=== PATIENT | male | born 1940 | race Caucasian/White ===

== ENCOUNTER 2016-11-12 06:22 | Day surgery (SDC) | payer MEDICARE ==
[2016-11-10 12:03] VITALS: BMI 33.3
[2016-11-12] MEDS ORDERED: SODIUM CHLORIDE 0.9% 1,000 ML IV SCH ×2 (06:29→08:00)
[2016-11-12] MEDS ORDERED: LACTATED RINGERS 1,000 ML IV SCH (06:29)
[2016-11-12 06:51] VITALS: TEMP 97.9
[2016-11-12 07:05] LABS: Glucose,Whole Blood 149 mg/dL (75-99)
[2016-11-12 07:14] LABS: INR 3.9 (<1.1); Prothrombin Time 38.3 sec (9.0-12.0)
[2016-11-12] MEDS ORDERED: SODIUM CHLORIDE 0.9% 500 ML IV ONE ×2 (07:20)
[2016-11-12] MEDS ORDERED: PROPOFOL 10 MG/ML 20 ML VIAL IV ONE (07:32)
[2016-11-12] MEDS ORDERED: LIDOCAINE 1% INJ 10MG/ML (20 ML MDV) ONE (07:32)
[2016-11-12 07:57] VITALS: RESP 16
[2016-11-12 08:02] VITALS: PULSE 50
--- NOTE | 2016-11-12 08:21 | ECHOT ---
DATE OF SERVICE: INDICATION: Chronic atrial fibrillation. PROCEDURE NOTE: After obtaining informed consent, transesophageal echocardiogram was performed in the left lateral position using an Omniplane probe. Local and IV sedation were obtained by the sas clinical programmer. The patient tolerated the procedure well without any obvious immediate complications. FINDINGS: 1. There is no intracardiac thrombus within the left atrium, right atrium, right ventricle or left ventricle. Left atrial appendage is not visualized. 2. Left ventricle appears enlarged shows diffuse global hypokinesis with severe LV dysfunction with an ejection fraction of 30% to 35%. 3. Mitral valve: There is history of mitral valve repair. There is moderate eccentric mitral regurgitation noted. 4. Tricuspid valve shows mild tricuspid regurgitation. 5. Aortic valve is free of stenosis and regurgitation. There is no evidence of [id number] shunt by color flow Doppler or [id number] shunt by agitated saline contrast study. 6. Mild to moderate atherosclerotic changes are noted. CONCLUSION: 1. Moderate to severe left ventricular systolic dysfunction. 2. Moderate eccentric jet of mitral regurgitation. 3. No evidence of intracardiac thrombus.
--- NOTE | 2016-11-12 08:24 | CE ---
DATE OF SERVICE: CARDIOVERSION After obtaining informed consent in a patient who is adequately anticoagulated with an INR of 3.9, we attempted electrical cardioversion with 300 joules of DC current. Patient was anesthetized by the kitchen helper. The patient transiently converted to sinus rhythm following a shock, but went back into what appears like a slow junctional rhythm that is regular. The patient is already on amiodarone. We have cardioverted him in the past and he also underwent Maze during surgery. Patient's symptomatology may not be related to atrial fibrillation and may be more related to the underlying cardiomyopathy and mitral regurgitation. Will continue to treat him on the current medical therapy.
[2016-11-12 10:07] VITALS: BP 140/70
== END 2016-11-12 09:45 | disposition home or self-care (01) ==
LOC: CATHCVL 06:22
PROVIDERS: ATTEND Internal Medicine Cardiovascular Disease
DX: I48.2 Chronic atrial fibrillation (principal); I08.1 Rheumatic disorders of both mitral and tricuspid valves; I25.10 Atherosclerotic heart disease of native coronary artery without angina pectoris; I44.7 Left bundle-branch block, unspecified; R94.31 Abnormal electrocardiogram [ECG] [EKG]; R06.02 Shortness of breath; I12.9 Hypertensive chronic kidney disease with stage 1 through stage 4 chronic kidney disease, or unspecified chronic kidney disease; N18.9 Chronic kidney disease, unspecified; E78.2 Mixed hyperlipidemia; E11.9 Type 2 diabetes mellitus without complications; K21.9 Gastro-esophageal reflux disease without esophagitis; M19.90 Unspecified osteoarthritis, unspecified site; Z95.1 Presence of aortocoronary bypass graft; Z79.01 Long term (current) use of anticoagulants; Z79.82 Long term (current) use of aspirin; Z79.4 Long term (current) use of insulin; Z79.899 Other long term (current) drug therapy; Z88.5 Allergy status to narcotic agent
CPT/HCPCS: 93312; 93320; 93005; 93325; 92960; 85610; J2001; J2704; 99152

== ENCOUNTER → 2017-03-11 | Outpatient (CLI) | payer MEDICARE | END | disposition home or self-care (01) | LOC: LABWHC1 11:40 | PROVIDERS: ATTEND Internal Medicine Cardiovascular Disease | DX: I48.2 Chronic atrial fibrillation (principal) | CPT/HCPCS: 36415; 84443; 84450; 84460 ==

== ENCOUNTER 2017-05-03 01:17 | Inpatient (IN) | payer MEDICARE ==
--- NOTE | 2017-05-03 01:55 | ED ---
General Adult HPI - General Chief complaint: Shortness of Breath Stated complaint: SOB Time Seen by Provider: 05/03/17 01:25 Source: patient, EMS, RN notes reviewed Mode of arrival: EMS Limitations: no limitations - History of Present Illness Initial comments: Patient is a pleasant 76-year-old male presenting to the emergency department as a transfer from [facility]. Patient was transferred for cardiology evaluation. Patient does have history of atrial fibrillation. Patient does admit to having exertional dyspnea over the past week. Symptoms are persistent with exertion as well as somewhat with lying flat. Patient does admit to having some mild leg edema which she has had previously. Patient has known heart valve problems. While at [facility] patient did have heart rate in the 30s and 40s. Hemoglobin was 7.6 and troponin was negative. Last hemoglobin was over a year ago. They were unable to do Hemoccult testing. Patient denies dark stools. - Related Data Home Medications Medication Instructions Recorded Confirmed Aspirin 81 mg PO DAILY 09/04/14 11/10/16 Ergocalciferol [Vitamin D2] 1.25 mg PO Q14D 11/10/16 11/12/16 Insulin Glargine [Lantus] 24 unit SQ HS 11/10/16 11/12/16 Potassium Chloride [K-Tab ER] 10 meq PO BID 11/10/16 11/10/16 Warfarin Sodium [Coumadin] 5 mg PO WESA 11/10/16 11/12/16 Warfarin Sodium [Coumadin] 7.5 mg PO SUMOTUTHFR 11/10/16 11/12/16 Previous Rx's Medication Instructions Recorded Atorvastatin [Lipitor] 40 mg PO DAILY #30 tab 04/20/16 Furosemide [Lasix] 40 mg PO DAILY #30 tab 04/20/16 Losartan [Cozaar] 25 mg PO DAILY #30 tab 04/20/16 Allergies Allergy/AdvReac Type Severity Reaction Status Date / Time codeine Allergy Rash/Hives Verified 11/10/16 11:39 Review of Systems ROS Statement: Those systems with pertinent positive or pertinent negative responses have been documented in the HPI. ROS Other: All systems not noted in ROS Statement are negative. Constitutional: Denies: fever Eyes: Denies: eye pain ENT: Denies: ear pain Respiratory: Reports: dyspnea. Denies: cough Cardiovascular: Denies: chest pain Endocrine: Denies: fatigue Gastrointestinal: Denies: abdominal pain Genitourinary: Denies: urgency Musculoskeletal: Denies: back pain Skin: Denies: rash Neurological: Denies: weakness Past Medical History Past Medical History: Atrial Fibrillation, Diabetes Mellitus, Hearing Disorder / Deafness, Hyperlipidemia, Hypertension, Osteoarthritis (OA), Vascular Disorder Additional Past Medical History / Comment(s): Hx Viral Myocarditis & Pericarditis 1979. Mitral regurgitation, varicose veins, History of Any Multi-Drug Resistant Organisms: None Reported Past Surgical History: Cardiac Valve Replacement, Heart Catheterization, Orthopedic Surgery Additional Past Surgical History / Comment(s): vein stripping of left leg, carpel tunnel right hand, YAS, cataract safia. eyes with implants, periocardiocentesis -1979, aortic valve repair-March Past Anesthesia/Blood Transfusion Reactions: No Reported Reaction Past Psychological History: No Psychological Hx Reported Smoking Status: Former smoker Past Alcohol Use History: None Reported Past Drug Use History: None Reported - Past Family History Mother Additional Family Medical History / Comment(s): @ age 98 with heart problems Father Additional Family Medical History / Comment(s): hx emphysema Sister(s) Family Medical History: Cancer General Exam Limitations: no limitations General appearance: alert, in no apparent distress Head exam: Present: atraumatic Eye exam: Present: normal appearance, PERRL ENT exam: Present: normal oropharynx Neck exam: Present: normal inspection Respiratory exam: Present: normal lung sounds bilaterally Cardiovascular Exam: Present: bradycardia, irregular rhythm GI/Abdominal exam: Present: soft. Absent: tenderness Rectal exam: Present: black stool Extremities exam: Present: pedal edema (+1 bilateral). Absent: calf tenderness Back exam: Present: normal inspection Neurological exam: Present: alert Psychiatric exam: Present: normal affect, normal mood Skin exam: Present: normal color Course Vital Signs 05/03/17 01:20 Temperature 97.6 F Pulse Rate 54 L Respiratory 20 Rate Blood Pressure 168/76 O2 Sat by Pulse 97 Oximetry EKG Findings - EKG Comments: EKG Findings:: A. fib with slow ventricular response, 54. QRS 144. QT 450. QTC 434. Left axis. Nonspecific intraventricular block. Nonspecific T waves. Medical Decision Making - Medical Decision Making Patient has hemoglobin of 7.5 with Hemoccult-positive and symptomatic. Patient will be transfused 1 unit of blood. Case discussed with Dr. Nerusu, who will admit for hospital call. Patient was updated. Cardiology reconsult of bradycardia and cardiac history. - Lab Data Result diagrams: 05/03/17 02:00 05/03/17 02:00 Lab Results 05/03/17 05/03/17 05/03/17 Range/Units 02:00 02:00 02:00 WBC 5.9 (3.8-10.6) k/uL RBC 2.79 L (4.30-5.90) m/uL Hgb 7.5 L (13.0-17.5) gm/dL Hct 24.9 L (39.0-53.0) % MCV 89.2 (80.0-100.0) fL MCH 27.1 (25.0-35.0) pg MCHC 30.4 L (31.0-37.0) g/dL RDW 17.5 H (11.5-15.5) % Plt Count 227 (150-450) k/uL Neutrophils % 71 % Lymphocytes % 18 % Monocytes % 4 % Eosinophils % 3 % Basophils % 1 % Neutrophils # 4.2 (1.3-7.7) k/uL Lymphocytes # 1.1 (1.0-4.8) k/uL Monocytes # 0.3 (0-1.0) k/uL Eosinophils # 0.2 (0-0.7) k/uL Basophils # 0.1 (0-0.2) k/uL Hypochromasia Marked Poikilocytosis Moderate Anisocytosis Slight PT (9.0-12.0) sec INR (<1.2) APTT (22.0-30.0) sec Sodium 139 (137-145) mmol/L Potassium 3.9 (3.5-5.1) mmol/L Chloride 106 (98-107) mmol/L Carbon Dioxide 22 (22-30) mmol/L Anion Gap 11 mmol/L BUN 40 H (9-20) mg/dL Creatinine 1.70 H (0.66-1.25) mg/dL Est GFR (MDRD) Af Amer 48 (>60 ml/min/1.73 sqM) Est GFR (MDRD) Non-Af 40 (>60 ml/min/1.73 sqM) Glucose 108 H (74-99) mg/dL Calcium 9.1 (8.4-10.2) mg/dL Total Bilirubin 0.5 (0.2-1.3) mg/dL AST 36 (17-59) U/L ALT 46 (21-72) U/L Alkaline Phosphatase 75 (38-126) U/L Total Creatine Kinase 70 (55-170) U/L CK-MB (CK-2) 1.2 (0.0-2.4) ng/mL CK-MB (CK-2) Rel Index 1.7 Troponin I 0.027 (0.000-0.034) ng/mL NT-Pro-B Natriuret Pep pg/mL Total Protein 6.4 (6.3-8.2) g/dL Albumin 3.5 (3.5-5.0) g/dL Stool Occult Blood (Negative) 05/03/17 05/03/17 05/03/17 Range/Units 02:00 02:00 02:00 WBC (3.8-10.6) k/uL RBC (4.30-5.90) m/uL Hgb (13.0-17.5) gm/dL Hct (39.0-53.0) % MCV (80.0-100.0) fL MCH (25.0-35.0) pg MCHC (31.0-37.0) g/dL RDW (11.5-15.5) % Plt Count (150-450) k/uL Neutrophils % % Lymphocytes % % Monocytes % % Eosinophils % % Basophils % % Neutrophils # (1.3-7.7) k/uL Lymphocytes # (1.0-4.8) k/uL Monocytes # (0-1.0) k/uL Eosinophils # (0-0.7) k/uL Basophils # (0-0.2) k/uL Hypochromasia Poikilocytosis Anisocytosis PT 32.3 H (9.0-12.0) sec INR 3.3 H (<1.2) APTT 26.6 (22.0-30.0) sec Sodium (137-145) mmol/L Potassium (3.5-5.1) mmol/L Chloride (98-107) mmol/L Carbon Dioxide (22-30) mmol/L Anion Gap mmol/L BUN (9-20) mg/dL Creatinine (0.66-1.25) mg/dL Est GFR (MDRD) Af Amer (>60 ml/min/1.73 sqM) Est GFR (MDRD) Non-Af (>60 ml/min/1.73 sqM) Glucose (74-99) mg/dL Calcium (8.4-10.2) mg/dL Total Bilirubin (0.2-1.3) mg/dL AST (17-59) U/L ALT (21-72) U/L Alkaline Phosphatase (38-126) U/L Total Creatine Kinase (55-170) U/L CK-MB (CK-2) (0.0-2.4) ng/mL CK-MB (CK-2) Rel Index Troponin I (0.000-0.034) ng/mL NT-Pro-B Natriuret Pep 1300 pg/mL Total Protein (6.3-8.2) g/dL Albumin (3.5-5.0) g/dL Stool Occult Blood Positive (Negative) - Radiology Data Radiology results: image reviewed Critical Care Time Critical Care Time: Yes Total Critical Care Time: 32 Disposition Clinical Impression: Dyspnea, Bradycardia, GI hemorrhage Disposition: ADMITTED IP TO THIS [facility] Decision Time: 02:26
[2017-05-03 02:14] LABS: Anisocytosis Slight; Basophils # (A) 0.1 k/uL (0-0.2); Basophils % (A) 1 %; CH 27.8; CHCM 31.3; Eosinophils # (A) 0.2 k/uL (0-0.7); Eosinophils % (A) 3 %; HCT 24.9 % (39.0-53.0); HDW 4.18; HGB 7.5 gm/dL (13.0-17.5); Hypochromasia Marked; Luc # (Auto) 0.17; Luc % (Auto) 3; Lymphocytes # (A) 1.1 k/uL (1.0-4.8); Lymphocytes % (A) 18 %; MCH 27.1 pg (25.0-35.0); MCHC 30.4 g/dL (31.0-37.0); MCV 89.2 fL (80.0-100.0); Mean Platelet Volume 8.2; Monocytes # (A) 0.3 k/uL (0-1.0); Monocytes % (A) 4 %; Neutrophils # (A) 4.2 k/uL (1.3-7.7); Neutrophils % (A) 71 %; Poikilocytosis Moderate; RBC 2.79 m/uL (4.30-5.90); RDW 17.5 % (11.5-15.5); WBC 5.9 k/uL (3.8-10.6); WBC (Perox) 5.98
[2017-05-03 02:24] LABS: Calcium 9.1 mg/dL (8.4-10.2); Total Bilirubin 0.5 mg/dL (0.2-1.3); Total Protein 6.4 g/dL (6.3-8.2)
[2017-05-03 02:26] LABS: INR 3.3 (<1.2); Partial Thromboplastin Time 26.6 sec (22.0-30.0); Potassium 3.9 mmol/L (3.5-5.1); Prothrombin Time 32.3 sec (9.0-12.0)
[2017-05-03] MEDS ORDERED: NALOXONE 0.4 MG/ML 1 ML VIAL IV PRN (02:26)
[2017-05-03 02:50] LABS: Creatine Kinase MB 1.2 ng/mL (0.0-2.4); Troponin I 0.027 ng/mL (0.000-0.034)
--- NOTE | 2017-05-03 03:15 | XR ---
EXAM: XR Chest, 2 Views CLINICAL HISTORY: Reason: difficulty breathing TECHNIQUE: Frontal and lateral views of the chest. COMPARISON: 05/02/2017 FINDINGS: Lungs: Bilateral perihilar infiltrates are noted, more conspicuous on this study than the prior, likely representing mild CHF. Pleural space: Trace bilateral pleural effusions are likely present, similar to prior study. No pneumothorax. Heart: The heart is again noted to be enlarged. Sternal wires with long cardiac Lugo is again redemonstrated Mediastinum: Unchanged.. Bones/joints: See above. Osseous structures are intact. IMPRESSION: Cardiomegaly with evidence of worsening mild CHF. Probable trace bilateral pleural effusions, similar to prior study.
[2017-05-03] MEDS: SODIUM CHLORIDE 0.9% 1,000 ML IV SCH (03:24)
[2017-05-03 07:55] LABS: Anisocytosis Slight; Basophils % (A) 1 %; CH 27.4; CHCM 30.7; Eosinophils # (A) 0.2 k/uL (0-0.7); Eosinophils % (A) 3 %; HCT 26.7 % (39.0-53.0); HDW 4.13; HGB 8.2 gm/dL (13.0-17.5); Hypochromasia Marked; Luc # (Auto) 0.14; Luc % (Auto) 2; Lymphocytes # (A) 0.7 k/uL (1.0-4.8); Lymphocytes % (A) 12 %; MCH 27.6 pg (25.0-35.0); MCHC 30.7 g/dL (31.0-37.0); MCV 89.9 fL (80.0-100.0); Monocytes # (A) 0.3 k/uL (0-1.0); Monocytes % (A) 4 %; Neutrophils # (A) 4.7 k/uL (1.3-7.7); Neutrophils % (A) 78 %; Poikilocytosis Moderate; RBC 2.97 m/uL (4.30-5.90); RDW 17.7 % (11.5-15.5); WBC 6.1 k/uL (3.8-10.6); WBC (Perox) 6.69
[2017-05-03] MEDS: PANTOPRAZOLE 40 MG/10 ML VIAL IV SCH (08:07)
[2017-05-03 08:25] LABS: Creatine Kinase MB 1.1 ng/mL (0.0-2.4); Troponin I 0.032 ng/mL (0.000-0.034)
[2017-05-03] MEDS: ATORVASTATIN 40 MG TAB PO SCH (09:48)
--- NOTE | 2017-05-03 11:21 | P.CONS ---
History of Present Illness - Reason for Consult Consult date: 05/03/17 GI bleed Requesting physician: Billy Rudolph - History of Present Illness 76-year-old gentleman transferred from [facility] with a history of atrial fibrillation maintained on warfarin aspirin, cardiomyopathy, severe mitral regurgitation status post mitral valve repair, maze procedure March 2016, and diabetes presents with shortness of breath, black colored bowel movements, weakness, bradycardia and low hemoglobin. Admission hemoglobin 7.5 previous hemoglobin March 2016 14-15 range. MCV 89. Platelet 227. Hemoccult stool positive. INR 3.3. BUN 40. Creatinine 1.7. Heart rate 48-58. Denies abdominal pain weight loss fever or chills. Denies hematemesis hematochezia. Patient was vacationing a few weeks ago and noticed dark-colored bowel movements after eating black licorice. No history of GI bleed. Last colonoscopy to his memory 3 years ago was normal he is scheduled for repeat colonoscopy at the end at this month at another facility. Received 1 unit of blood current hemoglobin 8.2. Review of Systems Constitutional: Denies fever, chills, sweats, weight gain, or loss. HEENT: Negative for migraines, blurred vision or loss, earaches, drainage, tinnitus, oral mucosal lesions, dysphagia, or odynophagia. Cardiac: Atrial fibrillation. Cardiomyopathy. Mitral regurgitation. Negative for chest pain, arrhythmias, or palpitation. Respiratory: Negative for shortness of breath, hemoptysis, cough, or sputum production. Gastrointestinal: See HPI for pertinent findings. Genitourinary: Negative for hematuria, urgency, frequency, polyuria, dysuria, or penile discharge. Musculoskeletal: Negative for muscle aches, swelling, arthritis, and arthralgias. Neurologic: Negative for stroke or TIA. Endocrine: Diabetes. Negative for thyroid problems. Skin: Negative for rash or itching. Psychiatric: Negative history for depression and anxiety All systems: negative (See HPI) Past Medical History Past Medical History: Atrial Fibrillation, Heart Failure, COPD, Diabetes Mellitus, Hearing Disorder / Deafness, Hyperlipidemia, Hypertension, Osteoarthritis (OA), Vascular Disorder Additional Past Medical History / Comment(s): Viral Myocarditis & Pericarditis 1979, IDDM type II, neuropathy bilateral feet, R thigh varicose veins, venous insufficiency, [place] bilaterally. History of Any Multi-Drug Resistant Organisms: None Reported Past Surgical History: Cardiac Valve Replacement, Heart Catheterization, Orthopedic Surgery Additional Past Surgical History / Comment(s): vein stripping of left leg, carpel tunnel right hand, YAS, cataract safia. eyes with implants, periocardiocentesis -1979, aortic valve repair-March, colonoscopy. Past Anesthesia/Blood Transfusion Reactions: No Reported Reaction Additional Past Anesthesia/Blood Transfusion Reaction / Comm: Pt received blood this admit without reaction. Smoking Status: Former smoker - Past Family History Mother Additional Family Medical History / Comment(s): Mother at the age of 98yrs from heart problems. Father Family Medical History: COPD Additional Family Medical History / Comment(s): hx emphysema Sister(s) Family Medical History: Cancer Medications and Allergies Home Medications Medication Instructions Recorded Confirmed Type Aspirin 81 mg PO DAILY 09/04/14 05/03/17 History Ergocalciferol [Vitamin D2] 1.25 mg PO Q14D 11/10/16 05/03/17 History Insulin Glargine [Lantus] 26 unit SQ HS 11/10/16 05/03/17 History Potassium Chloride [K-Tab ER] 10 meq PO BID 11/10/16 05/03/17 History Warfarin Sodium [Coumadin] 5 mg PO SUMOTUTHFR 11/10/16 05/03/17 History Warfarin Sodium [Coumadin] 7.5 mg PO WESA 11/10/16 05/03/17 History Amiodarone HCl [Pacerone] 200 mg PO BID 05/03/17 05/03/17 History Colace 250mg 250 mg PO DAILY PRN 05/03/17 05/03/17 History Cyanocobalamin (Vitamin B-12) 1,000 mcg PO DAILY 05/03/17 05/03/17 History [Vitamin B-12] Furosemide [Lasix] 40 mg PO BID 05/03/17 05/03/17 History Glimepiride [Amaryl] 2 mg PO DAILY 05/03/17 05/03/17 History Allergies Allergy/AdvReac Type Severity Reaction Status Date / Time codeine Allergy Rash/Hives Verified 05/03/17 07:32 Physical Exam Vitals: Vital Signs Temp Pulse Pulse Pulse Resp BP BP 05/03/17 08:00 97.8 F 53 L 53 L 16 157/72 05/03/17 07:10 97.6 F 48 L 18 117/73 05/03/17 06:59 97.5 F L 52 L 18 110/56 05/03/17 06:00 98.0 F 52 L 20 112/65 05/03/17 05:02 97.8 F 58 L 18 125/62 05/03/17 04:32 98.3 F 50 L 18 122/58 05/03/17 04:02 97.5 F L 52 L 18 126/60 05/03/17 03:57 97.7 F 51 L 18 129/68 05/03/17 03:50 97.6 F 48 L 16 140/65 05/03/17 01:20 97.6 F 54 L 20 168/76 Pulse Ox 05/03/17 08:00 99 05/03/17 07:10 96 05/03/17 06:59 98 05/03/17 06:00 98 05/03/17 05:02 100 05/03/17 04:32 05/03/17 04:02 100 05/03/17 03:57 100 05/03/17 03:50 100 05/03/17 01:20 97 Intake and Output 05/02/17 05/03/17 05/03/17 22:59 06:59 14:59 Intake Total 0 1070 Balance 0 1070 Intake: IV 10 Invasive Line 1 10 Oral 750 Blood Product 0 310 Rc As-1 Unit 0 310 [id number] Other: Weight 117.934 kg General appearance: The patient is alert, oriented, in no acute distress. HET: Head is normocephalic and atraumatic. Pupils are equal and reactive. Oropharynx is clear without lesions. Neck: Supple without lymphadenopathy. Trachea midline. Heart: S1 S2. Regular rate and rhythm. Lungs: No crackles or wheezes are heard. Abdomen: Soft, nontender, nondistended with bowel sounds. No peritoneal signs. No palpable organomegaly or masses. Extremities: Normal skin color and turgor. No cyanosis, rash, ulceration, clubbing, or edema. Radial and pedal pulses are 2/4 bilaterally. Neurological: No focal deficits. Strength and sensation are grossly intact. Results CBC & Chem 7: 05/04/17 05:31 05/04/17 05:31 Labs: Abnormal Lab Results - Last 24 Hours (Table) 0805/03/17 05/03/17 Range/Units 02:00 02:00 02:00 RBC 2.79 L (4.30-5.90) m/uL Hgb 7.5 L (13.0-17.5) gm/dL Hct 24.9 L (39.0-53.0) % MCHC 30.4 L (31.0-37.0) g/dL RDW 17.5 H (11.5-15.5) % Lymphocytes # (1.0-4.8) k/uL PT 32.3 H (9.0-12.0) sec INR 3.3 H (<1.2) BUN 40 H (9-20) mg/dL Creatinine 1.70 H (0.66-1.25) mg/dL Glucose 108 H (74-99) mg/dL Crossmatch 05/03/17 05/03/17 Range/Units 02:00 07:40 RBC 2.97 L (4.30-5.90) m/uL Hgb 8.2 L (13.0-17.5) gm/dL Hct 26.7 L (39.0-53.0) % MCHC 30.7 L (31.0-37.0) g/dL RDW 17.7 H (11.5-15.5) % Lymphocytes # 0.7 L (1.0-4.8) k/uL PT (9.0-12.0) sec INR (<1.2) BUN (9-20) mg/dL Creatinine (0.66-1.25) mg/dL Glucose (74-99) mg/dL Crossmatch See Detail Assessment and Plan (1) Symptomatic anemia Status: Acute (2) Acute blood loss anemia Status: Acute (3) GI bleed Status: Acute (4) History of atrial fibrillation Status: Acute (5) Warfarin-induced coagulopathy Status: Acute (6) Status post mitral valve repair Status: Acute (7) Bradycardia Status: Acute Plan: 1. Recommend EGD colonoscopy evaluation possibly as early as once INR closer to 1.5 or less and cardiology evaluation is completed. 2. Hold Coumadin. 3. CBC monitoring. Protonix 40 mg daily. Will allow full liquid diet. The sales special agent has discussed the risks, benefits and alternative therapies for the above-mentioned procedure and for both sedation/analgesia as well as necessary blood product administration, if indicated, as they pertain to this patient. The patient has indicated understanding and acceptance of the risks and procedures discussed. Thank you for this kind referral and the opportunity to participate in the care of your patient. This consultation was discussed with Dr. Jc. The impression and plan of care have been directed as dictated.
[2017-05-03] MEDS ORDERED: PHYTONADIONE ORAL 5 MG/5 ML ORAL.SYRG PO STA (13:29)
[2017-05-03 13:31] LABS: Hemoglobin A1C 6.1 % (4.2-6.1)
[2017-05-03 13:52] LABS: Glucose,Whole Blood 195 mg/dL (75-99)
[2017-05-03] MEDS: INSULIN LISPRO (humaLOG) 300 UNIT/3 ML VIAL SQ SCH ×3 (13:58→21:50)
--- NOTE | 2017-05-03 14:22 | P.CRDCN ---
History of Present Illness Consult date: 05/03/17 Chief complaint: Dizziness and lightheadedness History of present illness: This is a pleasant 76-year-old gentleman who sees Dr. Thrasher as an outpatient with a past medical history significant for mitral valve disease and status post mitral valve repair a year ago, chronic atrial fibrillation, hypertension, resented to the hospital because he was feeling dizzy and lightheaded over the last 4 weeks. He states that the symptoms have gotten worse over the last few days. He did not have any syncope. No chest pain or discomfort. He states beside that he was experiencing exertional dyspnea and mild bilateral lower extremities edema. When the patient presented to the hospital he was found to be in A. fib with a slow ventricular response and heart rate in the 30s and 40s. He was receiving amiodarone which was held. He was not on any beta porsha or calcium channel porsha. Beside that the patient was found to be in mild congestive heart failure exacerbation and he was started on Lasix IV. Also the patient was found to be anemic with a hemoglobin around 7. He already was seen by the GI service and the plan is to proceed with upper and lower endoscopy over the next few days. Apparently he was found to have positive for blood in the stool.. Past Medical History Past Medical History: Atrial Fibrillation, Heart Failure, COPD, Diabetes Mellitus, Hearing Disorder / Deafness, Hyperlipidemia, Hypertension, Osteoarthritis (OA), Vascular Disorder Additional Past Medical History / Comment(s): Viral Myocarditis & Pericarditis 1979, IDDM type II, neuropathy bilateral feet, R thigh varicose veins, venous insufficiency, HYDABURG bilaterally. History of Any Multi-Drug Resistant Organisms: None Reported Past Surgical History: Cardiac Valve Replacement, Heart Catheterization, Orthopedic Surgery Additional Past Surgical History / Comment(s): vein stripping of left leg, carpel tunnel right hand, YAS, cataract safia. eyes with implants, periocardiocentesis -1979, aortic valve repair-March, colonoscopy. Past Anesthesia/Blood Transfusion Reactions: No Reported Reaction Additional Past Anesthesia/Blood Transfusion Reaction / Comment(s): Pt received blood this admit without reaction. Smoking Status: Former smoker - Past Family History Mother Additional Family Medical History / Comment(s): Mother at the age of 98yrs from heart problems. Father Family Medical History: COPD Additional Family Medical History / Comment(s): hx emphysema Sister(s) Family Medical History: Cancer Medications and Allergies Home Medications Medication Instructions Recorded Confirmed Type Aspirin 81 mg PO DAILY 09/04/14 05/03/17 History Ergocalciferol [Vitamin D2] 1.25 mg PO Q14D 11/10/16 05/03/17 History Insulin Glargine [Lantus] 26 unit SQ HS 11/10/16 05/03/17 History Potassium Chloride [K-Tab ER] 10 meq PO BID 11/10/16 05/03/17 History Warfarin Sodium [Coumadin] 5 mg PO SUMOTUTHFR 11/10/16 05/03/17 History Warfarin Sodium [Coumadin] 7.5 mg PO WESA 11/10/16 05/03/17 History Amiodarone HCl [Pacerone] 200 mg PO BID 05/03/17 05/03/17 History Colace 250mg 250 mg PO DAILY PRN 05/03/17 05/03/17 History Cyanocobalamin (Vitamin B-12) 1,000 mcg PO DAILY 05/03/17 05/03/17 History [Vitamin B-12] Furosemide [Lasix] 40 mg PO BID 05/03/17 05/03/17 History Glimepiride [Amaryl] 2 mg PO DAILY 05/03/17 05/03/17 History Allergies Allergy/AdvReac Type Severity Reaction Status Date / Time codeine Allergy Rash/Hives Verified 05/03/17 07:32 Physical Exam Vitals: Vital Signs Temp Pulse Pulse Pulse Resp BP BP 05/03/17 14:08 51 L 18 128/60 05/03/17 13:30 46 L 18 128/60 05/03/17 11:00 45 L 17 116/79 05/03/17 08:00 97.8 F 53 L 53 L 16 157/72 05/03/17 07:10 97.6 F 48 L 18 117/73 05/03/17 06:59 97.5 F L 52 L 18 110/56 05/03/17 06:00 98.0 F 52 L 20 112/65 05/03/17 05:02 97.8 F 58 L 18 125/62 05/03/17 04:32 98.3 F 50 L 18 122/58 05/03/17 04:02 97.5 F L 52 L 18 126/60 05/03/17 03:57 97.7 F 51 L 18 129/68 05/03/17 03:50 97.6 F 48 L 16 140/65 05/03/17 01:20 97.6 F 54 L 20 168/76 Pulse Ox 05/03/17 14:08 98 05/03/17 13:30 97 05/03/17 11:00 97 05/03/17 08:00 99 05/03/17 07:10 96 05/03/17 06:59 98 05/03/17 06:00 98 05/03/17 05:02 100 05/03/17 04:32 05/03/17 04:02 100 05/03/17 03:57 100 05/03/17 03:50 100 05/03/17 01:20 97 Intake and Output 05/02/17 05/03/17 05/03/17 22:59 06:59 14:59 Intake Total 0 1070 Balance 0 1070 Intake: IV 10 Invasive Line 1 10 Oral 750 Blood Product 0 310 Rc As-1 Unit 0 310 [id number] Other: Weight 117.934 kg - Constitutional General appearance: no acute distress - Respiratory Respiratory: bilateral: diminished - Cardiovascular Rhythm: irregularly irregular Heart sounds: normal: S1, S2 Abnormal Heart Sounds: systolic murmur Results 05/03/17 07:40 05/03/17 02:00 Cardiac Enzymes 05/03/17 05/03/17 05/03/17 Range/Units 02:00 02:00 07:40 AST 36 (17-59) U/L CK-MB (CK-2) 1.2 1.1 (0.0-2.4) ng/mL Troponin I 0.027 0.032 (0.000-0.034) ng/mL Coagulation 05/03/17 Range/Units 02:00 PT 32.3 H (9.0-12.0) sec APTT 26.6 (22.0-30.0) sec CBC 05/03/17 05/03/17 Range/Units 02:00 07:40 WBC 5.9 6.1 (3.8-10.6) k/uL RBC 2.79 L 2.97 L (4.30-5.90) m/uL Hgb 7.5 L 8.2 L (13.0-17.5) gm/dL Hct 24.9 L 26.7 L (39.0-53.0) % Plt Count 227 212 (150-450) k/uL Comprehensive Metabolic Panel 05/03/17 Range/Units 02:00 Sodium 139 (137-145) mmol/L Potassium 3.9 (3.5-5.1) mmol/L Chloride 106 (98-107) mmol/L Carbon Dioxide 22 (22-30) mmol/L BUN 40 H (9-20) mg/dL Creatinine 1.70 H (0.66-1.25) mg/dL Glucose 108 H (74-99) mg/dL Calcium 9.1 (8.4-10.2) mg/dL AST 36 (17-59) U/L ALT 46 (21-72) U/L Alkaline Phosphatase 75 (38-126) U/L Total Protein 6.4 (6.3-8.2) g/dL Albumin 3.5 (3.5-5.0) g/dL Current Medications Generic Name Dose Route Start Last Admin Trade Name Freq PRN Reason Stop Dose Admin Atorvastatin Calcium 40 mg 05/03/17 09:00 05/03/17 09:48 Lipitor PO 40 mg DAILY RADHA Administration Cyanocobalamin 1,000 mcg 05/04/17 12:00 Vitamin B-12 PO 1200 [facility] Ergocalciferol 50,000 unit 05/10/17 12:00 Vitamin D2 PO Q14D RADHA Furosemide 40 mg 05/03/17 13:30 Lasix IV Q12HR RADHA Glimepiride 2 mg 05/04/17 07:30 Amaryl PO AC-BRKFST RADHA Sodium Chloride 1,000 mls @ 20 mls/hr 05/03/17 02:30 05/03/17 03:24 Saline 0.9% IV 20 mls/hr .Q24H RADHA Administration Insulin Glargine 26 unit 05/03/17 21:00 Lantus SQ HS RADHA Insulin Human Lispro 0 unit 05/03/17 12:30 05/03/17 13:58 Humalog SQ 2 unit ACHS RADHA Administration Protocol Losartan Potassium 25 mg 05/04/17 09:00 Cozaar PO DAILY RADHA Naloxone HCl 0.2 mg 05/03/17 02:26 Narcan IV Q2M PRN Opioid Reversal Pantoprazole Sodium 40 mg 05/03/17 09:00 05/03/17 08:07 Protonix IV 40 mg DAILY RADHA Administration Potassium Chloride 10 meq 05/03/17 21:00 K-Dur 10 PO BID RADHA Intake and Output 05/02/17 05/03/17 05/03/17 22:59 06:59 14:59 Intake Total 0 1070 Balance 0 1070 Intake: IV 10 Invasive Line 1 10 Oral 750 Blood Product 0 310 Rc As-1 Unit 0 310 [id number] Other: Weight 117.934 kg 05/03/17 07:40 05/03/17 02:00 Assessment and Plan Plan: This is a pleasant 76-year-old gentleman was known to have chronic A. fib on anticoagulation, also status post mitral valve repair a year ago presented to the hospital was dizziness and lightheadedness and was found to be bradycardic. I agree about holding the amiodarone at this point. Avoid any AV shiela porsha agents. We'll continue monitor the heart rate over the next 48 hours and assess for heart rate improvement. Beside that I agree about keeping the patient on Lasix IV and continue monitor the kidney function and electrolytes. Also will obtain an echocardiogram was Doppler. Beside that the patient was seen by the GI service and the plan to proceed with upper and lower endoscopy. I will keep him off Coumadin at this point.
--- NOTE | 2017-05-03 14:48 | HP ---
DATE OF SERVICE: 05/03/2017 CHIEF COMPLAINTS: Shortness of breath and anemia. HISTORY OF PRESENT ILLNESS: This 76-year-old gentleman with past medical history of multiple medical problems including atrial fibrillation, CHF, chronic obstructive pulmonary disease, diabetes, hearing defects, and viral myocarditis, pericarditis, being followed by Dr. Faizan Valiente in the outpatient setting is complaining of shortness of breath. The patient was transferred from [facility]. The patient also had melanic stools also. The patient admitted for further evaluation and treatment. There is no history of fever, rigors. No history of headache, loss of consciousness or seizures. On admission the hemoglobin is found to be 7.5 and current 8.2. INR is 3.3. Gastroenterology is planning evaluations including EGD and colonoscopy once INR is close to 1.5. PAST MEDICAL HISTORY: History of atrial fibrillation, chronic obstructive pulmonary disease, history of iron deficiency, DJD, history of CHF. Medications prior to admission include home medications: 1. Vitamin D2 1.25 q.4 days. 2. Vitamin B12 1000 mcg. 3. Coumadin 7.5 mg Tuesday, Tuesday, Tuesday. 4. Amaryl 2 mg daily. 5. Pacerone 200 mg p.o b.i.d. 6. Colace 250 mg p.o b.i.d. 7. Coumadin 5 mg Tuesday, Tuesday, , Tuesday. 8. Lasix 40 mg p.o. b.i.d. 9. ( ) 10 mg p.o b.i.d. 10. Cozaar 25 mg p.o daily. 11. Lantus 26 units subcu q.h.s 12. Lipitor 40 mg daily. 13. Aspirin 81 mg p.o daily. ALLERGIES: CODEINE. FAMILY HISTORY: History of chronic obstructive pulmonary disease in the family. SOCIAL HISTORY: History of previous smoking. Occasional alcohol. REVIEW OF SYSTEMS: ENT: No diminished hearing or vision. CARDIOVASCULAR: As mentioned earlier. RESPIRATORY: As mentioned earlier. GI: As mentioned. : No dysuria. NERVOUS SYSTEM: No numbness or weakness. ALLERGY/IMMUNOLOGY: No asthma or hayfever. MUSCULOSKELETAL: As mentioned earlier. HEMATOLOGY/ONCOLOGY: As mentioned. ENDOCRINE: No history of diabetes or hypothyroidism. CONSTITUTIONAL: As mentioned earlier. DERMATOLOGY: Negative. RHEUMATOLOGY: Negative. PSYCHIATRY: As mentioned earlier. PHYSICAL EXAMINATION: The patient is alert and oriented x3. Pulse is 53, blood pressure 157/72, respirations 16, temperature 97.8, pulse ox 99% on 2-L. HEENT: Conjunctivae normal. Oral mucosa moist. NECK: No jugular venous distention. No carotid bruit. No lymph node enlargement. CARDIOVASCULAR: S1, S2. RESPIRATORY: Breath sounds diminished at the bases. A few scattered rhonchi. No crackles. ABDOMEN: Soft, nontender, no mass palpable. LEGS: No edema, no swelling. NERVOUS SYSTEM: Higher function as mentioned. Moves all four limbs. No focal motor sensory deficits. LYMPHATICS: No lymphadenopathy in the neck, axillae or groin. SKIN: No rash, ulcer or bleeding. LABS: WBC 6, hemoglobin 8.2. Creatinine 1.70. The chest x-ray showed evidence of CHF. ASSESSMENT: 1. Chronic heart failure acute exacerbation with acute on chronic systolic dysfunction. 2. Symptomatic anemia. 3. Rule gastrointestinal bleed. 4. Anemia, possibly acute blood loss anemia. 5. Coumadin monitoring. 6. Increased creatinine with chronic kidney disease. 7. History of atrial fibrillation. 8. History of chronic obstructive pulmonary disease. 9. History of diabetes mellitus. 10. Hypertension. 11. Hyperlipidemia. 12. History of viral myocarditis. RECOMMENDATIONS AND DISCUSSION: In this 76-year-old gentleman who presented with multiple complex medical issues, we well monitor the patient closely. Will hold the Coumadin and aspirin at this time. Otherwise continue the rest of the medications. Monitor closely. Gastroenterology evaluation. Possible endoscopies. Give IV Lasix. Will also consult Cardiology also. Discussed with patient. Vitamin K will be given. If hemoglobin continues to be low the patient will require transfusion. Prognosis guarded. Hold antiplatelet agents and anticoagulants. Discussed with the patient who understands. Further recommendations to follow. MTDD
[2017-05-03] MEDS: FUROSEMIDE 10 MG/ML 4 ML VIAL IV SCH ×2 (15:17→21:47)
[2017-05-03 15:51] LABS: Creatine Kinase MB 1.1 ng/mL (0.0-2.4); Troponin I 0.016 ng/mL (0.000-0.034)
[2017-05-03 16:50] LABS: Glucose,Whole Blood 138 mg/dL (75-99)
[2017-05-03] MEDS ORDERED: AMIODARONE 200 MG TAB PO SCH (21:00)
[2017-05-03 21:02] LABS: Glucose,Whole Blood 158 mg/dL (75-99)
[2017-05-03] MEDS: POTASSIUM CHLORIDE ER 10 MEQ TAB.ER.PRT PO SCH (21:47)
[2017-05-03] MEDS: INSULIN GLARGINE 100 UNIT/ML 10 ML VIAL SQ SCH (21:47)
[2017-05-04 06:07] LABS: Glucose,Whole Blood 138 mg/dL (75-99)
[2017-05-04 06:34] LABS: Anisocytosis Slight; Basophils % (A) 1 %; CH 26.7; CHCM 31.1; Eosinophils # (A) 0.2 k/uL (0-0.7); Eosinophils % (A) 4 %; HDW 4.48; HGB 7.8 gm/dL (13.0-17.5); Hypochromasia Marked; Luc # (Auto) 0.18; Luc % (Auto) 3; Lymphocytes # (A) 1.1 k/uL (1.0-4.8); Lymphocytes % (A) 18 %; MCH 26.9 pg (25.0-35.0); MCHC 31.1 g/dL (31.0-37.0); MCV 86.4 fL (80.0-100.0); Mean Platelet Volume 7.8; Monocytes # (A) 0.3 k/uL (0-1.0); Monocytes % (A) 5 %; Neutrophils % (A) 69 %; Poikilocytosis Moderate; RDW 17.2 % (11.5-15.5); WBC 5.7 k/uL (3.8-10.6)
[2017-05-04 06:38] LABS: Calcium 8.6 mg/dL (8.4-10.2); INR 2.1 (<1.2); Potassium 4.4 mmol/L (3.5-5.1); Prothrombin Time 20.7 sec (9.0-12.0)
[2017-05-04] MEDS: INSULIN LISPRO (humaLOG) 300 UNIT/3 ML VIAL SQ SCH ×4 (07:16→21:24)
[2017-05-04] MEDS: GLIMEPIRIDE 2 MG TAB PO SCH (07:16)
[2017-05-04] MEDS: SODIUM CHLORIDE 0.9% 1,000 ML IV SCH (07:18)
[2017-05-04] MEDS: LOSARTAN 25 MG TAB PO SCH (08:08)
[2017-05-04] MEDS: PANTOPRAZOLE 40 MG/10 ML VIAL IV SCH (08:08)
[2017-05-04] MEDS: FUROSEMIDE 10 MG/ML 4 ML VIAL IV SCH ×2 (08:08→20:41)
[2017-05-04] MEDS: POTASSIUM CHLORIDE ER 10 MEQ TAB.ER.PRT PO SCH ×2 (08:09→20:41)
[2017-05-04] MEDS: ATORVASTATIN 40 MG TAB PO SCH (08:09)
--- NOTE | 2017-05-04 09:43 | P.PN ---
Subjective Principal diagnosis: GI bleed anemia 76-year-old gentleman history of mitral valve repair admitted with symptomatic anemia bradycardia. No episodes of melena hematochezia hematemesis. Denies abdominal pain. Coumadin on hold. INR 2.1. Hemoglobin 7.8. Evaluated by cardiology clearance given to proceed with upper and lower endoscopy tomorrow. Objective - Vital Signs Vital signs: Vital Signs Temp 97.6 F 05/04/17 08:00 Pulse 56 L 05/04/17 08:00 Resp 16 05/04/17 08:00 BP 115/56 05/04/17 08:00 Pulse Ox 95 05/04/17 08:00 Intake & Output 05/03/17 05/04/17 05/04/17 18:59 06:59 18:59 Intake Total 1550 Output Total 1600 Balance 1550 -1600 Weight 112.1 kg Intake: IV 10 Invasive Line 1 10 Oral 1230 Blood Product 310 Rc As-1 Unit 310 [id number] Output: Urine 1600 Other: Voiding Method Urinal # Voids 1 - Exam General appearance: The patient is alert, oriented, in no acute distress. HET: Head is normocephalic and atraumatic. Pupils are equal and reactive. Oropharynx is clear without lesions. Neck: Supple without lymphadenopathy. Trachea midline. Heart: S1 S2. Lungs: No crackles or wheezes are heard. Abdomen: Soft, nontender, nondistended with bowel sounds. No peritoneal signs. No palpable organomegaly or masses. Extremities: Normal skin color and turgor. No cyanosis, rash, ulceration, clubbing, or edema. Radial and pedal pulses are 2/4 bilaterally. Neurological: No focal deficits. Strength and sensation are grossly intact. - Labs CBC & Chem 7: 05/04/17 05:31 05/04/17 05:31 Labs: Abnormal Lab Results - Last 24 Hours (Table) 05/03/17 05/03/17 05/03/17 Range/Units 13:49 16:49 21:00 RBC (4.30-5.90) m/uL Hgb (13.0-17.5) gm/dL Hct (39.0-53.0) % RDW (11.5-15.5) % PT (9.0-12.0) sec INR (<1.2) BUN (9-20) mg/dL Creatinine (0.66-1.25) mg/dL Glucose (74-99) mg/dL POC Glucose (mg/dL) 195 H 138 H 158 H (75-99) mg/dL 05/04/17 05/04/17 05/04/17 Range/Units 05:31 05:31 05:31 RBC 2.90 L (4.30-5.90) m/uL Hgb 7.8 L (13.0-17.5) gm/dL Hct 25.0 L (39.0-53.0) % RDW 17.2 H (11.5-15.5) % PT 20.7 H (9.0-12.0) sec INR 2.1 H (<1.2) BUN 30 H (9-20) mg/dL Creatinine 1.62 H (0.66-1.25) mg/dL Glucose 101 H (74-99) mg/dL POC Glucose (mg/dL) (75-99) mg/dL 05/04/17 Range/Units 06:05 RBC (4.30-5.90) m/uL Hgb (13.0-17.5) gm/dL Hct (39.0-53.0) % RDW (11.5-15.5) % PT (9.0-12.0) sec INR (<1.2) BUN (9-20) mg/dL Creatinine (0.66-1.25) mg/dL Glucose (74-99) mg/dL POC Glucose (mg/dL) 138 H (75-99) mg/dL Assessment and Plan (1) Symptomatic anemia Status: Acute (2) Acute blood loss anemia Status: Acute (3) GI bleed Status: Acute (4) History of atrial fibrillation Status: Acute (5) Warfarin-induced coagulopathy Status: Acute (6) Status post mitral valve repair Status: Acute (7) Bradycardia Narrative/Plan: Atrial fibrillation with slow ventricular response Status: Acute Plan: 1. EGD colonoscopy tomorrow. Endoscopy discussed with receipt and report clerk Dr. Yeager, clearance given. 2. Hold Coumadin. Iron indices. 3. CBC monitoring. Protonix 40 mg daily. Clear liquid diet nothing by mouth after midnight. The instructional technology instructor has discussed the risks, benefits and alternative therapies for the above-mentioned procedure and for both sedation/analgesia as well as necessary blood product administration, if indicated, as they pertain to this patient. The patient has indicated understanding and acceptance of the risks and procedures discussed. Assessment and plan a care discussed with Dr. Jc
[2017-05-04 11:46] LABS: Glucose,Whole Blood 168 mg/dL (75-99)
[2017-05-04] MEDS: CYANOCOBALAMIN 500 MCG TAB PO SCH (11:46)
--- NOTE | 2017-05-04 12:46 | CDI ---
In responding to this query, please exercise your independent professional judgment. The [facility] Coding Staff and Clinical Documentation Specialists appreciate your assistance in clarifying documentation, maintaining compliance with coding guidelines, accurately documenting patients condition and capturing severity of illness. The fact that a question is asked does not imply that any particular answer is desired or expected. Communication forms are a method of clarifying documentation and are not made part of the Legal Health Record. Thank you in advance for your clarification. Last Revision, July 2015 Dillon Thomason [address] [place] [address] Documentation Clarification Form Date: 05/04/2017 12:35:00 PM From: Ruma Munoz RN, CCDS Admit Date: 05/03/2017 2:26:00 AM Patient Name: Darrin Shabazz Visit Number: [id number] Dr. Jaylene Grullon History/Risk Factors : AF, CHF,COPD, DM Clinical Indicators : 05/03 H&P: "Increased creatinine with chronic kidney disease." Current BUN/CR/GFR: 40/1.7/40 08/18/16 Patients Baseline: BUN/CR/GFR: 25/1.2/59 Treatment: IVF @ 20 cc/hr Lasix 40 mg IV q 12 hrs In order to capture the severity of condition, please clarify if the condition signifies: CKD Stage 1 (GFR > 90) CKD Stage 2 (GFR 60-89) CKD Stage 3 (GFR 30-59) CKD Stage 4 (GFR 15-29) CKD Stage 5 (GFR <15) ESRD Unable to determine Other condition, please specify Please document in your progress notes and discharge summary in order to capture severity of illness and risk of mortality. Include clinical findings that support your diagnosis. FYI: Press F11 to launch patient chart. Place X here if this finding has no clinical significance, is not applicable or if you are not able to provide any additional documentation. ESTER
[2017-05-04 13:21] LABS: % Iron Saturation 4.9 % (20-50)
--- NOTE | 2017-05-04 13:32 | P.PN ---
Subjective This is a pleasant 76-year-old gentleman who sees Dr. Thrasher as an outpatient with a past medical history significant for mitral valve disease and status post mitral valve repair a year ago, chronic atrial fibrillation, hypertension, resented to the hospital because he was feeling dizzy and lightheaded over the last 4 weeks. He states that the symptoms have gotten worse over the last few days. He did not have any syncope. No chest pain or discomfort. He states beside that he was experiencing exertional dyspnea and mild bilateral lower extremities edema.When the patient presented to the hospital he was found to be in A. fib with a slow ventricular response and heart rate in the 30s and 40s. He was receiving amiodarone which was held. He was not on any beta porsha or calcium channel porsha.Beside that the patient was found to be in mild congestive heart failure exacerbation and he was started on Lasix IV.Also the patient was found to be anemic with a hemoglobin around 7. He already was seen by the GI service and the plan is to proceed with upper and lower endoscopy over the next few days. Apparently he was found to have positive for blood in the stool. 05/04/2017 Patient seen and examined this morning, had no further bowel movements. Waiting to be seen by GI service. Hemoglobin this morning 7.8, platelet count 207, INR 2.1. Potassium 4.4, creatinine 1.6 today. Denies any chest pain, breathing is stable. Blood pressure 114/60 with a heart rate in the 50s. Objective - Vital Signs Vital signs: Vital Signs Temp 98.1 F 05/04/17 11:48 Pulse 48 L 05/04/17 12:00 Resp 16 05/04/17 12:00 BP 97/45 05/04/17 11:48 Pulse Ox 97 05/04/17 11:48 Intake & Output 05/03/17 05/04/17 05/04/17 18:59 06:59 18:59 Intake Total 1550 Output Total 1600 475 Balance 1550 -1600 -475 Weight 112.1 kg Intake: IV 10 Invasive Line 1 10 Oral 1230 Blood Product 310 Rc As-1 Unit 310 [id number] Output: Urine 1600 475 Other: Voiding Method Urinal Toilet Urinal # Voids 1 1 # Bowel Movements 1 - Exam PHYSICAL EXAMINATION: HEENT: Head is atraumatic, normocephalic. Pupils equal, round. Neck is supple. There is no elevated jugular venous pressure. HEART EXAMINATION: Heart S1 and S2 systolic murmur is heard. CHEST EXAMINATION: Lungs are clear to auscultation and precussion. No chest wall tenderness is noted on palpation or with deep breathing. ABDOMEN: Soft, nontender. Bowel sounds are heard. No organomegaly noted. EXTREMITIES: 2+ peripheral pulses with no evidence of peripheral edema and no calf tenderness noted. NEUROLOGIC patient is awake, alert and oriented -3.] . - Labs CBC & Chem 7: 05/04/17 05:31 05/04/17 05:31 Labs: Abnormal Lab Results - Last 24 Hours (Table) 05/03/17 05/03/17 05/03/17 Range/Units 13:49 16:49 21:00 RBC (4.30-5.90) m/uL Hgb (13.0-17.5) gm/dL Hct (39.0-53.0) % RDW (11.5-15.5) % PT (9.0-12.0) sec INR (<1.2) BUN (9-20) mg/dL Creatinine (0.66-1.25) mg/dL Glucose (74-99) mg/dL POC Glucose (mg/dL) 195 H 138 H 158 H (75-99) mg/dL 05/04/17 05/04/17 05/04/17 Range/Units 05:31 05:31 05:31 RBC 2.90 L (4.30-5.90) m/uL Hgb 7.8 L (13.0-17.5) gm/dL Hct 25.0 L (39.0-53.0) % RDW 17.2 H (11.5-15.5) % PT 20.7 H (9.0-12.0) sec INR 2.1 H (<1.2) BUN 30 H (9-20) mg/dL Creatinine 1.62 H (0.66-1.25) mg/dL Glucose 101 H (74-99) mg/dL POC Glucose (mg/dL) (75-99) mg/dL 05/04/17 05/04/17 Range/Units 06:05 11:34 RBC (4.30-5.90) m/uL Hgb (13.0-17.5) gm/dL Hct (39.0-53.0) % RDW (11.5-15.5) % PT (9.0-12.0) sec INR (<1.2) BUN (9-20) mg/dL Creatinine (0.66-1.25) mg/dL Glucose (74-99) mg/dL POC Glucose (mg/dL) 138 H 168 H (75-99) mg/dL Assessment and Plan (1) Systolic CHF, acute on chronic Status: Acute (2) Diabetes Status: Acute Plan: From cardiology's perspective, we will continue to hold anticoagulation, await recommendations from GI service. DNP note has been reviewed, I agree with a documented findings and plan of care. Patient was seen and examined.
[2017-05-04] MEDS ORDERED: PEG 3350-NA SULF,BICARB,CL/KCL 4,000 ML BOTTLE PO ONE (15:00)
--- NOTE | 2017-05-04 16:08 | P.PN ---
Subjective Date of service 05/04/2017. Personal being dictated for Dr. Grullon. Interval history: This a 76-year-old gentleman admitted with CHF exacerbation, symptomatic anemia, possible GI bleed and multiple other medical issues. Evaluated by GI and patient is scheduled for both EGD and colonoscopy tomorrow. Diuresing well on Lasix IV push with 24-hour I&O reflecting a negative fluid balance/weight loss. Hemoglobin 7.8. Denies hemoptysis,hematemesis. or rectal bleeding. Received vitamin K ,INR down to 2.1. Telemetry atrial fibrillation , heart rate mid 40s to 50s. Renal function mildly improved. Denies any chest pain, palpitations. Objective - Vital Signs Vital signs: Vital Signs Temp 98.1 F 05/04/17 11:48 Pulse 48 L 05/04/17 12:00 Resp 16 05/04/17 12:00 BP 97/45 05/04/17 11:48 Pulse Ox 97 05/04/17 11:48 Intake & Output 05/03/17 05/04/17 05/04/17 18:59 06:59 18:59 Intake Total 1550 845 Output Total 1600 475 Balance 1550 -1600 370 Weight 112.1 kg Intake: IV 10 Invasive Line 1 10 Oral 1230 845 Blood Product 310 Rc As-1 Unit 310 [id number] Output: Urine 1600 475 Other: Voiding Method Urinal Toilet Urinal # Voids 1 1 # Bowel Movements 1 - Exam PHYSICAL EXAM: VITAL SIGNS: As above GENERAL: [Ending up in bed, no acute distress] HEENT: [Pupils equal conjunctiva normal. Oral mucosa moist] NECK: [Supple, no JVD] RESPIRATORY EFFORT:[ Normal] LUNGS: Bilateral bases,diminished, no wheezes, no crackles] CARDIOVASCULAR[ irregular, positive systolic murmurs, no rubs or gallops, no edema] GI: [Abdomen soft, nontender, nondistended, positive bowel sounds. No mass palpable] PSYCH: [Alert and oriented -3, mood and affect normal.] NEURO: [No focal deficits, moves all 4 extremities, strength and sensation grossly intact] - Labs CBC & Chem 7: 05/04/17 05:31 05/04/17 05:31 Labs: Abnormal Lab Results - Last 24 Hours (Table) 05/03/17 05/03/17 05/04/17 Range/Units 16:49 21:00 05:31 RBC (4.30-5.90) m/uL Hgb (13.0-17.5) gm/dL Hct (39.0-53.0) % RDW (11.5-15.5) % PT 20.7 H (9.0-12.0) sec INR 2.1 H (<1.2) BUN (9-20) mg/dL Creatinine (0.66-1.25) mg/dL Glucose (74-99) mg/dL POC Glucose (mg/dL) 138 H 158 H (75-99) mg/dL Iron (49-181) ug/dL % Saturation (20-50) % Ferritin (18-464) ng/mL 05/04/17 05/04/17 05/04/17 Range/Units 05:31 05:31 05:31 RBC 2.90 L (4.30-5.90) m/uL Hgb 7.8 L (13.0-17.5) gm/dL Hct 25.0 L (39.0-53.0) % RDW 17.2 H (11.5-15.5) % PT (9.0-12.0) sec INR (<1.2) BUN 30 H (9-20) mg/dL Creatinine 1.62 H (0.66-1.25) mg/dL Glucose 101 H (74-99) mg/dL POC Glucose (mg/dL) (75-99) mg/dL Iron 16 L (49-181) ug/dL % Saturation 4.9 L (20-50) % Ferritin 15 L (18-464) ng/mL 05/04/17 05/04/17 Range/Units 06:05 11:34 RBC (4.30-5.90) m/uL Hgb (13.0-17.5) gm/dL Hct (39.0-53.0) % RDW (11.5-15.5) % PT (9.0-12.0) sec INR (<1.2) BUN (9-20) mg/dL Creatinine (0.66-1.25) mg/dL Glucose (74-99) mg/dL POC Glucose (mg/dL) 138 H 168 H (75-99) mg/dL Iron (49-181) ug/dL % Saturation (20-50) % Ferritin (18-464) ng/mL Assessment and Plan Plan: 1. Acute on chronic CHF, systolic dysfunction. 2. [ Acute Symptomatic anemia, possibly acute blood loss anemia, ruling out GI bleed]. 3. Coumadin monitoring ,Coumadin induced coagulopathy. 4. [ Acute on chronic renal failure, stage III]. 5. [ Chronic atrial fibrillation]. 6. [ Status post mitral valve repair]. 7. Diabetes mellitus Plan: Continue on current medication regime, PPI,diuresing ,monitoring and symptomatic treatment. Continue holding antiplatelets and anticoagulants. Close monitoring of CBC, renal function, electrolytes with repeat labs ordered for a.m. NPO at midnight for endoscopies as mentioned above tomorrow. Further recommendations to follow. The impression and plan of care has been dictated as directed. : I performed a H&P examination of this patient and discussed the same with the dictator. I agree with the dictator's note. Any additional findings/opinions/ etc. will be noted.
[2017-05-04 16:44] LABS: Glucose,Whole Blood 87 mg/dL (75-99)
[2017-05-04] MEDS ORDERED: PHYTONADIONE ORAL 5 MG/5 ML ORAL.SYRG PO STA (17:16)
[2017-05-04 20:53] LABS: Glucose,Whole Blood 139 mg/dL (75-99)
--- NOTE | 2017-05-04 20:54 | ECHOF ---
Referral Reason:chf MEASUREMENTS -------- HEIGHT: 185.4 cm WEIGHT: 112.0 kg BP: 97/45 RVIDd: 3.9 cm (< 3.3) IVSd: 1.4 cm (0.6 - 1.1) LVIDd: 5.2 cm (3.9 - 5.3) LVPWd: 1.4 cm (0.6 - 1.1) IVSs: 1.9 cm LVIDs: 3.3 cm LVPWs: 1.9 cm LA Diam: 5.4 cm (2.7 - 3.8) LAESV Index (A-L): 46.90 ml/m Ao Diam: 3.6 cm (2.0 - 3.7) AV Cusp: 2.5 cm (1.5 - 2.6) MV EXCURSION: 10.694 mm (> 18.000) MV EF SLOPE: 59 mm/s (70 - 150) EPSS: 1.4 cm RAP: 5.00 mmHg RVSP: 43.28 mmHg FINDINGS -------- This was a technically adequate study. The left ventricular size is normal. There is moderate concentric left ventricular hypertrophy. Overall left ventricular systolic function is mildly impaired with, an EF between 45 - 50 %. The right ventricle is moderately enlarged. LA is severely dilated >40 ml/m2 The right atrium is normal in size. There is mild aortic valve sclerosis. Mild mitral regurgitation is present. The peak and mean MV gradients are 22.24mmHg 3.87mmHg as measured by doppler. MV Repair. Mild tricuspid regurgitation present. There is mild pulmonary hypertension. The right ventricular systolic pressure, as measured by Doppler, is 43.28mmHg. Trace/mild (physiologic) pulmonic regurgitation. The aortic root size is normal. inferior vena cava with normal inspiratory collapse consistent with estimated right atrial pressure of 5 mmHg. The inferior vena cava is mildly dilated. There is no pericardial effusion. CONCLUSIONS -------- 1. This was a technically adequate study. 2. The peak and mean MV gradients are 22.24mmHg 3.87mmHg as measured by doppler. 3. MV Repair. 4. Mild tricuspid regurgitation present. 5. There is mild pulmonary hypertension. 6. The right ventricular systolic pressure, as measured by Doppler, is 43.28mmHg. 7. Trace/mild (physiologic) pulmonic regurgitation. 8. The aortic root size is normal. 9. inferior vena cava with normal inspiratory collapse consistent with estimated right atrial pressure of 5 mmHg. 10. The inferior vena cava is mildly dilated. 11. There is no pericardial effusion. 12. The left ventricular size is normal. 13. There is moderate concentric left ventricular hypertrophy. 14. Overall left ventricular systolic function is mildly impaired with, an EF between 45 - 50 %. 15. The right ventricle is moderately enlarged. 16. LA is severely dilated >40 ml/m2 17. The right atrium is normal in size. 18. There is mild aortic valve sclerosis. 19. Mild mitral regurgitation is present. PLATE ROLLER: Kari Bruno RDCS
[2017-05-04] MEDS: INSULIN GLARGINE 100 UNIT/ML 10 ML VIAL SQ SCH (21:28)
[2017-05-05] MEDS: SODIUM CHLORIDE 0.9% 1,000 ML IV SCH (06:21)
[2017-05-05] MEDS: GLIMEPIRIDE 2 MG TAB PO SCH (06:22)
[2017-05-05 06:28] LABS: Glucose,Whole Blood 91 mg/dL (75-99)
[2017-05-05 06:36] LABS: Anisocytosis Slight; Basophils % (A) 0 %; CH 27.2; Eosinophils # (A) 0.2 k/uL (0-0.7); Eosinophils % (A) 3 %; HCT 23.9 % (39.0-53.0); HDW 4.34; HGB 7.2 gm/dL (13.0-17.5); Hypochromasia Marked; Luc # (Auto) 0.14; Luc % (Auto) 3; Lymphocytes # (A) 0.8 k/uL (1.0-4.8); Lymphocytes % (A) 14 %; MCH 26.6 pg (25.0-35.0); MCHC 30.2 g/dL (31.0-37.0); MCV 88.2 fL (80.0-100.0); Mean Platelet Volume 8.4; Monocytes # (A) 0.3 k/uL (0-1.0); Monocytes % (A) 5 %; Neutrophils % (A) 76 %; Poikilocytosis Moderate; RBC 2.71 m/uL (4.30-5.90); RDW 17.2 % (11.5-15.5); WBC 5.4 k/uL (3.8-10.6); WBC (Perox) 5.59
[2017-05-05 06:47] LABS: Potassium 3.7 mmol/L (3.5-5.1)
[2017-05-05] MEDS: INSULIN LISPRO (humaLOG) 300 UNIT/3 ML VIAL SQ SCH ×4 (06:47→20:39)
[2017-05-05 07:14] LABS: INR 1.4 (<1.2); Prothrombin Time 13.7 sec (9.0-12.0)
[2017-05-05] MEDS: PANTOPRAZOLE 40 MG/10 ML VIAL IV SCH (07:34)
[2017-05-05] MEDS: FUROSEMIDE 10 MG/ML 4 ML VIAL IV SCH ×2 (07:34→20:39)
[2017-05-05] MEDS ORDERED: LIDOCAINE 1% INJ 10MG/ML (20 ML MDV) ONE (11:13)
[2017-05-05] MEDS ORDERED: PHENYLEPHRINE-0.9% NACL SYG 1 MG/10 ML SYRINGE ONE (11:13)
[2017-05-05] MEDS ORDERED: ePHEDrine SULFATE/0.9% NACL/PF 50 MG/5 ML SYRINGE IV ONE (11:13)
[2017-05-05] MEDS ORDERED: PROPOFOL 10 MG/ML 20 ML VIAL IV ONE (11:13)
[2017-05-05] MEDS ORDERED: IV FLUID CONTINUATION 1,000 ML IV ONE (11:43)
--- NOTE | 2017-05-05 11:43 | P.PCN ---
Date of Procedure: 05/05/17 Preoperative Diagnosis: Postoperative Diagnosis: Procedure(s) Performed: Brief history: Patient is a pleasant 76-year-old white male, admitted to the hospital with acute GI bleed. He had several episodes of black tarry stools. He was on Coumadin which has been on hold and INR today is 1.4. He is hence scheduled for an upper endoscopy as well as colonoscopy as a part of evaluation of GI bleed and anemia. Last hemoglobin was 7.2 g/dL. Procedure performed: Esophagogastroduodenoscopy with biopsy Colonoscopy with snare polypectomy Preoperative diagnosis: Acute GI bleed Severe anemia Anesthesia: MAC Procedure: After informed consent was obtained from the patient was brought into the endoscopy unit and IV sedation was administered by anesthesia under continuous monitoring. Initially upper endoscopy was done. The Olympus GF 160 video endoscope was inserted inserted into the mouth and esophagus intubated without any difficulty and was gradually advanced into the stomach and duodenum and carefully examined. The bulb and second part of the duodenum appeared normal. The scope was then withdrawn into the stomach adequately insufflated with air and upon careful examination the antrum and body, cardia and fundus appeared normal. The scope was then withdrawn into the esophagus. The GE junction was located at 40 cm to the incisors. There was a 5 limited polyp at the GE junction that was removed by biopsy. It appeared regular with no erythema erosions or ulcerations. Rest of the esophagus appeared normal. Patient tolerated the procedure well. At this time the patient continued to remain sedation. Initial digital rectal examination was normal. Olympus CF 160 video colonoscope was then inserted into the rectum and gradually advanced to the cecum without any difficulty. Careful examination was performed as the scope was gradually being withdrawn. The prep was fair. In the base of the cecum there was a 1 cm polyp that was removed by snare polypectomy. The cecum, ascending colon, transverse colon, descending colon, sigmoid colon and rectum appeared normal. Moderate sigmoid diverticulosis seen. Retroflexion was performed in the rectum and no lesions were noted. Patient tolerated the procedure well. Impression: 1. Upper endoscopy revealed 5 mm GE junction polyp that was removed by biopsy. No evidence of peptic ulcer disease or esophagitis 2. Colonoscopy revealed 1 cm cecal polyp status post polypectomy and moderate sigmoid diverticulosis. Recommendations: Findings of this examination were discussed with the patient as well as his family. He was advised to follow with the biopsy results. If the biopsy shows a tubal adenoma he can have a repeat colonoscopy in 5 years. Since no obvious source of GI bleed was identified, the patient will be scheduled for a small bowel capsule endoscopy to evaluate for small bowel source of GI bleed. Implants: Indications for Procedure: Operative Findings: Description of Procedure:
[2017-05-05 12:08] LABS: Glucose,Whole Blood 101 mg/dL (75-99)
--- NOTE | 2017-05-05 12:36 | P.PN ---
Subjective This is a pleasant 76-year-old gentleman who sees Dr. Thrasher as an outpatient with a past medical history significant for mitral valve disease and status post mitral valve repair a year ago, chronic atrial fibrillation, hypertension, resented to the hospital because he was feeling dizzy and lightheaded over the last 4 weeks. He states that the symptoms have gotten worse over the last few days. He did not have any syncope. No chest pain or discomfort. He states beside that he was experiencing exertional dyspnea and mild bilateral lower extremities edema.When the patient presented to the hospital he was found to be in A. fib with a slow ventricular response and heart rate in the 30s and 40s. He was receiving amiodarone which was held. He was not on any beta porsha or calcium channel porsha.Beside that the patient was found to be in mild congestive heart failure exacerbation and he was started on Lasix IV.Also the patient was found to be anemic with a hemoglobin around 7. He already was seen by the GI service and the plan is to proceed with upper and lower endoscopy over the next few days. Apparently he was found to have positive for blood in the stool. 05/04/2017 Patient seen and examined this morning, had no further bowel movements. Waiting to be seen by GI service. Hemoglobin this morning 7.8, platelet count 207, INR 2.1. Potassium 4.4, creatinine 1.6 today. Denies any chest pain, breathing is stable. Blood pressure 114/60 with a heart rate in the 50s. 05/05/2017 Patient seen and examined this morning, scheduled for EGD and colonoscopy today. Hemoglobin 7.3 today. Hemodynamically stable. Objective - Vital Signs Vital signs: Vital Signs Temp 97.2 F L 05/05/17 12:00 Pulse 57 L 05/05/17 12:00 Resp 16 05/05/17 12:00 BP 117/61 05/05/17 12:00 Pulse Ox 97 05/05/17 12:00 Intake & Output 05/04/17 05/05/17 05/05/17 18:59 06:59 18:59 Intake Total 1445 2140 400 Output Total 475 Balance 970 2140 400 Weight 113.4 kg 113.4 kg Intake: IV 400 Intake, IV Titration 1740 Amount Sodium Chloride 0.9% 1, 1740 000 ml @ 20 mls/hr IV . Q24H [facility] Rx#:[id number] Oral 1445 400 0 Output: Urine 475 Other: Voiding Method Toilet Toilet Toilet Urinal Urinal Urinal # Voids 1 # Bowel Movements 1 1 - Exam PHYSICAL EXAMINATION: HEENT: Head is atraumatic, normocephalic. Pupils equal, round. Neck is supple. There is no elevated jugular venous pressure. HEART EXAMINATION: Heart S1 and S2 systolic murmur is heard. CHEST EXAMINATION: Lungs are clear to auscultation and precussion. No chest wall tenderness is noted on palpation or with deep breathing. ABDOMEN: Soft, nontender. Bowel sounds are heard. No organomegaly noted. EXTREMITIES: 2+ peripheral pulses with no evidence of peripheral edema and no calf tenderness noted. NEUROLOGIC patient is awake, alert and oriented -3.] . - Labs CBC & Chem 7: 05/05/17 05:34 05/05/17 05:34 Labs: Abnormal Lab Results - Last 24 Hours (Table) 05/04/17 05/04/17 05/05/17 Range/Units 05:31 20:35 05:34 RBC (4.30-5.90) m/uL Hgb (13.0-17.5) gm/dL Hct (39.0-53.0) % MCHC (31.0-37.0) g/dL RDW (11.5-15.5) % Lymphocytes # (1.0-4.8) k/uL PT 13.7 H (9.0-12.0) sec INR 1.4 H (<1.2) BUN (9-20) mg/dL Creatinine (0.66-1.25) mg/dL Glucose (74-99) mg/dL POC Glucose (mg/dL) 139 H (75-99) mg/dL Calcium (8.4-10.2) mg/dL Iron 16 L (49-181) ug/dL % Saturation 4.9 L (20-50) % Ferritin 15 L (18-464) ng/mL 05/05/17 05/05/17 05/05/17 Range/Units 05:34 05:34 12:07 RBC 2.71 L (4.30-5.90) m/uL Hgb 7.2 L (13.0-17.5) gm/dL Hct 23.9 L (39.0-53.0) % MCHC 30.2 L (31.0-37.0) g/dL RDW 17.2 H (11.5-15.5) % Lymphocytes # 0.8 L (1.0-4.8) k/uL PT (9.0-12.0) sec INR (<1.2) BUN 27 H (9-20) mg/dL Creatinine 1.62 H (0.66-1.25) mg/dL Glucose 71 L (74-99) mg/dL POC Glucose (mg/dL) 101 H (75-99) mg/dL Calcium 8.0 L (8.4-10.2) mg/dL Iron (49-181) ug/dL % Saturation (20-50) % Ferritin (18-464) ng/mL Assessment and Plan (1) Systolic CHF, acute on chronic Status: Acute (2) Diabetes Status: Acute Plan: From cardiology's perspective, we will continue to hold anticoagulation, await recommendations from GI service. DNP note has been reviewed, I agree with a documented findings and plan of care. Patient was seen and examined.
[2017-05-05] MEDS ORDERED: SIMETHICONE 40 MG/0.6 ML DROPS 2,000 MG/30 ML BOTTLE PO ONE (13:30)
[2017-05-05] MEDS: LOSARTAN 25 MG TAB PO SCH (15:13)
[2017-05-05] MEDS: POTASSIUM CHLORIDE ER 10 MEQ TAB.ER.PRT PO SCH ×2 (15:14→20:40)
[2017-05-05] MEDS: CYANOCOBALAMIN 500 MCG TAB PO SCH (15:14)
[2017-05-05] MEDS: ATORVASTATIN 40 MG TAB PO SCH (15:16)
--- NOTE | 2017-05-05 16:06 | P.PN ---
Subjective Date of service Progress Note being dictated for Dr. Grullon. 05/04/2017. Interval history: This a 76-year-old gentleman admitted with CHF exacerbation, symptomatic anemia, possible GI bleed and multiple other medical issues. Evaluated by GI and patient is scheduled for both EGD and colonoscopy tomorrow. Diuresing well on Lasix IV push with 24-hour I&O reflecting a negative fluid balance/weight loss. Hemoglobin 7.8. Denies hemoptysis,hematemesis. or rectal bleeding. Received vitamin K ,INR down to 2.1. Telemetry atrial fibrillation , heart rate mid 40s to 50s. Renal function mildly improved. Denies any chest pain, palpitations. 05/05/2017 INR 1.4. Underwent EGD and colonoscopy reporting GE junction polyp removal without evidence of peptic ulcer disease or esophagitis, cecal polyp status post polypectomy with moderate sigmoid diverticulosis. Remains NPO, scheduled later this afternoon for small bowel capsule endoscopy to further evaluate source of GI bleed. Hemoglobin 7.2, asymptomatic. Denies chest pain, palpitations. Objective - Vital Signs Vital signs: Vital Signs Temp 98.1 F 05/05/17 09:07 Pulse 49 L 05/05/17 09:07 Resp 16 05/05/17 09:07 BP 125/67 05/05/17 09:07 Pulse Ox 97 05/05/17 09:07 Intake & Output 05/04/17 05/05/17 05/05/17 18:59 06:59 18:59 Intake Total 1445 2140 400 Output Total 475 Balance 970 2140 400 Weight 113.4 kg 113.4 kg Intake: IV 400 Intake, IV Titration 1740 Amount Sodium Chloride 0.9% 1, 1740 000 ml @ 20 mls/hr IV . Q24H [facility] Rx#:[id number] Oral 1445 400 0 Output: Urine 475 Other: Voiding Method Toilet Toilet Toilet Urinal Urinal Urinal # Voids 1 # Bowel Movements 1 1 - Exam PHYSICAL EXAM: VITAL SIGNS: As above GENERAL: [Ending up in bed, no acute distress] HEENT: [Pupils equal conjunctiva normal. Oral mucosa dry] NECK: [Supple, no JVD] RESPIRATORY EFFORT:[ Normal] LUNGS: Bilateral bases,diminished, no wheezes, no crackles] CARDIOVASCULAR[ irregular, positive systolic murmurs, no rubs or gallops, no edema] GI: [Abdomen soft, nontender,bloated, positive bowel sounds. No mass palpable] PSYCH: [Alert and oriented -3, mood and affect normal. NEURO: [No focal deficits, moves all 4 extremities, strength and sensation grossly intact] - Labs CBC & Chem 7: 05/05/17 05:34 05/05/17 05:34 Labs: Abnormal Lab Results - Last 24 Hours (Table) 05/04/17 05/04/17 05/05/17 Range/Units 05:31 20:35 05:34 RBC (4.30-5.90) m/uL Hgb (13.0-17.5) gm/dL Hct (39.0-53.0) % MCHC (31.0-37.0) g/dL RDW (11.5-15.5) % Lymphocytes # (1.0-4.8) k/uL PT 13.7 H (9.0-12.0) sec INR 1.4 H (<1.2) BUN (9-20) mg/dL Creatinine (0.66-1.25) mg/dL Glucose (74-99) mg/dL POC Glucose (mg/dL) 139 H (75-99) mg/dL Calcium (8.4-10.2) mg/dL Iron 16 L (49-181) ug/dL % Saturation 4.9 L (20-50) % Ferritin 15 L (18-464) ng/mL 05/05/17 05/05/17 05/05/17 Range/Units 05:34 05:34 12:07 RBC 2.71 L (4.30-5.90) m/uL Hgb 7.2 L (13.0-17.5) gm/dL Hct 23.9 L (39.0-53.0) % MCHC 30.2 L (31.0-37.0) g/dL RDW 17.2 H (11.5-15.5) % Lymphocytes # 0.8 L (1.0-4.8) k/uL PT (9.0-12.0) sec INR (<1.2) BUN 27 H (9-20) mg/dL Creatinine 1.62 H (0.66-1.25) mg/dL Glucose 71 L (74-99) mg/dL POC Glucose (mg/dL) 101 H (75-99) mg/dL Calcium 8.0 L (8.4-10.2) mg/dL Iron (49-181) ug/dL % Saturation (20-50) % Ferritin (18-464) ng/mL Assessment and Plan Plan: 1. Acute on chronic CHF, systolic dysfunction. 2. [ Acute Symptomatic anemia, possibly acute blood loss anemia, ruling out GI bleed]. Status post EGD, colonoscopy reporting GE junction polyp removal without evidence of peptic ulcer disease or esophagitis, cecal polyp status post polypectomy with moderate sigmoid diverticulosis. 3. Coumadin monitoring ,Coumadin induced coagulopathy. 4. [ Acute on chronic renal failure, stage III]. 5. [ Chronic atrial fibrillation]. 6. [ Status post mitral valve repair]. 7. Diabetes mellitus Plan: Continue on current medication regime, PPI,diuresing ,monitoring and symptomatic treatment. Small bowel capsule pending. Continue holding antiplatelets and anticoagulants. Close monitoring of CBC, renal function, electrolytes with repeat labs ordered for a.m. Further recommendations to follow. Discharge planning in progress for tomorrow. The impression and plan of care has been dictated as directed. : I performed a H&P examination of this patient and discussed the same with the dictator. I agree with the dictator's note. Any additional findings/opinions/ etc. will be noted.
[2017-05-05 16:28] LABS: Glucose,Whole Blood 145 mg/dL (75-99)
[2017-05-05] MEDS: SODIUM FERRIC GLUCONAT-SUCROSE 125 MG in SODIUM CHLORIDE 0.9% 100 ML IVPB SCH (17:04)
[2017-05-05 20:31] LABS: Glucose,Whole Blood 183 mg/dL (75-99)
[2017-05-05] MEDS: INSULIN GLARGINE 100 UNIT/ML 10 ML VIAL SQ SCH (20:39)
[2017-05-06] MEDS: SODIUM CHLORIDE 0.9% 1,000 ML IV SCH (03:10)
[2017-05-06 06:02] LABS: Glucose,Whole Blood 131 mg/dL (75-99)
[2017-05-06 06:06] LABS: Anisocytosis Slight; Basophils % (A) 1 %; CH 26.1; CHCM 30.3; Eosinophils # (A) 0.2 k/uL (0-0.7); Eosinophils % (A) 3 %; HCT 22.7 % (39.0-53.0); HDW 4.39; Hypochromasia Marked; Luc # (Auto) 0.18; Luc % (Auto) 4; Lymphocytes # (A) 0.8 k/uL (1.0-4.8); Lymphocytes % (A) 15 %; MCH 26.9 pg (25.0-35.0); MCHC 31.1 g/dL (31.0-37.0); MCV 86.6 fL (80.0-100.0); Monocytes # (A) 0.3 k/uL (0-1.0); Monocytes % (A) 5 %; Neutrophils # (A) 3.8 k/uL (1.3-7.7); Neutrophils % (A) 73 %; Poikilocytosis Moderate; RBC 2.62 m/uL (4.30-5.90); RDW 17.1 % (11.5-15.5); WBC 5.2 k/uL (3.8-10.6); WBC (Perox) 5.41
[2017-05-06 06:12] LABS: Calcium 8.1 mg/dL (8.4-10.2); Potassium 4.2 mmol/L (3.5-5.1)
[2017-05-06] MEDS: INSULIN LISPRO (humaLOG) 300 UNIT/3 ML VIAL SQ SCH ×4 (06:59→21:09)
[2017-05-06] MEDS: GLIMEPIRIDE 2 MG TAB PO SCH (06:59)
[2017-05-06] MEDS: PANTOPRAZOLE 40 MG/10 ML VIAL IV SCH (08:26)
[2017-05-06] MEDS: LOSARTAN 25 MG TAB PO SCH (08:26)
[2017-05-06] MEDS: FUROSEMIDE 10 MG/ML 4 ML VIAL IV SCH ×2 (08:26→21:08)
[2017-05-06] MEDS: ATORVASTATIN 40 MG TAB PO SCH (08:26)
[2017-05-06] MEDS: POTASSIUM CHLORIDE ER 10 MEQ TAB.ER.PRT PO SCH ×2 (08:26→21:09)
--- NOTE | 2017-05-06 09:31 | P.PN ---
Subjective Principal diagnosis: Chronic atrial fibrillation/anemia This is a pleasant 76-year-old gentleman who sees Dr. Thrasher as an outpatient with a past medical history significant for mitral valve disease and status post mitral valve repair a year ago, chronic atrial fibrillation, hypertension, resented to the hospital because he was feeling dizzy and lightheaded over the last 4 weeks. He states that the symptoms have gotten worse over the last few days. He did not have any syncope. No chest pain or discomfort. He states beside that he was experiencing exertional dyspnea and mild bilateral lower extremities edema. When the patient presented to the hospital he was found to be in A. fib with a slow ventricular response and heart rate in the 30s and 40s. He was receiving amiodarone which was held. He was not on any beta porsha or calcium channel porsha. Also the patient was found to be anemic with a hemoglobin around 7. He already was seen by the GI service and he underwent an upper and lower endoscopy yesterday which did not show any source of bleeding. He had the Study and Was Still Awaiting for the Results. The Heart Rate Has a Cover after We Stopped the amiodarone. The hemoglobin this morning is distal around 7. I would continue holding any AV shiela porsha agents at this point. The patient continues to be hemodynamically stable and maintaining heart rate in the 50s. Also I would continue holding any kind of anticoagulation until we get the results of the Study. This Gentleman Might Be a Good Candidate to Have the Left Atrial Appendage Closure Device. Objective - Vital Signs Vital signs: Vital Signs Temp 98 F 05/06/17 08:26 Pulse 54 L 05/06/17 08:26 Resp 18 05/06/17 08:26 BP 115/56 05/06/17 08:26 Pulse Ox 98 05/06/17 08:26 Intake & Output 05/05/17 05/06/17 05/06/17 18:59 06:59 18:59 Intake Total 400 240 40 Balance 400 240 40 Weight 113.4 kg 113.4 kg Intake: IV 400 Intake, IV Titration 240 40 Amount Sodium Chloride 0.9% 1, 240 40 000 ml @ 20 mls/hr IV . Q24H [facility] Rx#:[id number] Oral 0 Other: Voiding Method Toilet Toilet Toilet # Voids 1 # Bowel Movements 1 - Constitutional General appearance: Present: no acute distress - Respiratory Respiratory: bilateral: CTA - Cardiovascular Rhythm: irregularly irregular Heart sounds: normal: S1, S2 - Labs CBC & Chem 7: 05/06/17 05:12 05/06/17 05:12 Labs: Abnormal Lab Results - Last 24 Hours (Table) 05/05/17 05/05/17 05/05/17 Range/Units 12:07 16:27 20:28 RBC (4.30-5.90) m/uL Hgb (13.0-17.5) gm/dL Hct (39.0-53.0) % RDW (11.5-15.5) % Lymphocytes # (1.0-4.8) k/uL BUN (9-20) mg/dL Creatinine (0.66-1.25) mg/dL Glucose (74-99) mg/dL POC Glucose (mg/dL) 101 H 145 H 183 H (75-99) mg/dL Calcium (8.4-10.2) mg/dL Crossmatch 05/06/17 05/06/17 05/06/17 Range/Units 05:12 05:12 06:00 RBC 2.62 L (4.30-5.90) m/uL Hgb 7.0 L* (13.0-17.5) gm/dL Hct 22.7 L (39.0-53.0) % RDW 17.1 H (11.5-15.5) % Lymphocytes # 0.8 L (1.0-4.8) k/uL BUN 23 H (9-20) mg/dL Creatinine 1.73 H (0.66-1.25) mg/dL Glucose 102 H (74-99) mg/dL POC Glucose (mg/dL) 131 H (75-99) mg/dL Calcium 8.1 L (8.4-10.2) mg/dL Crossmatch 05/06/17 Range/Units 07:29 RBC (4.30-5.90) m/uL Hgb (13.0-17.5) gm/dL Hct (39.0-53.0) % RDW (11.5-15.5) % Lymphocytes # (1.0-4.8) k/uL BUN (9-20) mg/dL Creatinine (0.66-1.25) mg/dL Glucose (74-99) mg/dL POC Glucose (mg/dL) (75-99) mg/dL Calcium (8.4-10.2) mg/dL Crossmatch See Detail Assessment and Plan Plan: This is a pleasant 76-year-old gentleman was known to have chronic A. fib on anticoagulation, also status post mitral valve repair a year ago presented to the hospital was dizziness and lightheadedness and was found to be bradycardic. Continue holding any kind of anticoagulation in view of the severe anemia. Continue holding the AV shiela porsha agents. Follow-up with the patient.
--- NOTE | 2017-05-06 10:14 | P.PN ---
Subjective Principal diagnosis: GI bleed anemia 76-year-old gentleman history of mitral valve repair admitted with symptomatic anemia bradycardia. Status post EGD colonoscopy yesterday with no evidence of active bleeding small bowel capsule endoscopy completed results are pending. Denies further episodes of melena. Feels well. Denies abdominal pain. Hemoglobin 7.0 today. Anticoagulation on hold. Objective - Vital Signs Vital signs: Vital Signs Temp 98.2 F 05/06/17 09:55 Pulse 56 L 05/06/17 09:55 Resp 16 05/06/17 09:55 BP 98/43 05/06/17 09:55 Pulse Ox 95 05/06/17 09:55 Intake & Output 05/05/17 05/06/17 05/06/17 18:59 06:59 18:59 Intake Total 400 240 220 Output Total 400 Balance 400 240 -180 Weight 113.4 kg 113.4 kg Intake: IV 400 Intake, IV Titration 240 40 Amount Sodium Chloride 0.9% 1, 240 40 000 ml @ 20 mls/hr IV . Q24H [facility] Rx#:[id number] Oral 0 180 Blood Product 0 Rc As-1 Unit 0 [id number] Output: Urine 400 Other: Voiding Method Toilet Toilet Toilet # Voids 1 1 # Bowel Movements 1 - Exam General appearance: The patient is alert, oriented, in no acute distress. HET: Head is normocephalic and atraumatic. Pupils are equal and reactive. Oropharynx is clear without lesions. Neck: Supple without lymphadenopathy. Trachea midline. Heart: S1 S2. Lungs: No crackles or wheezes are heard. Abdomen: Soft, nontender, nondistended with bowel sounds. No peritoneal signs. No palpable organomegaly or masses. Extremities: Normal skin color and turgor. No cyanosis, rash, ulceration, clubbing, or edema. Radial and pedal pulses are 2/4 bilaterally. Neurological: No focal deficits. Strength and sensation are grossly intact. - Labs CBC & Chem 7: 05/06/17 05:12 05/06/17 05:12 Labs: Abnormal Lab Results - Last 24 Hours (Table) 05/05/17 05/05/17 05/05/17 Range/Units 12:07 16:27 20:28 RBC (4.30-5.90) m/uL Hgb (13.0-17.5) gm/dL Hct (39.0-53.0) % RDW (11.5-15.5) % Lymphocytes # (1.0-4.8) k/uL BUN (9-20) mg/dL Creatinine (0.66-1.25) mg/dL Glucose (74-99) mg/dL POC Glucose (mg/dL) 101 H 145 H 183 H (75-99) mg/dL Calcium (8.4-10.2) mg/dL Crossmatch 05/06/17 05/06/17 05/06/17 Range/Units 05:12 05:12 06:00 RBC 2.62 L (4.30-5.90) m/uL Hgb 7.0 L* (13.0-17.5) gm/dL Hct 22.7 L (39.0-53.0) % RDW 17.1 H (11.5-15.5) % Lymphocytes # 0.8 L (1.0-4.8) k/uL BUN 23 H (9-20) mg/dL Creatinine 1.73 H (0.66-1.25) mg/dL Glucose 102 H (74-99) mg/dL POC Glucose (mg/dL) 131 H (75-99) mg/dL Calcium 8.1 L (8.4-10.2) mg/dL Crossmatch 05/06/17 Range/Units 07:29 RBC (4.30-5.90) m/uL Hgb (13.0-17.5) gm/dL Hct (39.0-53.0) % RDW (11.5-15.5) % Lymphocytes # (1.0-4.8) k/uL BUN (9-20) mg/dL Creatinine (0.66-1.25) mg/dL Glucose (74-99) mg/dL POC Glucose (mg/dL) (75-99) mg/dL Calcium (8.4-10.2) mg/dL Crossmatch See Detail Assessment and Plan (1) Symptomatic anemia Narrative/Plan: Status post EGD colonoscopy with no evidence of active bleeding with continued anemia possible small bowel source status post small bowel capsule endoscopy results are pending. Small bowel source cannot be excluded as cause of anemia. Status: Acute (2) Acute blood loss anemia Status: Acute (3) GI bleed Status: Acute (4) History of atrial fibrillation Status: Acute (5) Warfarin-induced coagulopathy Status: Acute (6) Status post mitral valve repair Status: Acute (7) Bradycardia Narrative/Plan: Atrial fibrillation with slow ventricular response Status: Acute Plan: 1. IV iron. Review endoscopy capsule findings. 2. Hold Coumadin. 3. CBC monitoring. Protonix 40 mg daily. Diet as tolerated. Assessment and plan of care discussed with Dr. Machuca
[2017-05-06] MEDS: CYANOCOBALAMIN 500 MCG TAB PO SCH (12:18)
[2017-05-06 12:22] LABS: Glucose,Whole Blood 170 mg/dL (75-99)
[2017-05-06] MEDS: SODIUM FERRIC GLUCONAT-SUCROSE 125 MG in SODIUM CHLORIDE 0.9% 100 ML IVPB SCH (13:25)
--- NOTE | 2017-05-06 15:29 | P.PN ---
Subjective Date of service Progress Note being dictated for Dr. Grullon. 05/04/2017. Interval history: This a 76-year-old gentleman admitted with CHF exacerbation, symptomatic anemia, possible GI bleed and multiple other medical issues. Evaluated by GI and patient is scheduled for both EGD and colonoscopy tomorrow. Diuresing well on Lasix IV push with 24-hour I&O reflecting a negative fluid balance/weight loss. Hemoglobin 7.8. Denies hemoptysis,hematemesis. or rectal bleeding. Received vitamin K ,INR down to 2.1. Telemetry atrial fibrillation , heart rate mid 40s to 50s. Renal function mildly improved. Denies any chest pain, palpitations. 05/05/2017 INR 1.4. Underwent EGD and colonoscopy reporting GE junction polyp removal without evidence of peptic ulcer disease or esophagitis, cecal polyp status post polypectomy with moderate sigmoid diverticulosis. Remains NPO, scheduled later this afternoon for small bowel capsule endoscopy to further evaluate source of GI bleed. Hemoglobin 7.2, asymptomatic. Denies chest pain, palpitations. 05/06/17. Hemoglobin 7.0.Capsule study reported per GI as fresh bleeding in the distal duodenal/proximal jejunum possible AVM-official results pending Scheduled for repeat EGD tomorrow. Anticoagulation remains on hold. Denies chest pain, palpitations or increasing shortness of breath. Denies any abdominal pain. Denies any rectal bleeding, dark stools, melena, no hemoptysis, no hematemesis. Objective - Vital Signs Vital signs: Vital Signs Temp 97.5 F L 05/06/17 13:27 Pulse 55 L 05/06/17 13:27 Resp 18 05/06/17 13:27 BP 120/66 05/06/17 13:27 Pulse Ox 94 L 05/06/17 11:11 Intake & Output 05/05/17 05/06/17 05/06/17 18:59 06:59 18:59 Intake Total 400 240 530 Output Total 400 Balance 400 240 130 Weight 113.4 kg 113.4 kg Intake: IV 400 Intake, IV Titration 240 40 Amount Sodium Chloride 0.9% 1, 240 40 000 ml @ 20 mls/hr IV . Q24H [facility] Rx#:[id number] Oral 0 180 Blood Product 310 Rc As-1 Unit 310 [id number] Output: Urine 400 Other: Voiding Method Toilet Toilet Toilet # Voids 1 1 # Bowel Movements 1 - Exam PHYSICAL EXAM: VITAL SIGNS: As above GENERAL: [Ending up in bed, no acute distress] HEENT: [Pupils equal conjunctiva normal. Oral mucosa dry. ] NECK: [Supple, no JVD] RESPIRATORY EFFORT:[ Normal] LUNGS: Bilateral bases,diminished, no wheezes, no crackles, no rhonchi] CARDIOVASCULAR[ irregular, positive systolic murmurs, no rubs or gallops, no edema] GI: [Abdomen soft, nontender, nondistended, positive bowel sounds. No mass palpable] PSYCH: [Alert and oriented -3, mood and affect normal. NEURO: [No focal deficits, moves all 4 extremities, strength and sensation grossly intact] - Labs CBC & Chem 7: 05/06/17 05:12 05/06/17 05:12 Labs: Abnormal Lab Results - Last 24 Hours (Table) 05/05/17 05/05/17 05/06/17 Range/Units 16:27 20:28 05:12 RBC 2.62 L (4.30-5.90) m/uL Hgb 7.0 L* (13.0-17.5) gm/dL Hct 22.7 L (39.0-53.0) % RDW 17.1 H (11.5-15.5) % Lymphocytes # 0.8 L (1.0-4.8) k/uL BUN (9-20) mg/dL Creatinine (0.66-1.25) mg/dL Glucose (74-99) mg/dL POC Glucose (mg/dL) 145 H 183 H (75-99) mg/dL Calcium (8.4-10.2) mg/dL Crossmatch 05/06/17 05/06/17 05/06/17 Range/Units 05:12 06:00 07:29 RBC (4.30-5.90) m/uL Hgb (13.0-17.5) gm/dL Hct (39.0-53.0) % RDW (11.5-15.5) % Lymphocytes # (1.0-4.8) k/uL BUN 23 H (9-20) mg/dL Creatinine 1.73 H (0.66-1.25) mg/dL Glucose 102 H (74-99) mg/dL POC Glucose (mg/dL) 131 H (75-99) mg/dL Calcium 8.1 L (8.4-10.2) mg/dL Crossmatch See Detail 05/06/17 Range/Units 11:56 RBC (4.30-5.90) m/uL Hgb (13.0-17.5) gm/dL Hct (39.0-53.0) % RDW (11.5-15.5) % Lymphocytes # (1.0-4.8) k/uL BUN (9-20) mg/dL Creatinine (0.66-1.25) mg/dL Glucose (74-99) mg/dL POC Glucose (mg/dL) 170 H (75-99) mg/dL Calcium (8.4-10.2) mg/dL Crossmatch Assessment and Plan Plan: 1. Acute on chronic CHF, systolic dysfunction. 2. [ Acute Symptomatic anemia, possibly acute blood loss anemia, ruling out GI bleed]. Status post EGD, colonoscopy reporting GE junction polyp removal without evidence of peptic ulcer disease or esophagitis, cecal polyp status post polypectomy with moderate sigmoid diverticulosis. 3. Coumadin monitoring ,Coumadin induced coagulopathy. 4. [ Acute on chronic renal failure, stage III]. 5. [ Chronic atrial fibrillation]. 6. [ Status post mitral valve repair]. 7. Diabetes mellitus Plan: Continue on current medication regime, PPI,diuresing , iron, monitoring and symptomatic treatment.Close monitoring of CBC, renal function, with repeat labs ordered for a.m. EGD pending. Continue holding antiplatelets and anticoagulants. Further recommendations to follow. The impression and plan of care has been dictated as directed. : I performed a H&P examination of this patient and discussed the same with the dictator. I agree with the dictator's note. Any additional findings/opinions/ etc. will be noted.
[2017-05-06 17:00] LABS: Glucose,Whole Blood 89 mg/dL (75-99)
[2017-05-06] MEDS ORDERED: MAGNESIUM CITRATE 296 ML BOTTLE PO ONE (17:00)
[2017-05-06 20:27] LABS: Glucose,Whole Blood 159 mg/dL (75-99)
[2017-05-06] MEDS: INSULIN GLARGINE 100 UNIT/ML 10 ML VIAL SQ SCH (21:12)
[2017-05-07 05:51] LABS: Glucose,Whole Blood 84 mg/dL (75-99)
[2017-05-07] MEDS: SODIUM CHLORIDE 0.9% 1,000 ML IV SCH (06:01)
[2017-05-07] MEDS: GLIMEPIRIDE 2 MG TAB PO SCH (06:22)
[2017-05-07] MEDS: INSULIN LISPRO (humaLOG) 300 UNIT/3 ML VIAL SQ SCH ×4 (06:23→21:30)
[2017-05-07 06:47] LABS: Anisocytosis Slight; Basophils % (A) 1 %; CH 27.6; Eosinophils # (A) 0.2 k/uL (0-0.7); Eosinophils % (A) 3 %; HCT 27.7 % (39.0-53.0); HDW 4.49; HGB 8.3 gm/dL (13.0-17.5); Hypochromasia Marked; Luc # (Auto) 0.18; Luc % (Auto) 3; Lymphocytes # (A) 1.2 k/uL (1.0-4.8); Lymphocytes % (A) 19 %; MCH 26.9 pg (25.0-35.0); MCV 89.5 fL (80.0-100.0); Mean Platelet Volume 8.5; Monocytes # (A) 0.3 k/uL (0-1.0); Monocytes % (A) 4 %; Neutrophils # (A) 4.4 k/uL (1.3-7.7); Neutrophils % (A) 70 %; Poikilocytosis Moderate; RDW 17.8 % (11.5-15.5); WBC 6.3 k/uL (3.8-10.6); WBC (Perox) 6.71
[2017-05-07 07:00] LABS: Calcium 8.3 mg/dL (8.4-10.2)
[2017-05-07] MEDS ORDERED: IV FLUID CONTINUATION 1,000 ML IV ONE (07:56)
[2017-05-07] MEDS ORDERED: PROPOFOL 10 MG/ML 20 ML VIAL IV ONE (08:04)
[2017-05-07] MEDS ORDERED: LIDOCAINE 1% INJ 10MG/ML (20 ML MDV) ONE (08:04)
[2017-05-07] MEDS: LOSARTAN 25 MG TAB PO SCH (08:44)
[2017-05-07] MEDS: FUROSEMIDE 10 MG/ML 4 ML VIAL IV SCH ×2 (08:44→21:29)
[2017-05-07] MEDS: PANTOPRAZOLE 40 MG/10 ML VIAL IV SCH (08:44)
[2017-05-07] MEDS: LACTATED RINGERS 1,000 ML IV SCH (08:44)
[2017-05-07] MEDS: POTASSIUM CHLORIDE ER 10 MEQ TAB.ER.PRT PO SCH ×2 (08:44→21:29)
[2017-05-07] MEDS: ATORVASTATIN 40 MG TAB PO SCH (08:44)
--- NOTE | 2017-05-07 08:49 | P.PCN ---
Date of Procedure: 05/07/17 Preoperative Diagnosis: Postoperative Diagnosis: Procedure(s) Performed: Procedure: Upper endoscopy and small bowel enteroscopy. Preoperative diagnosis: GI bleeding, anemia and abnormal capsule endoscopy. Postoperative diagnosis: Examination to the proximal ileum within normal limits. Preparation and sedation: Was provided by anesthesia. Brief clinical history: The patient is a 76-year-old white male who was admitted to the hospital with acute GI bleed. He had several episodes of black tarry stools. He was on Coumadin which has been on hold. He was scheduled for an upper endoscopy as well as colonoscopy as a part of evaluation of GI bleed and anemia. Upper endoscopy revealed 5 mm GE junction polyp that was removed by biopsy. No evidence of peptic ulcer disease or esophagitis and colonoscopy revealed 1 cm cecal polyp status post polypectomy and moderate sigmoid diverticulosis. The patient underwent capsule endoscopy yesterday that showed evidence of bleeding in the distal duodenum proximal jejunum. He was thus scheduled for this upper endoscopy with small bowel enteroscopy. The details are summarized in the history and physical and dictated consultations and progress notes. Procedure: With the patient on his left lateral decubitus position and after informed consent and adequate sedation, the Olympus pediatric video colonoscope PCF Q180 AL was used and was advanced under direct vision through the cricopharyngeus down the esophagus. The endoscope was then passed into the stomach which was insufflated with air and inspected in detail including the retroflex view in the cardia. Finally, the endoscope was passed through the pylorus into the duodenum. I advanced the endoscope into the duodenal bulb, post bulbar area and into the descending and transverse duodenum then I proceeded to advance the endoscope further into the jejunum reducing loops and covering longer and longer segments of small bowel which I believe included up to its proximal ileum. No obvious abnormalities were noted or any evidence of bleeding. I then lavaged thoroughly as I was withdrawing the endoscope back into the stomach and then repeated the evaluation of the small bowel and no abnormalities or bleeding were noted. The patient tolerated the procedure well. Plan: The patient was reassured. Will allow diet and make further plans based on his course. Will continue to monitor his blood counts. Implants: Indications for Procedure: Operative Findings: Description of Procedure:
--- NOTE | 2017-05-07 11:41 | P.PN ---
Subjective This is a pleasant 76-year-old gentleman who sees Dr. Thrasher as an outpatient with a past medical history significant for mitral valve disease and status post mitral valve repair a year ago, chronic atrial fibrillation, hypertension, resented to the hospital because he was feeling dizzy and lightheaded over the last 4 weeks. He states that the symptoms have gotten worse over the last few days. He did not have any syncope. No chest pain or discomfort. He states beside that he was experiencing exertional dyspnea and mild bilateral lower extremities edema.When the patient presented to the hospital he was found to be in A. fib with a slow ventricular response and heart rate in the 30s and 40s. He was receiving amiodarone which was held. He was not on any beta porsha or calcium channel porsha.Beside that the patient was found to be in mild congestive heart failure exacerbation and he was started on Lasix IV.Also the patient was found to be anemic with a hemoglobin around 7. He already was seen by the GI service and the plan is to proceed with upper and lower endoscopy over the next few days. Apparently he was found to have positive for blood in the stool. 05/04/2017 Patient seen and examined this morning, had no further bowel movements. Waiting to be seen by GI service. Hemoglobin this morning 7.8, platelet count 207, INR 2.1. Potassium 4.4, creatinine 1.6 today. Denies any chest pain, breathing is stable. Blood pressure 114/60 with a heart rate in the 50s. 05/05/2017 Patient seen and examined this morning, scheduled for EGD and colonoscopy today. Hemoglobin 7.3 today. Hemodynamically stable. 05/07/2017 Patient underwent a colonoscopy which revealed a 1 cm cecal polyp status post polypectomy with moderate sigmoid diverticulosis. Upper endoscopy revealed a 5 mm GE junction polyp that was removed by biopsy. No evidence of peptic ulcer disease or esophagitis. Today the patient underwent upper endoscopy and small bowel enteroscopy which revealed that the proximal ileum was within normal limits. He is feeling well overall, no complaints. Hemoglobin 8.3. Objective - Vital Signs Vital signs: Vital Signs Temp 96.8 F L 05/07/17 11:00 Pulse 63 05/07/17 11:00 Resp 18 05/07/17 11:00 BP 115/56 05/07/17 11:00 Pulse Ox 99 05/07/17 11:00 Intake & Output 05/06/17 05/07/17 05/07/17 18:59 06:59 18:59 Intake Total 630 160 220 Output Total 400 Balance 230 160 220 Weight 114.6 kg Intake: IV 200 Intake, IV Titration 140 160 20 Amount Sodium Chloride 0.9% 1, 40 20 000 ml @ 20 mls/hr IV . Q24H [facility] Rx#:[id number] Sodium Ferric Gluconat- 100 160 Sucrose 125 mg In Sodium Chloride 0.9% 100 ml @ 100 mls/hr IVPB Q24HR@ 1200 [facility] Rx#:[id number] Oral 180 Blood Product 310 Rc As-1 Unit 310 [id number] Output: Urine 400 Other: Voiding Method Toilet Toilet Toilet # Voids 1 - Exam PHYSICAL EXAMINATION: HEENT: Head is atraumatic, normocephalic. Pupils equal, round. Neck is supple. There is no elevated jugular venous pressure. HEART EXAMINATION: Heart S1 and S2 systolic murmur is heard. CHEST EXAMINATION: Lungs are clear to auscultation and precussion. No chest wall tenderness is noted on palpation or with deep breathing. ABDOMEN: Soft, nontender. Bowel sounds are heard. No organomegaly noted. EXTREMITIES: 2+ peripheral pulses with no evidence of peripheral edema and no calf tenderness noted. NEUROLOGIC patient is awake, alert and oriented -3.] . - Labs CBC & Chem 7: 05/07/17 05:36 05/07/17 05:33 Labs: Abnormal Lab Results - Last 24 Hours (Table) 05/06/17 05/06/17 05/06/17 Range/Units 07:29 11:56 20:25 RBC (4.30-5.90) m/uL Hgb (13.0-17.5) gm/dL Hct (39.0-53.0) % MCHC (31.0-37.0) g/dL RDW (11.5-15.5) % Chloride (98-107) mmol/L Creatinine (0.66-1.25) mg/dL Glucose (74-99) mg/dL POC Glucose (mg/dL) 170 H 159 H (75-99) mg/dL Calcium (8.4-10.2) mg/dL Crossmatch See Detail 08/19/17 08/19/17 Range/Units 05:33 05:36 RBC 3.10 L (4.30-5.90) m/uL Hgb 8.3 L (13.0-17.5) gm/dL Hct 27.7 L (39.0-53.0) % MCHC 30.0 L (31.0-37.0) g/dL RDW 17.8 H (11.5-15.5) % Chloride 108 H (98-107) mmol/L Creatinine 1.55 H (0.66-1.25) mg/dL Glucose 55 L (74-99) mg/dL POC Glucose (mg/dL) (75-99) mg/dL Calcium 8.3 L (8.4-10.2) mg/dL Crossmatch Assessment and Plan (1) Systolic CHF, acute on chronic Status: Acute (2) Diabetes Status: Acute Plan: From cardiology's perspective, we will continue to hold anticoagulation, await recommendations from GI service underwent a kidney be resumed. DNP note has been reviewed, I agree with a documented findings and plan of care. Patient was seen and examined.
[2017-05-07 11:58] LABS: Anisocytosis Slight; Basophils # (A) 0.1 k/uL (0-0.2); Basophils % (A) 1 %; CH 26.5; CHCM 30.4; Eosinophils # (A) 0.2 k/uL (0-0.7); Eosinophils % (A) 3 %; HCT 26.1 % (39.0-53.0); HDW 4.63; HGB 8.4 gm/dL (13.0-17.5); Hypochromasia Marked; Luc # (Auto) 0.14; Luc % (Auto) 2; Lymphocytes # (A) 0.8 k/uL (1.0-4.8); Lymphocytes % (A) 14 %; MCH 28.1 pg (25.0-35.0); MCHC 32.1 g/dL (31.0-37.0); MCV 87.5 fL (80.0-100.0); Mean Platelet Volume 8.2; Monocytes # (A) 0.3 k/uL (0-1.0); Monocytes % (A) 5 %; Neutrophils # (A) 4.3 k/uL (1.3-7.7); Neutrophils % (A) 74 %; Poikilocytosis Marked; RBC 2.98 m/uL (4.30-5.90); RDW 17.4 % (11.5-15.5); WBC 5.8 k/uL (3.8-10.6); WBC (Perox) 6.17
[2017-05-07] MEDS: CYANOCOBALAMIN 500 MCG TAB PO SCH (12:20)
[2017-05-07 12:25] LABS: Glucose,Whole Blood 178 mg/dL (75-99)
--- NOTE | 2017-05-07 13:27 | P.PN ---
Subjective Date of service Progress Note being dictated for Dr. Grullon. 05/04/2017. Interval history: This a 76-year-old gentleman admitted with CHF exacerbation, symptomatic anemia, possible GI bleed and multiple other medical issues. Evaluated by GI and patient is scheduled for both EGD and colonoscopy tomorrow. Diuresing well on Lasix IV push with 24-hour I&O reflecting a negative fluid balance/weight loss. Hemoglobin 7.8. Denies hemoptysis,hematemesis. or rectal bleeding. Received vitamin K ,INR down to 2.1. Telemetry atrial fibrillation , heart rate mid 40s to 50s. Renal function mildly improved. Denies any chest pain, palpitations. 05/05/2017 INR 1.4. Underwent EGD and colonoscopy reporting GE junction polyp removal without evidence of peptic ulcer disease or esophagitis, cecal polyp status post polypectomy with moderate sigmoid diverticulosis. Remains NPO, scheduled later this afternoon for small bowel capsule endoscopy to further evaluate source of GI bleed. Hemoglobin 7.2, asymptomatic. Denies chest pain, palpitations. 05/06/17. Hemoglobin 7.0.Capsule study reported per GI as fresh bleeding in the distal duodenal/proximal jejunum possible AVM-official results pending Scheduled for repeat EGD tomorrow. Anticoagulation remains on hold. Denies chest pain, palpitations or increasing shortness of breath. Denies any abdominal pain. Denies any rectal bleeding, dark stools, melena, no hemoptysis, no hematemesis. 05/07/2017. Hemoglobin 8.3. Underwent upper endoscopy and small bowel enteroscopy this morning, reporting no noted abnormalities, no evidence of bleeding, proximal ileum within normal limits, tolerated procedure well. After returning back from procedure, passed large black liquidy stool. Denies abdominal pain, denies chest pain, palpitations or increasing shortness of breath. Denies lightheadedness, dizziness, or focal deficits. Telemetry atrial fibrillation heart rate 40s to 50s, last night mid 30s. Renal function improving. Objective - Vital Signs Vital signs: Vital Signs Temp 96.8 F L 05/07/17 11:00 Pulse 63 05/07/17 11:00 Resp 18 05/07/17 11:00 BP 115/56 05/07/17 11:00 Pulse Ox 95 05/07/17 12:12 Intake & Output 05/06/17 05/07/17 05/07/17 18:59 06:59 18:59 Intake Total 630 160 220 Output Total 400 Balance 230 160 220 Weight 114.6 kg Intake: IV 200 Intake, IV Titration 140 160 20 Amount Sodium Chloride 0.9% 1, 40 20 000 ml @ 20 mls/hr IV . Q24H [facility] Rx#:[id number] Sodium Ferric Gluconat- 100 160 Sucrose 125 mg In Sodium Chloride 0.9% 100 ml @ 100 mls/hr IVPB Q24HR@ 1200 [facility] Rx#:[id number] Oral 180 Blood Product 310 Rc As-1 Unit 310 [id number] Output: Urine 400 Other: Voiding Method Toilet Toilet Toilet # Voids 1 - Exam PHYSICAL EXAM: VITAL SIGNS: As above GENERAL: Sitting up at side of bed, no acute distress] HEENT: [Pupils equal conjunctiva normal. Oral mucosa dry. NECK: [Supple, no JVD] RESPIRATORY EFFORT:[ Normal] LUNGS: Bilateral bases,diminished, no wheezes, no crackles, no rhonchi] CARDIOVASCULAR[ irregular, positive systolic murmur, no rubs or gallops, no edema] GI: [Abdomen soft, nontender, nondistended, positive bowel sounds. No mass palpable] PSYCH: [Alert and oriented -3, mood and affect normal. NEURO: [No focal deficits, moves all 4 extremities, strength and sensation grossly intact - Labs CBC & Chem 7: 05/07/17 11:37 05/07/17 05:33 Labs: Abnormal Lab Results - Last 24 Hours (Table) 05/06/17 05/06/17 05/07/17 Range/Units 07:29 20:25 05:33 RBC (4.30-5.90) m/uL Hgb (13.0-17.5) gm/dL Hct (39.0-53.0) % MCHC (31.0-37.0) g/dL RDW (11.5-15.5) % Lymphocytes # (1.0-4.8) k/uL Chloride 108 H (98-107) mmol/L Creatinine 1.55 H (0.66-1.25) mg/dL Glucose 55 L (74-99) mg/dL POC Glucose (mg/dL) 159 H (75-99) mg/dL Calcium 8.3 L (8.4-10.2) mg/dL Crossmatch See Detail 05/07/17 05/07/17 05/07/17 Range/Units 05:36 11:37 11:55 RBC 3.10 L 2.98 L (4.30-5.90) m/uL Hgb 8.3 L 8.4 L (13.0-17.5) gm/dL Hct 27.7 L 26.1 L (39.0-53.0) % MCHC 30.0 L (31.0-37.0) g/dL RDW 17.8 H 17.4 H (11.5-15.5) % Lymphocytes # 0.8 L (1.0-4.8) k/uL Chloride (98-107) mmol/L Creatinine (0.66-1.25) mg/dL Glucose (74-99) mg/dL POC Glucose (mg/dL) 178 H (75-99) mg/dL Calcium (8.4-10.2) mg/dL Crossmatch Assessment and Plan Plan: 1. Acute on chronic CHF, systolic dysfunction. 2. [ Acute Symptomatic anemia, possibly acute blood loss anemia, ruling out GI bleed]. Status post EGD, colonoscopy reporting GE junction polyp removal without evidence of peptic ulcer disease or esophagitis, cecal polyp status post polypectomy with moderate sigmoid diverticulosis. Status post endoscopy and small bowel enteroscopy reporting no bleed, normal ileum. 3. Coumadin monitoring ,Coumadin induced coagulopathy. 4. [ Acute on chronic renal failure, stage III]. 5. [ Chronic atrial fibrillation]. 6. [ Status post mitral valve repair]. 7. Diabetes mellitus Plan: Continue on current medication regime, PPI,diuresing , iron, monitoring and symptomatic treatment. Anticoagulation remains on hold. Close monitoring of CBC, renal function, with repeat labs ordered for a.m. discharge planning in progress pending GI recommendations for anticoagulation and clearance from both cardiology and GI. Further recommendations to follow. The impression and plan of care has been dictated as directed. : I performed a H&P examination of this patient and discussed the same with the dictator. I agree with the dictator's note. Any additional findings/opinions/ etc. will be noted.
[2017-05-07] MEDS: ASPIRIN 325 MG TAB PO SCH (14:56)
[2017-05-07 17:18] LABS: Glucose,Whole Blood 138 mg/dL (75-99)
[2017-05-07 20:37] LABS: Glucose,Whole Blood 183 mg/dL (75-99)
[2017-05-07] MEDS: INSULIN GLARGINE 100 UNIT/ML 10 ML VIAL SQ SCH (21:29)
[2017-05-07 22:30] VITALS: RESP 16
[2017-05-08] MEDS: SODIUM CHLORIDE 0.9% 1,000 ML IV SCH (03:42)
[2017-05-08 06:15] LABS: Glucose,Whole Blood 130 mg/dL (75-99)
[2017-05-08] MEDS: INSULIN LISPRO (humaLOG) 300 UNIT/3 ML VIAL SQ SCH ×3 (06:41→17:16)
[2017-05-08] MEDS: GLIMEPIRIDE 2 MG TAB PO SCH (06:42)
[2017-05-08] MEDS: ASPIRIN 325 MG TAB PO SCH (08:12)
[2017-05-08] MEDS: FUROSEMIDE 10 MG/ML 4 ML VIAL IV SCH (08:13)
[2017-05-08] MEDS: ATORVASTATIN 40 MG TAB PO SCH (08:13)
[2017-05-08] MEDS: POTASSIUM CHLORIDE ER 10 MEQ TAB.ER.PRT PO SCH (08:13)
[2017-05-08] MEDS: PANTOPRAZOLE 40 MG/10 ML VIAL IV SCH (08:13)
[2017-05-08] MEDS: LACTATED RINGERS 1,000 ML IV SCH (08:30)
[2017-05-08 08:35] LABS: Anisocytosis Slight; Basophils % (A) 1 %; CH 27.6; CHCM 30.2; Eosinophils # (A) 0.2 k/uL (0-0.7); Eosinophils % (A) 3 %; HCT 26.4 % (39.0-53.0); HDW 4.16; Hypochromasia Marked; Luc # (Auto) 0.13; Luc % (Auto) 2; Lymphocytes # (A) 0.9 k/uL (1.0-4.8); Lymphocytes % (A) 16 %; MCHC 30.4 g/dL (31.0-37.0); Mean Platelet Volume 8.8; Monocytes # (A) 0.3 k/uL (0-1.0); Monocytes % (A) 5 %; Neutrophils # (A) 4.1 k/uL (1.3-7.7); Neutrophils % (A) 73 %; Poikilocytosis Moderate; RBC 2.87 m/uL (4.30-5.90); RDW 19.4 % (11.5-15.5); WBC 5.6 k/uL (3.8-10.6); WBC (Perox) 5.98
[2017-05-08] MEDS: LOSARTAN 25 MG TAB PO SCH (09:04)
--- NOTE | 2017-05-08 10:04 | P.PN ---
Progress Note - Text She was admitted with a GI bleeding which was significant hemoGlobin was 7.0. 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 He does not need Coumadin for atrial fibrillation because he's had a left atrial appendage exclusion surgery over one year back and does not have a mitral valve replacement but rather a mitral valve repair. He does have nonobstructive coronary artery disease but since he's had significant GI bleeding of unclear etiology despite endoscopies which found polyps, I would hold off on starting any aspirin No anticoagulation at this point since his left atrial appendage is occluded His main issue is sinus bradycardia
[2017-05-08] MEDS: CYANOCOBALAMIN 500 MCG TAB PO SCH (12:14)
[2017-05-08 12:24] LABS: Glucose,Whole Blood 125 mg/dL (75-99)
[2017-05-08 16:37] VITALS: BP 107/62; PULSE 44; TEMP 98.1
[2017-05-08 17:01] LABS: Glucose,Whole Blood 98 mg/dL (75-99)
--- NOTE | 2017-05-10 00:45 | P.DS ---
Providers Date of admission: 05/03/17 02:26 Expected date of discharge: 05/08/17 Attending physician: Billy Rudolph Consults: 05/03/17 02:27 Consult Physician Urgent Consulting Provider: Diego Machuca Consult Reason/Comments: gi hemorrhage Do you want consulting provider notified?: Yes Consult Physician Urgent Consulting Provider: Gary Jc Consult Reason/Comments: bradycardia Do you want consulting provider notified?: Yes Primary care physician: Faizan Ba Hospital Course: Discharge diagnosis 1. Acute on chronic CHF, systolic dysfunction. 2. [ Acute Symptomatic anemia, possibly acute blood loss anemia, ruling out GI bleed]. Status post EGD, colonoscopy reporting GE junction polyp removal without evidence of peptic ulcer disease or esophagitis, cecal polyp status post polypectomy with moderate sigmoid diverticulosis. Status post endoscopy and small bowel enteroscopy reporting no bleed, normal ileum. Anticoagulation has been discontinued. No need for anticoagulation as the patient already had left atrial appendage exclusion surgery. 3. Coumadin monitoring ,Coumadin induced coagulopathy. 4. [ Acute on chronic renal failure, stage III]. 5. [ Chronic atrial fibrillation]. 6. [ Status post mitral valve repair]. 7. Diabetes mellitus Total course Interval history: This a 76-year-old gentleman admitted with CHF exacerbation, symptomatic anemia, possible GI bleed and multiple other medical issues. Evaluated by GI and patient is scheduled for both EGD and colonoscopy tomorrow. Diuresing well on Lasix IV push with 24-hour I&O reflecting a negative fluid balance/weight loss. Hemoglobin 7.8. Denies hemoptysis,hematemesis. or rectal bleeding. Received vitamin K ,INR down to 2.1. Telemetry atrial fibrillation , heart rate mid 40s to 50s. Renal function mildly improved. Denies any chest pain, palpitations. 05/05/2017 INR 1.4. Underwent EGD and colonoscopy reporting GE junction polyp removal without evidence of peptic ulcer disease or esophagitis, cecal polyp status post polypectomy with moderate sigmoid diverticulosis. Remains NPO, scheduled later this afternoon for small bowel capsule endoscopy to further evaluate source of GI bleed. Hemoglobin 7.2, asymptomatic. Denies chest pain, palpitations. 05/06/17. Hemoglobin 7.0.Capsule study reported per GI as fresh bleeding in the distal duodenal/proximal jejunum possible AVM-official results pending Scheduled for repeat EGD tomorrow. Anticoagulation remains on hold. Denies chest pain, palpitations or increasing shortness of breath. Denies any abdominal pain. Denies any rectal bleeding, dark stools, melena, no hemoptysis, no hematemesis. 05/07/2017. Hemoglobin 8.3. Underwent upper endoscopy and small bowel enteroscopy this morning, reporting no noted abnormalities, no evidence of bleeding, proximal ileum within normal limits, tolerated procedure well. After returning back from procedure, passed large black liquidy stool. Denies abdominal pain, denies chest pain, palpitations or increasing shortness of breath. Denies lightheadedness, dizziness, or focal deficits. Telemetry atrial fibrillation heart rate 40s to 50s, last night mid 30s. Renal function improving. 05/08/2017 Patient's hemoglobin is stable today. Patient does not need anticoagulation. The patient had left atrial appendage is exclusion surgery was done about a year back. Cardiology recommends no anticoagulation needed. No need for aspirin as well. Physical examination GENERAL: Sitting up at side of bed, no acute distress] HEENT: [Pupils equal conjunctiva normal. Oral mucosa dry. NECK: [Supple, no JVD] RESPIRATORY EFFORT:[ Normal] LUNGS: Bilateral bases,diminished, no wheezes, no crackles, no rhonchi] CARDIOVASCULAR[ irregular, positive systolic murmur, no rubs or gallops, no edema] GI: [Abdomen soft, nontender, nondistended, positive bowel sounds. No mass palpable] PSYCH: [Alert and oriented -3, mood and affect normal. NEURO: [No focal deficits, moves all 4 extremities, strength and sensation grossly intact Plan - Discharge Summary New Discharge Prescriptions: New Pantoprazole Sodium [Protonix] [facility] tablet.dr Continue Atorvastatin [Lipitor] 40 mg PO DAILY #30 tab Losartan [Cozaar] 25 mg PO DAILY #30 tab Insulin Glargine [Lantus] 26 unit SQ HS Potassium Chloride [K-Tab ER] 10 meq PO BID Ergocalciferol [Vitamin D2 (DRISDOL)] 1.25 mg PO Q14D Glimepiride [Amaryl] 2 mg PO DAILY Amiodarone HCl [Pacerone] 200 mg PO BID Colace 250mg 250 mg PO DAILY PRN PRN Reason: Constipation Furosemide [Lasix] 40 mg PO BID Cyanocobalamin (Vitamin B-12) [Vitamin B-12] 1,000 mcg PO DAILY Discontinued Aspirin 81 mg PO DAILY Warfarin Sodium [Coumadin] 7.5 mg PO WESA Warfarin Sodium [Coumadin] 5 mg PO SUMOTUTHFR Discharge Medication List Atorvastatin [Lipitor] 40 mg PO DAILY #30 tab 04/20/16 [Rx] Losartan [Cozaar] 25 mg PO DAILY #30 tab 04/20/16 [Rx] Ergocalciferol [Vitamin D2 (DRISDOL)] 1.25 mg PO Q14D 11/10/16 [History] Insulin Glargine [Lantus] 26 unit SQ HS 11/10/16 [History] Potassium Chloride [K-Tab ER] 10 meq PO BID 11/10/16 [History] Amiodarone HCl [Pacerone] 200 mg PO BID 05/03/17 [History] Colace 250mg 250 mg PO DAILY PRN 05/03/17 [History] Cyanocobalamin (Vitamin B-12) [Vitamin B-12] 1,000 mcg PO DAILY 05/03/17 [ History] Furosemide [Lasix] 40 mg PO BID 05/03/17 [History] Glimepiride [Amaryl] 2 mg PO DAILY 05/03/17 [History] Pantoprazole Sodium [Protonix] 40 mg PO AC-BRKFST #30 tablet. 05/08/17 [Rx] Follow up Appointment(s)/Referral(s): Digeo Machuca MD [STAFF PHYSICIAN] - 2 Weeks Faizan Ba DO [Primary Care Provider] - 3 Days Gary Jc MD [STAFF PHYSICIAN] - 1 Week Patient Instructions/Handouts: Gastrointestinal Bleeding (DC), Anemia (DC) Activity/Diet/Wound Care/Special Instructions: Stop taking all anticoagulants, including aspirin & Coumadin. Do not take per Dr Contreras. Discharge Disposition: HOME SELF-CARE
[2017-05-10] MEDS ORDERED: ERGOCALCIFEROL 50,000 UNIT CAP PO SCH (12:00)
== END 2017-05-08 18:26 | disposition home or self-care (01) | DRG 291 ==
LOC: EC 01:17 → 6SEL 02:26 → UNDODISIN 05-08 17:22
PROVIDERS: ADMIT Internal Medicine; ATTEND Internal Medicine
PROC: 30233N1 Transfusion of Nonautologous Red Blood Cells into Peripheral Vein, Percutaneous Approach (ICD-10-PCS; 2017-05-03)
PROC: 0DBH8ZX Excision of Cecum, Via Natural or Artificial Opening Endoscopic, Diagnostic (ICD-10-PCS; 2017-05-05)
PROC: 0DJ07ZZ Inspection of Upper Intestinal Tract, Via Natural or Artificial Opening (ICD-10-PCS; principal; 2017-05-05 07:55)
PROC: 0DB48ZX Excision of Esophagogastric Junction, Via Natural or Artificial Opening Endoscopic, Diagnostic (ICD-10-PCS; 2017-05-05 10:55)
PROC: 0DJ08ZZ Inspection of Upper Intestinal Tract, Via Natural or Artificial Opening Endoscopic (ICD-10-PCS; 2017-05-07)
DX: I13.0 Hypertensive heart and chronic kidney disease with heart failure and stage 1 through stage 4 chronic kidney disease, or unspecified chronic kidney disease (principal); I50.23 Acute on chronic systolic (congestive) heart failure; N17.9 Acute kidney failure, unspecified; E11.22 Type 2 diabetes mellitus with diabetic chronic kidney disease; J44.9 Chronic obstructive pulmonary disease, unspecified; D62 Acute posthemorrhagic anemia; I42.9 Cardiomyopathy, unspecified; E11.42 Type 2 diabetes mellitus with diabetic polyneuropathy; K92.1 Melena; I34.0 Nonrheumatic mitral (valve) insufficiency; N18.3 Chronic kidney disease, stage 3 (moderate); I25.10 Atherosclerotic heart disease of native coronary artery without angina pectoris; T45.515A Adverse effect of anticoagulants, initial encounter; K57.30 Diverticulosis of large intestine without perforation or abscess without bleeding; I48.2 Chronic atrial fibrillation; R93.3 Abnormal findings on diagnostic imaging of other parts of digestive tract; I45.4 Nonspecific intraventricular block; D12.0 Benign neoplasm of cecum; K31.7 Polyp of stomach and duodenum; E78.5 Hyperlipidemia, unspecified; I87.2 Venous insufficiency (chronic) (peripheral); I83.91 Asymptomatic varicose veins of right lower extremity; M19.90 Unspecified osteoarthritis, unspecified site; H91.93 Unspecified hearing loss, bilateral; R53.1 Weakness; Z95.2 Presence of prosthetic heart valve; Z79.899 Other long term (current) drug therapy; Z79.82 Long term (current) use of aspirin; Z79.01 Long term (current) use of anticoagulants; Z79.4 Long term (current) use of insulin; Z82.5 Family history of asthma and other chronic lower respiratory diseases; Z87.891 Personal history of nicotine dependence; Z86.79 Personal history of other diseases of the circulatory system; Z86.19 Personal history of other infectious and parasitic diseases; Z88.5 Allergy status to narcotic agent; Z82.49 Family history of ischemic heart disease and other diseases of the circulatory system; Z80.9 Family history of malignant neoplasm, unspecified; Z98.42 Cataract extraction status, left eye; Z98.41 Cataract extraction status, right eye; Z96.1 Presence of intraocular lens
CPT/HCPCS: 36415; 43235; 43239; 45385; 71020; 80048; 80053; 82272; 82550; 82553; 82728; 83036; 83540; 83550; 83880; 84484; 85025; 85610; 85730; 86850; 86900; 86901; 86920; 88305; 88342; 91110; 93005; 93306; 94760; 96361; 96374; 96375; 99291

== ENCOUNTER 2018-01-11 09:55 | Inpatient (IN) | payer MEDICARE ==
[2018-01-11] MEDS ORDERED: ASPIRIN 81 MG PO STA (10:10)
[2018-01-11] MEDS ORDERED: MORPHINE SULFATE 4 MG/0.8 ML SYRINGE (INJ) IVP STA (10:10)
[2018-01-11 10:48] LABS: Basophils % (A) 0 %; Eosinophils # (A) 0.1 k/uL (0-0.7); Eosinophils % (A) 2 %; HCT 45.9 % (39.0-53.0); HGB 15.6 gm/dL (13.0-17.5); Lymphocytes # (A) 0.6 k/uL (1.0-4.8); Lymphocytes % (A) 7 %; MCH 30.7 pg (25.0-35.0); MCHC 34.1 g/dL (31.0-37.0); MCV 90.2 fL (80.0-100.0); Monocytes # (A) 0.3 k/uL (0-1.0); Monocytes % (A) 3 %; Neutrophils # (A) 7.6 k/uL (1.3-7.7); Neutrophils % (A) 86 %; Platelet Count 141 k/uL (150-450); RBC 5.09 m/uL (4.30-5.90); RDW 14.6 % (11.5-15.5); WBC 8.7 k/uL (3.8-10.6)
--- NOTE | 2018-01-11 10:48 | ED ---
Chest Pain HPI - General Chief Complaint: Chest Pain Stated Complaint: chest pain Time Seen by Provider: 01/11/18 10:07 Source: patient Mode of arrival: wheelchair Limitations: no limitations - History of Present Illness Initial Comments: Patient complains of chest pain. He describes the pain as pressure. It is not middle of the chest. It radiates to his left arm. He has no nausea or vomiting or diaphoresis. He has a history of atrial fibrillation and takes a blood thinner. He has no pain or swelling in the legs. He has no palpitations. He has no shortness of breath. He has not been sick really sleep. He denies sick contacts. He has not traveled anywhere. He has no headache, lightheadedness or dizziness. Nothing makes the chest pain better or worse. He was not doing anything when it began. It began a couple hours ago. - Related Data Home Medications Medication Instructions Recorded Confirmed Ergocalciferol [Vitamin D2 50,000 unit PO Q14D 11/10/16 01/11/18 (DRISDOL)] Insulin Glargine [Lantus] 26 unit SQ HS 11/10/16 01/11/18 Potassium Chloride [K-Tab ER] 10 meq PO BID 11/10/16 01/11/18 Amiodarone HCl [Pacerone] 200 mg PO BID 05/03/17 01/11/18 Colace 250mg 250 mg PO DAILY PRN 05/03/17 01/11/18 Furosemide [Lasix] 40 mg PO BID 05/03/17 01/11/18 Glimepiride [Amaryl] 2 mg PO AC-BRKFST 05/03/17 01/11/18 Allopurinol [Zyloprim] 100 mg PO DAILY 01/11/18 01/11/18 Ferrous Gluconate 324 mg PO BID 01/11/18 01/11/18 Vitamin B Complex 1 cap PO DAILY 01/11/18 01/11/18 Warfarin [Coumadin] 5 mg PO SUTUTH 01/11/18 01/11/18 Warfarin [Coumadin] 7.5 mg PO MOWEFRSA 01/11/18 01/11/18 Previous Rx's Medication Instructions Recorded Atorvastatin [Lipitor] 40 mg PO DAILY #30 tab 04/20/16 Losartan [Cozaar] 25 mg PO DAILY #30 tab 04/20/16 Pantoprazole Sodium [Protonix] 40 mg PO AC-BRKFST #30 tablet. 05/08/17 Allergies Allergy/AdvReac Type Severity Reaction Status Date / Time codeine Allergy Rash/Hives Verified 01/11/18 10:32 Review of Systems ROS Statement: Those systems with pertinent positive or pertinent negative responses have been documented in the HPI. ROS Other: All systems not noted in ROS Statement are negative. EKG Findings - EKG Comments: EKG Findings:: Twelve-lead EKG shows ventricular rate 71 bpm, there are no P waves present, the QRS complexes are slightly wide, no ST segment elevation or depression, interpreted by me as atrial fibrillation with left bundle branch block and no evidence of acute ischemia. Past Medical History Past Medical History: Atrial Fibrillation, Heart Failure, COPD, Diabetes Mellitus, Hearing Disorder / Deafness, Hyperlipidemia, Hypertension, Osteoarthritis (OA), Vascular Disorder Additional Past Medical History / Comment(s): Viral Myocarditis & Pericarditis 1979, IDDM type II, neuropathy bilateral feet, R thigh varicose veins, venous insufficiency, [place] bilaterally. History of Any Multi-Drug Resistant Organisms: None Reported Past Surgical History: Cardiac Valve Replacement, Heart Catheterization, Orthopedic Surgery Additional Past Surgical History / Comment(s): vein stripping of left leg, carpel tunnel right hand, YAS, cataract safia. eyes with implants, periocardiocentesis -1979, aortic valve repair-March, colonoscopy. Past Anesthesia/Blood Transfusion Reactions: No Reported Reaction Additional Past Anesthesia/Blood Transfusion Reaction / Comment(s): Pt received blood this admit without reaction. Past Psychological History: No Psychological Hx Reported Smoking Status: Former smoker Past Alcohol Use History: None Reported Past Drug Use History: None Reported - Past Family History Mother Additional Family Medical History / Comment(s): Mother at the age of 98yrs from heart problems. Father Family Medical History: COPD Additional Family Medical History / Comment(s): hx emphysema Sister(s) Family Medical History: Cancer General Exam Limitations: no limitations General appearance: alert, in no apparent distress Head exam: Present: atraumatic, normocephalic, normal inspection Eye exam: Present: normal appearance, PERRL, EOMI. Absent: scleral icterus, conjunctival injection, periorbital swelling ENT exam: Present: normal exam, mucous membranes moist Neck exam: Present: normal inspection. Absent: tenderness, meningismus, lymphadenopathy Respiratory exam: Present: normal lung sounds bilaterally. Absent: respiratory distress, wheezes, rales, rhonchi, stridor Cardiovascular Exam: Present: regular rate, normal rhythm, normal heart sounds. Absent: systolic murmur, diastolic murmur, rubs, gallop, clicks GI/Abdominal exam: Present: soft, normal bowel sounds. Absent: distended, tenderness, guarding, rebound, rigid Extremities exam: Present: normal inspection, full ROM, normal capillary refill. Absent: tenderness, pedal edema, joint swelling, calf tenderness Back exam: Present: normal inspection Neurological exam: Present: alert, oriented X3, CN II-XII intact Psychiatric exam: Present: normal affect, normal mood Skin exam: Present: warm, dry, intact, normal color. Absent: rash Course Vital Signs 01/11/18 01/11/18 09:57 10:35 Temperature 96.9 F L Pulse Rate 70 64 Respiratory 22 16 Rate Blood Pressure 188/91 168/85 O2 Sat by Pulse 93 L 95 Oximetry Chest Pain MDM - Core Measures AMI Core Measures Followed: Yes - MDM Patient presents with chest pain. He has a positive troponin. I will consult cardiology. He will be admitted to the hospital. Disposition Clinical Impression: NSTEMI (non-ST elevated myocardial infarction) Disposition: ADMITTED IP TO THIS HOSP Condition: Fair Is patient prescribed a controlled substance at d/c from ED?: No Referrals: Faizan Ba DO [Primary Care Provider] - 1-2 days
[2018-01-11 11:06] LABS: Albumin 4.4 g/dL (3.5-5.0); Calcium 9.5 mg/dL (8.4-10.2); Magnesium 1.9 mg/dL (1.6-2.3); Potassium 4.6 mmol/L (3.5-5.1); Total Protein 7.4 g/dL (6.3-8.2)
[2018-01-11 11:07] LABS: Partial Thromboplastin Time 36.7 sec (22.0-30.0); Prothrombin Time 48.9 sec (9.0-12.0)
--- NOTE | 2018-01-11 11:14 | XR ---
EXAMINATION TYPE: XR chest 2V DATE OF EXAM: 01/11/2018 COMPARISON: 05/03/2017 HISTORY: Chest pain and shortness of breath post CABG. TECHNIQUE: Frontal and lateral views of the chest are obtained. FINDINGS: Post CABG changes are seen of the chest. Diffuse interstitial prominence and curly B lines are seen suggesting interstitial edema decompensated congestive heart failure. No sizable pleural ef fusions or pneumothorax are seen. Cardiac silhouette is mildly enlarged. Osseous structures are intac t. IMPRESSION: Findings suggesting decompensating congestive heart failure with mild interstitial pulmo nary edema.
[2018-01-11 11:18] LABS: INR 5.4 (<1.2)
[2018-01-11] MEDS ORDERED: MORPHINE SULFATE 4 MG/ML SYRINGE IV PRN (12:14)
[2018-01-11] MEDS ORDERED: TEMAZEPAM 15 MG CAP PO PRN (12:14)
[2018-01-11] MEDS ORDERED: NALOXONE 0.4 MG/ML 1 ML VIAL IV PRN (12:14)
[2018-01-11] MEDS ORDERED: ONDANSETRON 4 MG/2 ML VIAL IVP PRN (12:14)
[2018-01-11] MEDS ORDERED: DOCUSATE 100 MG CAP PO PRN (12:16)
[2018-01-11] MEDS ORDERED: MORPHINE SULFATE 4 MG/0.8 ML SYRINGE (INJ) ONE (12:40)
[2018-01-11] MEDS ORDERED: PHYTONADIONE ORAL 5 MG/5 ML ORAL.SYRG PO STA (12:52)
[2018-01-11] MEDS ORDERED: MORPHINE SULFATE 4 MG/0.8 ML SYRINGE (INJ) IV PRN (12:59)
[2018-01-11] MEDS: NITROGLYCERIN SL TABS 0.4 MG TAB SUBLINGUAL ONE ×2 (16:22→16:29)
[2018-01-11 16:37] LABS: Glucose,Whole Blood 215 mg/dL (75-99)
[2018-01-11] MEDS: MAG HYDROX/AL HYDROX/SIMETH 30 ML CUP PO PRN (17:16)
[2018-01-11] MEDS: NITROGLYCERIN OINT 1 INCH/GM PACKET TOPICAL SCH (17:16)
[2018-01-11] MEDS: FUROSEMIDE 40 MG TAB PO SCH (17:16)
[2018-01-11] MEDS: INSULIN ASPART 100 UNIT/ML 1 ML 10 ML VIAL SQ SCH ×2 (17:17→21:51)
[2018-01-11] MEDS ORDERED: INSULIN DETEMIR 100 UNIT/ML 10 ML VIAL SQ SCH (21:00)
[2018-01-11 21:13] LABS: Glucose,Whole Blood 229 mg/dL (75-99)
[2018-01-11] MEDS: FAMOTIDINE 20 MG TAB PO SCH (21:52)
[2018-01-11] MEDS: AMIODARONE 200 MG TAB PO SCH (21:52)
[2018-01-12] MEDS: NITROGLYCERIN OINT 1 INCH/GM PACKET TOPICAL SCH ×5 (00:15→23:24)
--- NOTE | 2018-01-12 05:29 | HP ---
HISTORY AND PHYSICAL DATE OF ADMISSION: 01/11/2018 DATE OF SERVICE: 01/11/2018 PRESENTING COMPLAINT: Chest and epigastric pain. HISTORY OF PRESENTING COMPLAINT: This is a pleasant 77-year-old patient of Dr. Faizan Severino. Chronic stable medical conditions include atrial fibrillation, congestive heart failure, COPD, diabetes, hyperlipidemia, hypertension, osteoarthritis, bilateral peripheral neuropathy, venous insufficiency, hard of hearing. Yesterday around 3 a.m., patient developed what he describes as epigastric and lower chest pain localized as an elephant sitting on the chest. The patient became short of breath, broke out into a heavy sweat, was nauseated. Symptoms lasted for quite a while. There was no radiation. The patient denies any prior cardiac history. There is mild edema. The patient is already anticoagulated with Coumadin; hence, no IV heparin was added. In fact INR was a bit on the higher side and Coumadin actually was held. Cardiology was consulted for the same. REVIEW OF SYSTEMS: CONSTITUTIONAL: Tired. HEENT: None. RESPIRATORY: As above. CARDIOVASCULAR: As above. GASTROINTESTINAL: None. GENITOURINARY: None. MUSCULOSKELETAL: Arthritic pain in the joints. DERMATOLOGICAL: None. HEMATOLOGIC: None. LYMPHATIC: None. PSYCHIATRY: None. NEUROLOGICAL: Numbness and tingling in hands and feet. PAST MEDICAL HISTORY: Atrial fibrillation, congestive heart failure, COPD, diabetes mellitus type 2, hyperlipidemia, hypertension, osteoarthritis, viral myocarditis and pericarditis in 1979, bilateral peripheral neuropathy, varicose veins, hard of hearing. PAST SURGICAL HISTORY: Cardiac valve replacement, cardiac catheterization, vein stripping left leg, YAS, bilateral cataract eyes and implants, pericardiocentesis, aortic valve repair in 2015, EGD with polypectomy. SOCIAL HISTORY: The patient smoked for 24 years. Stopped in 1979. Smoked less than a pack a day. Alcohol none. Lives with his . FAMILY HISTORY: Mother of old age. HOME MEDICATIONS: 1. Coumadin 5 mg on Tuesday, Tuesday, and 7.5 on Tuesday, Tuesday, Tuesday, Tuesday. 2. Vitamin B complex 1 capsule p.o. daily. 3. Potassium 10 mEq p.o. b.i.d. 4. Protonix 40 mg with breakfast. 5. Cozaar 25 mg p.o. daily. 6. Lantus 26 units subcutaneously at bedtime. 7. Amaryl 2 mg at breakfast. 8. Lasix 40 mg b.i.d. 9. Ferrous gluconate 324 mg b.i.d. 10.Vitamin D2, 50,000 units p.o. every 14 days. 11.Colace. 12.Lipitor 40 mg a day. 13.Pacerone 200 mg b.i.d. 14.Allopurinol 100 mg p.o. daily. ALLERGIES: Allergies to CODEINE. PHYSICAL EXAMINATION: On examination, vital signs on presentation: Temperature 96.9, pulse 70, respirations 22, blood pressure 188/91, pulse ox 93% on room air. GENERAL APPEARANCE: Well built, BMI 33.9, lying in bed, tired appearing. EYES: Pupils equal. Conjunctivae normal. HENT: External appearance of the nose and ears normal. Oral cavity normal. NECK: JVD not raised. Mass not palpable. RESPIRATORY: Effort normal. Lungs are clear. CARDIOVASCULAR: First and second sounds normal. No edema. ABDOMEN: Soft, nontender. Liver and spleen not palpable. LYMPHATIC: No lymph node palpable in the neck and axillae. PSYCHIATRY: Alert and oriented x3. Mood and affect normal. NEUROLOGICAL: Pupils equal. Cranial nerves grossly intact. Power and sensation grossly intact. MUSCULOSKELETAL: Evidence of osteoarthritis noted in the hands. INVESTIGATIONS: White count 8.7, hemoglobin 15.6. INR 5.4. Potassium 4.6. BUN 29, creatinine 1.32. The patient's BUN and creatinine was 20/1.55 in April of last year. Troponin 0.036, 0.103, 0.243. EKG shows left bundle branch block with poor R-wave progression, atrial fibrillation. ASSESSMENT: 1. Possibly acute non-Q-wave myocardial infarction with cardiac sounding presentation. 2. 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 3. History of mitral valve repair. 4. Persistent atrial fibrillation, rate controlled, chronically on Coumadin. 5. Coumadin monitoring. 6. Chronic obstructive pulmonary disease in an ex-smoker. 7. Essential hypertension, uncontrolled on presentation. 8. Hyperlipidemia. 9. Primary osteoarthritis. 10.Peripheral neuropathy secondary to diabetes. PLAN: Home medications are resumed. Will not give any vitamin as there is no evidence of bleeding and INR is slightly up. Other home medications are resumed. Cardiology was consulted. Care was discussed with the patient. Will add a baby aspirin. Follow Accu- Cheks closely. MMODL / IJN: [id number] /
[2018-01-12 06:09] LABS: INR 3.6 (<1.2); Prothrombin Time 32.4 sec (9.0-12.0)
[2018-01-12 06:16] LABS: Glucose,Whole Blood 186 mg/dL (75-99)
[2018-01-12] MEDS: INSULIN ASPART 100 UNIT/ML 1 ML 10 ML VIAL SQ SCH ×4 (08:01→22:19)
[2018-01-12] MEDS ORDERED: FUROSEMIDE 10 MG/ML 4 ML VIAL IV STA (09:01)
--- NOTE | 2018-01-12 09:02 | P.CRDCN ---
History of Present Illness Consult date: 01/12/18 Requesting physician: Alexy Cedeño Reason for Consult (text): Abdominal and chest discomfort Chief complaint: Abdominal and chest discomfort History of present illness: This is a 77-year-old gentleman who follows regularly with Dr. Thrasher in the office. 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 He states that he had an episode last week that lasted approximately 2 hours in duration, he did not come to the hospital because it subsided. He again had subsequent symptoms. He went to see Dr. Jc in the office on December 26, and states that he also had a stress test performed in the office. Again Tuesday morning patient developed similar symptoms, epigastric discomfort, states it feels like an elephant sitting on his chest, discomfort in his abdomen , symptoms of nausea, diaphoresis, and shortness of breath. For this reason he came to the hospital for further evaluation. EKG on presentation here showed atrial fibrillation with a left bundle-branch block pattern. Chest x-ray showed findings suggesting decompensating congestive heart failure with mild interstitial pulmonary edema. He has been afebrile. Blood pressure on arrival 188/90, heart rate in the 70s, 93% on room air. Let pressure this morning 148/ 68 with a heart rate in the 60s. His white blood cell count is normal, hemoglobin 15.6, platelet count 141. INR yesterday 5.4, 3.6 this morning. Sodium 140, potassium 4.6, BUN 29, creatinine 1.3. AST and ALT are normal. Magnesium level I.9. BNP level 2790. Troponins 0.036, 0.10, 0.24. At the time of my examination this morning, patient states he had an episode of epigastric discomfort earlier this morning, currently he is free of this. He does have significant right upper quadrant tenderness on examination. Past Medical History Past Medical History: Atrial Fibrillation, Heart Failure, COPD, Diabetes Mellitus, Hearing Disorder / Deafness, Hyperlipidemia, Hypertension, Osteoarthritis (OA), Vascular Disorder Additional Past Medical History / Comment(s): Viral myocarditis & pericarditis 1979, IDDM type II, neuropathy bilateral feet and occasionally in bilateral hands, L thigh varicose veins, venous insufficiency, PALA bilaterally. History of Any Multi-Drug Resistant Organisms: None Reported Past Surgical History: Cardiac Valve Replacement, Heart Catheterization, Orthopedic Surgery Additional Past Surgical History / Comment(s): vein stripping of left leg, carpel tunnel right hand, YAS, cataract safia. eyes with implants, periocardiocentesis -1979, aortic valve repair-March, colonoscopies/ benign polypectomy, EGD with benign polypectomy. Past Anesthesia/Blood Transfusion Reactions: No Reported Reaction Additional Past Anesthesia/Blood Transfusion Reaction / Comment(s): Pt has received blood without reaction. Past Psychological History: No Psychological Hx Reported Additional Psychological History / Comment(s): Pt resides with his spouse. He is independent. He will use a cane or walker prn. Smoking Status: Former smoker Past Alcohol Use History: None Reported Additional Past Alcohol Use History / Comment(s): Pt started smoking in 1955 and quit in 1979. He was less than a ppd smoker. Past Drug Use History: None Reported - Past Family History Mother Additional Family Medical History / Comment(s): Mother at the age of 98yrs from heart problems. Father Family Medical History: No Reported History Additional Family Medical History / Comment(s): Father in a MVA at the age of 59yrs. Sister(s) Family Medical History: Cancer Medications and Allergies Home Medications Medication Instructions Recorded Confirmed Type Atorvastatin [Lipitor] 40 mg PO DAILY #30 tab 04/20/16 01/11/18 Rx Losartan [Cozaar] 25 mg PO DAILY #30 tab 04/20/16 01/11/18 Rx Ergocalciferol [Vitamin D2 50,000 unit PO Q14D 11/10/16 01/11/18 History (DRISDOL)] Insulin Glargine [Lantus] 26 unit SQ HS 11/10/16 01/11/18 History Potassium Chloride [K-Tab ER] 10 meq PO BID 11/10/16 01/11/18 History Amiodarone HCl [Pacerone] 200 mg PO BID 05/03/17 01/11/18 History Colace 250mg 250 mg PO DAILY PRN 05/03/17 01/11/18 History Furosemide [Lasix] 40 mg PO BID 05/03/17 01/11/18 History Glimepiride [Amaryl] 2 mg PO AC-BRKFST 05/03/17 01/11/18 History Pantoprazole Sodium [Protonix] 40 mg PO AC-BRKFST #30 tablet. 05/08/17 Rx Allopurinol [Zyloprim] 100 mg PO DAILY 01/11/18 01/11/18 History Ferrous Gluconate 324 mg PO BID 01/11/18 01/11/18 History Vitamin B Complex 1 cap PO DAILY 01/11/18 01/11/18 History Warfarin [Coumadin] 5 mg PO SUTUTH 01/11/18 01/11/18 History Warfarin [Coumadin] 7.5 mg PO MOWEFRSA 01/11/18 01/11/18 History Allergies Allergy/AdvReac Type Severity Reaction Status Date / Time codeine Allergy Rash/Hives Verified 01/11/18 10:32 Physical Exam Vitals: Vital Signs Temp Pulse Pulse Resp BP BP Pulse Ox 01/12/18 04:00 98.0 F 69 18 149/68 93 L 01/12/18 00:00 97.2 F L 71 18 165/78 93 L 01/11/18 20:00 97.3 F L 75 18 145/72 95 01/11/18 16:19 97 F L 81 18 177/92 96 01/11/18 15:52 97.9 F 65 16 177/85 96 01/11/18 15:23 68 16 184/90 96 01/11/18 14:27 67 16 184/92 96 01/11/18 13:28 71 16 174/88 93 L 01/11/18 12:47 63 16 174/88 96 01/11/18 11:30 69 16 170/85 94 L 01/11/18 10:35 64 16 168/85 95 01/11/18 09:57 96.9 F L 70 22 188/91 93 L Intake and Output 01/11/18 01/12/18 01/12/18 22:59 06:59 14:59 Output Total 875 1050 Balance -875 -1050 Output: Urine 875 1050 Other: Voiding Method Urinal Weight 116.2 kg PHYSICAL EXAMINATION: HEENT: Head is atraumatic, normocephalic. Pupils equal, round. Neck is supple. There is no elevated jugular venous pressure. HEART EXAMINATION: Heart S1 and S2 irregularly irregular a systolic murmur is heard. CHEST EXAMINATION: Lungs are clear with diminished air entry to bilateral bases. ABDOMEN: Soft, positive right upper quadrant tenderness. Bowel sounds are heard. ]. EXTREMITIES:[ 2+ periphera pulses with trace to 1+ evdence of peripheral edema , chronic discoloration of bilateral lower extremities.. NEUROLOGIC [patient is awake, alert and orieted -3.] . Results 01/11/18 10:36 01/11/18 10:36 Cardiac Enzymes 01/11/18 01/11/18 01/11/18 Range/Units 10:36 10:36 16:17 AST 35 (17-59) U/L Troponin I 0.036 H* 0.103 H* (0.000-0.034) ng/mL 01/11/18 Range/Units 22:25 AST (17-59) U/L Troponin I 0.243 H* (0.000-0.034) ng/mL Coagulation 01/11/18 01/12/18 Range/Units 10:36 05:37 PT 48.9 H 32.4 H (9.0-12.0) sec APTT 36.7 H (22.0-30.0) sec CBC 01/11/18 Range/Units 10:36 WBC 8.7 (3.8-10.6) k/uL RBC 5.09 (4.30-5.90) m/uL Hgb 15.6 (13.0-17.5) gm/dL Hct 45.9 (39.0-53.0) % Plt Count 141 L (150-450) k/uL Comprehensive Metabolic Panel 01/11/18 Range/Units 10:36 Sodium 140 (137-145) mmol/L Potassium 4.6 (3.5-5.1) mmol/L Chloride 104 (98-107) mmol/L Carbon Dioxide 21 L (22-30) mmol/L BUN 29 H (9-20) mg/dL Creatinine 1.32 H (0.66-1.25) mg/dL Glucose 240 H (74-99) mg/dL Calcium 9.5 (8.4-10.2) mg/dL AST 35 (17-59) U/L ALT 35 (21-72) U/L Alkaline Phosphatase 96 (38-126) U/L Total Protein 7.4 (6.3-8.2) g/dL Albumin 4.4 (3.5-5.0) g/dL Current Medications Generic Name Dose Route Start Last Admin Trade Name Freq PRN Reason Stop Dose Admin Al Hydroxide/Mg Hydroxide 30 ml 01/11/18 16:35 01/11/18 17:16 Maalox PO 30 ml Q4HR PRN Administration GI Upset Allopurinol 100 mg 01/12/18 09:00 Zyloprim PO DAILY [facility] Amiodarone HCl 200 mg 01/11/18 21:00 01/11/18 21:52 Cordarone PO 200 mg BID [facility] Administration Aspirin 81 mg 01/12/18 09:00 Aspirin PO DAILY [facility] Atorvastatin Calcium 40 mg 01/12/18 09:00 Lipitor PO DAILY [facility] Docusate Sodium 200 mg 01/11/18 12:16 Colace PO DAILY PRN Constipation Famotidine 20 mg 01/11/18 21:00 01/11/18 21:52 Pepcid PO 20 mg BID [facility] Administration Furosemide 40 mg 01/11/18 17:00 01/11/18 17:16 Lasix PO 40 mg 0900,1700 [facility] Administration Glimepiride 2 mg 01/12/18 07:30 Amaryl PO AC-BRKFST [facility] Insulin Aspart 0 unit 01/11/18 17:30 01/12/18 08:01 Novolog SQ 3 unit [facility] Administration Protocol Insulin Detemir 26 unit 01/12/18 06:14 Levemir SQ HS [facility] Losartan Potassium 25 mg 01/12/18 09:00 Cozaar PO DAILY [facility] Morphine Sulfate 4 mg 01/11/18 12:59 Morphine Sulfate (Inj) IV Q4HR PRN Severe Pain Naloxone HCl 0.2 mg 01/11/18 12:14 Narcan IV Q2M PRN Opioid Reversal Nitroglycerin 0.5 inch 01/11/18 18:00 01/12/18 06:54 Nitro-Bid Oint TOPICAL 0.5 inch Q6HR [facility] Administration Ondansetron HCl 4 mg 01/11/18 12:14 Zofran IVP Q8HR PRN Nausea And Vomiting Pantoprazole Sodium 40 mg 01/12/18 07:30 Protonix PO AC-BRKFST [facility] Temazepam 15 mg 01/11/18 12:14 Restoril PO HS PRN Insomnia Tramadol HCl 50 mg 01/11/18 12:14 Ultram PO Q6H PRN Moderate Pain Warfarin Sodium 7.5 mg 01/13/18 18:00 Coumadin PO [id number]@1800 RADHA Warfarin Sodium 5 mg 01/15/18 18:00 Coumadin PO [id number]@1800 RADHA Intake and Output 01/11/18 01/12/18 01/12/18 22:59 06:59 14:59 Output Total 875 1050 Balance -875 -1050 Output: Urine 875 1050 Other: Voiding Method Urinal Weight 116.2 kg 01/11/18 10:36 01/11/18 10:36 EKG Interpretations (text) EKG shows atrial fibrillation with a moderately rapid ventricular response. Assessment and Plan Plan: Assessment and plan #1 symptoms of mid epigastric and upper abdominal discomfort with associated shortness of breath, diaphoresis and nausea. EKG shows atrial fibrillation with moderately rapid ventricular response. Troponins 0.036, 0.10, 0.24. #2 history of mitral valve repair #3 nonobstructive coronary artery disease #4 chronic persistent atrial fibrillation on Coumadin for anticoagulation #5 hypertension #6 diabetes #7 hyperlipidemia #8 acute on chronic renal insufficiency #9 diastolic congestive heart failure acute on chronic Plan According to the patient, he just had an echo and stress test performed in the office with Dr. Jc last week we'll attempt to get records of that. We'll give the patient one time dose of IV Lasix. We will also request an ultrasound of the gallbladder be performed this morning. Patient's INR remains elevated this morning his Coumadin is currently on hold.Pending the results of these testings, further recommendations will be made. DNP note has been reviewed, I agree with a documented findings and plan of care. Patient was seen and examined.
[2018-01-12] MEDS: ATORVASTATIN 40 MG TAB PO SCH (09:51)
[2018-01-12] MEDS: FUROSEMIDE 40 MG TAB PO SCH ×2 (09:52→17:12)
--- NOTE | 2018-01-12 10:00 | US ---
EXAMINATION TYPE: US abdomen limited DATE OF EXAM: 01/12/2018 COMPARISON: NONE CLINICAL HISTORY: gallbladder. RUQ pain x 4 days EXAM MEASUREMENTS: Liver Length: 14.5 cm Gallbladder Wall: 0.5 cm CBD: 0.4 cm Right Kidney: 11.9 x 6.2 x 5.6 cm Difficult and limited study due to patient body habitus Pancreas: obscured by overlying midline bowel gas Liver: visualized portions wnl, limited by rib shadowing and overlying bowel gas Gallbladder: appears hydropic, wall thickening up to 9 mm, hyperechoic echoes within neck, possible sludge Evidence for sonographic Garcia's sign: yes CBD: visualized portions wnl, limited by overlying bowel gas Right Kidney: wnl IMPRESSION: 1. Enlarged hydropic gallbladder with wall thickening and biliary sludge as well as positive sonograp hic Garcia sign with constellation of findings concerning for acute cholecystitis. However, the commo n bile duct is nondilated and therefore HIDA scan could be performed for confirmation as well as atul elation with serum laboratory values. 2. Limited evaluation of the pancreas and liver due to patient body habitus.
--- NOTE | 2018-01-12 10:05 | P.PN ---
Progress Note - Text This is an addendum to the dictated cardiology consultation. The patient has a history of chronic persistent atrial fibrillation, mild CAD by cardiac catheterization in 2016, post mitral valve repair who presents with substernal chest discomfort and epigastric discomfort. He is followed on a regular basis by Dr. Jc and has underwent a stress test recently that showed no evidence of stress-induced ischemia and his echocardiogram showed an ejection fraction of 40% with moderate mitral and tricuspid regurgitation with moderate pulmonary hypertension. His discomfort started about a week ago, not activity related but subsequently his chest discomfort resolved and he started complaining of significant right upper quadrant pain not associated with nausea or vomiting. He denies any associated dizziness, palpitations or syncope. He has chronic peripheral edema but unchanged. His lung examination shows few crackles at the bases, he is in atrial fibrillation with a systolic murmur at the apex and he has minimal edema. His EKG is consistent with atrial fibrillation and intraventricular conduction delay. His abdominal discomfort is noncardiac, reproducible by palpation and further evaluation of his gallbladder will be done. His troponin are mildly elevated and that could to present an ischemic event that the patient has no history of significant CAD and his stress test recently was unremarkable. We will continue to hold Coumadin and we will await the results of his gallbladder ultrasound and depending on that further recommendations will be made. Thank you for this consult we will follow with you.
[2018-01-12 12:07] LABS: Glucose,Whole Blood 157 mg/dL (75-99)
[2018-01-12] MEDS: LOSARTAN 25 MG TAB PO SCH (12:22)
[2018-01-12] MEDS: ALLOPURINOL 100 MG TAB PO SCH (12:22)
[2018-01-12] MEDS: PANTOPRAZOLE 40 MG TABLET PO SCH (12:22)
[2018-01-12] MEDS: GLIMEPIRIDE 2 MG TAB PO SCH (12:22)
[2018-01-12] MEDS: ASPIRIN 81 MG PO SCH (12:22)
[2018-01-12 13:53] LABS: Hemoglobin A1C 6.8 % (4.0-6.0)
--- NOTE | 2018-01-12 16:02 | P.GSCN ---
History of Present Illness Consult date: 01/12/18 History of present illness: Patient is a 77-year-old white male who presented to the hospital with a complaint of mid epigastric and chest pain. He also has shortness of breath. He was noted to have elevated troponins which were trending upward and there is concern that he may have a non-Q-wave NH. Additionally he has a history of mitral valve replacement and atrial fibrillation for which she is on Coumadin. His INR was 5.4 and then decreased to 3.6. His PTT is 36.7. PT 32.4. The patient denies nausea or vomiting. He denies fever or chills. He does complain of some right upper quadrant discomfort. Secondary to the abdominal discomfort and ultrasound was performed. The ultrasound revealed an enlarged hydropic gallbladder with some wall thickening and biliary sludge. The common bile duct was nondilated. Patient's total bili 1 AST 35 ALTs 35 alk phos 96. Patient's lipase 171. Past surgical history: 1. Cardiac valve replacement Past medical history: 1. Atrial fibrillation 2. Valve replacement 3. COPD 4. Diabetes 5. Acute and chronic renal insufficiency 6. Diastolic congestive heart failure acute on chronic Review of systems: HEENT: Negative Lungs: COPD Heart: Valve replacement, atrial fibrillation, questionable recent NH GI: As above : Negative Musculoskeletal: Arthritis Neurologic: Negative Skin: Negative Psychiatric: Negative Social history: Smoking: Negative Alcohol: Negative Drugs: Negative Review of Systems - Constitutional Reports as per HPI - Cardiovascular Reports as per HPI - Respiratory Reports as per HPI - Gastrointestinal Reports as per HPI - Genitourinary Reports as per HPI - Integumentary Reports as per HPI - Neurological Reports as per HPI - Psychiatric Reports as per HPI - Endocrine Reports as per HPI - Hematologic/Lymphatic Reports as per HPI Past Medical History Past Medical History: Atrial Fibrillation, Heart Failure, COPD, Diabetes Mellitus, Hearing Disorder / Deafness, Hyperlipidemia, Hypertension, Osteoarthritis (OA), Vascular Disorder Additional Past Medical History / Comment(s): Viral myocarditis & pericarditis 1979, IDDM type II, neuropathy bilateral feet and occasionally in bilateral hands, L thigh varicose veins, venous insufficiency, MINTO bilaterally. History of Any Multi-Drug Resistant Organisms: None Reported Past Surgical History: Cardiac Valve Replacement, Heart Catheterization, Orthopedic Surgery Additional Past Surgical History / Comment(s): vein stripping of left leg, carpel tunnel right hand, YAS, cataract safia. eyes with implants, periocardiocentesis -1979, aortic valve repair-March, colonoscopies/ benign polypectomy, EGD with benign polypectomy. Past Anesthesia/Blood Transfusion Reactions: No Reported Reaction Additional Past Anesthesia/Blood Transfusion Reaction / Comm: Pt has received blood without reaction. Past Psychological History: No Psychological Hx Reported Additional Psychological History / Comment(s): Pt resides with his spouse. He is independent. He will use a cane or walker prn. Smoking Status: Former smoker Past Alcohol Use History: None Reported Additional Past Alcohol Use History / Comment(s): Pt started smoking in 1955 and quit in 1979. He was less than a ppd smoker. Past Drug Use History: None Reported - Past Family History Mother Additional Family Medical History / Comment(s): Mother at the age of 98yrs from heart problems. Father Family Medical History: No Reported History Additional Family Medical History / Comment(s): Father in a MVA at the age of 59yrs. Sister(s) Family Medical History: Cancer Medications and Allergies Home Medications Medication Instructions Recorded Confirmed Type Atorvastatin [Lipitor] 40 mg PO DAILY #30 tab 04/20/16 01/11/18 Rx Losartan [Cozaar] 25 mg PO DAILY #30 tab 04/20/16 01/11/18 Rx Ergocalciferol [Vitamin D2 50,000 unit PO Q14D 11/10/16 01/11/18 History (DRISDOL)] Insulin Glargine [Lantus] 26 unit SQ HS 11/10/16 01/11/18 History Potassium Chloride [K-Tab ER] 10 meq PO BID 11/10/16 01/11/18 History Amiodarone HCl [Pacerone] 200 mg PO BID 05/03/17 01/11/18 History Colace 250mg 250 mg PO DAILY PRN 05/03/17 01/11/18 History Furosemide [Lasix] 40 mg PO BID 05/03/17 01/11/18 History Glimepiride [Amaryl] 2 mg PO AC-BRKFST 05/03/17 01/11/18 History Pantoprazole Sodium [Protonix] 40 mg PO AC-BRKFST #30 tablet.dr 05/08/17 Rx Allopurinol [Zyloprim] 100 mg PO DAILY 01/11/18 01/11/18 History Ferrous Gluconate 324 mg PO BID 01/11/18 01/11/18 History Vitamin B Complex 1 cap PO DAILY 01/11/18 01/11/18 History Warfarin [Coumadin] 5 mg PO SUTUTH 01/11/18 01/11/18 History Warfarin [Coumadin] 7.5 mg PO MOWEFRSA 01/11/18 01/11/18 History Allergies Allergy/AdvReac Type Severity Reaction Status Date / Time codeine Allergy Rash/Hives Verified 01/11/18 10:32 Surgical - Exam Vital Signs Temp Pulse Resp BP Pulse Ox 96.9 F L 70 22 188/91 93 L 01/11/18 09:57 01/11/18 09:57 01/11/18 09:57 01/11/18 09:57 01/11/18 09:57 - General no distress, obese - Eyes normal ocular movement - Neck no masses, trachea midline, no venous distension - Respiratory normal expansion, normal respiratory effort, clear to auscultation - Cardiovascular Heart Sounds: normal: S1, S2 - Abdomen Tender to palpation right upper quadrant Abdomen: soft, bowel sounds - Integumentary no rash - Psychiatric oriented to time, oriented to person, oriented to place, speech is normal Results - Labs 01/11/18 10:36 01/11/18 10:36 Abnormal Lab Results - Last 24 Hours (Table) 01/11/18 01/11/18 01/11/18 Range/Units 16:17 16:32 21:00 PT (9.0-12.0) sec INR (<1.2) POC Glucose (mg/dL) 215 H 229 H (75-99) mg/dL Hemoglobin A1c (4.0-6.0) % Troponin I 0.103 H* (0.000-0.034) ng/mL 01/11/18 01/11/18 01/12/18 Range/Units 22:25 22:25 05:37 PT 32.4 H (9.0-12.0) sec INR 3.6 H (<1.2) POC Glucose (mg/dL) (75-99) mg/dL Hemoglobin A1c 6.8 H (4.0-6.0) % Troponin I 0.243 H* (0.000-0.034) ng/mL 01/12/18 01/12/18 Range/Units 06:15 11:31 PT (9.0-12.0) sec INR (<1.2) POC Glucose (mg/dL) 186 H 157 H (75-99) mg/dL Hemoglobin A1c (4.0-6.0) % Troponin I (0.000-0.034) ng/mL Diabetes panel 01/11/18 Range/Units 22:25 Hemoglobin A1c 6.8 H (4.0-6.0) % - Imaging US - abdomen: report reviewed, image reviewed Assessment and Plan Assessment: Impression: 1. Symptoms of midepigastric chest pain may be related to non-Q-wave NH 2. Mitral valve repair with anticoagulation 3. COPD 4. Atrial fibrillation 5. Hypertension 6. Diabetes 7. Hyperlipidemia 8. Acute and chronic renal insufficiency 9. Diastolic congestive heart failure 10. Hydropic gallbladder with positive Garcia sign Plan: 1. Appreciate input as per cardiology 2. Reversal of anticoagulation 3. In view of potential recent NH. Attempt to treat gallbladder conservatively with elective cholecystectomy in the future
[2018-01-12 16:50] LABS: Glucose,Whole Blood 166 mg/dL (75-99)
[2018-01-12] MEDS: PIPERACILLIN-TAZOBACTAM 3.375 GM in DEXTROSE/WATER 1 50ML.BAG IVPB SCH ×2 (17:12→23:25)
[2018-01-12 17:38] LABS: INR 2.2 (<1.2); Prothrombin Time 19.5 sec (9.0-12.0)
[2018-01-12 21:04] LABS: Glucose,Whole Blood 113 mg/dL (75-99)
--- NOTE | 2018-01-12 22:19 | PN ---
PROGRESS NOTE DATE OF SERVICE: 01/12/2018 PRESENTING COMPLAINT: Chest and abdominal pain. INTERVAL HISTORY: This patient presented with chest and abdominal pain. The pain was initially epigastric when she came in and it felt like an elephant sitting on the chest. This morning, the patient's pain was more in the right upper quadrant and actually tender. Ultrasound ordered earlier did show evidence of cholecystitis. Given that the patient possibly had an acute MD too, of course surgical intervention had to be held off. The patient resting in bed. REVIEW OF SYSTEMS: Done for constitutional, cardiovascular, GI, pulmonary; relevant findings as above. CURRENT MEDICATIONS: Reviewed that include IV Zosyn. EXAMINATION: The patient remains afebrile, pulse 78, respirations 16, blood pressure 113/64, pulse ox 94% on 2L. GENERAL APPEARANCE: Lying in bed, awake. EYES: Pupils equal. Conjunctivae normal. HEENT: External appearance of nose and ears normal. Oral cavity normal. NECK: JVD not raised. Mass not palpable. RESPIRATORY: Effort normal. Lungs are clear. CARDIOVASCULAR: First and second sounds normal. No edema. Abdomen showing right upper quadrant tenderness, positive Garcia sign. Liver, spleen not palpable. PSYCHIATRY: Alert and oriented x3. Mood and affect normal. INVESTIGATIONS: Troponin 0.00, 0.1, 0.2. INR 3.6. Abdominal ultrasound: Enlarged hydropic gallbladder with wall thickening and bili sludge. The common bile duct is not dilated. ASSESSMENT: 1. Possibly acute non-Q-wave myocardial infarction with a cardiac-sounding presentation. 2. Possible acute cholecystitis with a positive Garcia sign. Given the acute MD, the patient is a high risk for surgery obviously, but if patient was to lean toward getting septic, then patient may need surgical intervention, understanding there will be high risk. 3. 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 4. History of mitral valve repair. 5. Persistent atrial fibrillation, rate controlled, chronically on Coumadin. 6. Coumadin monitoring. 7. Chronic obstructive pulmonary disease in an ex-smoker. 8. Essential hypertension. 9. Hyperlipidemia. 10.Primary osteoarthritis. 11.Peripheral neuropathy secondary to diabetes. PLAN: Discussed with Dr. Soha Carrero. Patient is on IV Zosyn. Will follow the same. The patient is already on Coumadin. Follow closely. Prognosis guarded. MMODL / IJN: [id number] /
[2018-01-12] MEDS: INSULIN DETEMIR 100 UNIT/ML 10 ML VIAL SQ SCH (22:23)
[2018-01-13 06:15] LABS: Glucose,Whole Blood 104 mg/dL (75-99)
[2018-01-13 06:23] LABS: Basophils % (A) 0 %; Eosinophils % (A) 0 %; HCT 40.2 % (39.0-53.0); HGB 13.1 gm/dL (13.0-17.5); Lymphocytes # (A) 0.7 k/uL (1.0-4.8); Lymphocytes % (A) 4 %; MCH 29.3 pg (25.0-35.0); MCHC 32.6 g/dL (31.0-37.0); Mean Platelet Volume 8.9; Monocytes # (A) 0.6 k/uL (0-1.0); Monocytes % (A) 4 %; Neutrophils # (A) 15.4 k/uL (1.3-7.7); Neutrophils % (A) 91 %; Platelet Count 118 k/uL (150-450); RBC 4.47 m/uL (4.30-5.90); RDW 14.8 % (11.5-15.5); WBC 16.9 k/uL (3.8-10.6)
[2018-01-13] MEDS: INSULIN ASPART 100 UNIT/ML 1 ML 10 ML VIAL SQ SCH ×4 (06:27→21:54)
[2018-01-13 06:34] LABS: Bilirubin, Delta 0.6 mg/dL (0.0-0.2); Bilirubin,Unconjugated 1.4 mg/dL (0.0-1.1); Calcium 8.5 mg/dL (8.4-10.2); INR 1.4 (<1.2); Partial Thromboplastin Time 29.8 sec (22.0-30.0); Potassium 3.7 mmol/L (3.5-5.1); Prothrombin Time 13.3 sec (9.0-12.0); Total Protein 5.7 g/dL (6.3-8.2)
[2018-01-13] MEDS: GLIMEPIRIDE 2 MG TAB PO SCH (06:35)
[2018-01-13] MEDS: PANTOPRAZOLE 40 MG TABLET PO SCH (06:35)
[2018-01-13] MEDS: NITROGLYCERIN OINT 1 INCH/GM PACKET TOPICAL SCH ×3 (06:35→17:23)
[2018-01-13] MEDS: ALLOPURINOL 100 MG TAB PO SCH (08:58)
[2018-01-13] MEDS: ASPIRIN 81 MG PO SCH (08:59)
[2018-01-13] MEDS: FUROSEMIDE 40 MG TAB PO SCH ×2 (08:59→17:23)
[2018-01-13] MEDS: ATORVASTATIN 40 MG TAB PO SCH (08:59)
[2018-01-13] MEDS: LOSARTAN 25 MG TAB PO SCH (08:59)
--- NOTE | 2018-01-13 10:53 | P.PN ---
Subjective Progress Note Date: 01/13/18 Patient this morning continues to complain of right upper quadrant abdominal discomfort. His case was discussed with Marilyn nobles and she is going to review this with cardiology. His white blood cell count this morning has increased to 16.9. The patient's INR is down to 1.4. Concern is that he may have had an acute cardiac event and is safe for surgical intervention. His liver function studies are AST of 22 a LT of 24 and alk phos of 54. Patient's total bilirubin is 2, this is increased from 1.4. Objective - Vital Signs Vital signs: Vital Signs Temp 98.1 F 01/13/18 08:00 Pulse 97 01/13/18 08:00 Resp 18 01/13/18 08:00 BP 123/62 01/13/18 08:00 Pulse Ox 97 01/13/18 08:00 Intake & Output 01/12/18 01/13/18 01/13/18 18:59 06:59 18:59 Intake Total 1240 50 Output Total 600 Balance 640 50 Weight 146 kg Intake: Intake, IV Titration 50 Amount Piperacillin-Tazobactam 3 50 .375 gm In Dextrose/Water 1 50ml.bag @ 12.5 mls/hr IVPB Q8HR [facility] Rx#: [id number] Oral 1240 Output: Urine 600 Other: Voiding Method Urinal Urinal # Voids 2 1 1 # Bowel Movements 1 - Constitutional General appearance: Present: obese - Respiratory Respiratory: bilateral: diminished - Cardiovascular Heart sounds: normal: S1, S2 - Gastrointestinal Gastrointestinal Comment(s): Distended, right upper quadrant tenderness, positive bowel sounds - Psychiatric Psychiatric: Present: A&O x's 3, appropriate affect, intact judgment & insight - Labs CBC & Chem 7: 01/13/18 05:48 01/13/18 05:48 Labs: Abnormal Lab Results - Last 24 Hours (Table) 01/11/18 01/12/18 01/12/18 Range/Units 22:25 11:31 16:20 WBC (3.8-10.6) k/uL Plt Count (150-450) k/uL Neutrophils # (1.3-7.7) k/uL Lymphocytes # (1.0-4.8) k/uL PT (9.0-12.0) sec INR (<1.2) BUN (9-20) mg/dL Creatinine (0.66-1.25) mg/dL POC Glucose (mg/dL) 157 H 166 H (75-99) mg/dL Hemoglobin A1c 6.8 H (4.0-6.0) % Total Bilirubin (0.2-1.3) mg/dL Unconjugated Bilirubin (0.0-1.1) mg/dL Delta Bilirubin (0.0-0.2) mg/dL Total Protein (6.3-8.2) g/dL Albumin (3.5-5.0) g/dL 01/12/18 01/12/18 01/13/18 Range/Units 17:13 21:03 05:48 WBC (3.8-10.6) k/uL Plt Count (150-450) k/uL Neutrophils # (1.3-7.7) k/uL Lymphocytes # (1.0-4.8) k/uL PT 19.5 H (9.0-12.0) sec INR 2.2 H (<1.2) BUN 30 H (9-20) mg/dL Creatinine 1.33 H (0.66-1.25) mg/dL POC Glucose (mg/dL) 113 H (75-99) mg/dL Hemoglobin A1c (4.0-6.0) % Total Bilirubin 2.0 H (0.2-1.3) mg/dL Unconjugated Bilirubin 1.4 H (0.0-1.1) mg/dL Delta Bilirubin 0.6 H (0.0-0.2) mg/dL Total Protein 5.7 L (6.3-8.2) g/dL Albumin 3.0 L (3.5-5.0) g/dL 01/13/18 01/13/18 01/13/18 Range/Units 05:48 05:48 06:14 WBC 16.9 H (3.8-10.6) k/uL Plt Count 118 L (150-450) k/uL Neutrophils # 15.4 H (1.3-7.7) k/uL Lymphocytes # 0.7 L (1.0-4.8) k/uL PT 13.3 H (9.0-12.0) sec INR 1.4 H (<1.2) BUN (9-20) mg/dL Creatinine (0.66-1.25) mg/dL POC Glucose (mg/dL) 104 H (75-99) mg/dL Hemoglobin A1c (4.0-6.0) % Total Bilirubin (0.2-1.3) mg/dL Unconjugated Bilirubin (0.0-1.1) mg/dL Delta Bilirubin (0.0-0.2) mg/dL Total Protein (6.3-8.2) g/dL Albumin (3.5-5.0) g/dL Assessment and Plan Assessment: Impression: 1. Symptoms of midepigastric chest pain may be related to non-Q-wave [place] 2. Mitral valve repair with anticoagulation 3. COPD 4. Atrial fibrillation 5. Hypertension 6. Diabetes 7. Hyperlipidemia 8. Acute and chronic renal insufficiency 9. Diastolic congestive heart failure 10. Hydropic gallbladder with positive Garcia sign 11. Persistent right upper quadrant discomfort Plan: 1. Appreciate input as per cardiology 2. Reversal of anticoagulation 3. Await cardiology recommendation 4. Case discussed with Dr. Prosper Mccord who is covering
[2018-01-13] MEDS: PIPERACILLIN-TAZOBACTAM 3.375 GM in DEXTROSE/WATER 1 50ML.BAG IVPB SCH ×2 (11:00→17:35)
[2018-01-13 11:28] LABS: Glucose,Whole Blood 104 mg/dL (75-99)
[2018-01-13 13:13] LABS: Glucose,Whole Blood 73 mg/dL (75-99)
[2018-01-13] MEDS ORDERED: IV FLUID CONTINUATION 1,000 ML IV ONE (13:13)
[2018-01-13] MEDS ORDERED: PROPOFOL 10 MG/ML 20 ML VIAL IV ONE (13:29)
[2018-01-13] MEDS ORDERED: MIDAZOLAM 2 MG/2 ML VIAL ONE (13:29)
[2018-01-13] MEDS ORDERED: ePHEDrine SULFATE/0.9% NACL/PF 50 MG/5 ML SYRINGE IV ONE (13:29)
[2018-01-13] MEDS ORDERED: SUCCINYLCHOLINE CHLORIDE 100 MG/5 ML SYR IV ONE (13:29)
[2018-01-13] MEDS ORDERED: GLYCOPYRROLATE 0.2 MG/ML 2 ML VIAL ONE (13:29)
[2018-01-13] MEDS ORDERED: NEOSTIGMINE 1 MG/ML 10 ML VIAL ONE (13:29)
[2018-01-13] MEDS ORDERED: ROCURONIUM BROMIDE 10 MG/ML 10 ML VIAL IV ONE (13:29)
[2018-01-13] MEDS ORDERED: fentaNYL (PF) 50 MCG/ML 2 ML AMP ONE (13:29)
--- NOTE | 2018-01-13 13:40 | P.PN ---
Progress Note - Text Progress Note Date: 01/13/18 I was asked to see the patient by Dr. Soha Mccurdy. Patient was admitted to the hospital with signs and symptoms of acute cholecystitis. He underwent cardiac clearance. The patient has had significant right upper quadrant pain. He has evidence of cholecystitis on his ultrasound. On exam is lesser stable. His abdomen is soft. There is some mild tenderness on quadrant. There is no rebound or guarding. Acute cholecystitis with evidence of mild sepsis. Patient will undergo laparoscopic cholecystectomy today. I discussed patient with possible risks of surgery including bleeding, conversion to the open procedure and injury to bile ducts.
[2018-01-13] MEDS ORDERED: BUPIVACAINE (PF) 0.25% 30 ML VIAL SQ ONE (13:49)
[2018-01-13] MEDS ORDERED: SODIUM CHLORIDE 0.9% 500 ML IV ONE (14:14)
--- NOTE | 2018-01-13 14:17 | P.OP ---
Date of Procedure: 01/13/18 Preoperative Diagnosis: Acute cholecystitis Postoperative Diagnosis: Gangrenous cholecystitis Procedure(s) Performed: Laparoscopic cholecystectomy Anesthesia: GINI Surgeon: Tristan James Estimated Blood Loss (ml): 20 Pathology: other (Gallbladder) Condition: stable Disposition: PACU Description of Procedure: The patient was placed on the operating table. The patient received a general endotracheal tube anesthesia. The patients abdomen was prepped and draped in the usual sterile fashion. Through an infraumbilical stab incision, the fascia of the anterior abdominal wall was grasped with a pair of Kochers and then the Veress needle was placed in the peritoneal cavity. Position of the Veress needle was confirmed with positive drop test. The abdomen was then insufflated. After adequate insufflation, the 10 mm trocar was placed in the peritoneal cavity. Following this the laparoscope was placed in the peritoneal cavity. The patient was placed in the head-up, right side up position and then a 5 mm trocar was placed in the right lateral and right subcostal position under direct visualization. A 8 mm trocar was placed in the epigastric position. The gallbladder was gangrenous and appeared to have hydrops. The gallbladder was aspirated prior to grasping. The gallbladder was grasped in the fundus and infundibulum. Traction on the gallbladder was placed in the lateral and the cephalad positions. The triangle of Calot was visualized.. The cystic duct was bluntly dissected until the union of the cystic duct and common bile duct was seen. The cystic duct was then divided and sealed with the Harmonic scissors. A PDS Endoloop was then placed throughout the cystic duct stump. The cystic artery divided and sealed with the Harmonic scissors. The gallbladder was then removed from the liver bed using Harmonic scissors. The gallbladder was then extracted through the epigastric port site. A ANABELL drains placed in the gallbladder fossa and brought out through the lateral trocar site. Operative field was checked for any bleeding spots and Harmonic scissors was used to coagulate the liver bed. The abdomen was irrigated. The trocars were removed. The skin was closed using interrupted 3-0 Vicryl suture. Dermabond dressing were applied. The patient tolerated the procedure well.
[2018-01-13 14:57] LABS: Glucose,Whole Blood 79 mg/dL (75-99)
--- NOTE | 2018-01-13 15:02 | P.PN ---
Subjective Progress Note Date: 01/13/18 This is a 77-year-old gentleman who follows regularly with Dr. Thrasher in the office. 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 He states that he had an episode last week that lasted approximately 2 hours in duration, he did not come to the hospital because it subsided. He again had subsequent symptoms. He went to see Dr. Jc in the office on December 26, and states that he also had a stress test performed in the office. Again Tuesday morning patient developed similar symptoms, epigastric discomfort, states it feels like an elephant sitting on his chest, discomfort in his abdomen , symptoms of nausea, diaphoresis, and shortness of breath. For this reason he came to the hospital for further evaluation. EKG on presentation here showed atrial fibrillation with a left bundle-branch block pattern. Chest x-ray showed findings suggesting decompensating congestive heart failure with mild interstitial pulmonary edema. He has been afebrile. Blood pressure on arrival 188/90, heart rate in the 70s, 93% on room air. Let pressure this morning 148/ 68 with a heart rate in the 60s. His white blood cell count is normal, hemoglobin 15.6, platelet count 141. INR yesterday 5.4, 3.6 this morning. Sodium 140, potassium 4.6, BUN 29, creatinine 1.3. AST and ALT are normal. Magnesium level I.9. BNP level 2790. Troponins 0.036, 0.10, 0.24. At the time of my examination this morning, patient states he had an episode of epigastric discomfort earlier this morning, currently he is free of this. He does have significant right upper quadrant tenderness on examination. 01/13/2018 Ultrasound of the gallbladder revealed an enlarged hydrotropic gallbladder with wall thickening and biliary sludge as well as positive sonographic Garcia sign with constellation of findings concerning for acute cholecystitis. For this reason a surgical consultation was obtained, patient was initially seen in consultation yesterday by surgery and again in follow-up today. White blood cell count today is up to 16, patient continues to have significant right upper quadrant tenderness and for this reason surgery is requesting clearance to perform surgery today. Understanding that the patient is high risk for surgery , this will be performed today by Dr. James. Objective - Vital Signs Vital signs: Vital Signs Temp 97 F L 01/13/18 14:30 Pulse 71 01/13/18 14:45 Resp 20 01/13/18 14:45 BP 111/58 01/13/18 14:45 Pulse Ox 96 01/13/18 14:45 Intake & Output 01/12/18 01/13/18 01/13/18 18:59 06:59 18:59 Intake Total 1240 50 550 Output Total 600 10 Balance 640 50 540 Weight 146 kg Intake: IV 550 Intake, IV Titration 50 Amount Piperacillin-Tazobactam 3 50 .375 gm In Dextrose/Water 1 50ml.bag @ 12.5 mls/hr IVPB Q8HR [facility] Rx#: [id number] Oral 1240 Output: Urine 600 Estimated Blood Loss 10 Other: Voiding Method Urinal Urinal # Voids 2 1 1 # Bowel Movements 1 - Exam PHYSICAL EXAMINATION: HEENT: Head is atraumatic, normocephalic. Pupils equal, round. Neck is supple. There is no elevated jugular venous pressure. HEART EXAMINATION: Heart S1 and S2 irregularly irregular a systolic murmur is heard. CHEST EXAMINATION: Lungs are clear with diminished air entry to bilateral bases. ABDOMEN: Soft, significant , positive right upper quadrant tenderness. Bowel sounds are heard. ]. EXTREMITIES:[ 2+ periphera pulses with trace to 1+ evdence of peripheral edema , chronic discoloration of bilateral lower extremities.. NEUROLOGIC [patient is awake, alert and orieted -3.] . - Labs CBC & Chem 7: 01/13/18 05:48 01/13/18 05:48 Labs: Abnormal Lab Results - Last 24 Hours (Table) 01/11/18 01/12/18 01/12/18 Range/Units 22:25 16:20 17:13 WBC (3.8-10.6) k/uL Plt Count (150-450) k/uL Neutrophils # (1.3-7.7) k/uL Lymphocytes # (1.0-4.8) k/uL PT 19.5 H (9.0-12.0) sec INR 2.2 H (<1.2) BUN (9-20) mg/dL Creatinine (0.66-1.25) mg/dL POC Glucose (mg/dL) 166 H (75-99) mg/dL Hemoglobin A1c 6.8 H (4.0-6.0) % Total Bilirubin (0.2-1.3) mg/dL Unconjugated Bilirubin (0.0-1.1) mg/dL Delta Bilirubin (0.0-0.2) mg/dL Total Protein (6.3-8.2) g/dL Albumin (3.5-5.0) g/dL 01/12/18 01/13/18 01/13/18 Range/Units 21:03 05:48 05:48 WBC 16.9 H (3.8-10.6) k/uL Plt Count 118 L (150-450) k/uL Neutrophils # 15.4 H (1.3-7.7) k/uL Lymphocytes # 0.7 L (1.0-4.8) k/uL PT (9.0-12.0) sec INR (<1.2) BUN 30 H (9-20) mg/dL Creatinine 1.33 H (0.66-1.25) mg/dL POC Glucose (mg/dL) 113 H (75-99) mg/dL Hemoglobin A1c (4.0-6.0) % Total Bilirubin 2.0 H (0.2-1.3) mg/dL Unconjugated Bilirubin 1.4 H (0.0-1.1) mg/dL Delta Bilirubin 0.6 H (0.0-0.2) mg/dL Total Protein 5.7 L (6.3-8.2) g/dL Albumin 3.0 L (3.5-5.0) g/dL 01/13/18 01/13/18 01/13/18 Range/Units 05:48 06:14 11:25 WBC (3.8-10.6) k/uL Plt Count (150-450) k/uL Neutrophils # (1.3-7.7) k/uL Lymphocytes # (1.0-4.8) k/uL PT 13.3 H (9.0-12.0) sec INR 1.4 H (<1.2) BUN (9-20) mg/dL Creatinine (0.66-1.25) mg/dL POC Glucose (mg/dL) 104 H 104 H (75-99) mg/dL Hemoglobin A1c (4.0-6.0) % Total Bilirubin (0.2-1.3) mg/dL Unconjugated Bilirubin (0.0-1.1) mg/dL Delta Bilirubin (0.0-0.2) mg/dL Total Protein (6.3-8.2) g/dL Albumin (3.5-5.0) g/dL 01/13/18 Range/Units 13:11 WBC (3.8-10.6) k/uL Plt Count (150-450) k/uL Neutrophils # (1.3-7.7) k/uL Lymphocytes # (1.0-4.8) k/uL PT (9.0-12.0) sec INR (<1.2) BUN (9-20) mg/dL Creatinine (0.66-1.25) mg/dL POC Glucose (mg/dL) 73 L (75-99) mg/dL Hemoglobin A1c (4.0-6.0) % Total Bilirubin (0.2-1.3) mg/dL Unconjugated Bilirubin (0.0-1.1) mg/dL Delta Bilirubin (0.0-0.2) mg/dL Total Protein (6.3-8.2) g/dL Albumin (3.5-5.0) g/dL Assessment and Plan Plan: Assessment and plan #1 symptoms of mid epigastric and right upper abdominal discomfort with associated shortness of breath, diaphoresis and nausea. EKG shows atrial fibrillation with moderately rapid ventricular response. Troponins 0.036, 0.10 , 0.24. #2 history of mitral valve repair #3 nonobstructive coronary artery disease #4 chronic persistent atrial fibrillation on Coumadin for anticoagulation #5 hypertension #6 diabetes #7 hyperlipidemia #8 acute on chronic renal insufficiency #9 diastolic congestive heart failure acute on chronic Plan To some of the gallbladder revealed acute cholecystitis and patient was seen by surgery. Patient is scheduled to undergo surgery for the gallbladder today understanding that from a cardiac perspective, he is high risk. We will continue to follow. DNP note has been reviewed, I agree with a documented findings and plan of care. Patient was seen and examined.
[2018-01-13] MEDS: traMADol 50 MG TAB PO PRN ×2 (15:47→22:42)
[2018-01-13 16:37] LABS: Glucose,Whole Blood 100 mg/dL (75-99)
--- NOTE | 2018-01-13 17:02 | PN ---
PROGRESS NOTE DATE OF SERVICE: 01/13/2018 PRESENTING COMPLAINT: Abdominal pain. INTERVAL HISTORY: This patient presented with acute TN and what appears now to be acute cholecystitis. We are waiting for the INR to come down. This morning patient was still having right upper quadrant pain. No chest pain. Patient will be taken down for surgery. Patient's daughter at the bedside. No chest pain. REVIEW OF SYSTEMS: Done for constitutional, cardiovascular, GI, pulmonary; relevant findings as above. CURRENT MEDICATIONS: Reviewed. They include: 1. Aspirin. 2. Lipitor. 3. Lasix. 4. Insulin. 5. Nitro paste. 6. IV Zosyn. PHYSICAL EXAMINATION: Temperature 98.6, pulse 67, respiration 16, blood pressure 99/54, pulse ox 94% on room air. GENERAL APPEARANCE: Sitting at the edge of the bed, awake. EYES: Pupils equal. Conjunctivae normal. HEENT: External appearance of nose and ears normal. Oral cavity normal. NECK: JVD not raised. Mass not palpable. RESPIRATORY: Effort normal. LUNGS: Fair air entry. CARDIOVASCULAR: First and second sounds normal. No edema. ABDOMEN: Right upper quadrant tenderness. Liver and spleen not palpable. No guarding or rigidity. PSYCHIATRY: Alert and oriented x3. Mood and affect normal. INVESTIGATIONS: White count 16.9, potassium 3.7, BUN 30, creatinine 1.33. ASSESSMENT: 1. Acute non-Q-wave myocardial infarction, present on admission. 2. Acute cholecystitis. 3. Chronic kidney disease, stage IIIB, from nephrosclerosis and nephropathy. 4. History of mitral valve repair. 5. Persistent atrial fibrillation with rate control, chronically on Coumadin. 6. Coumadin monitoring. 7. Chronic obstructive pulmonary disease. 8. Smoker. 9. Essential hypertension. 10.Hyperlipidemia. 11.Primary osteoarthritis. 12.Peripheral neuropathy secondary to diabetes. PLAN: Patient's INR did come down to 1.4. Since patient has acute cholecystitis, symptoms are not getting better. The risk of perforation is far higher than the risk patient may have from an acute TN. Patient and his daughter do understand this and they are okay to proceed with surgery. Patient is also being followed by Cardiology, who has input on the case. Patient is due to go down for surgery this afternoon. MMODL / IJN: [id number] /
[2018-01-13] MEDS: WARFARIN 7.5 MG TAB PO SCH (17:23)
[2018-01-13] MEDS: ACETAMINOPHEN TAB 325 MG TAB PO PRN (20:06)
[2018-01-13] MEDS: METOPROLOL TARTRATE 12.5 MG TAB PO SCH (20:07)
[2018-01-13 20:28] LABS: Glucose,Whole Blood 174 mg/dL (75-99)
[2018-01-13] MEDS: INSULIN DETEMIR 100 UNIT/ML 10 ML VIAL SQ SCH (22:37)
[2018-01-14] MEDS: NITROGLYCERIN OINT 1 INCH/GM PACKET TOPICAL SCH ×3 (00:51→12:32)
[2018-01-14] MEDS: PIPERACILLIN-TAZOBACTAM 3.375 GM in DEXTROSE/WATER 1 50ML.BAG IVPB SCH ×4 (00:58→23:12)
[2018-01-14] MEDS: traMADol 50 MG TAB PO PRN ×3 (04:28→21:01)
[2018-01-14 06:11] LABS: Glucose,Whole Blood 122 mg/dL (75-99)
[2018-01-14] MEDS: INSULIN ASPART 100 UNIT/ML 1 ML 10 ML VIAL SQ SCH ×4 (06:16→21:00)
[2018-01-14] MEDS: PANTOPRAZOLE 40 MG TABLET PO SCH (06:18)
[2018-01-14] MEDS: GLIMEPIRIDE 2 MG TAB PO SCH (06:18)
[2018-01-14 06:19] LABS: INR 1.2 (<1.2); Prothrombin Time 11.6 sec (9.0-12.0)
[2018-01-14] MEDS: LOSARTAN 25 MG TAB PO SCH (08:39)
[2018-01-14] MEDS: ATORVASTATIN 40 MG TAB PO SCH (08:39)
[2018-01-14] MEDS: ASPIRIN 81 MG PO SCH (08:39)
[2018-01-14] MEDS: METOPROLOL TARTRATE 12.5 MG TAB PO SCH ×2 (08:39→21:02)
[2018-01-14] MEDS: FUROSEMIDE 40 MG TAB PO SCH ×2 (08:39→16:38)
[2018-01-14] MEDS: ALLOPURINOL 100 MG TAB PO SCH (08:39)
--- NOTE | 2018-01-14 10:10 | P.PN ---
Subjective Progress Note Date: 01/14/18 Principal diagnosis: Acute cholecystitis Patient feels better today. Pain is improved. He is tolerating his clears. He is hungry for more. No labs today. T-max 99. Objective - Vital Signs Vital signs: Vital Signs Temp 97.9 F 01/14/18 08:00 Pulse 70 01/14/18 08:00 Resp 18 01/14/18 08:00 BP 123/67 01/14/18 08:00 Pulse Ox 94 L 01/14/18 08:56 Intake & Output 01/13/18 01/14/18 01/14/18 18:59 06:59 18:59 Intake Total 840 50 240 Output Total 10 50 30 Balance 830 0 210 Weight 114.4 kg Intake: IV 550 Intake, IV Titration 50 50 Amount Piperacillin-Tazobactam 3 50 50 .375 gm In Dextrose/Water 1 50ml.bag @ 12.5 mls/hr IVPB Q8HR [facility] Rx#: [id number] Oral 240 240 Output: Drainage 50 30 Right Lower Abdomen 50 30 Estimated Blood Loss 10 Other: Voiding Method Urinal Toilet Urinal # Voids 1 1 - Exam Abdomen: Soft, nondistended, mild tenderness, ANABELL drain serosanguineous - Labs CBC & Chem 7: 01/13/18 05:48 01/13/18 05:48 Labs: Abnormal Lab Results - Last 24 Hours (Table) 01/13/18 01/13/18 01/13/18 Range/Units 11:25 13:11 16:35 INR (<1.2) POC Glucose (mg/dL) 104 H 73 L 100 H (75-99) mg/dL 01/13/18 01/14/18 01/14/18 Range/Units 20:26 05:46 06:09 INR 1.2 H (<1.2) POC Glucose (mg/dL) 174 H 122 H (75-99) mg/dL Assessment and Plan (1) Acute cholecystitis Narrative/Plan: Will advance diet. Recheck labs tomorrow. Ambulate. Current Visit: Yes Status: Acute Code(s): K81.0 - ACUTE CHOLECYSTITIS SNOMED Code(s): 86794319
[2018-01-14 11:29] LABS: Glucose,Whole Blood 143 mg/dL (75-99)
[2018-01-14 16:21] LABS: Glucose,Whole Blood 159 mg/dL (75-99)
--- NOTE | 2018-01-14 17:20 | P.PN ---
Subjective Patient was admitted for acute cholecystitis underwent cholecystectomy. Patient is mildly elevated troponins and cardiology is following the patient patient probably will undergo cardiac catheterization as well. Patient is presently on Zosyn patient underwent a cholecystectomy which is in urgent or emergent surgery. Constitutional: Denied any fatigue denied any fever. Cardio vascular: denied any chest pain, palpitations Gastrointestinal denied any nausea vomiting Pulmonary: Denied any shortness of breath cough Neurologic denied any new focal deficits Objective - Vital Signs Vital signs: Vital Signs Temp 97.7 F 01/14/18 15:45 Pulse 75 01/14/18 15:45 Resp 18 01/14/18 15:45 BP 99/62 01/14/18 16:30 Pulse Ox 95 01/14/18 15:45 Intake & Output 01/13/18 01/14/18 01/14/18 18:59 06:59 18:59 Intake Total 840 50 480 Output Total 10 50 1065 Balance 830 0 -585 Weight 114.4 kg Intake: IV 550 Intake, IV Titration 50 50 Amount Piperacillin-Tazobactam 3 50 50 .375 gm In Dextrose/Water 1 50ml.bag @ 12.5 mls/hr IVPB Q8HR [facility] Rx#: [id number] Oral 240 480 Output: Drainage 50 65 Right Lower Abdomen 50 65 Urine 1000 Estimated Blood Loss 10 Other: Voiding Method Urinal Toilet Urinal # Voids 1 1 - Exam PHYSICAL EXAMINATION: GENERAL: The patient is alert and oriented x3, not in any acute distress. Well developed, well nourished. HEENT: Pupils are round and equally reacting to light. EOMI. No scleral icterus. No conjunctival pallor. Normocephalic, atraumatic. No pharyngeal erythema. No thyromegaly. CARDIOVASCULAR: S1 and S2 present. No murmurs, rubs, or gallops. PULMONARY: Chest is clear to auscultation, no wheezing or crackles. ABDOMEN: Soft, nontender, nondistended, normoactive bowel sounds. No palpable organomegaly. MUSCULOSKELETAL: No joint swelling or deformity. EXTREMITIES: No cyanosis, clubbing, or pedal edema. NEUROLOGICAL: Gross neurological examination did not reveal any focal deficits. SKIN: No rashes. - Labs CBC & Chem 7: 01/13/18 05:48 01/13/18 05:48 Labs: Abnormal Lab Results - Last 24 Hours (Table) 01/13/18 01/14/18 01/14/18 Range/Units 20:26 05:46 06:09 INR 1.2 H (<1.2) POC Glucose (mg/dL) 174 H 122 H (75-99) mg/dL 01/14/18 01/14/18 Range/Units 11:22 16:15 INR (<1.2) POC Glucose (mg/dL) 143 H 159 H (75-99) mg/dL Assessment and Plan Plan: -Acute cholecystitis: Status post cholecystectomy. Patient is on Zosyn which will continue. -Mildly elevated troponins: Cardiology is following the patient further management as per them -Coronary artery disease history of and the history of mitral valve repair in the past -Persistent atrial fibrillation was on Coumadin which is which was held for surgery patient's Coumadin was restarted yesterday repeat INR tomorrow. 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
[2018-01-14] MEDS: WARFARIN 7.5 MG TAB PO SCH (17:34)
--- NOTE | 2018-01-14 20:45 | PN ---
PROGRESS NOTE LOVELY / JINGN: [id number] /
[2018-01-14 20:48] LABS: Glucose,Whole Blood 108 mg/dL (75-99)
[2018-01-14] MEDS: INSULIN DETEMIR 100 UNIT/ML 10 ML VIAL SQ SCH (21:05)
[2018-01-15] MEDS: traMADol 50 MG TAB PO PRN ×2 (02:51→23:52)
[2018-01-15 05:50] LABS: Glucose,Whole Blood 64 mg/dL (75-99)
[2018-01-15] MEDS: INSULIN ASPART 100 UNIT/ML 1 ML 10 ML VIAL SQ SCH ×4 (05:52→21:13)
[2018-01-15 06:05] LABS: Glucose,Whole Blood 79 mg/dL (75-99)
[2018-01-15] MEDS: PANTOPRAZOLE 40 MG TABLET PO SCH (06:43)
[2018-01-15] MEDS: GLIMEPIRIDE 2 MG TAB PO SCH (06:43)
[2018-01-15 06:49] LABS: Basophils % (A) 0 %; Eosinophils # (A) 0.1 k/uL (0-0.7); Eosinophils % (A) 1 %; HGB 12.3 gm/dL (13.0-17.5); Lymphocytes # (A) 0.6 k/uL (1.0-4.8); Lymphocytes % (A) 5 %; MCHC 33.3 g/dL (31.0-37.0); MCV 89.9 fL (80.0-100.0); Mean Platelet Volume 8.6; Monocytes # (A) 0.5 k/uL (0-1.0); Monocytes % (A) 4 %; Neutrophils # (A) 10.5 k/uL (1.3-7.7); Neutrophils % (A) 88 %; Platelet Count 167 k/uL (150-450); RBC 4.12 m/uL (4.30-5.90); RDW 14.5 % (11.5-15.5); WBC 11.9 k/uL (3.8-10.6)
[2018-01-15 06:57] LABS: INR 1.2 (<1.2); Prothrombin Time 11.9 sec (9.0-12.0)
[2018-01-15 07:06] LABS: Albumin 2.8 g/dL (3.5-5.0); Potassium 3.7 mmol/L (3.5-5.1); Total Bilirubin 0.9 mg/dL (0.2-1.3); Total Protein 5.4 g/dL (6.3-8.2)
[2018-01-15] MEDS: METOPROLOL TARTRATE 12.5 MG TAB PO SCH ×2 (08:23→19:47)
[2018-01-15] MEDS: ASPIRIN 81 MG PO SCH (08:24)
[2018-01-15] MEDS: PIPERACILLIN-TAZOBACTAM 3.375 GM in DEXTROSE/WATER 1 50ML.BAG IVPB SCH ×3 (08:24→23:53)
[2018-01-15] MEDS: ATORVASTATIN 40 MG TAB PO SCH (08:24)
[2018-01-15] MEDS: ALLOPURINOL 100 MG TAB PO SCH (08:24)
[2018-01-15] MEDS: FUROSEMIDE 40 MG TAB PO SCH ×2 (08:24→16:39)
--- NOTE | 2018-01-15 11:33 | P.PN ---
Subjective Progress Note Date: 01/15/18 Principal diagnosis: Acute cholecystitis Patient doing well today. Mild discomfort when trying to sit up. ANABELL drain mostly sanguinous. T-max 99.4. White blood cell count improved 11.9. Objective - Vital Signs Vital signs: Vital Signs Temp 97.9 F 01/15/18 08:00 Pulse 51 L 01/15/18 08:00 Resp 18 01/15/18 08:00 BP 104/60 01/15/18 08:00 Pulse Ox 96 01/15/18 08:00 Intake & Output 01/14/18 01/15/18 01/15/18 18:59 06:59 18:59 Intake Total 720 240 Output Total 1065 50 Balance -345 -50 240 Weight 117 kg Intake: Oral 720 240 Output: Drainage 65 50 Right Lower Abdomen 65 50 Urine 1000 Other: Voiding Method Toilet Toilet Urinal Urinal # Voids 1 - Exam Abdomen: Soft, nondistended, incision clean and dry - Labs CBC & Chem 7: 01/15/18 05:22 01/15/18 05:22 Labs: Abnormal Lab Results - Last 24 Hours (Table) 01/14/18 01/14/18 01/15/18 Range/Units 16:15 20:46 05:22 WBC (3.8-10.6) k/uL RBC (4.30-5.90) m/uL Hgb (13.0-17.5) gm/dL Hct (39.0-53.0) % Neutrophils # (1.3-7.7) k/uL Lymphocytes # (1.0-4.8) k/uL INR 1.2 H (<1.2) Sodium (137-145) mmol/L Chloride (98-107) mmol/L BUN (9-20) mg/dL Creatinine (0.66-1.25) mg/dL Glucose (74-99) mg/dL POC Glucose (mg/dL) 159 H 108 H (75-99) mg/dL Calcium (8.4-10.2) mg/dL AST (17-59) U/L Total Protein (6.3-8.2) g/dL Albumin (3.5-5.0) g/dL 01/15/18 01/15/18 01/15/18 Range/Units 05:22 05:22 05:47 WBC 11.9 H (3.8-10.6) k/uL RBC 4.12 L (4.30-5.90) m/uL Hgb 12.3 L (13.0-17.5) gm/dL Hct 37.0 L (39.0-53.0) % Neutrophils # 10.5 H (1.3-7.7) k/uL Lymphocytes # 0.6 L (1.0-4.8) k/uL INR (<1.2) Sodium 133 L (137-145) mmol/L Chloride 95 L (98-107) mmol/L BUN 63 H (9-20) mg/dL Creatinine 2.21 H (0.66-1.25) mg/dL Glucose 42 L* (74-99) mg/dL POC Glucose (mg/dL) 64 L (75-99) mg/dL Calcium 8.0 L (8.4-10.2) mg/dL AST 107 H (17-59) U/L Total Protein 5.4 L (6.3-8.2) g/dL Albumin 2.8 L (3.5-5.0) g/dL Assessment and Plan (1) Acute cholecystitis Narrative/Plan: Continue diet as tolerated. Continue ambulation. Possible remove drain tomorrow. Current Visit: Yes Status: Acute Code(s): K81.0 - ACUTE CHOLECYSTITIS SNOMED Code(s): 76960217
[2018-01-15 11:36] LABS: Glucose,Whole Blood 64 mg/dL (75-99)
[2018-01-15 12:03] LABS: Glucose,Whole Blood 74 mg/dL (75-99)
--- NOTE | 2018-01-15 14:09 | P.PN ---
Subjective Progress Note Date: 01/15/18 This is a 77-year-old gentleman who follows regularly with Dr. Thrasher in the office. 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 He states that he had an episode last week that lasted approximately 2 hours in duration, he did not come to the hospital because it subsided. He again had subsequent symptoms. He went to see Dr. Jc in the office on December 26, and states that he also had a stress test performed in the office. Again Tuesday morning patient developed similar symptoms, epigastric discomfort, states it feels like an elephant sitting on his chest, discomfort in his abdomen , symptoms of nausea, diaphoresis, and shortness of breath. For this reason he came to the hospital for further evaluation. EKG on presentation here showed atrial fibrillation with a left bundle-branch block pattern. Chest x-ray showed findings suggesting decompensating congestive heart failure with mild interstitial pulmonary edema. He has been afebrile. Blood pressure on arrival 188/90, heart rate in the 70s, 93% on room air. Let pressure this morning 148/ 68 with a heart rate in the 60s. His white blood cell count is normal, hemoglobin 15.6, platelet count 141. INR yesterday 5.4, 3.6 this morning. Sodium 140, potassium 4.6, BUN 29, creatinine 1.3. AST and ALT are normal. Magnesium level I.9. BNP level 2790. Troponins 0.036, 0.10, 0.24. At the time of my examination this morning, patient states he had an episode of epigastric discomfort earlier this morning, currently he is free of this. He does have significant right upper quadrant tenderness on examination. 01/13/2018 Ultrasound of the gallbladder revealed an enlarged hydrotropic gallbladder with wall thickening and biliary sludge as well as positive sonographic Garcia sign with constellation of findings concerning for acute cholecystitis. For this reason a surgical consultation was obtained, patient was initially seen in consultation yesterday by surgery and again in follow-up today. White blood cell count today is up to 16, patient continues to have significant right upper quadrant tenderness and for this reason surgery is requesting clearance to perform surgery today. Understanding that the patient is high risk for surgery , this will be performed today by Dr. James. 01/15/2018 Patient was seen and examined this morning, feels well overall, no complaints. Creatinine 2.2 today, off of Lasix. We will check lytes BUN and creatinine in the morning ranging to be made for possible transfer to rehab in the next 24-48 hours. Objective - Vital Signs Vital signs: Vital Signs Temp 97 F L 01/15/18 12:00 Pulse 50 L 01/15/18 12:00 Resp 16 01/15/18 12:20 BP 103/58 01/15/18 12:00 Pulse Ox 95 01/15/18 12:20 Intake & Output 01/14/18 01/15/18 01/15/18 18:59 06:59 18:59 Intake Total 720 240 Output Total 1065 50 1000 Balance -345 -50 -760 Weight 117 kg Intake: Oral 720 240 Output: Drainage 65 50 Right Lower Abdomen 65 50 Urine 1000 1000 Other: Voiding Method Toilet Toilet Urinal Urinal # Voids 1 - Exam PHYSICAL EXAMINATION: HEENT: Head is atraumatic, normocephalic. Pupils equal, round. Neck is supple. There is no elevated jugular venous pressure. HEART EXAMINATION: Heart S1 and S2 irregularly irregular a systolic murmur is heard. CHEST EXAMINATION: Lungs are clear with diminished air entry to bilateral bases. ABDOMEN: Soft, significant , positive right upper quadrant tenderness. Bowel sounds are heard. ]. EXTREMITIES:[ 2+ periphera pulses with trace to 1+ evdence of peripheral edema , chronic discoloration of bilateral lower extremities.. NEUROLOGIC [patient is awake, alert and orieted -3.] . - Labs CBC & Chem 7: 01/15/18 05:22 01/15/18 05:22 Labs: Abnormal Lab Results - Last 24 Hours (Table) 01/14/18 01/14/18 01/15/18 Range/Units 16:15 20:46 05:22 WBC (3.8-10.6) k/uL RBC (4.30-5.90) m/uL Hgb (13.0-17.5) gm/dL Hct (39.0-53.0) % Neutrophils # (1.3-7.7) k/uL Lymphocytes # (1.0-4.8) k/uL INR 1.2 H (<1.2) Sodium (137-145) mmol/L Chloride (98-107) mmol/L BUN (9-20) mg/dL Creatinine (0.66-1.25) mg/dL Glucose (74-99) mg/dL POC Glucose (mg/dL) 159 H 108 H (75-99) mg/dL Calcium (8.4-10.2) mg/dL AST (17-59) U/L Total Protein (6.3-8.2) g/dL Albumin (3.5-5.0) g/dL 01/15/18 01/15/18 01/15/18 Range/Units 05:22 05:22 05:47 WBC 11.9 H (3.8-10.6) k/uL RBC 4.12 L (4.30-5.90) m/uL Hgb 12.3 L (13.0-17.5) gm/dL Hct 37.0 L (39.0-53.0) % Neutrophils # 10.5 H (1.3-7.7) k/uL Lymphocytes # 0.6 L (1.0-4.8) k/uL INR (<1.2) Sodium 133 L (137-145) mmol/L Chloride 95 L (98-107) mmol/L BUN 63 H (9-20) mg/dL Creatinine 2.21 H (0.66-1.25) mg/dL Glucose 42 L* (74-99) mg/dL POC Glucose (mg/dL) 64 L (75-99) mg/dL Calcium 8.0 L (8.4-10.2) mg/dL AST 107 H (17-59) U/L Total Protein 5.4 L (6.3-8.2) g/dL Albumin 2.8 L (3.5-5.0) g/dL 01/15/18 01/15/18 Range/Units 11:33 11:50 WBC (3.8-10.6) k/uL RBC (4.30-5.90) m/uL Hgb (13.0-17.5) gm/dL Hct (39.0-53.0) % Neutrophils # (1.3-7.7) k/uL Lymphocytes # (1.0-4.8) k/uL INR (<1.2) Sodium (137-145) mmol/L Chloride (98-107) mmol/L BUN (9-20) mg/dL Creatinine (0.66-1.25) mg/dL Glucose (74-99) mg/dL POC Glucose (mg/dL) 64 L 74 L (75-99) mg/dL Calcium (8.4-10.2) mg/dL AST (17-59) U/L Total Protein (6.3-8.2) g/dL Albumin (3.5-5.0) g/dL Assessment and Plan Plan: Assessment and plan #1 symptoms of mid epigastric and right upper abdominal discomfort with associated shortness of breath, diaphoresis and nausea. EKG shows atrial fibrillation with moderately rapid ventricular response. Troponins 0.036, 0.10 , 0.24. #2 history of mitral valve repair #3 nonobstructive coronary artery disease #4 chronic persistent atrial fibrillation on Coumadin for anticoagulation #5 hypertension #6 diabetes #7 hyperlipidemia #8 acute on chronic renal insufficiency #9 diastolic congestive heart failure acute on chronic Plan Check lytes BUN and creatinine in the morning. If improvement in creatinine possible transferred to [facility] for rehab in 24-48 hours. DNP note has been reviewed, I agree with a documented findings and plan of care. Patient was seen and examined.
[2018-01-15 15:14] LABS: Potassium 3.5 mmol/L (3.5-5.1)
--- NOTE | 2018-01-15 15:56 | P.PN ---
Subjective Patient was admitted for acute cholecystitis underwent cholecystectomy. Patient is mildly elevated troponins and cardiology is following the patient patient probably will undergo cardiac catheterization as well. Patient is presently on Zosyn patient underwent a cholecystectomy which is in urgent or emergent surgery. 01/15/2018 Significant overnight events, patient had a small bowel movement yesterday. No further induration from cardiology perspective please refer to the dictation for further details Constitutional: Denied any fatigue denied any fever. Cardio vascular: denied any chest pain, palpitations Gastrointestinal denied any nausea vomiting Pulmonary: Denied any shortness of breath cough Neurologic denied any new focal deficits Objective - Vital Signs Vital signs: Vital Signs Temp 97 F L 01/15/18 12:00 Pulse 50 L 01/15/18 12:00 Resp 16 01/15/18 12:20 BP 103/58 01/15/18 12:00 Pulse Ox 95 01/15/18 12:20 Intake & Output 01/14/18 01/15/18 01/15/18 18:59 06:59 18:59 Intake Total 720 240 Output Total 1065 50 1000 Balance -345 -50 -760 Weight 117 kg Intake: Oral 720 240 Output: Drainage 65 50 Right Lower Abdomen 65 50 Urine 1000 1000 Other: Voiding Method Toilet Toilet Urinal Urinal # Voids 1 - Exam PHYSICAL EXAMINATION: GENERAL: The patient is alert and oriented x3, not in any acute distress. Well developed, well nourished. HEENT: Pupils are round and equally reacting to light. EOMI. No scleral icterus. No conjunctival pallor. Normocephalic, atraumatic. No pharyngeal erythema. No thyromegaly. CARDIOVASCULAR: S1 and S2 present. No murmurs, rubs, or gallops. PULMONARY: Chest is clear to auscultation, no wheezing or crackles. ABDOMEN: Soft, nontender, nondistended, normoactive bowel sounds. No palpable organomegaly. MUSCULOSKELETAL: No joint swelling or deformity. EXTREMITIES: No cyanosis, clubbing, or pedal edema. NEUROLOGICAL: Gross neurological examination did not reveal any focal deficits. SKIN: No rashes. - Labs CBC & Chem 7: 01/15/18 05:22 01/15/18 14:28 Labs: Abnormal Lab Results - Last 24 Hours (Table) 01/14/18 01/14/18 01/15/18 Range/Units 16:15 20:46 05:22 WBC (3.8-10.6) k/uL RBC (4.30-5.90) m/uL Hgb (13.0-17.5) gm/dL Hct (39.0-53.0) % Neutrophils # (1.3-7.7) k/uL Lymphocytes # (1.0-4.8) k/uL INR 1.2 H (<1.2) Sodium (137-145) mmol/L Chloride (98-107) mmol/L BUN (9-20) mg/dL Creatinine (0.66-1.25) mg/dL Glucose (74-99) mg/dL POC Glucose (mg/dL) 159 H 108 H (75-99) mg/dL Calcium (8.4-10.2) mg/dL AST (17-59) U/L Total Protein (6.3-8.2) g/dL Albumin (3.5-5.0) g/dL 01/15/18 01/15/18 01/15/18 Range/Units 05:22 05:22 05:47 WBC 11.9 H (3.8-10.6) k/uL RBC 4.12 L (4.30-5.90) m/uL Hgb 12.3 L (13.0-17.5) gm/dL Hct 37.0 L (39.0-53.0) % Neutrophils # 10.5 H (1.3-7.7) k/uL Lymphocytes # 0.6 L (1.0-4.8) k/uL INR (<1.2) Sodium 133 L (137-145) mmol/L Chloride 95 L (98-107) mmol/L BUN 63 H (9-20) mg/dL Creatinine 2.21 H (0.66-1.25) mg/dL Glucose 42 L* (74-99) mg/dL POC Glucose (mg/dL) 64 L (75-99) mg/dL Calcium 8.0 L (8.4-10.2) mg/dL AST 107 H (17-59) U/L Total Protein 5.4 L (6.3-8.2) g/dL Albumin 2.8 L (3.5-5.0) g/dL 01/15/18 01/15/1801/15/18 Range/Units 11:33 11:50 14:28 WBC (3.8-10.6) k/uL RBC (4.30-5.90) m/uL Hgb (13.0-17.5) gm/dL Hct (39.0-53.0) % Neutrophils # (1.3-7.7) k/uL Lymphocytes # (1.0-4.8) k/uL INR (<1.2) Sodium 133 L (137-145) mmol/L Chloride 95 L (98-107) mmol/L BUN 69 H (9-20) mg/dL Creatinine 2.20 H (0.66-1.25) mg/dL Glucose 54 L (74-99) mg/dL POC Glucose (mg/dL) 64 L 74 L (75-99) mg/dL Calcium 8.0 L (8.4-10.2) mg/dL AST (17-59) U/L Total Protein (6.3-8.2) g/dL Albumin (3.5-5.0) g/dL Assessment and Plan Plan: -Acute cholecystitis: Status post cholecystectomy. Patient is on Zosyn which will continue. -Mildly elevated troponins: Cardiology is following the patient, no further intervention is being planned and cardiology perspective -Coronary artery disease history of and the history of mitral valve repair in the past -Persistent atrial fibrillation was on Coumadin which is which was held for surgery patient's Coumadin was restarted 2 days ago repeat INR tomorrow. 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
[2018-01-15 17:01] LABS: Glucose,Whole Blood 82 mg/dL (75-99)
[2018-01-15] MEDS: WARFARIN 5 MG TAB PO SCH (18:21)
[2018-01-15] MEDS ORDERED: INSULIN DETEMIR 100 UNIT/ML 10 ML VIAL SQ SCH (21:00)
[2018-01-15 21:14] LABS: Glucose,Whole Blood 76 mg/dL (75-99)
--- NOTE | 2018-01-16 00:12 | PN ---
PROGRESS NOTE This patient is status post . The patient has been doing fairly well. The patient's . Respirations are not labored. Blood pressure is 114/62 mmHg. First and second heart sounds are normal. The lungs are clinically clear to auscultation and percussion. We will continue the patient on current medications. MMODL / IJN: [id number] /
[2018-01-16 06:07] LABS: INR 1.5 (<1.2); Prothrombin Time 13.6 sec (9.0-12.0)
[2018-01-16 06:19] LABS: Calcium 8.4 mg/dL (8.4-10.2); Potassium 3.3 mmol/L (3.5-5.1)
[2018-01-16] MEDS: traMADol 50 MG TAB PO PRN (06:25)
[2018-01-16] MEDS: INSULIN ASPART 100 UNIT/ML 1 ML 10 ML VIAL SQ SCH ×4 (06:26→20:46)
[2018-01-16] MEDS: PANTOPRAZOLE 40 MG TABLET PO SCH (06:27)
[2018-01-16 06:29] LABS: Glucose,Whole Blood 68 mg/dL (75-99)
[2018-01-16 06:54] LABS: Glucose,Whole Blood 70 mg/dL (75-99)
[2018-01-16] MEDS: ATORVASTATIN 40 MG TAB PO SCH (09:11)
[2018-01-16] MEDS: ASPIRIN 81 MG PO SCH (09:11)
[2018-01-16] MEDS: ALLOPURINOL 100 MG TAB PO SCH (09:12)
[2018-01-16] MEDS: METOPROLOL TARTRATE 12.5 MG TAB PO SCH ×2 (09:12→20:51)
[2018-01-16] MEDS: GLIMEPIRIDE 2 MG TAB PO SCH (09:12)
[2018-01-16] MEDS: FUROSEMIDE 40 MG TAB PO SCH (09:12)
[2018-01-16] MEDS: AMIODARONE 200 MG TAB PO SCH (09:31)
[2018-01-16] MEDS: FAMOTIDINE 20 MG TAB PO SCH (09:31)
[2018-01-16] MEDS ORDERED: MORPHINE ORAL SOLN 10 MG/5 ML CUP PO PRN (09:34)
[2018-01-16] MEDS: PIPERACILLIN-TAZOBACTAM 3.375 GM in DEXTROSE/WATER 1 50ML.BAG IVPB SCH ×3 (09:40→23:03)
[2018-01-16 11:40] LABS: Glucose,Whole Blood 118 mg/dL (75-99)
--- NOTE | 2018-01-16 15:22 | P.PN ---
Subjective Progress Note Date: 01/16/18 This is a 77-year-old gentleman who follows regularly with Dr. Thrasher in the office. 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 He states that he had an episode last week that lasted approximately 2 hours in duration, he did not come to the hospital because it subsided. He again had subsequent symptoms. He went to see Dr. Jc in the office on December 26, and states that he also had a stress test performed in the office. Again Tuesday morning patient developed similar symptoms, epigastric discomfort, states it feels like an elephant sitting on his chest, discomfort in his abdomen , symptoms of nausea, diaphoresis, and shortness of breath. For this reason he came to the hospital for further evaluation. EKG on presentation here showed atrial fibrillation with a left bundle-branch block pattern. Chest x-ray showed findings suggesting decompensating congestive heart failure with mild interstitial pulmonary edema. He has been afebrile. Blood pressure on arrival 188/90, heart rate in the 70s, 93% on room air. Let pressure this morning 148/ 68 with a heart rate in the 60s. His white blood cell count is normal, hemoglobin 15.6, platelet count 141. INR yesterday 5.4, 3.6 this morning. Sodium 140, potassium 4.6, BUN 29, creatinine 1.3. AST and ALT are normal. Magnesium level I.9. BNP level 2790. Troponins 0.036, 0.10, 0.24. At the time of my examination this morning, patient states he had an episode of epigastric discomfort earlier this morning, currently he is free of this. He does have significant right upper quadrant tenderness on examination. 01/13/2018 Ultrasound of the gallbladder revealed an enlarged hydrotropic gallbladder with wall thickening and biliary sludge as well as positive sonographic Garcia sign with constellation of findings concerning for acute cholecystitis. For this reason a surgical consultation was obtained, patient was initially seen in consultation yesterday by surgery and again in follow-up today. White blood cell count today is up to 16, patient continues to have significant right upper quadrant tenderness and for this reason surgery is requesting clearance to perform surgery today. Understanding that the patient is high risk for surgery , this will be performed today by Dr. James. 01/15/2018 Patient was seen and examined this morning, feels well overall, no complaints. Creatinine 2.2 today, off of Lasix. We will check lytes BUN and creatinine in the morning ranging to be made for possible transfer to rehab in the next 24-48 hours. 01/16/2018 Patient seen and examined this morning, overall doing well, no complaints. Sodium 135, potassium 3.3, BUN 70, creatinine 2.1. From cardiology's perspective, patient is stable we will follow him now on an as-needed basis only , please don't hesitate to call with any questions, he may be able to be discharged once stable and cleared by primary. Objective - Vital Signs Vital signs: Vital Signs Temp 97.9 F 01/16/18 08:00 Pulse 51 L 01/16/18 12:00 Resp 17 01/16/18 04:00 BP 108/66 01/16/18 12:00 Pulse Ox 96 01/16/18 12:00 Intake & Output 01/15/18 01/16/18 01/16/18 18:59 06:59 18:59 Intake Total 820 530 Output Total 1096 40 Balance -276 -40 530 Weight 117.2 kg Intake: Intake, IV Titration 100 50 Amount Piperacillin-Tazobactam 3 100 .375 gm In Dextrose/Water 1 50ml.bag @ 12.5 mls/hr IVPB Q8HR [facility] Rx#: [id number] Sodium Chloride 0.9% 500 50 ml As IV .STK-MED ONE Rx# :[id number] Oral 720 480 Output: Drainage 96 40 Right Lower Abdomen 96 40 Urine 1000 Other: # Voids 1 - Exam PHYSICAL EXAMINATION: HEENT: Head is atraumatic, normocephalic. Pupils equal, round. Neck is supple. There is no elevated jugular venous pressure. HEART EXAMINATION: Heart S1 and S2 irregularly irregular a systolic murmur is heard. CHEST EXAMINATION: Lungs are clear with diminished air entry to bilateral bases. ABDOMEN: Soft, significant , positive right upper quadrant tenderness. Bowel sounds are heard. ]. EXTREMITIES:[ 2+ periphera pulses with trace to 1+ evdence of peripheral edema , chronic discoloration of bilateral lower extremities.. NEUROLOGIC [patient is awake, alert and orieted -3.] . - Labs CBC & Chem 7: 01/15/18 05:22 01/16/18 05:47 Labs: Abnormal Lab Results - Last 24 Hours (Table) 01/16/18 01/16/18 01/16/18 Range/Units 05:47 05:47 06:25 PT 13.6 H (9.0-12.0) sec INR 1.5 H (<1.2) Sodium 135 L (137-145) mmol/L Potassium 3.3 L (3.5-5.1) mmol/L Chloride 95 L (98-107) mmol/L BUN 70 H (9-20) mg/dL Creatinine 2.10 H (0.66-1.25) mg/dL Glucose 42 L* (74-99) mg/dL POC Glucose (mg/dL) 68 L (75-99) mg/dL 01/16/18 01/16/18 Range/Units 06:53 11:36 PT (9.0-12.0) sec INR (<1.2) Sodium (137-145) mmol/L Potassium (3.5-5.1) mmol/L Chloride (98-107) mmol/L BUN (9-20) mg/dL Creatinine (0.66-1.25) mg/dL Glucose (74-99) mg/dL POC Glucose (mg/dL) 70 L 118 H (75-99) mg/dL Assessment and Plan Plan: Assessment and plan #1 symptoms of mid epigastric and right upper abdominal discomfort with associated shortness of breath, diaphoresis and nausea. EKG shows atrial fibrillation with moderately rapid ventricular response. Troponins 0.036, 0.10 , 0.24. #2 history of mitral valve repair #3 nonobstructive coronary artery disease #4 chronic persistent atrial fibrillation on Coumadin for anticoagulation #5 hypertension #6 diabetes #7 hyperlipidemia #8 acute on chronic renal insufficiency #9 diastolic congestive heart failure acute on chronic Plan From cardiology's perspective, we'll follow this patient with you now on an as- needed basis only, please don't hesitate to call with any questions. DNP note has been reviewed, I agree with a documented findings and plan of care. Patient was seen and examined.
[2018-01-16 16:25] LABS: Glucose,Whole Blood 108 mg/dL (75-99)
--- NOTE | 2018-01-16 17:02 | P.PN ---
Subjective Patient was admitted for acute cholecystitis underwent cholecystectomy. Patient is mildly elevated troponins and cardiology is following the patient patient probably will undergo cardiac catheterization as well. Patient is presently on Zosyn patient underwent a cholecystectomy which is in urgent or emergent surgery. 01/15/2018 Significant overnight events, patient had a small bowel movement yesterday. No further induration from cardiology perspective please refer to the dictation for further details 01/17/2080 No overnight events patient blood sugars remains low discontinue Lantus. Constitutional: Denied any fatigue denied any fever. Cardio vascular: denied any chest pain, palpitations Gastrointestinal denied any nausea vomiting Pulmonary: Denied any shortness of breath cough Neurologic denied any new focal deficits Objective - Vital Signs Vital signs: Vital Signs Temp 97.9 F 01/16/18 08:00 Pulse 51 L 01/16/18 12:00 Resp 17 01/16/18 04:00 BP 108/66 01/16/18 12:00 Pulse Ox 96 01/16/18 12:00 Intake & Output 01/15/18 01/16/18 01/16/18 18:59 06:59 18:59 Intake Total 820 530 Output Total 1096 40 Balance -276 -40 530 Weight 117.2 kg Intake: Intake, IV Titration 100 50 Amount Piperacillin-Tazobactam 3 100 .375 gm In Dextrose/Water 1 50ml.bag @ 12.5 mls/hr IVPB Q8HR [facility] Rx#: [id number] Sodium Chloride 0.9% 500 50 ml As IV .K-MED ONE Rx# :[id number] Oral 720 480 Output: Drainage 96 40 Right Lower Abdomen 96 40 Urine 1000 Other: # Voids 1 - Exam PHYSICAL EXAMINATION: GENERAL: The patient is alert and oriented x3, not in any acute distress. Well developed, well nourished. HEENT: Pupils are round and equally reacting to light. EOMI. No scleral icterus. No conjunctival pallor. Normocephalic, atraumatic. No pharyngeal erythema. No thyromegaly. CARDIOVASCULAR: S1 and S2 present. No murmurs, rubs, or gallops. PULMONARY: Chest is clear to auscultation, no wheezing or crackles. ABDOMEN: Soft, nontender, nondistended, normoactive bowel sounds. No palpable organomegaly. MUSCULOSKELETAL: No joint swelling or deformity. EXTREMITIES: No cyanosis, clubbing, or pedal edema. NEUROLOGICAL: Gross neurological examination did not reveal any focal deficits. SKIN: No rashes. - Labs CBC & Chem 7: 01/15/18 05:22 01/16/18 05:47 Labs: Abnormal Lab Results - Last 24 Hours (Table) 01/16/18 01/16/18 01/16/18 Range/Units 05:47 05:47 06:25 PT 13.6 H (9.0-12.0) sec INR 1.5 H (<1.2) Sodium 135 L (137-145) mmol/L Potassium 3.3 L (3.5-5.1) mmol/L Chloride 95 L (98-107) mmol/L BUN 70 H (9-20) mg/dL Creatinine 2.10 H (0.66-1.25) mg/dL Glucose 42 L* (74-99) mg/dL POC Glucose (mg/dL) 68 L (75-99) mg/dL 01/16/18 01/16/18 01/16/18 Range/Units 06:53 11:36 16:22 PT (9.0-12.0) sec INR (<1.2) Sodium (137-145) mmol/L Potassium (3.5-5.1) mmol/L Chloride (98-107) mmol/L BUN (9-20) mg/dL Creatinine (0.66-1.25) mg/dL Glucose (74-99) mg/dL POC Glucose (mg/dL) 70 L 118 H 108 H (75-99) mg/dL Assessment and Plan Plan: -Acute cholecystitis: Status post cholecystectomy. Patient is on Zosyn which will continue. -Low blood sugars and history of type 2 diabetes mellitus: This can you Lantus because of continued low blood sugars -Mildly elevated troponins: Cardiology is following the patient, no further intervention is being planned and cardiology perspective -Coronary artery disease history of and the history of mitral valve repair in the past -Persistent atrial fibrillation was on Coumadin which is which was held for surgery patient's Coumadin was restarted 2 days ago repeat INR tomorrow. 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
[2018-01-16] MEDS: WARFARIN 7.5 MG TAB PO SCH (17:36)
[2018-01-16] MEDS: MAG HYDROX/AL HYDROX/SIMETH 30 ML CUP PO PRN (17:54)
[2018-01-16 20:47] LABS: Glucose,Whole Blood 101 mg/dL (75-99)
[2018-01-16 20:53] LABS: Magnesium 2.7 mg/dL (1.6-2.3); Potassium 3.7 mmol/L (3.5-5.1)
[2018-01-16 21:00] VITALS: RESP 18
[2018-01-16] MEDS: ACETAMINOPHEN TAB 325 MG TAB PO PRN (23:59)
[2018-01-17 06:10] LABS: Glucose,Whole Blood 66 mg/dL (75-99)
[2018-01-17] MEDS: INSULIN ASPART 100 UNIT/ML 1 ML 10 ML VIAL SQ SCH ×3 (06:14→18:03)
[2018-01-17] MEDS: PANTOPRAZOLE 40 MG TABLET PO SCH (06:24)
[2018-01-17 06:44] LABS: HCT 35.5 % (39.0-53.0); HGB 11.6 gm/dL (13.0-17.5); MCH 29.5 pg (25.0-35.0); MCHC 32.8 g/dL (31.0-37.0); MCV 90.1 fL (80.0-100.0); Mean Platelet Volume 7.8; Platelet Count 176 k/uL (150-450); RBC 3.94 m/uL (4.30-5.90); RDW 14.4 % (11.5-15.5); WBC 9.6 k/uL (3.8-10.6)
[2018-01-17 06:51] LABS: INR 1.6 (<1.2); Prothrombin Time 14.9 sec (9.0-12.0)
[2018-01-17 07:09] LABS: Potassium 3.6 mmol/L (3.5-5.1)
[2018-01-17] MEDS: ALLOPURINOL 100 MG TAB PO SCH (08:11)
[2018-01-17] MEDS: ASPIRIN 81 MG PO SCH (08:11)
[2018-01-17] MEDS: GLIMEPIRIDE 2 MG TAB PO SCH (08:11)
[2018-01-17] MEDS: PIPERACILLIN-TAZOBACTAM 3.375 GM in DEXTROSE/WATER 1 50ML.BAG IVPB SCH ×2 (08:11→17:56)
[2018-01-17] MEDS: ATORVASTATIN 40 MG TAB PO SCH (08:11)
[2018-01-17 08:18] VITALS: TEMP 97.2
[2018-01-17 11:42] LABS: Glucose,Whole Blood 120 mg/dL (75-99)
[2018-01-17] MEDS: METOPROLOL TARTRATE 12.5 MG TAB PO SCH (14:44)
--- NOTE | 2018-01-17 15:30 | P.DS ---
Providers Date of admission: 01/11/18 12:14 Attending physician: Alexy Cedeño Consults: 01/11/18 12:15 Consult Physician Routine Consulting Provider: Ayse Jay Consult Reason/Comments: nstemi Do you want consulting provider notified?: Yes 01/12/18 11:10 Consult Physician Routine Consulting Provider: Mary Melgar Consult Reason/Comments: Gallbladder-see U/S results Do you want consulting provider notified?: Yes Primary care physician: Faizan Ba Hospital Course: Patient was admitted for acute cholecystitis underwent cholecystectomy. Patient is mildly elevated troponins and cardiology is following the patient patient probably will undergo cardiac catheterization as well. Patient is presently on Zosyn patient underwent a cholecystectomy which is in urgent or emergent surgery. 01/15/2018 Significant overnight events, patient had a small bowel movement yesterday. No further induration from cardiology perspective please refer to the dictation for further details 01/16/2018 No overnight events patient blood sugars remains low discontinue Lantus. 01/17/2018 Patient had a good bowel movement clinically doing well cleared by surgery. Although patient is having sinus bradycardia, patient was newly started on metoprolol which will discontinued patient blood pressure is also mildly low because of the losartan his receiving both of which will be discontinued patient is not requiring any insulin here which was discontinued glipizide dose will be decreased to 1 mg patient related to follow closely with primary care physician. As recommended by surgery patient will be given prescription for 5 days of Augmentin. PHYSICAL EXAMINATION: GENERAL: The patient is alert and oriented x3, not in any acute distress. Well developed, well nourished. HEENT: Pupils are round and equally reacting to light. EOMI. No scleral icterus. No conjunctival pallor. Normocephalic, atraumatic. No pharyngeal erythema. No thyromegaly. CARDIOVASCULAR: S1 and S2 present. No murmurs, rubs, or gallops. PULMONARY: Chest is clear to auscultation, no wheezing or crackles. ABDOMEN: Soft, nontender, nondistended, normoactive bowel sounds. No palpable organomegaly. MUSCULOSKELETAL: No joint swelling or deformity. EXTREMITIES: No cyanosis, clubbing, or pedal edema. NEUROLOGICAL: Gross neurological examination did not reveal any focal deficits. SKIN: No rashes. Assessment and Plan Plan: -Acute cholecystitis: Status post cholecystectomy. Patient will be discharged on Augmentin -Low blood sugars and history of type 2 diabetes mellitus: Patient is not requiring glipizide R insulin here. -Mild sinus bradycardia asymptomatic patient is a middle new patient is on amiodarone at home which was not continued here. 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 Allopurinol [Zyloprim] 100 mg PO DAILY Ferrous Gluconate 324 mg PO BID Vitamin B Complex 1 cap PO DAILY Warfarin [Coumadin] 7.5 mg PO MOWEFRSA Warfarin [Coumadin] 5 mg PO SUTUTH Discontinued Losartan [Cozaar] 25 mg PO DAILY #30 tab Insulin Glargine [Lantus] 26 unit SQ HS Potassium Chloride [K-Tab ER] 10 meq PO BID Glimepiride [Amaryl] 2 mg PO AC-BRKFST Furosemide [Lasix] 40 mg PO BID Discharge Medication List Atorvastatin [Lipitor] 40 mg PO DAILY #30 tab 04/20/16 [Rx] Ergocalciferol [Vitamin D2 (DRISDOL)] 50,000 unit PO Q14D 11/10/16 [History] Amiodarone HCl [Pacerone] 200 mg PO BID 05/03/17 [History] Colace 250mg 250 mg PO DAILY PRN 05/03/17 [History] Pantoprazole Sodium [Protonix] 40 mg PO SHITAL-BRKFST #30 tablet. 05/08/17 [Rx] Allopurinol [Zyloprim] 100 mg PO DAILY 01/11/18 [History] Ferrous Gluconate 324 mg PO BID 01/11/18 [History] Vitamin B Complex 1 cap PO DAILY 01/11/18 [History] Warfarin [Coumadin] 5 mg PO SUTUTH 01/11/18 [History] Warfarin [Coumadin] 7.5 mg PO MOWEFRSA 01/11/18 [History] Amoxic-Pot Clav 875-125Mg [Augmentin 875-125] 1 tab PO Q12HR #10 tablet [Rx] Follow up Appointment(s)/Referral(s): Faizan Ba DO [Primary Care Provider] - 1-2 days (Office is closed. Please call to make appointment) Gary Jc MD [STAFF PHYSICIAN] - 01/26/18 12:30 pm () Tristan James MD [STAFF PHYSICIAN] - 01/19/18 2:30 pm ( ) Patient Instructions/Handouts: *Surgery [facility] - Laparoscopic Cholecystectomy Discharge Instructions, [facility] (DC) Discharge Disposition: HOME SELF-CARE
[2018-01-17 16:46] LABS: Glucose,Whole Blood 230 mg/dL (75-99)
[2018-01-17] MEDS: WARFARIN 5 MG TAB PO SCH (18:03)
[2018-01-17 18:28] VITALS: BP 116/62; PULSE 50
--- NOTE | 2018-01-18 15:38 | CDI ---
Last Revision, August 2017 Documentation Clarification Form Date: 01/18/18 From: Allyson Rl Anais Maloney, [employer] Helper between 8:30 am & 5 pm Ben Admit Date: 01/11/2018 12:14:00 PM Patient Name: Darrin Shabazz Visit Number: [id number] Discharge Date: 01/17/18 ATTENTION: The Clinical Documentation Specialists (CDI) and [facility] Coding Staff appreciate your assistance in clarifying documentation. Please respond to the clarification below the line at the bottom and electronically sign. The CDI & [facility] Coding staff will review the response and follow-up if needed. Please note: Queries are made part of the Legal Health Record. If you have any questions, please contact the author of this message via ITS. Dr. Ayse Jay Possible acute non-Q-wave myocardial infarction is documented in the H&P. Per Dr Jay's PN 01/12 - Stress ab recently that showed no evidence of stress- induced ischemia and echocardiogram showed an ejection fraction of 40% with moderate mitrial and tricuspid regurgitation with moderate pulmonary hypertension. Troponin I: 0.036, 0.103 EKG: atrial fibrillation, left bundle branch block In order to capture the severity of condition and necessary documentation specificity, please clarify: NSTEMI ruled in NSTEMI ruled out Unable to determine Other Condition, please specify Unable to determine Other, please specify Please continue to document in your progress notes and discharge summary in order to capture severity of illness and risk of mortality. Include clinical findings that support your diagnosis. MTDD
== END 2018-01-17 19:38 | disposition home or self-care (01) | DRG 417 ==
LOC: EC 09:55 → 6SEL 12:14
PROVIDERS: ADMIT Hospitalist; ATTEND Hospitalist
PROC: 0FT44ZZ Resection of Gallbladder, Percutaneous Endoscopic Approach (ICD-10-PCS; principal; 2018-01-13 09:45)
DX: K81.0 Acute cholecystitis (principal); I50.33 Acute on chronic diastolic (congestive) heart failure; K82.1 Hydrops of gallbladder; I13.0 Hypertensive heart and chronic kidney disease with heart failure and stage 1 through stage 4 chronic kidney disease, or unspecified chronic kidney disease; R79.89 Other specified abnormal findings of blood chemistry; N18.3 Chronic kidney disease, stage 3 (moderate); E11.22 Type 2 diabetes mellitus with diabetic chronic kidney disease; I48.2 Chronic atrial fibrillation; J44.9 Chronic obstructive pulmonary disease, unspecified; E11.42 Type 2 diabetes mellitus with diabetic polyneuropathy; I08.1 Rheumatic disorders of both mitral and tricuspid valves; I44.7 Left bundle-branch block, unspecified; M19.91 Primary osteoarthritis, unspecified site; H91.90 Unspecified hearing loss, unspecified ear; E78.5 Hyperlipidemia, unspecified; I25.10 Atherosclerotic heart disease of native coronary artery without angina pectoris; I45.9 Conduction disorder, unspecified; R00.1 Bradycardia, unspecified; I83.90 Asymptomatic varicose veins of unspecified lower extremity; E66.9 Obesity, unspecified; Z68.33 Body mass index [BMI] 33.0-33.9, adult; Z79.01 Long term (current) use of anticoagulants; Z79.4 Long term (current) use of insulin; Z79.899 Other long term (current) drug therapy; Z95.2 Presence of prosthetic heart valve; Z98.42 Cataract extraction status, left eye; Z98.41 Cataract extraction status, right eye; Z96.1 Presence of intraocular lens; Z86.19 Personal history of other infectious and parasitic diseases; Z88.5 Allergy status to narcotic agent
CPT/HCPCS: 36415; 71046; 76705; 80048; 80053; 80076; 83036; 83690; 83735; 83880; 84132; 84484; 85025; 85027; 85610; 85730; 88304; 93005; 94760; 96374; 96376; 99285

== ENCOUNTER 2018-02-16 19:49 | Inpatient (IN) | payer MEDICARE ==
[2018-02-16] MEDS ORDERED: IBUPROFEN 600 MG TAB PO STA (20:41)
[2018-02-16] MEDS ORDERED: ACETAMINOPHEN TAB 500 MG TAB PO STA (20:41)
[2018-02-16 20:50] LABS: Basophils # (A) 0.1 k/uL (0-0.2); Basophils % (A) 0 %; Eosinophils # (A) 0.1 k/uL (0-0.7); Eosinophils % (A) 0 %; HCT 43.5 % (39.0-53.0); Hypochromasia Slight; Lymphocytes # (A) 0.4 k/uL (1.0-4.8); Lymphocytes % (A) 3 %; MCH 28.7 pg (25.0-35.0); MCHC 32.1 g/dL (31.0-37.0); MCV 89.5 fL (80.0-100.0); Mean Platelet Volume 7.2; Monocytes # (A) 0.3 k/uL (0-1.0); Monocytes % (A) 2 %; Neutrophils # (A) 14.1 k/uL (1.3-7.7); Neutrophils % (A) 94 %; Platelet Count 192 k/uL (150-450); RBC 4.86 m/uL (4.30-5.90); WBC 15.1 k/uL (3.8-10.6)
[2018-02-16 20:59] LABS: INR 1.6 (<1.2); Prothrombin Time 14.6 sec (9.0-12.0)
[2018-02-16 21:02] LABS: Albumin 4.1 g/dL (3.5-5.0); Calcium 9.7 mg/dL (8.4-10.2); Potassium 4.5 mmol/L (3.5-5.1); Total Bilirubin 1.5 mg/dL (0.2-1.3); Total Protein 7.2 g/dL (6.3-8.2)
--- NOTE | 2018-02-16 21:03 | XR ---
EXAMINATION: XR chest 2V DATE AND TIME: 02/16/2018 8:51 PM ORDERING PROVIDER: Maylin Dove CLINICAL INDICATION: Fever TECHNIQUE: PA and lateral COMPARISON: 01/11/2018 DESCRIPTION: Compared with prior study, the overall lung inflation appears improved. There is no foca l lung consolidation. No new pulmonary process. The pleural spaces are negative. The soft tissues and skeletal structures are unchanged. IMPRESSION: 1. Mild/moderate interval improvement in the lung inflation when compared to the prior study. 2. No new process.
[2018-02-16] MEDS: SODIUM CHLORIDE 0.9% 500 ML IV SCH ×4 (21:07→23:00)
[2018-02-16 21:29] LABS: Creatine Kinase 77 U/L (55-170)
[2018-02-16 21:42] LABS: Troponin I <0.012 ng/mL (0.000-0.034)
[2018-02-16 21:49] LABS: Appearance,Urine Clear (Clear); Bilirubin,Urine Negative (Negative); Blood,Urine Negative (Negative); Color,Urine Yellow; Glucose,Urine (UA) 2+ (Negative); Ketones,Urine Negative (Negative); Leukocyte Esterase,Urine Negative (Negative); Nitrite,Urine Negative (Negative); PH, Urine 5.5 (5.0-8.0); Protein,Urine Negative (Negative); Specific Gravity,Urine 1.017 (1.001-1.035)
[2018-02-16] MEDS ORDERED: cefTRIAXone IN SWFI 1,000 MG/10 ML SYRINGE IVP STA (21:52)
[2018-02-16] MEDS ORDERED: ONDANSETRON 4 MG/2 ML VIAL IVP STA (21:53)
[2018-02-16] MEDS ORDERED: MORPHINE SULFATE 2 MG/ML SYRINGE IVP STA (21:53)
--- NOTE | 2018-02-16 21:54 | ED ---
General Adult HPI - General Chief complaint: Chest Pain Stated complaint: chest pain Time Seen by Provider: 02/16/18 20:41 Source: patient, RN notes reviewed, old records reviewed Mode of arrival: ambulatory Limitations: no limitations - History of Present Illness Initial comments: This is a 77-year-old male chief complaint of right-sided abdominal pain, fever or chills body aches for the past day. He states that he is felt nauseous and had no episodes of vomiting however. He states that he had history of gangrene gallbladder one month ago. His surgeon is Dr. James. Patient relates that he has had chills. Reports that the symptoms started within the past 1-2 days. Patient states that he's had some minor shortness breath. He denies any specific chest pain. - Related Data Home Medications Medication Instructions Recorded Confirmed Ergocalciferol [Vitamin D2 50,000 unit PO Q14D 11/10/16 02/16/18 (DEIDRE)] Colace 250mg 250 mg PO DAILY PRN 05/03/17 02/16/18 Allopurinol [Zyloprim] 100 mg PO DAILY 01/11/18 02/16/18 Ferrous Gluconate 324 mg PO BID 01/11/18 02/16/18 Vitamin B Complex 1 cap PO DAILY 01/11/18 02/16/18 Warfarin [Coumadin] 5 mg PO SUTUTH 01/11/18 02/16/18 Warfarin [Coumadin] 7.5 mg PO MOWEFRSA 01/11/18 02/16/18 Amiodarone HCl [Pacerone] 200 mg PO BID 02/16/18 02/16/18 Furosemide [Lasix] 40 mg PO BID 02/16/18 02/16/18 Glimepiride [Amaryl] 2 mg PO AC-BRKFST 02/16/18 02/16/18 Losartan [Cozaar] 25 mg PO DAILY 02/16/18 02/16/18 Potassium Citrate [Potassium 10 meq PO BID 02/16/18 02/16/18 Citrate ER] Previous Rx's Medication Instructions Recorded Atorvastatin [Lipitor] 40 mg PO DAILY #30 tab 04/20/16 Pantoprazole Sodium [Protonix] 40 mg PO AC-BRKFST #30 tablet. 05/08/17 Allergies Allergy/AdvReac Type Severity Reaction Status Date / Time codeine Allergy Rash/Hives Verified 02/16/18 20:47 Review of Systems ROS Statement: Those systems with pertinent positive or pertinent negative responses have been documented in the HPI. ROS Other: All systems not noted in ROS Statement are negative. Past Medical History Past Medical History: Atrial Fibrillation, Heart Failure, COPD, Diabetes Mellitus, Hearing Disorder / Deafness, Hyperlipidemia, Hypertension, Osteoarthritis (OA), Vascular Disorder Additional Past Medical History / Comment(s): Viral myocarditis & pericarditis 1979, IDDM type II, neuropathy bilateral feet and occasionally in bilateral hands, L thigh varicose veins, venous insufficiency, [place] bilaterally. History of Any Multi-Drug Resistant Organisms: None Reported Past Surgical History: Cardiac Valve Replacement, Heart Catheterization, Orthopedic Surgery Additional Past Surgical History / Comment(s): vein stripping of left leg, carpel tunnel right hand, YAS, cataract safia. eyes with implants, periocardiocentesis -1979, aortic valve repair-March, colonoscopies/ benign polypectomy, EGD with benign polypectomy. Past Anesthesia/Blood Transfusion Reactions: No Reported Reaction Additional Past Anesthesia/Blood Transfusion Reaction / Comment(s): Pt has received blood without reaction. Past Psychological History: No Psychological Hx Reported Smoking Status: Former smoker Past Alcohol Use History: None Reported Past Drug Use History: None Reported - Past Family History Mother Additional Family Medical History / Comment(s): Mother at the age of 98yrs from heart problems. Father Family Medical History: No Reported History Additional Family Medical History / Comment(s): Father in a MVA at the age of 59yrs. Sister(s) Family Medical History: Cancer General Exam - General Exam Comments Initial Comments: 37-year-old male. Alert. No significant distress. Limitations: no limitations General appearance: alert, in no apparent distress Head exam: Present: atraumatic, normocephalic, normal inspection Eye exam: Present: normal appearance, PERRL, EOMI. Absent: scleral icterus, conjunctival injection, periorbital swelling ENT exam: Present: normal exam, mucous membranes moist Neck exam: Present: normal inspection. Absent: tenderness, meningismus, lymphadenopathy Respiratory exam: Present: normal lung sounds bilaterally. Absent: respiratory distress, wheezes, rales, rhonchi, stridor Cardiovascular Exam: Present: regular rate, normal rhythm, normal heart sounds. Absent: systolic murmur, diastolic murmur, rubs, gallop, clicks GI/Abdominal exam: Present: soft, tenderness (Right upper quadrant tenderness.) , normal bowel sounds. Absent: distended, guarding, rebound, rigid Extremities exam: Present: normal inspection, full ROM, normal capillary refill. Absent: tenderness, pedal edema, joint swelling, calf tenderness Back exam: Present: normal inspection Neurological exam: Present: alert, oriented X3, CN II-XII intact Course Vital Signs 02/16/18 02/16/18 02/16/18 19:55 20:29 21:09 Temperature 101.2 F H Pulse Rate 69 69 Respiratory 20 20 18 Rate Blood Pressure 172/74 164/79 O2 Sat by Pulse 99 95 Oximetry 02/16/18 02/16/18 02/16/18 21:58 22:47 23:38 Temperature 101.5 F H 100.9 F H 101.7 F H Pulse Rate 62 55 L 55 L Respiratory 18 18 16 Rate Blood Pressure 142/64 145/63 140/65 O2 Sat by Pulse 98 97 97 Oximetry EKG Findings - EKG Comments: EKG Findings:: EKG performed at 2012 shows A. fib with left axis deviation. Left bundle branch block. Ventricular rate of 69 beats were minute. NC interval is undetectable. Stressors and 124. QT QTc is 392/420 ms. Medical Decision Making - Medical Decision Making 77-year-old male presents emergency room today complaining of right upper quadrant abdominal pain and fever. History of gangrene this cholecystectomy surgery 1 month ago. EKG shows no significant changes. He does have history of A. fib diabetes. His clinical lower extremity swelling. Does have an elevated BNP, but denies any worsening shortness of breath or edema. Patient arrived with a fever with one 1.2. He has no evidence of leukocytosis 15.1. Elevated transaminases. He was quite tender in the right upper quadrant. CT on pelvis was completed. CT on pelvis does show concern for right upper quadrant inflammatory changes suggesting cholecystitis with hepatic flexure involvement of the proximal duodenum. Patient was informed of these old. He started on Rocephin, Levaquin and Zosyn. He does meet sepsis criteria. We'll admit the Patient for further evaluation by a his previous surgeon Dr. Stiles accepts admission. Dr. Stiles accept the admission. - Lab Data Result diagrams: 02/16/18 20:21 02/16/18 20:21 Lab Results 02/16/18 02/16/18 02/16/18 Range/Units 20:21 20:21 20:21 WBC 15.1 H (3.8-10.6) k/uL RBC 4.86 (4.30-5.90) m/uL Hgb 14.0 (13.0-17.5) gm/dL Hct 43.5 (39.0-53.0) % MCV 89.5 (80.0-100.0) fL MCH 28.7 (25.0-35.0) pg MCHC 32.1 (31.0-37.0) g/dL RDW 16.0 H (11.5-15.5) % Plt Count 192 (150-450) k/uL Neutrophils % 94 % Lymphocytes % 3 % Monocytes % 2 % Eosinophils % 0 % Basophils % 0 % Neutrophils # 14.1 H (1.3-7.7) k/uL Lymphocytes # 0.4 L (1.0-4.8) k/uL Monocytes # 0.3 (0-1.0) k/uL Eosinophils # 0.1 (0-0.7) k/uL Basophils # 0.1 (0-0.2) k/uL Hypochromasia Slight PT (9.0-12.0) sec INR (<1.2) APTT (22.0-30.0) sec Sodium 143 (137-145) mmol/L Potassium 4.5 (3.5-5.1) mmol/L Chloride 102 (98-107) mmol/L Carbon Dioxide 26 (22-30) mmol/L Anion Gap 15 mmol/L BUN 25 H (9-20) mg/dL Creatinine 1.30 H (0.66-1.25) mg/dL Est GFR (CKD-EPI)AfAm 62 (>60 ml/min/1.73 sqM) Est GFR (CKD-EPI)NonAf 54 (>60 ml/min/1.73 sqM) Glucose 236 H (74-99) mg/dL Plasma Lactic Acid Kenny 1.8 (0.7-2.0) mmol/L Calcium 9.7 (8.4-10.2) mg/dL Total Bilirubin 1.5 H (0.2-1.3) mg/dL AST 225 H (17-59) U/L ALT 100 H (21-72) U/L Alkaline Phosphatase 293 H (38-126) U/L Total Creatine Kinase (55-170) U/L CK-MB (CK-2) (0.0-2.4) ng/mL CK-MB (CK-2) Rel Index Troponin I (0.000-0.034) ng/mL NT-Pro-B Natriuret Pep pg/mL Total Protein 7.2 (6.3-8.2) g/dL Albumin 4.1 (3.5-5.0) g/dL Urine Color Urine Appearance (Clear) Urine pH (5.0-8.0) Ur Specific [place] (1.001-1.035) Urine Protein (Negative) Urine Glucose (UA) (Negative) Urine Ketones (Negative) Urine Blood (Negative) Urine Nitrite (Negative) Urine Bilirubin (Negative) Urine Urobilinogen (<2.0) mg/dL Ur Leukocyte Esterase (Negative) 02/16/18 02/16/18 02/16/18 Range/Units 20:21 20:21 20:21 WBC (3.8-10.6) k/uL RBC (4.30-5.90) m/uL Hgb (13.0-17.5) gm/dL Hct (39.0-53.0) % MCV (80.0-100.0) fL MCH (25.0-35.0) pg MCHC (31.0-37.0) g/dL RDW (11.5-15.5) % Plt Count (150-450) k/uL Neutrophils % % Lymphocytes % % Monocytes % % Eosinophils % % Basophils % % Neutrophils # (1.3-7.7) k/uL Lymphocytes # (1.0-4.8) k/uL Monocytes # (0-1.0) k/uL Eosinophils # (0-0.7) k/uL Basophils # (0-0.2) k/uL Hypochromasia PT 14.6 H (9.0-12.0) sec INR 1.6 H (<1.2) APTT 27.0 (22.0-30.0) sec Sodium (137-145) mmol/L Potassium (3.5-5.1) mmol/L Chloride (98-107) mmol/L Carbon Dioxide (22-30) mmol/L Anion Gap mmol/L BUN (9-20) mg/dL Creatinine (0.66-1.25) mg/dL Est GFR (CKD-EPI)AfAm (>60 ml/min/1.73 sqM) Est GFR (CKD-EPI)NonAf (>60 ml/min/1.73 sqM) Glucose (74-99) mg/dL Plasma Lactic Acid Kenny (0.7-2.0) mmol/L Calcium (8.4-10.2) mg/dL Total Bilirubin (0.2-1.3) mg/dL AST (17-59) U/L ALT (21-72) U/L Alkaline Phosphatase (38-126) U/L Total Creatine Kinase 77 (55-170) U/L CK-MB (CK-2) 1.0 (0.0-2.4) ng/mL CK-MB (CK-2) Rel Index 1.3 Troponin I <0.012 (0.000-0.034) ng/mL NT-Pro-B Natriuret Pep 1930 pg/mL Total Protein (6.3-8.2) g/dL Albumin (3.5-5.0) g/dL Urine Color Urine Appearance (Clear) Urine pH (5.0-8.0) Ur Specific [place] (1.001-1.035) Urine Protein (Negative) Urine Glucose (UA) (Negative) Urine Ketones (Negative) Urine Blood (Negative) Urine Nitrite (Negative) Urine Bilirubin (Negative) Urine Urobilinogen (<2.0) mg/dL Ur Leukocyte Esterase (Negative) 02/16/18 Range/Units 21:40 WBC (3.8-10.6) k/uL RBC (4.30-5.90) m/uL Hgb (13.0-17.5) gm/dL Hct (39.0-53.0) % MCV (80.0-100.0) fL MCH (25.0-35.0) pg MCHC (31.0-37.0) g/dL RDW (11.5-15.5) % Plt Count (150-450) k/uL Neutrophils % % Lymphocytes % % Monocytes % % Eosinophils % % Basophils % % Neutrophils # (1.3-7.7) k/uL Lymphocytes # (1.0-4.8) k/uL Monocytes # (0-1.0) k/uL Eosinophils # (0-0.7) k/uL Basophils # (0-0.2) k/uL Hypochromasia PT (9.0-12.0) sec INR (<1.2) APTT (22.0-30.0) sec Sodium (137-145) mmol/L Potassium (3.5-5.1) mmol/L Chloride (98-107) mmol/L Carbon Dioxide (22-30) mmol/L Anion Gap mmol/L BUN (9-20) mg/dL Creatinine (0.66-1.25) mg/dL Est GFR (CKD-EPI)AfAm (>60 ml/min/1.73 sqM) Est GFR (CKD-EPI)NonAf (>60 ml/min/1.73 sqM) Glucose (74-99) mg/dL Plasma Lactic Acid Kenny (0.7-2.0) mmol/L Calcium (8.4-10.2) mg/dL Total Bilirubin (0.2-1.3) mg/dL AST (17-59) U/L ALT (21-72) U/L Alkaline Phosphatase (38-126) U/L Total Creatine Kinase (55-170) U/L CK-MB (CK-2) (0.0-2.4) ng/mL CK-MB (CK-2) Rel Index Troponin I (0.000-0.034) ng/mL NT-Pro-B Natriuret Pep pg/mL Total Protein (6.3-8.2) g/dL Albumin (3.5-5.0) g/dL Urine Color Yellow Urine Appearance Clear (Clear) Urine pH 5.5 (5.0-8.0) Ur Specific [place] 1.017 (1.001-1.035) Urine Protein Negative (Negative) Urine Glucose (UA) 2+ H (Negative) Urine Ketones Negative (Negative) Urine Blood Negative (Negative) Urine Nitrite Negative (Negative) Urine Bilirubin Negative (Negative) Urine Urobilinogen 8.0 (<2.0) mg/dL Ur Leukocyte Esterase Negative (Negative) - Radiology Data Radiology results: report reviewed Mild to moderate improvement in the lung inflammation when compared to prior study. Like marked right upper quadrant inflammatory changes. Suggesting, acute cholecystitis with fistulas Medication within the hepatic flexure and involvement and the proximal duodenum. Disposition Clinical Impression: Sepsis, Cholecystitis Disposition: ADMITTED IP TO THIS HOSP Condition: Good Is patient prescribed a controlled substance at d/c from ED?: No When asked, does pt state using other controlled substances?: No If prescribed controlled substance>3 days was MAPS reviewed?: No If opioid is for acute pain is fill amount 7 days or less?: No If Rx opioid, was Start Talking consent form obtained?: No Time of Disposition: 23:16
--- NOTE | 2018-02-16 22:27 | CT ---
EXAMINATION TYPE: CT abdomen pelvis w con DATE OF EXAM: 02/16/2018 COMPARISON: NONE HISTORY: RUQ abd pain. CT DLP: 1852.9 mGycm. Automated exposure control for dose reduction was used. TECHNIQUE: Helical acquisition of images was performed from the lung bases through the pelvis. CONTRAST: Performed without Oral Contrast and with IV Contrast, patient injected with 80ml mL of Isov ue 300. FINDINGS: There is a 10 cm zone of acute inflammatory change in the right upper quadrant, involving the gallbladder, extending caudally to involve the hepatic flexure, and extending medially to involve the entirety of the first portion of the duodenum and much of the second portion of the duodenum. Th ere actually appears to be an abnormal fistulous communication between the gallbladder and hepatic fl exure; within the adjacent ascending colon and transverse colon are two 1 cm calcifications, suspicio us for cholelithiasis situated within the colon. The intrahepatic biliary tree is unremarkable. The remainder of the extra hepatic biliary tree is oth erwise unremarkable. LUNG BASES: No significant abnormality is appreciated. LIVER: No significant abnormality is appreciated. PANCREAS: No significant abnormality is seen. SPLEEN: No significant abnormality is seen. ADRENALS: No significant abnormality is seen. KIDNEYS: No significant abnormality is seen. PERITONEAL CAVITY: No free air is visualized. No peritoneal fluid. No evidence of abscess. ABDOMINAL ADENOPATHY: None visualized REPRODUCTIVE ORGANS: No significant abnormality is seen URINARY BLADDER: No significant abnormality is seen. PELVIC ADENOPATHY: None visualized. OSSEOUS STRUCTURES: No significant abnormality is seen. VASCULATURE: Unremarkable. IMPRESSION: MARKED RIGHT UPPER QUADRANT INFLAMMATORY CHANGES; FINDINGS SUGGEST, COMPLICATED CHOLECYSTITIS WITH FI STULOUS COMMUNICATION WITH THE HEPATIC FLEXURE AND INVOLVEMENT OF THE PROXIMAL DUODENUM.
[2018-02-16] MEDS ORDERED: PIPERACILLIN-TAZOBACTAM 3.375 GM in DEXTROSE/WATER 1 50ML.BAG IVPB STA (22:36)
[2018-02-16] MEDS ORDERED: LEVOFLOXACIN 750MG-D5W PMX 750 MG in DEXTROSE/WATER 1 150ML.BAG IVPB STA (22:36)
[2018-02-16] MEDS ORDERED: KETOROLAC 30 MG/ML 1 ML VIAL IVP PRN (23:16)
[2018-02-16] MEDS ORDERED: IBUPROFEN 400 MG TAB PO PRN (23:16)
[2018-02-16] MEDS ORDERED: NALOXONE 0.4 MG/ML 1 ML VIAL IV PRN (23:16)
[2018-02-16] MEDS ORDERED: ONDANSETRON 4 MG/2 ML VIAL IVP PRN (23:16)
[2018-02-16] MEDS ORDERED: MORPHINE SULFATE 2 MG/ML SYRINGE IV PRN (23:16)
[2018-02-16] MEDS ORDERED: ACETAMINOPHEN TAB 325 MG TAB PO PRN (23:16)
[2018-02-16] MEDS: SODIUM CHLORIDE 0.9% 1,000 ML IV SCH (23:37)
[2018-02-17 07:19] LABS: Glucose,Whole Blood 99 mg/dL (75-99)
[2018-02-17] MEDS: SODIUM CHLORIDE 0.9% 1,000 ML IV SCH ×2 (07:44→14:38)
[2018-02-17] MEDS: PANTOPRAZOLE 40 MG/10 ML VIAL IV SCH (08:12)
[2018-02-17] MEDS: PIPERACILLIN-TAZOBACTAM 3.375 GM in DEXTROSE/WATER 1 50ML.BAG IVPB SCH ×2 (09:48→17:19)
[2018-02-17 11:06] LABS: Anisocytosis Slight; Basophils % (A) 0 %; Eosinophils # (A) 0.1 k/uL (0-0.7); Eosinophils % (A) 1 %; HCT 36.4 % (39.0-53.0); HGB 11.4 gm/dL (13.0-17.5); Hypochromasia Moderate; Lymphocytes # (A) 0.8 k/uL (1.0-4.8); Lymphocytes % (A) 6 %; MCH 28.6 pg (25.0-35.0); MCHC 31.3 g/dL (31.0-37.0); MCV 91.2 fL (80.0-100.0); Mean Platelet Volume 7.2; Monocytes # (A) 0.4 k/uL (0-1.0); Monocytes % (A) 3 %; Neutrophils # (A) 11.5 k/uL (1.3-7.7); Neutrophils % (A) 89 %; Platelet Count 135 k/uL (150-450); WBC 12.9 k/uL (3.8-10.6)
[2018-02-17 11:07] LABS: INR 1.9 (<1.2); Prothrombin Time 17.1 sec (9.0-12.0)
[2018-02-17 11:15] LABS: Albumin 2.8 g/dL (3.5-5.0); Calcium 8.2 mg/dL (8.4-10.2); Potassium 4.6 mmol/L (3.5-5.1); Total Bilirubin 0.6 mg/dL (0.2-1.3); Total Protein 5.4 g/dL (6.3-8.2)
[2018-02-17] MEDS ORDERED: PHYTONADIONE ORAL 5 MG/5 ML ORAL.SYRG PO STA (11:24)
[2018-02-17 11:33] LABS: Glucose,Whole Blood 77 mg/dL (75-99)
--- NOTE | 2018-02-17 13:42 | P.GSHP ---
History of Present Illness H&P Date: 02/17/18 A 77-year-old gentleman who presented on the day of admission to the emergency room to be evaluated for right-sided abdominal pain. Patient stated it felt like a sharp stabbing pain with diffuse tenderness across the abdominal wall. stated he felt nauseated with poor oral intake. stated that pain had been ongoing for the past several days. denied any fever chills. Stated that he did feel slightly short of breath denying chest pain when questioning just recently on January 13 underwent a laparoscopic cholecystectomy for a gangrenous cholecystitis. Patient stated after the procedure he had been doing relatively well. Patient does have a cardiac history status post mitral valve repair done 2 years prior with chronic persistent atrial fibrillation rate controlled. Patient stated that he did see his primary cushion mat maker Dr. Thrasher after the surgical procedure. Patient stated he did have a stress test done in Dr. Thrasher' s office and was told that everything was okay. Is on anticoagulation Coumadin. Additionally patient states he does take amiodarone reviewing prior computerized record last admission patient was noted to be mildly bradycardic with no symptoms. Was seen by cardiology that admission. Was noted that the patient was not on amiodarone that admission but was on amiodarone at home prior Patient denies any dizziness lightheadedness. It's noted that patient would have episodes of heart rate in the upper 30s with no symptoms. The 12-lead EKG on admission showed atrial fibrillation left bundle branch block heart rate 69 Patient's heart rate was in the upper 30s nursing called a A team patient denied dizziness lightheadedness chest pain or shortness of breath with the episode self limiting in the emergency room a computed tomography scan of the abdomen pelvis was obtained. Reviewing the computerized record there was extensive inflammatory changes with an abscess within the gallbladder surgical bed measuring 4.5 x 2.5. White count on admission 15.1 with a temp of 101.7. Patient meets SIRS criteria for sepsis suspect abscess within the gallbladder bed. - Review of Systems Comment: Essentially unremarkable except as mentioned in the present illness Past Medical History Past Medical History: Atrial Fibrillation, Heart Failure, COPD, Diabetes Mellitus, Hearing Disorder / Deafness, Hyperlipidemia, Hypertension, Osteoarthritis (OA), Vascular Disorder Additional Past Medical History / Comment(s): Viral myocarditis & pericarditis 1979, IDDM type II, neuropathy bilateral feet and occasionally in bilateral hands, L thigh varicose veins, venous insufficiency, TRIBAL bilaterally. History of Any Multi-Drug Resistant Organisms: None Reported Past Surgical History: Cardiac Valve Replacement, Heart Catheterization, Orthopedic Surgery Additional Past Surgical History / Comment(s): vein stripping of left leg, carpel tunnel right hand, YAS, cataract safia. eyes with implants, periocardiocentesis -1979, aortic valve repair-March, colonoscopies/ benign polypectomy, EGD with benign polypectomy. Past Anesthesia/Blood Transfusion Reactions: No Reported Reaction Additional Past Anesthesia/Blood Transfusion Reaction / Comment(s): Pt has received blood without reaction. Past Psychological History: No Psychological Hx Reported Smoking Status: Former smoker Past Alcohol Use History: None Reported Past Drug Use History: None Reported - Past Family History Mother Additional Family Medical History / Comment(s): Mother at the age of 98yrs from heart problems. Father Family Medical History: No Reported History Additional Family Medical History / Comment(s): Father in a MVA at the age of 59yrs. Sister(s) Family Medical History: Cancer Medications and Allergies Home Medications Medication Instructions Recorded Confirmed Type Atorvastatin [Lipitor] 40 mg PO DAILY #30 tab 04/20/16 02/16/18 Rx Ergocalciferol [Vitamin D2 50,000 unit PO Q14D 11/10/16 02/16/18 History (DEIDRE)] Colace 250mg 250 mg PO DAILY PRN 05/03/17 02/16/18 History Pantoprazole Sodium [Protonix] 40 mg PO AC-BRKFST #30 tablet.dr 05/08/17 Rx Allopurinol [Zyloprim] 100 mg PO DAILY 01/11/18 02/16/18 History Ferrous Gluconate 324 mg PO BID 01/11/18 02/16/18 History Vitamin B Complex 1 cap PO DAILY 01/11/18 02/16/18 History Warfarin [Coumadin] 5 mg PO SUTUTH 01/11/18 02/16/18 History Warfarin [Coumadin] 7.5 mg PO MOWEFRSA 01/11/18 02/16/18 History Furosemide [Lasix] 40 mg PO BID 02/16/18 02/16/18 History Glimepiride [Amaryl] 2 mg PO AC-BRKFST 02/16/18 02/16/18 History Losartan [Cozaar] 25 mg PO DAILY 02/16/18 02/16/18 History Potassium Citrate [Potassium 10 meq PO BID 02/16/18 02/16/18 History Citrate ER] Allergies Allergy/AdvReac Type Severity Reaction Status Date / Time codeine Allergy Rash/Hives Verified 02/16/18 20:47 Surgical - Exam Vital Signs Temp Pulse Resp BP Pulse Ox 101.2 F H 69 20 172/74 99 02/16/18 19:55 02/16/18 19:55 02/16/18 19:55 02/16/18 19:55 02/16/18 19:55 GENERAL APPEARANCE: Pleasant 77-year-old male sitting up on the edge of the bed talkative cooperative patient is alert, oriented x 3 , in no acute distress. VITAL SIGNS: Reviewed HEENT: Head is normocephalic and atraumatic. Pupils are equal and reactive. The nares are patent. Oropharynx is clear without lesions. NECK: Supple without lymphadenopathy. Traches midline. HEART: S1, S2. Irregular monitor atrial fibrillation rate controlled denying chest pain denying dizziness lightheadedness well healed midsternal scar noted LUNGS: No crackles or wheezes are heard. Adequate air movement bilaterally on room air no cough ABDOMEN: Soft, positive tenderness right upper quadrant of the abdomen nondistended with good bowel sounds. No peritoneal signs. No palpable organomegaly or masses. Reports a nausea sensation no emesis states no stool EXTREMITIES: Normal skin color and turgor. No cyanosis, rash, ulceration, clubbing or edema. Radial pedal pulses are 2/4 bilaterally. NEUROLOGICAL: No focal deficits. Strength and sensation are grossly intact. Results - Labs 02/17/18 10:34 02/17/18 10:34 Abnormal Lab Results - Last 24 Hours (Table) 02/16/18 02/16/18 02/16/18 Range/Units 20:21 20:21 20:21 WBC 15.1 H (3.8-10.6) k/uL RBC (4.30-5.90) m/uL Hgb (13.0-17.5) gm/dL Hct (39.0-53.0) % RDW 16.0 H (11.5-15.5) % Plt Count (150-450) k/uL Neutrophils # 14.1 H (1.3-7.7) k/uL Lymphocytes # 0.4 L (1.0-4.8) k/uL PT 14.6 H (9.0-12.0) sec INR 1.6 H (<1.2) Chloride (98-107) mmol/L Carbon Dioxide (22-30) mmol/L BUN 25 H (9-20) mg/dL Creatinine 1.30 H (0.66-1.25) mg/dL Glucose 236 H (74-99) mg/dL Calcium (8.4-10.2) mg/dL Total Bilirubin 1.5 H (0.2-1.3) mg/dL AST 225 H (17-59) U/L ALT 100 H (21-72) U/L Alkaline Phosphatase 293 H (38-126) U/L Total Protein (6.3-8.2) g/dL Albumin (3.5-5.0) g/dL Urine Glucose (UA) (Negative) 02/16/18 02/17/18 02/17/18 Range/Units 21:40 10:34 10:34 WBC 12.9 H (3.8-10.6) k/uL RBC 4.00 L (4.30-5.90) m/uL Hgb 11.4 L (13.0-17.5) gm/dL Hct 36.4 L (39.0-53.0) % RDW 16.0 H (11.5-15.5) % Plt Count 135 L (150-450) k/uL Neutrophils # 11.5 H (1.3-7.7) k/uL Lymphocytes # 0.8 L (1.0-4.8) k/uL PT (9.0-12.0) sec INR (<1.2) Chloride 110 H (98-107) mmol/L Carbon Dioxide 18 L (22-30) mmol/L BUN 28 H (9-20) mg/dL Creatinine 1.38 H (0.66-1.25) mg/dL Glucose 67 L (74-99) mg/dL Calcium 8.2 L (8.4-10.2) mg/dL Total Bilirubin (0.2-1.3) mg/dL AST 83 H (17-59) U/L ALT (21-72) U/L Alkaline Phosphatase 152 H (38-126) U/L Total Protein 5.4 L (6.3-8.2) g/dL Albumin 2.8 L (3.5-5.0) g/dL Urine Glucose (UA) 2+ H (Negative) 02/17/18 Range/Units 10:34 WBC (3.8-10.6) k/uL RBC (4.30-5.90) m/uL Hgb (13.0-17.5) gm/dL Hct (39.0-53.0) % RDW (11.5-15.5) % Plt Count (150-450) k/uL Neutrophils # (1.3-7.7) k/uL Lymphocytes # (1.0-4.8) k/uL PT 17.1 H (9.0-12.0) sec INR 1.9 H (<1.2) Chloride (98-107) mmol/L Carbon Dioxide (22-30) mmol/L BUN (9-20) mg/dL Creatinine (0.66-1.25) mg/dL Glucose (74-99) mg/dL Calcium (8.4-10.2) mg/dL Total Bilirubin (0.2-1.3) mg/dL AST (17-59) U/L ALT (21-72) U/L Alkaline Phosphatase (38-126) U/L Total Protein (6.3-8.2) g/dL Albumin (3.5-5.0) g/dL Urine Glucose (UA) (Negative) Microbiology - Last 24 Hours (Table) 02/16/18 20:21 Blood Culture Gram Stain - Preliminary Blood 02/16/18 20:21 Blood Culture - Final Blood 02/16/18 21:40 Urine Culture - Preliminary Urine,Voided Diabetes panel 02/16/18 02/17/18 Range/Units 20:21 10:34 Sodium 143 139 (137-145) mmol/L Potassium 4.5 4.6 (3.5-5.1) mmol/L Chloride 102 110 H (98-107) mmol/L Carbon Dioxide 26 18 L (22-30) mmol/L BUN 25 H 28 H (9-20) mg/dL Creatinine 1.30 H 1.38 H (0.66-1.25) mg/dL Glucose 236 H 67 L (74-99) mg/dL Calcium 9.7 8.2 L (8.4-10.2) mg/dL AST 225 H 83 H (17-59) U/L ALT 100 H 72 (21-72) U/L Alkaline Phosphatase 293 H 152 H (38-126) U/L Total Protein 7.2 5.4 L (6.3-8.2) g/dL Albumin 4.1 2.8 L (3.5-5.0) g/dL Calcium panel 02/16/18 02/17/18 Range/Units 20:21 10:34 Calcium 9.7 8.2 L (8.4-10.2) mg/dL Albumin 4.1 2.8 L (3.5-5.0) g/dL Pituitary panel 02/16/18 02/17/18 Range/Units 20:21 10:34 Sodium 143 139 (137-145) mmol/L Potassium 4.5 4.6 (3.5-5.1) mmol/L Chloride 102 110 H (98-107) mmol/L Carbon Dioxide 26 18 L (22-30) mmol/L BUN 25 H 28 H (9-20) mg/dL Creatinine 1.30 H 1.38 H (0.66-1.25) mg/dL Glucose 236 H 67 L (74-99) mg/dL Calcium 9.7 8.2 L (8.4-10.2) mg/dL Adrenal panel 02/16/18 02/17/18 Range/Units 20:21 10:34 Sodium 143 139 (137-145) mmol/L Potassium 4.5 4.6 (3.5-5.1) mmol/L Chloride 102 110 H (98-107) mmol/L Carbon Dioxide 26 18 L (22-30) mmol/L BUN 25 H 28 H (9-20) mg/dL Creatinine 1.30 H 1.38 H (0.66-1.25) mg/dL Glucose 236 H 67 L (74-99) mg/dL Calcium 9.7 8.2 L (8.4-10.2) mg/dL Total Bilirubin 1.5 H 0.6 (0.2-1.3) mg/dL AST 225 H 83 H (17-59) U/L ALT 100 H 72 (21-72) U/L Alkaline Phosphatase 293 H 152 H (38-126) U/L Total Protein 7.2 5.4 L (6.3-8.2) g/dL Albumin 4.1 2.8 L (3.5-5.0) g/dL Assessment and Plan Assessment: Impression Present on admission right upper quadrant abdominal pain suspect due to abscess within the gallbladder bed Present on admission febrile, leukocytosis sepsis suspect due to abscess within the gallbladder bed Persistent chronic atrial fibrillation variable ventricular response with episodes of bradycardic with no symptoms likely related to amiodarone History of valvular heart disease prior mitral valve repair 2 years prior CAT scan abdomen and pelvis on admission show evidence of extensive inflammatory changes with abscess within the gallbladder bed A recent laparoscopic cholecystectomy for gangrenous gallbladder with acute cholecystitis done January 13 Present on admission therapeutic INR 1.6 Plan Interventional radiology to do a CT-guided drainage of the abscess today Resume home meds as appropriate IV fluid for hydration Cardiology eval episodes of bradycardic Infectious disease for IV antibiotic recommendations Dr. Rivera DVT and GI prophylaxis Further recommendations pending The above impression and plan of care have been discussed and directed by signing physician. Ashley Ayers nurse practitioner acting as scribe for signing physician.
--- NOTE | 2018-02-17 15:08 | P.CRDCN ---
History of Present Illness History of present illness: Mr. Shabazz is a pleasant 77-year-old male past medical history significant for hypertension, dyslipidemia, mitral valve repair, persistent atrial fibrillation on terminal gauger anticoagulation with coumadin, COPD, mild CAD by cath performed 2015, diabetes mellitus and chronic bradycardia. He follows with Dr. Jc in the office. We have been asked to see him in consultation for bradyacardia. Nursing staff reports his heart rate to be in the 30-40 range. EKG was obtained and reveals atrial fibrillation with heart rate 48 with intraventricular conduction delay. He is seen sitting up in bed in no acute distress. He denies symptoms of dizziness, shortness of breath, chest pain, nausea, vomiting, diaphoresis or palpitations. He is currently admitted into the hospital s/p cholecystectomy with abscess within the gallbladder bed. He is scheduled for CT guided drainage per interventional radiology later today. Prior to his cholecystectomy he underwent a Lexiscan stress test which revealed no evidence for reversible cardiac ischemia with a fixed defect of the inferior wall. Echocardiogram obtained at that time shows decreased systolic function with EF 40%, mild LVG, deverely dilated LA, moderate AR, mitral valve prosthesis with moderate MR, moderate TR and pulmonary hypertension with RVSP 58 mmHg. Laboratory data reviewed, WBC 12.9, hgb 11.4, plt 135, INR 1.9, potassium 4.6, sodium 139, creatinine 1.38, GFR 50, proBNP 1930, cardiac enzymes negative 1. Elevated liver enzymes on admission. Current cardiac medications include Coumadin, potassium supplementation, atorvastatin 40 mg daily, losartan 25 mg daily, amiodarone 200 mg twice a day and Lasix 40 mg twice a day. Review of Systems At the time of my exam: CONSTITUTIONAL: Denies fever. Denies chills. EYES: Denies blurred vision. Denies vision changes. Denies eye pain. EARS, NOSE, MOUTH & THROAT: Denies headache. Denies sore throat. Denies ear pain. CARDIOVASCULAR: Denies chest pain. Denies shortness of breath. Denies orthopnea. Denies PND. Denies palpitations. RESPIRATORY: Denies cough. GASTROINTESTINAL: Complains of right sided abdominal pain. Denies diarrhea. Denies constipation. Denies nausea. Denies vomiting. MUSCULOSKELETAL: Denies myalgias. INTEGUMENTARY: Denies pruitis. Denies rash. NEUROLOGIC: Denies numbness. Denies tingling. Denies weakness. PSYCHIATRIC: Denies anxiety. Denies depression. ENDOCRINE: Denies fatigue. Denies weight change. Denies polydipsia. Denies polyurina. GENITOURINARY: Denies burning, hematuria or urgency with micturation. HEMATOLOGIC: Denies history of anemia. Denies bleeding. Past Medical History Past Medical History: Atrial Fibrillation, Heart Failure, COPD, Diabetes Mellitus, Hearing Disorder / Deafness, Hyperlipidemia, Hypertension, Osteoarthritis (OA), Vascular Disorder Additional Past Medical History / Comment(s): Viral myocarditis & pericarditis 1979, IDDM type II, neuropathy bilateral feet and occasionally in bilateral hands, L thigh varicose veins, venous insufficiency, ALTURAS bilaterally. History of Any Multi-Drug Resistant Organisms: None Reported Past Surgical History: Cardiac Valve Replacement, Heart Catheterization, Orthopedic Surgery Additional Past Surgical History / Comment(s): vein stripping of left leg, carpel tunnel right hand, YAS, cataract safia. eyes with implants, periocardiocentesis -1979, aortic valve repair-March, colonoscopies/ benign polypectomy, EGD with benign polypectomy. Past Anesthesia/Blood Transfusion Reactions: No Reported Reaction Additional Past Anesthesia/Blood Transfusion Reaction / Comment(s): Pt has received blood without reaction. Past Psychological History: No Psychological Hx Reported Smoking Status: Former smoker Past Alcohol Use History: None Reported Past Drug Use History: None Reported - Past Family History Mother Additional Family Medical History / Comment(s): Mother at the age of 98yrs from heart problems. Father Family Medical History: No Reported History Additional Family Medical History / Comment(s): Father in a MVA at the age of 59yrs. Sister(s) Family Medical History: Cancer Medications and Allergies Home Medications Medication Instructions Recorded Confirmed Type Atorvastatin [Lipitor] 40 mg PO DAILY #30 tab 04/20/16 02/16/18 Rx Ergocalciferol [Vitamin D2 50,000 unit PO Q14D 11/10/16 02/16/18 History (DRISDOL)] Colace 250mg 250 mg PO DAILY PRN 05/03/17 02/16/18 History Pantoprazole Sodium [Protonix] 40 mg PO AC-BRKFST #30 tablet.dr 05/08/17 Rx Allopurinol [Zyloprim] 100 mg PO DAILY 01/11/18 02/16/18 History Ferrous Gluconate 324 mg PO BID 01/11/18 02/16/18 History Vitamin B Complex 1 cap PO DAILY 01/11/18 02/16/18 History Warfarin [Coumadin] 5 mg PO SUTUTH 01/11/18 02/16/18 History Warfarin [Coumadin] 7.5 mg PO MOWEFRSA 01/11/18 02/16/18 History Furosemide [Lasix] 40 mg PO BID 02/16/18 02/16/18 History Glimepiride [Amaryl] 2 mg PO AC-BRKFST 02/16/18 02/16/18 History Losartan [Cozaar] 25 mg PO DAILY 02/16/18 02/16/18 History Potassium Citrate [Potassium 10 meq PO BID 02/16/18 02/16/18 History Citrate ER] Allergies Allergy/AdvReac Type Severity Reaction Status Date / Time codeine Allergy Rash/Hives Verified 02/16/18 20:47 Physical Exam Vitals: Vital Signs Temp Pulse Pulse Resp BP BP Pulse Ox 02/17/18 08:00 98.2 F 54 L 12 92/56 02/17/18 02:29 98.8 F 76 16 132/73 92 L 02/16/18 23:38 101.7 F H 55 L 16 140/65 97 02/16/18 22:47 100.9 F H 55 L 18 145/63 97 02/16/18 21:58 101.5 F H 62 18 142/64 98 02/16/18 21:09 69 18 164/79 95 02/16/18 20:29 20 02/16/18 19:55 101.2 F H 69 20 172/74 99 Intake and Output 02/16/18 02/17/18 02/17/18 22:59 06:59 14:59 Intake Total 600 Balance 600 Intake: Intake, IV Titration 600 Amount Sodium Chloride 0.9% 1, 600 000 ml @ 75 mls/hr IV . [id number] [facility] Rx#:[id number] Other: # Voids 1 1 # Bowel Movements 1 Weight 117.027 kg Blood pressure 92/56 heart rate 54 afebrile maintaining oxygen saturation on room air GENERAL: This is a 77-year-old male in no apparent distress at the time of my examination. HEENT: Head is atraumatic, normocephalic. Pupils are equal, round. Sclerae anicteric. Conjunctivae are clear. Mucous membranes of the mouth are moist. Neck is supple. There is no jugular venous distention. No carotid bruit is heard. LUNGS: Clear to auscultation no wheezes, rales or rhonchi. No chest wall tenderness is noted on palpation or with deep breathing. HEART: Irregular rate and rhythm with systolic ejection murmur, no rubs or gallops. S1 and S2 heard. ABDOMEN: Soft, right upper quadrant tenderness. Bowel sounds are heard. No organomegaly noted. EXTREMITIES: Trace bilateral lower extremity edema and no calf tenderness noted. VASCULAR: Radial and dorsalis pedis pulses palpated, no evidence of clubbing. NEUROLOGIC: Patient is awake, alert and oriented x3. Results 02/17/18 10:34 02/17/18 10:34 Cardiac Enzymes 02/16/18 02/16/18 02/17/18 Range/Units 20:21 20:21 10:34 AST 225 H 83 H (17-59) U/L CK-MB (CK-2) 1.0 (0.0-2.4) ng/mL Troponin I <0.012 (0.000-0.034) ng/mL Coagulation 02/16/18 02/17/18 Range/Units 20:21 10:34 PT 14.6 H 17.1 H (9.0-12.0) sec APTT 27.0 (22.0-30.0) sec CBC 02/16/18 02/17/18 Range/Units 20:21 10:34 WBC 15.1 H 12.9 H (3.8-10.6) k/uL RBC 4.86 4.00 L (4.30-5.90) m/uL Hgb 14.0 11.4 L (13.0-17.5) gm/dL Hct 43.5 36.4 L (39.0-53.0) % Plt Count 192 135 L (150-450) k/uL Comprehensive Metabolic Panel 02/16/18 02/17/18 Range/Units 20:21 10:34 Sodium 143 139 (137-145) mmol/L Potassium 4.5 4.6 (3.5-5.1) mmol/L Chloride 102 110 H (98-107) mmol/L Carbon Dioxide 26 18 L (22-30) mmol/L BUN 25 H 28 H (9-20) mg/dL Creatinine 1.30 H 1.38 H (0.66-1.25) mg/dL Glucose 236 H 67 L (74-99) mg/dL Calcium 9.7 8.2 L (8.4-10.2) mg/dL AST 225 H 83 H (17-59) U/L ALT 100 H 72 (21-72) U/L Alkaline Phosphatase 293 H 152 H (38-126) U/L Total Protein 7.2 5.4 L (6.3-8.2) g/dL Albumin 4.1 2.8 L (3.5-5.0) g/dL Current Medications Generic Name Dose Route Start Last Admin Trade Name Freq PRN Reason Stop Dose Admin Acetaminophen 650 mg 02/16/18 23:16 Tylenol Tab PO Q6HR PRN Mild Pain or Fever > 100.5 Atorvastatin Calcium 40 mg 02/18/18 09:00 Lipitor PO DAILY RADHA Heparin Sodium (Porcine) 5,000 unit 02/17/18 16:00 Heparin SQ Q8HR RADHA Sodium Chloride 1,000 mls @ 75 mls/hr 02/16/18 23:30 02/17/18 14:38 Saline 0.9% IV 75 mls/hr .[id number] RADHA Administration Piperacillin/Tazobactam/ 50 mls @ 12.5 mls/hr 02/17/18 09:30 02/17/18 09:48 Dextrose 3.375 gm/ IV Solution IVPB 12.5 mls/hr Q8HR RADHA Administration Morphine Sulfate 4 mg 02/16/18 23:16 Morphine Sulfate (Inj) IV Q4HR PRN Severe Pain Naloxone HCl 0.2 mg 02/16/18 23:16 Narcan IV Q2M PRN Opioid Reversal Ondansetron HCl 4 mg 02/16/18 23:16 Zofran IVP Q8HR PRN Nausea And Vomiting Pantoprazole Sodium 40 mg 02/17/18 09:00 02/17/18 08:12 Protonix IV 40 mg DAILY RADHA Administration Intake and Output 02/16/18 02/17/18 02/17/18 22:59 06:59 14:59 Intake Total 600 Balance 600 Intake: Intake, IV Titration 600 Amount Sodium Chloride 0.9% 1, 600 000 ml @ 75 mls/hr IV . [id number] [facility] Rx#:[id number] Other: # Voids 1 1 # Bowel Movements 1 Weight 117.027 kg 02/17/18 10:34 02/17/18 10:34 Assessment and Plan Assessment: ASSESSMENT 1. Chronic persistent atrial fibrillation with slow ventricular response on terminal gauger anticoagulation with coumadin 2. Chronic systolic heart failure, currently euvolemic 3. Hypertension 4. Dyslipidemia 5. Diabetes mellitus 6. COPD 7. Mitral valve repair PLAN Amiodarone should be discontinued indefinitely secondary to persistent atrial fibrillation refractory to amiodarone. This has been communicated to the patient. Check TSH and free T4. Ongoing telemetry monitoring. Thank you kindly for this consultation. Nurse Practitioner note has been reviewed, I agree with a documented findings and plan of care. Patient was seen and examined.
[2018-02-17] MEDS: LOSARTAN 25 MG TAB PO SCH (15:35)
--- NOTE | 2018-02-17 16:10 | CT ---
EXAMINATION TYPE: CT discontinued procedure DATE OF EXAM: 02/17/2018 COMPARISON: CT 02/16/2018 HISTORY: Discontinued procedure of RUQ drainage. CT DLP: 557 mGycm Automated exposure control for dose reduction was used. FINDINGS: Scanning performed through the area of interest at the level of the patient's gallbladder fossa was r epeated. No drainable fluid collection is identified. Follow-up as indicated. IMPRESSION: DISCONTINUED PERCUTANEOUS DRAINAGE TUBE PLACEMENT.
--- NOTE | 2018-02-17 17:02 | P.CONS ---
History of Present Illness - Reason for Consult Renal failure , atrial fibrillation - History of Present Illness Patient 77-year-old pleasant gentleman was recently discharged from the hospital after he was treated for cholecystitis patient had a repeat CAT scan as an outpatient which is showing significant appear he cholecystic fluid because of his there are concerns of necrotic gallbladder patient was admitted as a direct admit from Dr. Schroeder is clinically make for antibiotics IV and percutaneous biliary drain placement. Patient has history of atrial fibrillation patient denied any abdominal pain today denied nausea vomiting. Patient is on Coumadin for atrial fibrillation INR is 1.9 patient is receiving vitamin K and fresh frozen plasma so that he can get percutaneous biliary 10 placement today if not tomorrow. Patient ejection fraction in the past was around 45-50% patient is getting and 50 mL of normal saline which we'll cut it down to 75 mL because of his minimally decreased ejection fraction patient does have history of pulmonary hypertension mitral valve prosthesis 4 moderate mitral regurgitation does have moderate activity regurgitation. Patient denied any shortness of breath bilateral pedal edema. Review of Systems REVIEW OF SYSTEMS: CONSTITUTIONAL: No fever, no malaise, no fatigue. HEENT: No recent visual problems or hearing problems. Denied any sore throat. CARDIOVASCULAR: No chest pain, orthopnea, PND, no palpitations, no syncope. PULMONARY: No shortness of breath, no cough, no hemoptysis. GASTROINTESTINAL: No diarrhea, no nausea, no vomiting, no abdominal pain. Normoactive bowel sounds. NEUROLOGICAL: No headaches, no weakness, no numbness. HEMATOLOGICAL: Denies any bleeding or petechiae. GENITOURINARY: Denies any burning micturition, frequency, or urgency. MUSCULOSKELETAL/RHEUMATOLOGICAL: Denies any joint pain, swelling, or any muscle pain. ENDOCRINE: Denies any polyuria or polydipsia. The rest of the 14-point review of systems is negative. Past Medical History Past Medical History: Atrial Fibrillation, Heart Failure, COPD, Diabetes Mellitus, Hearing Disorder / Deafness, Hyperlipidemia, Hypertension, Osteoarthritis (OA), Vascular Disorder Additional Past Medical History / Comment(s): Viral myocarditis & pericarditis 1979, IDDM type II, neuropathy bilateral feet and occasionally in bilateral hands, L thigh varicose veins, venous insufficiency, PAIUTE-SHOSHONE bilaterally. History of Any Multi-Drug Resistant Organisms: None Reported Past Surgical History: Cardiac Valve Replacement, Heart Catheterization, Orthopedic Surgery Additional Past Surgical History / Comment(s): vein stripping of left leg, carpel tunnel right hand, YAS, cataract safia. eyes with implants, periocardiocentesis -1979, aortic valve repair-March, colonoscopies/ benign polypectomy, EGD with benign polypectomy. Past Anesthesia/Blood Transfusion Reactions: No Reported Reaction Additional Past Anesthesia/Blood Transfusion Reaction / Comm: Pt has received blood without reaction. Past Psychological History: No Psychological Hx Reported Smoking Status: Former smoker Past Alcohol Use History: None Reported Past Drug Use History: None Reported - Past Family History Mother Additional Family Medical History / Comment(s): Mother at the age of 98yrs from heart problems. Father Family Medical History: No Reported History Additional Family Medical History / Comment(s): Father in a MVA at the age of 59yrs. Sister(s) Family Medical History: Cancer Medications and Allergies Home Medications Medication Instructions Recorded Confirmed Type Atorvastatin [Lipitor] 40 mg PO DAILY #30 tab 04/20/16 02/16/18 Rx Ergocalciferol [Vitamin D2 50,000 unit PO Q14D 11/10/16 02/16/18 History (DRFLY)] Colace 250mg 250 mg PO DAILY PRN 05/03/17 02/16/18 History Pantoprazole Sodium [Protonix] 40 mg PO -[facility] #30 tablet.dr 05/08/17 Rx Allopurinol [Zyloprim] 100 mg PO DAILY 01/11/18 02/16/18 History Ferrous Gluconate 324 mg PO BID 01/11/18 02/16/18 History Vitamin B Complex 1 cap PO DAILY 01/11/18 02/16/18 History Warfarin [Coumadin] 5 mg PO SUTUTH 01/11/18 02/16/18 History Warfarin [Coumadin] 7.5 mg PO [id number] 01/11/18 02/16/18 History Furosemide [Lasix] 40 mg PO BID 02/16/18 02/16/18 History Glimepiride [Amaryl] 2 mg PO [id number] 02/16/18 02/16/18 History Losartan [Cozaar] 25 mg PO DAILY 02/16/18 02/16/18 History Potassium Citrate [Potassium 10 meq PO BID 02/16/18 02/16/18 History Citrate ER] Allergies Allergy/AdvReac Type Severity Reaction Status Date / Time codeine Allergy Rash/Hives Verified 02/16/18 20:47 Physical Exam Vitals: Vital Signs Temp Pulse Pulse Resp BP BP Pulse Ox 02/17/18 16:20 43 L 02/17/18 15:21 97.0 F L 48 L 18 106/50 96 02/17/18 15:09 52 L 16 128/74 96 02/17/18 08:00 98.2 F 54 L 12 92/56 02/17/18 02:29 98.8 F 76 16 132/73 92 L 02/16/18 23:38 101.7 F H 55 L 16 140/65 97 02/16/18 22:47 100.9 F H 55 L 18 145/63 97 02/16/18 21:58 101.5 F H 62 18 142/64 98 02/16/18 21:09 69 18 164/79 95 02/16/18 20:29 20 02/16/18 19:55 101.2 F H 69 20 172/74 99 Intake and Output 02/17/18 02/17/18 02/17/18 06:59 14:59 22:59 Intake Total 600 Balance 600 Intake: Intake, IV Titration 600 Amount Sodium Chloride 0.9% 1, 600 000 ml @ 75 mls/hr IV . [id number] [facility] Rx#:[id number] Other: # Voids 1 1 # Bowel Movements 1 PHYSICAL EXAMINATION: GENERAL: The patient is alert and oriented x3, not in any acute distress. Obese HEENT: Pupils are round and equally reacting to light. EOMI. No scleral icterus. No conjunctival pallor. Normocephalic, atraumatic. No pharyngeal erythema. No thyromegaly. CARDIOVASCULAR: S1 and S2 present. No murmurs, rubs, or gallops. PULMONARY: Chest is clear to auscultation, no wheezing or crackles. ABDOMEN: Soft, nontender, nondistended, normoactive bowel sounds. No palpable organomegaly. MUSCULOSKELETAL: No joint swelling or deformity. EXTREMITIES: No cyanosis, clubbing, or pedal edema. NEUROLOGICAL: Gross neurological examination did not reveal any focal deficits. SKIN: No rashes. Results CBC & Chem 7: 02/17/18 10:34 02/17/18 10:34 Labs: Abnormal Lab Results - Last 24 Hours (Table) 02/16/18 02/16/18 02/16/18 Range/Units 20:21 20:21 20:21 WBC 15.1 H (3.8-10.6) k/uL RBC (4.30-5.90) m/uL Hgb (13.0-17.5) gm/dL Hct (39.0-53.0) % RDW 16.0 H (11.5-15.5) % Plt Count (150-450) k/uL Neutrophils # 14.1 H (1.3-7.7) k/uL Lymphocytes # 0.4 L (1.0-4.8) k/uL PT 14.6 H (9.0-12.0) sec INR 1.6 H (<1.2) Chloride (98-107) mmol/L Carbon Dioxide (22-30) mmol/L BUN 25 H (9-20) mg/dL Creatinine 1.30 H (0.66-1.25) mg/dL Glucose 236 H (74-99) mg/dL Calcium (8.4-10.2) mg/dL Total Bilirubin 1.5 H (0.2-1.3) mg/dL AST 225 H (17-59) U/L ALT 100 H (21-72) U/L Alkaline Phosphatase 293 H (38-126) U/L Total Protein (6.3-8.2) g/dL Albumin (3.5-5.0) g/dL Urine Glucose (UA) (Negative) 02/16/18 02/17/18 02/17/18 Range/Units 21:40 10:34 10:34 WBC 12.9 H (3.8-10.6) k/uL RBC 4.00 L (4.30-5.90) m/uL Hgb 11.4 L (13.0-17.5) gm/dL Hct 36.4 L (39.0-53.0) % RDW 16.0 H (11.5-15.5) % Plt Count 135 L (150-450) k/uL Neutrophils # 11.5 H (1.3-7.7) k/uL Lymphocytes # 0.8 L (1.0-4.8) k/uL PT (9.0-12.0) sec INR (<1.2) Chloride 110 H (98-107) mmol/L Carbon Dioxide 18 L (22-30) mmol/L BUN 28 H (9-20) mg/dL Creatinine 1.38 H (0.66-1.25) mg/dL Glucose 67 L (74-99) mg/dL Calcium 8.2 L (8.4-10.2) mg/dL Total Bilirubin (0.2-1.3) mg/dL AST 83 H (17-59) U/L ALT (21-72) U/L Alkaline Phosphatase 152 H (38-126) U/L Total Protein 5.4 L (6.3-8.2) g/dL Albumin 2.8 L (3.5-5.0) g/dL Urine Glucose (UA) 2+ H (Negative) 02/17/18 Range/Units 10:34 WBC (3.8-10.6) k/uL RBC (4.30-5.90) m/uL Hgb (13.0-17.5) gm/dL Hct (39.0-53.0) % RDW (11.5-15.5) % Plt Count (150-450) k/uL Neutrophils # (1.3-7.7) k/uL Lymphocytes # (1.0-4.8) k/uL PT 17.1 H (9.0-12.0) sec INR 1.9 H (<1.2) Chloride (98-107) mmol/L Carbon Dioxide (22-30) mmol/L BUN (9-20) mg/dL Creatinine (0.66-1.25) mg/dL Glucose (74-99) mg/dL Calcium (8.4-10.2) mg/dL Total Bilirubin (0.2-1.3) mg/dL AST (17-59) U/L ALT (21-72) U/L Alkaline Phosphatase (38-126) U/L Total Protein (6.3-8.2) g/dL Albumin (3.5-5.0) g/dL Urine Glucose (UA) (Negative) Microbiology - Last 24 Hours (Table) 02/16/18 20:21 Blood Culture Gram Stain - Preliminary Blood 02/16/18 20:21 Blood Culture - Final Blood 02/16/18 21:40 Urine Culture - Preliminary Urine,Voided Assessment and Plan Plan: -Possible necrotic gallbladder: Patient is on Zosyn which will be continued and patient will undergo biliary drain placed and patient is asymptomatic at this time. -Chronic systolic dysfunction mildly decreased ejection fraction of around 45-50 % patient is fairly euvolemic at this point of time IV fluid management as mentioned above -Chronic persistent atrial fibrillation presently rate controlled anti- correlation is on hold because of above-mentioned reasons -Hypertension -Dyslipidemia -COPD without any acute exacerbation -Morbid obesity -Renal failure: Appears to have mild acute renal failure baseline creatinine of around 1.2 now around 1.4, patient is receiving IV fluids will continue Lasix is being held. We will repeat the basic volley profile tomorrow. May have prerenal azotemia and. -Type 2 diabetes mellitus continue with present are present regimen titrate depending on his blood sugars here. -Metabolic acidosis secondary to uremia and hyperchloremia -Leukocytosis: Secondary to necrotic gallbladder.
--- NOTE | 2018-02-17 17:24 | CONS ---
CONSULTATION DATE OF SERVICE: 02/17/2018 REASON FOR CONSULTATION: Sepsis and antibiotic recommendation. HISTORY OF PRESENT ILLNESS: The patient is a 77-year-old male who is status post laparoscopic cholecystectomy for gangrenous cholecystitis back on 01/13/2018. The patient said that he was discharged home on an oral antibiotic. He was taking it about once a day for about 10 days; however, he did not recall the name of that antibiotic. The patient did well afterwards; however, yesterday he started having some sharp pain in the right upper quadrant area. The pain was almost 10/10 and severe. Since then, nauseated but no vomiting. Denies having any diarrhea or any constipation with it. With these worsening symptoms and some chills, he presented to the [facility] ER, where the patient was evaluated by the ER physician. The patient did have a CT of the abdomen and pelvis which shows marked right upper quadrant inflammatory changes; findings suggest complicated cholecystitis or an abscess collection measuring 4.5 x 2.4 cm. The patient was started on ceftriaxone and admitted to hospital. He did have blood cultures obtained which came back positive this morning with Gram-negative bacilli. That prompted this infectious disease consultation. Antibiotic was adjusted to Zosyn. Patient did have a fever of 101.2 degrees Fahrenheit and did have fever most of the evening yesterday. Afebrile this morning, though. Slightly bradycardic. One episode of blood pressure of 92. His white count was elevated at 15.1 on presentation and the liver enzymes were elevated. REVIEW OF SYSTEMS: CONSTITUTIONAL: Positive for weakness and chills. He did have a fever of 101 degrees Fahrenheit. EYES: No complaint. ENT: No complaint. RESPIRATORY: No complaint. CARDIOVASCULAR: No complaint. GENITOURINARY: No complaint. GASTROINTESTINAL: As per HPI. MUSCULOSKELETAL: No complaint. INTEGUMENTARY: No complaint. PSYCHOLOGICAL: No complaint. ENDOCRINE: No complaint. NEUROLOGICAL: No complaint. PAST MEDICAL HISTORY: 1. Gangrenous cholecystitis, status post laparoscopic cholecystectomy. 2. Atrial fibrillation. 3. Heart failure. 4. COPD. 5. Diabetes mellitus. 6. Hypertension. 7. Hyperlipidemia. 8. Osteoarthritis. 9. Viral myocarditis and pericarditis. 10.Hard of hearing. PAST SURGICAL HISTORY: 1. Cardiac valve replacement. 2. Heart catheterization. 3. Vein stripping of the left leg. 4. Carpal tunnel surgery. 5. Pericardiocentesis. 6. EGD with polypectomy. 7. Colonoscopy. 8. Recent laparoscopic cholecystectomy. SOCIAL HISTORY: Remote history of smoking. No drinking or any drug use. FAMILY HISTORY: Mother at age of 98 from heart problems. Father in a motor vehicle accident age at age of 59 years. Sister with a history of cancer. ALLERGIES: CODEINE. CURRENT MEDICATIONS: 1. Zosyn 3.375 grams q.8. 2. Protonix. 3. Zofran. 4. Narcan. 5. Morphine sulfate. 6. Cozaar. 7. Heparin. 8. Lasix. 9. Lipitor. 10.Tylenol. PHYSICAL EXAMINATION: Blood pressure is 106/50 with a pulse of 40, temperature 97. He is 96% on room air. General description is an elderly male up in the chair in no distress. No tachypnea or accessory muscle of respiration use. HEENT EXAMINATION: No pallor or scleral icterus. Oral mucosa membrane is dry. NECK: Trachea is central. No thyromegaly. LUNGS: Unlabored breathing. Clear to auscultation anteriorly. No wheeze or crackle. HEART: S1, S2. Regular rate and no added sound. ABDOMEN: Soft. Mild to the right upper quadrant area. No guarding or rigidity. EXTREMITIES: No edema of feet. SKIN EXAMINATION: No rash or mass palpable. Neurologically the patient is awake, alert, oriented x3. Mood and affect normal. LABS: Hemoglobin is 14, white count 15.1 with a BUN of 25, creatinine 1.30. Liver enzymes were elevated with bilirubin 1.5, AST 225, ALT of 100, and alkaline phosphatase 293. UA has been negative. Blood culture with Gram-negative bacilli. DIAGNOSTIC IMPRESSION AND PLAN: Patient with Gram-negative sepsis in a patient who did have a fever, did have elevated white count. Source is likely gallbladder fossa abscess in a patient who had a laparoscopic cholecystectomy for gangrenous cholecystitis on January 13. No cultures were done during that admission. Will be likely an enteric Gram-negative pathogen. PLAN: 1. Zosyn 3.375 grams piggyback q.8 hours. 2. IV fluid. 3. Await CT-guided drainage of this fluid; should be sent for culture, both aerobic and anaerobic. 4. Depending on his clinical response as well as cultures, will adjust the medication further if needed. Thank you for this consultation. Will follow this patient along with you. MMODL / IJN: [id number] /
[2018-02-17 17:28] LABS: Glucose,Whole Blood 81 mg/dL (75-99)
[2018-02-17] MEDS: HEPARIN SODIUM,PORCINE 5,000 UNIT/ML 1 ML VIAL SQ SCH (17:32)
[2018-02-17] MEDS: FUROSEMIDE 40 MG TAB PO SCH (17:51)
[2018-02-17] MEDS ORDERED: WARFARIN 7.5 MG TAB PO SCH (18:00)
[2018-02-18] MEDS: PIPERACILLIN-TAZOBACTAM 3.375 GM in DEXTROSE/WATER 1 50ML.BAG IVPB SCH ×4 (01:34→23:46)
[2018-02-18] MEDS: HEPARIN SODIUM,PORCINE 5,000 UNIT/ML 1 ML VIAL SQ SCH ×2 (01:35→09:38)
[2018-02-18 02:04] LABS: Glucose,Whole Blood 99 mg/dL (75-99)
[2018-02-18] MEDS: SODIUM CHLORIDE 0.9% 1,000 ML IV SCH (03:26)
[2018-02-18 07:08] LABS: Glucose,Whole Blood 113 mg/dL (75-99)
[2018-02-18 07:55] LABS: Basophils % (A) 0 %; Eosinophils # (A) 0.2 k/uL (0-0.7); Eosinophils % (A) 3 %; HCT 34.4 % (39.0-53.0); HGB 11.1 gm/dL (13.0-17.5); Hypochromasia Slight; Lymphocytes # (A) 0.5 k/uL (1.0-4.8); Lymphocytes % (A) 7 %; MCHC 32.1 g/dL (31.0-37.0); MCV 90.2 fL (80.0-100.0); Mean Platelet Volume 8.1; Monocytes # (A) 0.3 k/uL (0-1.0); Monocytes % (A) 4 %; Neutrophils # (A) 6.4 k/uL (1.3-7.7); Neutrophils % (A) 85 %; Platelet Count 127 k/uL (150-450); RBC 3.82 m/uL (4.30-5.90); RDW 15.9 % (11.5-15.5); WBC 7.5 k/uL (3.8-10.6)
[2018-02-18 08:08] LABS: Albumin 2.8 g/dL (3.5-5.0); Calcium 8.4 mg/dL (8.4-10.2); Potassium 4.5 mmol/L (3.5-5.1); Total Bilirubin 0.7 mg/dL (0.2-1.3); Total Protein 5.5 g/dL (6.3-8.2)
[2018-02-18] MEDS: PANTOPRAZOLE 40 MG/10 ML VIAL IV SCH (09:37)
[2018-02-18] MEDS: LOSARTAN 25 MG TAB PO SCH (09:38)
[2018-02-18] MEDS: FUROSEMIDE 40 MG TAB PO SCH (09:38)
[2018-02-18] MEDS: ATORVASTATIN 40 MG TAB PO SCH (09:38)
--- NOTE | 2018-02-18 10:51 | P.PN ---
Subjective Progress Note Date: 02/18/18 The patient is a very pleasant 77-year-old gentleman was admitted secondary to abnormal findings on the computed tomography scan. Today he feels great. Procedure was discontinued by the radiologist. He is tolerating liquids. No abdominal pain. No fevers. He is on IV antibiotics. No jaundice. Objective - Vital Signs Vital signs: Vital Signs Temp 98.8 F 02/18/18 07:00 Pulse 62 02/18/18 07:38 Resp 18 02/18/18 07:38 BP 144/74 02/18/18 07:00 Pulse Ox 96 02/18/18 07:00 Intake & Output 02/17/18 02/18/18 02/18/18 18:59 06:59 18:59 Other: # Voids 1 2 # Bowel Movements 1 - Exam GENERAL: Well developed and in no acute distress. Pleasant. HEENT: No sclera icterus. Extraocular movements grossly intact. Moist buccal mucosa. Head is atraumatic, normocephalic. Hears conversational speech. No nasal drainage. NECK: Supple without lymphadenopathy. No JV distention. CHEST: Non-labored respirations and equal bilateral excursions. CARDIOVASCULAR: Irregular rate and rhythm. Palpable 2+ radial pulses. ABDOMEN: Soft, nontender. Nondistended. MUSCULOSKELETAL: No clubbing, cyanosis or edema. NEUROLOGIC: No focal or lateralizing signs. PSYCH: Appropriate affect. Alert and oriented to person, place and time. SKIN: Good skin turgor. Well perfused. - Labs CBC & Chem 7: 02/18/18 06:34 02/18/18 06:34 Labs: Abnormal Lab Results - Last 24 Hours (Table) 02/17/18 02/17/18 02/17/18 Range/Units 10:34 10:34 10:34 WBC 12.9 H (3.8-10.6) k/uL RBC 4.00 L (4.30-5.90) m/uL Hgb 11.4 L (13.0-17.5) gm/dL Hct 36.4 L (39.0-53.0) % RDW 16.0 H (11.5-15.5) % Plt Count 135 L (150-450) k/uL Neutrophils # 11.5 H (1.3-7.7) k/uL Lymphocytes # 0.8 L (1.0-4.8) k/uL PT 17.1 H (9.0-12.0) sec INR 1.9 H (<1.2) Chloride 110 H (98-107) mmol/L Carbon Dioxide 18 L (22-30) mmol/L BUN 28 H (9-20) mg/dL Creatinine 1.38 H (0.66-1.25) mg/dL Glucose 67 L (74-99) mg/dL POC Glucose (mg/dL) (75-99) mg/dL Calcium 8.2 L (8.4-10.2) mg/dL AST 83 H (17-59) U/L Alkaline Phosphatase 152 H (38-126) U/L Total Protein 5.4 L (6.3-8.2) g/dL Albumin 2.8 L (3.5-5.0) g/dL 02/18/18 02/18/18 02/18/18 Range/Units 06:34 06:34 06:50 WBC (3.8-10.6) k/uL RBC 3.82 L (4.30-5.90) m/uL Hgb 11.1 L (13.0-17.5) gm/dL Hct 34.4 L (39.0-53.0) % RDW 15.9 H (11.5-15.5) % Plt Count 127 L (150-450) k/uL Neutrophils # (1.3-7.7) k/uL Lymphocytes # 0.5 L (1.0-4.8) k/uL PT (9.0-12.0) sec INR (<1.2) Chloride 108 H (98-107) mmol/L Carbon Dioxide 21 L (22-30) mmol/L BUN 21 H (9-20) mg/dL Creatinine 1.32 H (0.66-1.25) mg/dL Glucose (74-99) mg/dL POC Glucose (mg/dL) 113 H (75-99) mg/dL Calcium (8.4-10.2) mg/dL AST (17-59) U/L Alkaline Phosphatase 142 H (38-126) U/L Total Protein 5.5 L (6.3-8.2) g/dL Albumin 2.8 L (3.5-5.0) g/dL Microbiology - Last 24 Hours (Table) 02/16/18 20:21 Blood Culture Gram Stain - Preliminary Blood Blood Culture - Preliminary Gram Neg Bacilli 02/16/18 21:40 Urine Culture - Final Urine,Voided 02/16/18 20:21 Blood Culture - Final Blood Assessment and Plan (1) Diabetes type 2, controlled Current Visit: Yes Status: Acute Code(s): E11.9 - TYPE 2 DIABETES MELLITUS WITHOUT COMPLICATIONS SNOMED Code(s): 94856519 (2) Intra-abdominal abscess Current Visit: Yes Status: Acute Code(s): K65.1 - PERITONEAL ABSCESS SNOMED Code(s): 77480104 Plan: 1. Continue IV antibiotics. 2. Start consistent carbohydrate diet. 3. Continue hospitalization.
[2018-02-18 11:51] LABS: Glucose,Whole Blood 139 mg/dL (75-99)
[2018-02-18] MEDS: INSULIN ASPART 100 UNIT/ML 1 ML 10 ML VIAL SQ SCH ×3 (12:47→20:26)
[2018-02-18 13:07] LABS: INR 1.3 (<1.2); Prothrombin Time 12.1 sec (9.0-12.0)
--- NOTE | 2018-02-18 13:36 | P.PN ---
Subjective 72-year-old gentleman admitted for the possible be really drain although there is no significant fluid that was appreciated by the repeat CAT scan for the procedure. Because of his the procedure was not done. If surgery is not anticipating any surgical intervention patient can be started back on Coumadin. Patient is not in heart failure presently euvolemic. Unsure reasons why he is getting both Lasix and IV fluids both of them will be discontinued and will assess the kidney function tomorrow. We'll closely monitor his volume status depending on that patient will be started on either diuretic therapy or IV fluids. Constitutional: Denied any fatigue denied any fever. Cardio vascular: denied any chest pain, palpitations Gastrointestinal denied any nausea vomiting Pulmonary: Denied any shortness of breath cough Neurologic denied any new focal deficits Objective - Vital Signs Vital signs: Vital Signs Temp 98.8 F 02/18/18 07:00 Pulse 62 02/18/18 07:38 Resp 18 02/18/18 07:38 BP 144/74 02/18/18 07:00 Pulse Ox 96 02/18/18 07:00 Intake & Output 02/17/18 02/18/18 02/18/18 18:59 06:59 18:59 Other: # Voids 1 2 # Bowel Movements 1 - Exam PHYSICAL EXAMINATION: GENERAL: The patient is alert and oriented x3, not in any acute distress. Obese HEENT: Pupils are round and equally reacting to light. EOMI. No scleral icterus. No conjunctival pallor. Normocephalic, atraumatic. No pharyngeal erythema. No thyromegaly. CARDIOVASCULAR: S1 and S2 present. No murmurs, rubs, or gallops. PULMONARY: Chest is clear to auscultation, no wheezing or crackles. ABDOMEN: Soft, nontender, nondistended, normoactive bowel sounds. No palpable organomegaly. MUSCULOSKELETAL: No joint swelling or deformity. EXTREMITIES: No cyanosis, clubbing, or pedal edema. NEUROLOGICAL: Gross neurological examination did not reveal any focal deficits. SKIN: No rashes. - Labs CBC & Chem 7: 02/18/18 06:34 02/18/18 06:34 Labs: Abnormal Lab Results - Last 24 Hours (Table) 02/18/18 02/18/18 02/18/18 Range/Units 06:34 06:34 06:50 RBC 3.82 L (4.30-5.90) m/uL Hgb 11.1 L (13.0-17.5) gm/dL Hct 34.4 L (39.0-53.0) % RDW 15.9 H (11.5-15.5) % Plt Count 127 L (150-450) k/uL Lymphocytes # 0.5 L (1.0-4.8) k/uL PT (9.0-12.0) sec INR (<1.2) Chloride 108 H (98-107) mmol/L Carbon Dioxide 21 L (22-30) mmol/L BUN 21 H (9-20) mg/dL Creatinine 1.32 H (0.66-1.25) mg/dL POC Glucose (mg/dL) 113 H (75-99) mg/dL Alkaline Phosphatase 142 H (38-126) U/L Total Protein 5.5 L (6.3-8.2) g/dL Albumin 2.8 L (3.5-5.0) g/dL 02/18/18 02/18/18 Range/Units 11:42 12:46 RBC (4.30-5.90) m/uL Hgb (13.0-17.5) gm/dL Hct (39.0-53.0) % RDW (11.5-15.5) % Plt Count (150-450) k/uL Lymphocytes # (1.0-4.8) k/uL PT 12.1 H (9.0-12.0) sec INR 1.3 H (<1.2) Chloride (98-107) mmol/L Carbon Dioxide (22-30) mmol/L BUN (9-20) mg/dL Creatinine (0.66-1.25) mg/dL POC Glucose (mg/dL) 139 H (75-99) mg/dL Alkaline Phosphatase (38-126) U/L Total Protein (6.3-8.2) g/dL Albumin (3.5-5.0) g/dL Microbiology - Last 24 Hours (Table) 02/16/18 20:21 Blood Culture Gram Stain - Preliminary Blood Blood Culture - Preliminary Gram Neg Bacilli 02/16/18 21:40 Urine Culture - Final Urine,Voided 02/16/18 20:21 Blood Culture - Final Blood Assessment and Plan Plan: -Possible necrotic gallbladder: Patient is on Zosyn which will be continued and patient will undergo biliary drain placed and patient is asymptomatic at this time. -Chronic systolic dysfunction mildly decreased ejection fraction of around 45-50 % patient is fairly euvolemic at this point of time IV fluid management as mentioned above -Chronic persistent atrial fibrillation presently rate controlled anti- coagulation is on hold because of above-mentioned reasons -Hypertension -Dyslipidemia -COPD without any acute exacerbation -Morbid obesity -Renal failure: Appears to have mild acute renal failure baseline creatinine of around 1.1 now around 1.4. We will repeat the basic metabolic profile profile tomorrow. May have prerenal azotemia and. -Type 2 diabetes mellitus continue with present are present regimen titrate depending on his blood sugars here. -Metabolic acidosis secondary to uremia and hyperchloremia -Leukocytosis: Secondary to necrotic gallbladder.
[2018-02-18 17:36] LABS: Glucose,Whole Blood 188 mg/dL (75-99)
[2018-02-18] MEDS ORDERED: WARFARIN 7.5 MG TAB PO SCH (18:00)
[2018-02-18 18:04] LABS: Hemoglobin A1C 6.8 % (4.0-6.0)
[2018-02-18 20:07] LABS: Glucose,Whole Blood 193 mg/dL (75-99)
[2018-02-18] MEDS ORDERED: Magnesium Replacement Protocol 1 EACH MISC MISCELLANE PRN (22:33)
[2018-02-19 04:57] LABS: Anisocytosis Slight; Basophils % (A) 0 %; Eosinophils # (A) 0.1 k/uL (0-0.7); Eosinophils % (A) 3 %; HCT 33.6 % (39.0-53.0); HGB 10.8 gm/dL (13.0-17.5); Lymphocytes # (A) 0.7 k/uL (1.0-4.8); Lymphocytes % (A) 16 %; MCH 28.7 pg (25.0-35.0); MCHC 32.3 g/dL (31.0-37.0); MCV 88.7 fL (80.0-100.0); Mean Platelet Volume 7.8; Monocytes # (A) 0.2 k/uL (0-1.0); Monocytes % (A) 5 %; Neutrophils # (A) 3.1 k/uL (1.3-7.7); Neutrophils % (A) 75 %; Platelet Count 121 k/uL (150-450); RBC 3.78 m/uL (4.30-5.90); RDW 16.1 % (11.5-15.5); WBC 4.2 k/uL (3.8-10.6)
[2018-02-19 05:07] LABS: INR 1.1 (<1.2); Prothrombin Time 10.8 sec (9.0-12.0)
[2018-02-19 05:14] LABS: Albumin 2.7 g/dL (3.5-5.0); Calcium 8.3 mg/dL (8.4-10.2); Potassium 4.1 mmol/L (3.5-5.1); Total Bilirubin 0.5 mg/dL (0.2-1.3); Total Protein 5.2 g/dL (6.3-8.2)
[2018-02-19 06:12] LABS: Glucose,Whole Blood 144 mg/dL (75-99)
[2018-02-19] MEDS: PANTOPRAZOLE 40 MG TABLET PO SCH (06:21)
[2018-02-19] MEDS: INSULIN ASPART 100 UNIT/ML 1 ML 10 ML VIAL SQ SCH ×4 (06:21→21:04)
[2018-02-19] MEDS: PIPERACILLIN-TAZOBACTAM 3.375 GM in DEXTROSE/WATER 1 50ML.BAG IVPB SCH ×2 (08:44→15:05)
[2018-02-19] MEDS: ATORVASTATIN 40 MG TAB PO SCH (08:44)
[2018-02-19 11:27] LABS: Glucose,Whole Blood 191 mg/dL (75-99)
--- NOTE | 2018-02-19 13:03 | P.PN ---
Subjective Progress Note Date: 02/19/18 The patient is a very pleasant 77-year-old gentleman was admitted secondary to abnormal findings on the computed tomography scan. He was transferred [facility] for heart rate in the 40s to 50s. He feels quite well. He is tolerating diet. He had received 1 dose of Coumadin last night. Denies abdominal pain. He is eager to go home. Objective - Vital Signs Vital signs: Vital Signs Temp 98 F 02/19/18 11:35 Pulse 50 L 02/19/18 11:35 Resp 18 02/19/18 11:35 BP 117/61 02/19/18 11:35 Pulse Ox 97 02/19/18 11:35 Intake & Output 02/18/18 02/19/18 02/19/18 18:59 06:59 18:59 Intake Total 650 Balance 650 Weight 113 kg Intake: IV 650 Piperacillin-Tazobactam 3 50 .375 gm In Dextrose/Water 1 50ml.bag @ 12.5 mls/hr IVPB Q8HR [facility] Rx#: [id number] Sodium Chloride 0.9% 1, 600 000 ml @ 75 mls/hr IV . [id number] [facility] Rx#:[id number] Other: # Voids 3 - Exam GENERAL: Well developed and in no acute distress. Pleasant. HEENT: No sclera icterus. Extraocular movements grossly intact. Moist buccal mucosa. Head is atraumatic, normocephalic. Hears conversational speech. No nasal drainage. NECK: Supple without lymphadenopathy. No JV distention. CHEST: Non-labored respirations and equal bilateral excursions. CARDIOVASCULAR: Bradycardic. Palpable 2+ radial pulses. ABDOMEN: Soft, nontender. Nondistended. MUSCULOSKELETAL: No clubbing, cyanosis or edema. NEUROLOGIC: No focal or lateralizing signs. PSYCH: Appropriate affect. Alert and oriented to person, place and time. SKIN: Good skin turgor. Well perfused. - Labs CBC & Chem 7: 02/19/18 04:07 02/19/18 04:07 Labs: Abnormal Lab Results - Last 24 Hours (Table) 02/18/18 02/18/18 02/18/18 Range/Units 06:34 12:46 17:34 RBC (4.30-5.90) m/uL Hgb (13.0-17.5) gm/dL Hct (39.0-53.0) % RDW (11.5-15.5) % Plt Count (150-450) k/uL Lymphocytes # (1.0-4.8) k/uL PT 12.1 H (9.0-12.0) sec INR 1.3 H (<1.2) Chloride (98-107) mmol/L Carbon Dioxide (22-30) mmol/L Glucose (74-99) mg/dL POC Glucose (mg/dL) 188 H (75-99) mg/dL Hemoglobin A1c 6.8 H (4.0-6.0) % Calcium (8.4-10.2) mg/dL Total Protein (6.3-8.2) g/dL Albumin (3.5-5.0) g/dL 02/18/18 02/19/18 02/19/18 Range/Units 20:02 04:07 04:07 RBC 3.78 L (4.30-5.90) m/uL Hgb 10.8 L (13.0-17.5) gm/dL Hct 33.6 L (39.0-53.0) % RDW 16.1 H (11.5-15.5) % Plt Count 121 L (150-450) k/uL Lymphocytes # 0.7 L (1.0-4.8) k/uL PT (9.0-12.0) sec INR (<1.2) Chloride 108 H (98-107) mmol/L Carbon Dioxide 21 L (22-30) mmol/L Glucose 128 H (74-99) mg/dL POC Glucose (mg/dL) 193 H (75-99) mg/dL Hemoglobin A1c (4.0-6.0) % Calcium 8.3 L (8.4-10.2) mg/dL Total Protein 5.2 L (6.3-8.2) g/dL Albumin 2.7 L (3.5-5.0) g/dL 02/19/18 02/19/18 Range/Units 06:11 11:24 RBC (4.30-5.90) m/uL Hgb (13.0-17.5) gm/dL Hct (39.0-53.0) % RDW (11.5-15.5) % Plt Count (150-450) k/uL Lymphocytes # (1.0-4.8) k/uL PT (9.0-12.0) sec INR (<1.2) Chloride (98-107) mmol/L Carbon Dioxide (22-30) mmol/L Glucose (74-99) mg/dL POC Glucose (mg/dL) 144 H 191 H (75-99) mg/dL Hemoglobin A1c (4.0-6.0) % Calcium (8.4-10.2) mg/dL Total Protein (6.3-8.2) g/dL Albumin (3.5-5.0) g/dL Microbiology - Last 24 Hours (Table) 02/16/18 20:21 Blood Culture Gram Stain - Final Blood Blood Culture - Final Escherichia coli Assessment and Plan (1) Diabetes type 2, controlled Current Visit: Yes Status: Acute Code(s): E11.9 - TYPE 2 DIABETES MELLITUS WITHOUT COMPLICATIONS SNOMED Code(s): 67731876 (2) Intra-abdominal abscess Current Visit: Yes Status: Acute Code(s): K65.1 - PERITONEAL ABSCESS SNOMED Code(s): 29805380 (3) Bradycardia Current Visit: No Status: Acute Code(s): R00.1 - BRADYCARDIA, UNSPECIFIED SNOMED Code(s): 64173144 Plan: 1. Upon discussing with his nurse, he is cleared from cardiology standpoint. 2. Coumadin held until clearance from admitting physician regarding any additional procedures to be performed. 3. Patient clinically stable otherwise
--- NOTE | 2018-02-19 13:15 | P.PN ---
Subjective 72-year-old gentleman admitted for the possible be really drain although there is no significant fluid that was appreciated by the repeat CAT scan for the procedure. Because of his the procedure was not done. If surgery is not anticipating any surgical intervention patient can be started back on Coumadin. Patient is not in heart failure presently euvolemic. Unsure reasons why he is getting both Lasix and IV fluids both of them will be discontinued and will assess the kidney function tomorrow. We'll closely monitor his volume status depending on that patient will be started on either diuretic therapy or IV fluids. 02/20/2080 Patient was bradycardic into the 40s overnight and patient was sleeping, patient is obese as well. Nursing staff on the surgical floor was concerned transferred to [facility]. Patient was asymptomatic no further intervention is necessary and patient will be transferred back to surgical floor. No other overnight events patient's creatinine improved will recheck the chest x-ray make sure patient doesn't have any pulmonary edema tomorrow and continue to hold off on diuretics and losartan. Constitutional: Denied any fatigue denied any fever. Cardio vascular: denied any chest pain, palpitations Gastrointestinal denied any nausea vomiting Pulmonary: Denied any shortness of breath cough Neurologic denied any new focal deficits Objective - Vital Signs Vital signs: Vital Signs Temp 98 F 02/19/18 11:35 Pulse 50 L 02/19/18 11:35 Resp 18 02/19/18 11:35 BP 117/61 02/19/18 11:35 Pulse Ox 97 02/19/18 11:35 Intake & Output 02/18/18 02/19/18 02/19/18 18:59 06:59 18:59 Intake Total 650 Balance 650 Weight 113 kg Intake: IV 650 Piperacillin-Tazobactam 3 50 .375 gm In Dextrose/Water 1 50ml.bag @ 12.5 mls/hr IVPB Q8HR [facility] Rx#: [id number] Sodium Chloride 0.9% 1, 600 000 ml @ 75 mls/hr IV . [id number] [facility] Rx#:[id number] Other: # Voids 3 - Exam PHYSICAL EXAMINATION: GENERAL: The patient is alert and oriented x3, not in any acute distress. Obese HEENT: Pupils are round and equally reacting to light. EOMI. No scleral icterus. No conjunctival pallor. Normocephalic, atraumatic. No pharyngeal erythema. No thyromegaly. CARDIOVASCULAR: S1 and S2 present. No murmurs, rubs, or gallops. PULMONARY: Chest is clear to auscultation, no wheezing or crackles. ABDOMEN: Soft, nontender, nondistended, normoactive bowel sounds. No palpable organomegaly. MUSCULOSKELETAL: No joint swelling or deformity. EXTREMITIES: No cyanosis, clubbing, or pedal edema. NEUROLOGICAL: Gross neurological examination did not reveal any focal deficits. SKIN: No rashes. - Labs CBC & Chem 7: 02/19/18 04:07 02/19/18 04:07 Labs: Abnormal Lab Results - Last 24 Hours (Table) 02/18/18 02/18/18 02/18/18 Range/Units 06:34 17:34 20:02 RBC (4.30-5.90) m/uL Hgb (13.0-17.5) gm/dL Hct (39.0-53.0) % RDW (11.5-15.5) % Plt Count (150-450) k/uL Lymphocytes # (1.0-4.8) k/uL Chloride (98-107) mmol/L Carbon Dioxide (22-30) mmol/L Glucose (74-99) mg/dL POC Glucose (mg/dL) 188 H 193 H (75-99) mg/dL Hemoglobin A1c 6.8 H (4.0-6.0) % Calcium (8.4-10.2) mg/dL Total Protein (6.3-8.2) g/dL Albumin (3.5-5.0) g/dL 02/19/18 02/19/18 02/19/18 Range/Units 04:07 04:07 06:11 RBC 3.78 L (4.30-5.90) m/uL Hgb 10.8 L (13.0-17.5) gm/dL Hct 33.6 L (39.0-53.0) % RDW 16.1 H (11.5-15.5) % Plt Count 121 L (150-450) k/uL Lymphocytes # 0.7 L (1.0-4.8) k/uL Chloride 108 H (98-107) mmol/L Carbon Dioxide 21 L (22-30) mmol/L Glucose 128 H (74-99) mg/dL POC Glucose (mg/dL) 144 H (75-99) mg/dL Hemoglobin A1c (4.0-6.0) % Calcium 8.3 L (8.4-10.2) mg/dL Total Protein 5.2 L (6.3-8.2) g/dL Albumin 2.7 L (3.5-5.0) g/dL 02/19/18 Range/Units 11:24 RBC (4.30-5.90) m/uL Hgb (13.0-17.5) gm/dL Hct (39.0-53.0) % RDW (11.5-15.5) % Plt Count (150-450) k/uL Lymphocytes # (1.0-4.8) k/uL Chloride (98-107) mmol/L Carbon Dioxide (22-30) mmol/L Glucose (74-99) mg/dL POC Glucose (mg/dL) 191 H (75-99) mg/dL Hemoglobin A1c (4.0-6.0) % Calcium (8.4-10.2) mg/dL Total Protein (6.3-8.2) g/dL Albumin (3.5-5.0) g/dL Microbiology - Last 24 Hours (Table) 02/16/18 20:21 Blood Culture Gram Stain - Final Blood Blood Culture - Final Escherichia coli Assessment and Plan Plan: -Possible necrotic gallbladder: Patient is on Zosyn which will be continued and patient will undergo biliary drain placed and patient is asymptomatic at this time. -Chronic systolic dysfunction mildly decreased ejection fraction of around 45-50 % patient is fairly euvolemic at this point of time -Chronic persistent atrial fibrillation presently rate controlled anti- coagulation is on hold because of above-mentioned reasons, patient was bradycardic and asymptomatic and asleep at the time. No further intervention at this time. -Hypertension -Dyslipidemia -COPD without any acute exacerbation -Morbid obesity -Renal failure: Appears to have mild acute renal failure baseline creatinine of around 1.1 now around 1.2. -Type 2 diabetes mellitus continue with present are present regimen titrate depending on his blood sugars here. -Metabolic acidosis secondary to uremia and hyperchloremia -Leukocytosis: Secondary to necrotic gallbladder.
[2018-02-19 15:35] VITALS: RESP 16
--- NOTE | 2018-02-19 16:31 | PN ---
PROGRESS NOTE Mr. Shabazz is doing well today. This gentleman was evaluated by Cardiology for bradycardia. He has chronic atrial fibrillation. He is on Coumadin and PT/INR is being followed closely. It is not therapeutic yet. His vital signs are stable. Heart rate is in the mid 50s. Amiodarone has been held at upon the advice of Dr. Contreras. His vitals are stable. S1-S2 heard normally. Short systolic murmur noted. Lungs reveal diminished air entry. Abdomen and lower extremity exam is unchanged. I am recommending he can go back to the med/surg floor and no rate lowering agents should be given to him and amiodarone has been discontinued. MMODL / IJN: [id number] /
[2018-02-19 16:49] LABS: Glucose,Whole Blood 137 mg/dL (75-99)
[2018-02-19] MEDS ORDERED: WARFARIN 5 MG TAB PO SCH ×2 (18:00)
[2018-02-19 21:01] LABS: Glucose,Whole Blood 156 mg/dL (75-99)
[2018-02-19] MEDS ORDERED: IOPAMIDOL-300 CONTRAST 30 ML VIAL (ORAL USE) PO PRN (22:08)
--- NOTE | 2018-02-19 23:16 | PN ---
PROGRESS NOTE DATE OF SERVICE: 02/19/2018. REASON FOR FOLLOWUP: Abdominal abscess. INTERVAL HISTORY: The patient is afebrile. He is currently breathing comfortably. Denies having any chest pain or shortness of breath. No cough. The right upper quadrant abdominal pain has improved. No nausea, vomiting or diarrhea. PHYSICAL EXAMINATION: Blood pressure is 136/73, pulse of 54, temperature 98.9. He is 95% on room air. GENERAL DESCRIPTION: An elderly male lying in bed in no distress. RESPIRATORY SYSTEMS: Unlabored breathing. Clear to auscultation anteriorly. HEART: S1, S2. Regular rate. LABS: Hemoglobin 10.8, white count 4.2, BUN of 17, creatinine 1.20. DIAGNOSTIC IMPRESSION AND PLAN: Patient with an E coli bacteremia secondary to right upper quadrant abscess post cholecystectomy. This is a sensitive pathogen. Antibiotic will be adjusted to Unasyn 3 g every 6. A CT will be obtained tomorrow to assess the abscess. If showing no significant improvement may consider IV antibiotic therapy on discharge. Continue supportive care condition. MMODL / IJN: [id number] /
[2018-02-19] MEDS: AMPICILLIN-SULBACTAM 3 GM in SODIUM CHLORIDE 0.9% 100 ML IVPB SCH (23:46)
[2018-02-20] MEDS: AMPICILLIN-SULBACTAM 3 GM in SODIUM CHLORIDE 0.9% 100 ML IVPB SCH (05:10)
[2018-02-20 07:02] LABS: Basophils % (A) 1 %; Eosinophils # (A) 0.2 k/uL (0-0.7); Eosinophils % (A) 4 %; HCT 34.1 % (39.0-53.0); HGB 11.1 gm/dL (13.0-17.5); Hypochromasia Slight; Lymphocytes # (A) 0.8 k/uL (1.0-4.8); Lymphocytes % (A) 17 %; MCH 29.2 pg (25.0-35.0); MCHC 32.6 g/dL (31.0-37.0); MCV 89.5 fL (80.0-100.0); Mean Platelet Volume 7.4; Monocytes # (A) 0.2 k/uL (0-1.0); Monocytes % (A) 5 %; Neutrophils # (A) 3.4 k/uL (1.3-7.7); Neutrophils % (A) 72 %; Platelet Count 123 k/uL (150-450); RBC 3.81 m/uL (4.30-5.90); RDW 15.9 % (11.5-15.5); WBC 4.7 k/uL (3.8-10.6)
[2018-02-20 07:07] LABS: INR 1.1 (<1.2)
[2018-02-20 07:11] LABS: Glucose,Whole Blood 169 mg/dL (75-99)
[2018-02-20 07:15] LABS: Albumin 2.8 g/dL (3.5-5.0); Calcium 8.5 mg/dL (8.4-10.2); Potassium 4.2 mmol/L (3.5-5.1); Total Bilirubin 0.5 mg/dL (0.2-1.3); Total Protein 5.3 g/dL (6.3-8.2)
[2018-02-20] MEDS: INSULIN ASPART 100 UNIT/ML 1 ML 10 ML VIAL SQ SCH ×2 (07:21→12:21)
[2018-02-20] MEDS: PANTOPRAZOLE 40 MG TABLET PO SCH (07:24)
[2018-02-20 08:26] VITALS: BP 164/75; PULSE 63; TEMP 98
[2018-02-20] MEDS: ATORVASTATIN 40 MG TAB PO SCH (09:30)
--- NOTE | 2018-02-20 09:38 | P.PN ---
Subjective Progress Note Date: 02/20/18 77-year-old male sitting up in bed. Patient states he had a bowel movement and is passing gas. Abdomen soft. Not distended CAT scan abdomen and pelvis is pending this morning. Patient's anticoagulation Coumadin was started yesterday evening. Patient states he has no abdominal pain has been up ambulating in the hallway. Heart rate in the 50s to 60s. White count 4.7 afebrile Objective - Vital Signs Vital signs: Vital Signs Temp 98.0 F 02/20/18 07:25 Pulse 63 02/20/18 07:25 Resp 16 02/20/18 07:25 BP 164/75 02/20/18 07:25 Pulse Ox 96 02/20/18 07:25 Intake & Output 02/19/18 02/20/18 02/20/18 18:59 06:59 18:59 Intake Total 360 1200 Balance 360 1200 Weight 119 kg Intake: IV 50 Piperacillin-Tazobactam 3 50 .375 gm In Dextrose/Water 1 50ml.bag @ 12.5 mls/hr IVPB Q8HR [facility] Rx#: [id number] Intake, IV Titration 150 Amount Sodium Chloride 0.9% 1, 150 000 ml @ 75 mls/hr IV . [id number] [facility] Rx#:[id number] Oral 360 1000 Other: # Voids 2 1 - Exam Physical exam 77-year-old male alert oriented 3 sitting up in bed no acute distress Lungs adequate air movement bilaterally on room air Heart S1-S2 audible irregular denying chest pain Abdomen soft not distended bowel tones present nontender states had a bowel movement no nausea no vomiting Extremities no edema noted - Labs CBC & Chem 7: 02/20/18 06:41 02/20/18 06:41 Labs: Abnormal Lab Results - Last 24 Hours (Table) 02/18/18 02/19/18 02/19/18 Range/Units 06:34 11:24 16:46 RBC (4.30-5.90) m/uL Hgb (13.0-17.5) gm/dL Hct (39.0-53.0) % RDW (11.5-15.5) % Plt Count (150-450) k/uL Lymphocytes # (1.0-4.8) k/uL Chloride (98-107) mmol/L Glucose (74-99) mg/dL POC Glucose (mg/dL) 191 H 137 H (75-99) mg/dL Hemoglobin A1c 6.8 H (4.0-6.0) % Total Protein (6.3-8.2) g/dL Albumin (3.5-5.0) g/dL 02/19/18 02/20/18 02/20/18 Range/Units 20:59 06:41 06:41 RBC 3.81 L (4.30-5.90) m/uL Hgb 11.1 L (13.0-17.5) gm/dL Hct 34.1 L (39.0-53.0) % RDW 15.9 H (11.5-15.5) % Plt Count 123 L (150-450) k/uL Lymphocytes # 0.8 L (1.0-4.8) k/uL Chloride 109 H (98-107) mmol/L Glucose 136 H (74-99) mg/dL POC Glucose (mg/dL) 156 H (75-99) mg/dL Hemoglobin A1c (4.0-6.0) % Total Protein 5.3 L (6.3-8.2) g/dL Albumin 2.8 L (3.5-5.0) g/dL 02/20/18 Range/Units 06:59 RBC (4.30-5.90) m/uL Hgb (13.0-17.5) gm/dL Hct (39.0-53.0) % RDW (11.5-15.5) % Plt Count (150-450) k/uL Lymphocytes # (1.0-4.8) k/uL Chloride (98-107) mmol/L Glucose (74-99) mg/dL POC Glucose (mg/dL) 169 H (75-99) mg/dL Hemoglobin A1c (4.0-6.0) % Total Protein (6.3-8.2) g/dL Albumin (3.5-5.0) g/dL Assessment and Plan Assessment: Impression Present on admission right upper quadrant abdominal pain suspect due to abscess within the gallbladder bed Present on admission febrile, leukocytosis sepsis suspect due to abscess within the gallbladder bed Persistent chronic atrial fibrillation variable ventricular response with episodes of bradycardic with no symptoms likely related to amiodarone History of valvular 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 Rivera DVT and GI prophylaxis Further recommendations pending Prep probable discharge soon The above impression and plan of care have been discussed and directed by signing physician. Ashley Ayers nurse practitioner acting as scribe for signing physician.
--- NOTE | 2018-02-20 10:06 | XR ---
EXAMINATION TYPE: XR chest 1V DATE OF EXAM: 02/20/2018 COMPARISON: Prior chest 02/16/2018 HISTORY: Congestive heart failure TECHNIQUE: Single frontal view of the chest is obtained. FINDINGS: Patient is post median sternotomy. Heart size is stable. Atrial appendage clipping is note d. Interstitium is increased. No pneumothorax or pleural effusion evident. There are overlying cardia c leads. Pulmonary vascularity and emeka are stable. IMPRESSION: Findings suggest pulmonary venous hypertension and interstitial edema, follow-up recomme nded.
--- NOTE | 2018-02-20 10:38 | CT ---
EXAMINATION TYPE: CT abdomen w con DATE OF EXAM: 02/20/2018 COMPARISON: Prior CT abdomen pelvis 02/16/2018 HISTORY: Follow up to RUQ abscess CT DLP: 1991.2 mGycm Automated exposure control for dose reduction was used. TECHNIQUE: Helical acquisition of images was performed from the lung bases to include entire abdomen . CONTRAST: Performed with Oral Contrast and with IV Contrast, patient injected with 100 mL of Isovue 300. FINDINGS: The area of inflammatory change in the right upper quadrant is noted, the previously identi fied gas is absent, there is no sizable fluid collection evident. LUNG BASES: Bibasilar effusions are present right greater than left. Heart is enlarged. There are cor onary artery calcifications, probable mitral annular calcification, patient is post median sternotomy and epicardial pacing leads are present. Interstitium is prominent. LIVER/GB: No significant interval change. Postcholecystectomy changes as described. Cystic focus with in the liver is stable. PANCREAS: No significant abnormality is seen. SPLEEN: No significant abnormality is seen. ADRENALS: No significant abnormality is seen. KIDNEYS: No significant abnormality is seen. BOWEL: No significant abnormality is seen. The appendix is normal. LYMPH NODES: No significant abnormality is appreciated. OSSEOUS STRUCTURES: No significant abnormality is seen. FREE AIR: No Free Air visible ASCITES: None visible. RETROPERITONEAL ADENOPATHY: No Retroperitoneal Adenopathy visible. IMPRESSION: THERE IS IMPROVEMENT IN THE INFLAMMATORY CHANGE SEEN IN THE RIGHT UPPER QUADRANT COMPARED TO PRIOR EXAM. BILATERAL PLEURAL EFFUSIONS, CARDIOMEGALY, INTERSTITIAL LUNG DISEASE, CORRELATE TO EXCLUDE CON GESTIVE HEART FAILURE WITH SMALL PLEURAL EFFUSIONS RIGHT GREATER THAN LEFT
[2018-02-20 11:34] LABS: Glucose,Whole Blood 151 mg/dL (75-99)
--- NOTE | 2018-02-20 12:08 | PN ---
PROGRESS NOTE DATE OF SERVICE: 02/20/2018 REASON FOR FOLLOWUP: Right upper quadrant abscess infection. INTERVAL HISTORY: The patient is afebrile. He is currently breathing comfortably. Denies having any chest pain, shortness of breath or cough. His right upper quadrant pain has resolved. No nausea, vomiting, or any diarrhea. PHYSICAL EXAMINATION: Blood pressure 164/75 with a pulse of 63, temperature of 98. He is 96% on room air. General description is an elderly male, up in the bed in no distress. RESPIRATORY SYSTEM: Unlabored breathing clear to auscultation. HEART: S1, S2. Regular rate and rhythm. ABDOMEN: Soft, no tenderness. LABS: Hemoglobin is 11.1, white count of 4.7, BUN of 11, creatinine 1.0. Repeat CT done this morning was reviewed with radiologist, much improvement in inflammatory changes in the gallbladder fossa with no drainable abscess. DIAGNOSTIC IMPRESSION AND PLAN: Patient with Escherichia coli bacteremia secondary to abdominal infection at the gallbladder fossa with no drainable abscess. Followup CT this morning is much improved. Patient will be given Augmentin 875 b.i.d. for 10 days with close outpatient followup. Instructed to monitor his INR closely while on antibiotic. Scripts were sent to his pharmacy and follow up in the office in about a week. MMODL / IJN: [id number] /
[2018-02-20] MEDS ORDERED: FUROSEMIDE 40 MG TAB PO SCH (12:15)
--- NOTE | 2018-02-20 12:20 | P.PN ---
Subjective Progress Note Date: 02/20/18 Progress note being dictated for Dr. Escalante Interval history: 72-year-old gentleman admitted for the possible be really drain although there is no significant fluid that was appreciated by the repeat CAT scan for the procedure. Because of his the procedure was not done. If surgery is not anticipating any surgical intervention patient can be started back on Coumadin. Patient is not in heart failure presently euvolemic. Unsure reasons why he is getting both Lasix and IV fluids both of them will be discontinued and will assess the kidney function tomorrow. We'll closely monitor his volume status depending on that patient will be started on either diuretic therapy or IV fluids. 02/19/2018 Patient was bradycardic into the 40s overnight and patient was sleeping, patient is obese as well. Nursing staff on the surgical floor was concerned transferred to [facility]. Patient was asymptomatic no further intervention is necessary and patient will be transferred back to surgical floor. No other overnight events patient's creatinine improved will recheck the chest x-ray make sure patient doesn't have any pulmonary edema tomorrow and continue to hold off on diuretics and losartan. Constitutional: Denied any fatigue denied any fever. Cardio vascular: denied any chest pain, palpitations Gastrointestinal denied any nausea vomiting Pulmonary: Denied any shortness of breath cough Neurologic denied any new focal deficits 02/20/2018 maintained on antibiotics as per infectious disease. Follow-up Abdominal CT reporting improvement in right upper quadrant inflammation. Right upper quadrant abdominal pain resolved. Afebrile. Tolerating diet with no nausea vomiting or diarrhea. States positive bowel movement. Denies chest pain , palpitations or shortness of breath. Denies focal deficits, lightheadedness or dizziness. Heart rates in the 50s to 60s. Objective - Vital Signs Vital signs: Vital Signs Temp 98.0 F 02/20/18 07:25 Pulse 63 02/20/18 07:25 Resp 16 02/20/18 07:25 BP 164/75 02/20/18 07:25 Pulse Ox 96 02/20/18 07:25 Intake & Output 02/19/18 02/20/18 02/20/18 18:59 06:59 18:59 Intake Total 360 1200 Balance 360 1200 Weight 119 kg Intake: IV 50 Piperacillin-Tazobactam 3 50 .375 gm In Dextrose/Water 1 50ml.bag @ 12.5 mls/hr IVPB Q8HR [facility] Rx#: [id number] Intake, IV Titration 150 Amount Sodium Chloride 0.9% 1, 150 000 ml @ 75 mls/hr IV . [id number] [facility] Rx#:[id number] Oral 360 1000 Other: # Voids 2 1 - Exam GENERAL: The patient is sitting up in bed, alert and oriented x3, not in any acute distress. HEENT: Pupils are round and equally reacting to light. EOMI. No scleral icterus. No conjunctival pallor. Normocephalic, atraumatic. No pharyngeal erythema. No thyromegaly. CARDIOVASCULAR: S1 and S2 present. No murmurs, rubs, or gallops. PULMONARY: Chest is clear to auscultation, no wheezing or crackles. ABDOMEN: Soft, nontender, nondistended, normoactive bowel sounds. No palpable organomegaly. MUSCULOSKELETAL: No joint swelling or deformity. EXTREMITIES: No cyanosis, clubbing, or pedal edema. NEUROLOGICAL: Gross neurological examination did not reveal any focal deficits. SKIN: No rashes. - Labs CBC & Chem 7: 02/20/18 06:41 02/20/18 06:41 Labs: Abnormal Lab Results - Last 24 Hours (Table) 02/19/18 02/19/18 02/20/18 Range/Units 16:46 20:59 06:41 RBC 3.81 L (4.30-5.90) m/uL Hgb 11.1 L (13.0-17.5) gm/dL Hct 34.1 L (39.0-53.0) % RDW 15.9 H (11.5-15.5) % Plt Count 123 L (150-450) k/uL Lymphocytes # 0.8 L (1.0-4.8) k/uL Chloride (98-107) mmol/L Glucose (74-99) mg/dL POC Glucose (mg/dL) 137 H 156 H (75-99) mg/dL Total Protein (6.3-8.2) g/dL Albumin (3.5-5.0) g/dL 02/20/18 02/20/18 02/20/18 Range/Units 06:41 06:59 11:27 RBC (4.30-5.90) m/uL Hgb (13.0-17.5) gm/dL Hct (39.0-53.0) % RDW (11.5-15.5) % Plt Count (150-450) k/uL Lymphocytes # (1.0-4.8) k/uL Chloride 109 H (98-107) mmol/L Glucose 136 H (74-99) mg/dL POC Glucose (mg/dL) 169 H 151 H (75-99) mg/dL Total Protein 5.3 L (6.3-8.2) g/dL Albumin 2.8 L (3.5-5.0) g/dL Assessment and Plan Assessment: -Possible necrotic gallbladder, E. coli bacteremia secondary to right upper quadrant abscess postcholecystectomy. -Chronic systolic dysfunction mildly decreased ejection fraction of around 45-50 % patient is fairly euvolemic at this point of time -Chronic persistent atrial fibrillation presently rate controlled anti- coagulation is on hold because of above-mentioned reasons, patient was bradycardic and asymptomatic and asleep at the time. No further intervention at this time. -Hypertension -Dyslipidemia -COPD without any acute exacerbation -Morbid obesity -Renal failure: Appears to have mild acute renal failure, improving. -Type 2 diabetes mellitus -Metabolic acidosis secondary to uremia and hyperchloremia -Leukocytosis: Secondary to necrotic gallbladder. Plan: Continue current medication regime ,monitoring and symptomatic treatment. Discharge planning in progress as per surgery. Follow up PCP in 3 days. Discharge on home dose of Coumadin, Lasix 40 mg daily with repeat PT INR on Tuesday. Antibiotics as per infectious disease. The impression and plan of care has been dictated as directed. : I performed a history and examination of this patient, discussed the same with the dictator. I agree with the dictator's note ,documented as a scribe. Any additional findings or plans will be noted.
--- NOTE | 2018-02-20 12:40 | P.DS ---
Providers Date of admission: 02/16/18 23:11 Expected date of discharge: 02/20/18 Attending physician: Tristan James Consults: 02/17/18 08:57 Consult Physician Urgent Consulting Provider: Gale Rivera Consult Reason/Comments: recs abx Do you want consulting provider notified?: Yes 02/17/18 09:43 Consult Physician Urgent Consulting Provider: Gary Jc Consult Reason/Comments: stacie Do you want consulting provider notified?: Yes 02/17/18 13:28 Consult Physician Urgent Consulting Provider: Yahaira Escalante Consult Reason/Comments: Medical management Do you want consulting provider notified?: Yes Primary care physician: Faizan Ba [facility] Course: 77-year-old male presented to the emergency room on the day of admission to be evaluated for right-sided abdominal pain. Patient stated it started out as a sharp stabbing sensation became more symptomatic stated he could not tolerate the pain spread to the abdominal wall felt nauseated poor oral intake did vomit. Patient stated the pain had been persistent for the last several days. Denied any fever chills. Patient recently underwent on January 13 a lap scopic cholecystectomy for gangrenous cholecystitis. According to the patient had been doing relatively well. Patient does have a history of mitral valve repair done 2 years prior. Also has a history of chronic persistent atrial fibrillation with bradycardia asymptomatic. Patient's primary photostatic copy maker Dr. Thrasher did see the patient after the laparoscopic cholecystectomy. According to the patient there were no medication changes made. It was noted the patient was on amiodarone at home. Patient had a 12-lead EKG this admission and the EKG showed atrial fibrillation persistent with a left bundle branch block. Heart rate had gone down to the upper 30s. Patient denying dizziness lightheadedness chest pain or shortness of breath. Cardiology consultation was obtained. Who indicated echocardiogram showed decreased systolic function EF 40 % amiodarone needed to be discontinued secondary to persistent atrial fibrillation refractory to a amiodarone. The patient could start on his Coumadin when appropriate. There were no further cardiac workup at this time. This admission patient was followed by infectious disease. Patient was seen by an interventional radiology on February 17 there was no drainable fluid collection identified Patient had a repeat CAT scan abdomen and pelvis showed an improvement in inflammatory changes in the right upper quadrant. The white count was 4.7 patient was afebrile abdominal pain significantly improved. Patient was taking no pain medication and stated he did not need a prescription for any opiates. Would use [id number] Tylenol if needed Patient was felt to be medically stable and appropriate proceed with a discharge to home Impression Present on admission right upper quadrant abdominal pain suspect due to abscess within the gallbladder bed Present on admission febrile, leukocytosis sepsis suspect due to abscess within the gallbladder bed Persistent chronic atrial fibrillation variable ventricular response with episodes of bradycardic with no symptoms likely related to amiodarone History of valvular heart disease prior mitral valve repair 2 years prior CAT scan abdomen and pelvis on admission show evidence of extensive inflammatory changes with abscess within the gallbladder bed A recent laparoscopic cholecystectomy for gangrenous gallbladder with acute cholecystitis done January 13 Present on admission therapeutic INR 1.6 February 17 per INR no drainable fluid collection identified percutaneous drain tube placement discontinued The above impression and plan of care have been discussed and directed by signing physician. Ashley Ayers nurse practitioner acting as scribe for signing physician. Patient Condition at Discharge: Good Plan - Discharge Summary Discharge Rx Participant: Yes New Discharge Prescriptions: New Amoxic-Pot Clav 875-125Mg [Augmentin 875-125] 1 tab PO Q12HR #20 tablet Discontinued Amiodarone HCl [Pacerone] 200 mg PO BID No Action Atorvastatin [Lipitor] 40 mg PO DAILY #30 tab Ergocalciferol [Vitamin D2 (DRISDOL)] 50,000 unit PO Q14D Colace 250mg 250 mg PO DAILY PRN PRN Reason: Constipation Pantoprazole Sodium [Protonix] 40 mg PO AC-BRKFST #30 tablet. Allopurinol [Zyloprim] 100 mg PO DAILY Ferrous Gluconate 324 mg PO BID Vitamin B Complex 1 cap PO DAILY Warfarin [Coumadin] 7.5 mg PO MOWEFRSA Warfarin [Coumadin] 5 mg PO SUTUTH Furosemide [Lasix] 40 mg PO BID Glimepiride [Amaryl] 2 mg PO AC-BRKFST Losartan [Cozaar] 25 mg PO DAILY Potassium Citrate [Potassium Citrate ER] 10 meq PO BID Discharge Medication List Atorvastatin [Lipitor] 40 mg PO DAILY #30 tab 04/20/16 [Rx] Ergocalciferol [Vitamin D2 (DRISDOL)] 50,000 unit PO Q14D 11/10/16 [History] Colace 250mg 250 mg PO DAILY PRN 05/03/17 [History] Pantoprazole Sodium [Protonix] 40 mg PO AC-BRKFST #30 tablet. 05/08/17 [Rx] Allopurinol [Zyloprim] 100 mg PO DAILY 01/11/18 [History] Ferrous Gluconate 324 mg PO BID 01/11/18 [History] Vitamin B Complex 1 cap PO DAILY 01/11/18 [History] Warfarin [Coumadin] 5 mg PO SUTUTH 01/11/18 [History] Warfarin [Coumadin] 7.5 mg PO MOWEFRSA 01/11/18 [History] Furosemide [Lasix] 40 mg PO BID 02/16/18 [History] Glimepiride [Amaryl] 2 mg PO AC-BRKFST 02/16/18 [History] Losartan [Cozaar] 25 mg PO DAILY 02/16/18 [History] Potassium Citrate [Potassium Citrate ER] 10 meq PO BID 02/16/18 [History] Amoxic-Pot Clav 875-125Mg [Augmentin 875-125] 1 tab PO Q12HR #20 tablet [Rx] Follow up Appointment(s)/Referral(s): Faizan Ba DO [Primary Care Provider] - 02/24/18 9:30 am Gale Rivera MD [STAFF PHYSICIAN] - 02/27/18 2:00 pm ([place] [facility] ) Gary Jc MD [STAFF PHYSICIAN] - 2 Weeks (message left to call back. Patient to call to get appointment) Tristan James MD [STAFF PHYSICIAN] - 02/23/18 1:30 pm Activity/Diet/Wound Care/Special Instructions: Stop amiodarone completely Do not restart amiodarone check INR weekly while on augmentin Discharge Disposition: HOME SELF-CARE
== END 2018-02-20 14:33 | disposition home or self-care (01) | DRG 862 ==
LOC: EC 19:49 → 3SUR 23:11 → 6SEL 02-18 23:27 → 3SUR 02-19 19:02
PROVIDERS: ADMIT Surgery; ATTEND Surgery
DX: T81.4XXA Infection following a procedure, initial encounter (principal); A41.51 Sepsis due to Escherichia coli [E. coli]; K65.1 Peritoneal abscess; E87.2 Acidosis; I50.22 Chronic systolic (congestive) heart failure; N17.9 Acute kidney failure, unspecified; E11.9 Type 2 diabetes mellitus without complications; E66.01 Morbid (severe) obesity due to excess calories; E78.5 Hyperlipidemia, unspecified; E87.8 Other disorders of electrolyte and fluid balance, not elsewhere classified; H91.90 Unspecified hearing loss, unspecified ear; I11.0 Hypertensive heart disease with heart failure; I25.10 Atherosclerotic heart disease of native coronary artery without angina pectoris; I27.20 Pulmonary hypertension, unspecified; I34.0 Nonrheumatic mitral (valve) insufficiency; I44.7 Left bundle-branch block, unspecified; I48.2 Chronic atrial fibrillation; I87.2 Venous insufficiency (chronic) (peripheral); J44.9 Chronic obstructive pulmonary disease, unspecified; T46.2X5A Adverse effect of other antidysrhythmic drugs, initial encounter; Z79.01 Long term (current) use of anticoagulants; Z79.4 Long term (current) use of insulin; Z79.899 Other long term (current) drug therapy; Z80.9 Family history of malignant neoplasm, unspecified; Z87.891 Personal history of nicotine dependence; Z90.49 Acquired absence of other specified parts of digestive tract; Z95.2 Presence of prosthetic heart valve; Z98.42 Cataract extraction status, left eye; Z98.41 Cataract extraction status, right eye; Z96.1 Presence of intraocular lens; Z79.84 Long term (current) use of oral hypoglycemic drugs; Z88.5 Allergy status to narcotic agent; Z53.09 Procedure and treatment not carried out because of other contraindication
CPT/HCPCS: 36415; 71045; 71046; 74160; 74177; 76380; 80053; 81003; 82550; 82553; 83036; 83605; 83735; 83880; 84443; 84484; 85025; 85610; 85730; 87040; 87077; 87086; 87186; 93005; 94760; 96361; 96365; 96375; 99285

== ENCOUNTER 2018-12-08 14:51 | Inpatient (IN) | payer MEDICARE ==
--- NOTE | 2018-12-08 15:20 | ED ---
General Adult HPI - General Chief complaint: Shortness of Breath Stated complaint: SOB Time Seen by Provider: 12/08/18 14:54 Source: patient, EMS Mode of arrival: EMS Limitations: no limitations - History of Present Illness Initial comments: Dictation was produced using [employer] dictation software. please excuse any grammatical, word or spelling errors. Chief Complaint: 78-year-old male with past medical history A. fib, COPD, warfarin therapy. Since with generalized weakness and episode of syncope. History of Present Illness: 78-year-old male with multiple comorbidities. Patient states she's been feeling weak for the last 2-3 days. Today he was sitting down when he attempted to stand up he then syncopized upon standing into the chair. Episode was witnessed by family member. EMS was called patient's transfer to the emergency department. Patient states he feels weak over denies any cough, sore throat. He has history of gangrenous gallbladder and is status post cholecystectomy. Patient denies any nausea, vomiting or diarrhea. Reports that his family members had URI type symptoms recently. The ROS documented in this emergency department record has been reviewed and confirmed by me. Those systems with pertinent positive or negative responses have been documented in the HPI. All other systems are other negative and/or noncontributory. PHYSICAL EXAM: General Impression: Alert and oriented x3, not in acute distress, mild skin pallor HEENT: Normocephalic atraumatic, extra-ocular movements intact, pupils equal and reactive to light bilaterally, mucous membranes moist. Cardiovascular: Heart regular rate and rhythm, S1&S2 audible, no murmurs, rubs or gallops Chest: Lungs clear to auscultation bilaterally, no rhonchi, no wheeze, no rales Abdomen: Bowel sounds present, abdomen soft, non-tender, non-distended, no organomegaly Musculoskeletal: Pulses present and equal in all extremities, no peripheral edema Motor: no focal deficits noted Neurological: CN II-XII grossly intact, no focal motor or sensory deficits noted Skin: Intact with no visualized rashes Psych: Normal affect and mood ED course: 78-year-old male presents with generalized weakness and syncopal episode. As upon arrival shows temperature 102.5, rest of vital signs within acceptable limits. Laboratory evaluation obtained. CBC shows pulse of 139. This appears to be a patient's baseline. Coag panel shows INR 1.1 patient has history of atrial fibrillation and has subtherapeutic INR. Medication review shows that he's on Coumadin. Metabolic panels obtained. Patient does have a mild anion gap acidosis. There is slight acute kidney injury. Mild transaminitis. Troponin of 0.052. Influenza negative. Chest x-ray is unremarkable. Patient was reevaluated. Patient continues to endorse no abdominal or chest symptoms. Patient otherwise reports that he feels well. At this point there is no localizing symptoms or objective evidence to identify any source of serious bacterial illness warm taking antibiotic administration. Nonetheless, patient has full comorbidities and has evidence to support diagnosis of seizures. Urine study still pending. Patient be admitted for observation. Infectious disease to be on consult. No further imaging studies indicated at this time. Patient has elevated troponin and started on low intensity heparin. EKG interpretation: atrial fibrillation, ventricular rate 84, care is 1:30, QTc 42. No W[place] prolongation, no QTC prolongation, no ST or T-wave changes noted. EKG compared to 02/18/2018 showing no changes. Overall, this EKG is unremarkable - Related Data Home Medications Medication Instructions Recorded Confirmed Ergocalciferol [Vitamin D2 50,000 unit PO Q14D 11/10/16 12/08/18 (DRISDOL)] Allopurinol [Zyloprim] 100 mg PO DAILY 01/11/18 12/08/18 Ferrous Gluconate 324 mg PO BID 01/11/18 12/08/18 Furosemide [Lasix] 40 mg PO DAILY 02/16/18 12/08/18 Glimepiride [Amaryl] 2 mg PO AC-BRKFST 02/16/18 12/08/18 Losartan [Cozaar] 25 mg PO DAILY 02/16/18 12/08/18 Potassium Citrate [Potassium 10 meq PO BID 02/16/18 12/08/18 Citrate ER] Aspirin [[place] Aspirin EC] 81 mg PO DAILY 12/08/18 12/08/18 Calcitriol 0.25 mcg PO DIRECTED 12/08/18 12/08/18 Cyanocobalamin (Vitamin B-12) 1,000 mcg PO DAILY 12/08/18 12/08/18 [Vitamin B-12] Warfarin [Coumadin] 7.5 mg PO TUTH 12/08/18 12/08/18 Warfarin [Coumadin] 10 mg PO SUMOWEFRSA 12/08/18 12/08/18 Allergies Allergy/AdvReac Type Severity Reaction Status Date / Time codeine Allergy Rash/Hives Verified 12/08/18 16:15 Review of Systems ROS Statement: Those systems with pertinent positive or pertinent negative responses have been documented in the HPI. ROS Other: All systems not noted in ROS Statement are negative. 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 gangrenous gallbladder-removed History of Any Multi-Drug Resistant Organisms: None Reported Past Surgical History: Cardiac Valve Replacement, Cholecystectomy, Heart Catheterization, Orthopedic Surgery Additional Past Surgical History / Comment(s): vein stripping of left leg, carpel tunnel right hand, YAS, cataract safia. eyes with implants, periocardiocentesis -1979, aortic valve repair-March, colonoscopies/benign polypectomy, EGD with benign polypectomy. Past Anesthesia/Blood Transfusion Reactions: No Reported Reaction Additional Past Anesthesia/Blood Transfusion Reaction / Comment(s): Pt has recei анна blood without reaction. Past Psychological History: No Psychological Hx Reported Smoking Status: Former smoker Past Alcohol Use History: None Reported Past Drug Use History: None Reported - Past Family History Mother Additional Family Medical History / Comment(s): Mother at the age of 98yrs from heart problems. Father Family Medical History: No Reported History Additional Family Medical History / Comment(s): Father in a MVA at the age of 59yrs. Sister(s) Family Medical History: Cancer General Exam Limitations: no limitations Course Vital Signs 12/08/18 15:04 Temperature 102.5 F H Pulse Rate 84 Respiratory 20 Rate Blood Pressure 168/97 O2 Sat by Pulse 100 Oximetry Medical Decision Making - Lab Data Result diagrams: 12/08/18 15:14 12/08/18 15:14 Lab Results 12/08/18 12/08/18 12/08/18 Range/Units 15:00 15:14 15:14 WBC 8.1 (3.8-10.6) k/uL RBC 5.35 (4.30-5.90) m/uL Hgb 15.2 (13.0-17.5) gm/dL Hct 48.7 (39.0-53.0) % MCV 91.1 (80.0-100.0) fL MCH 28.5 (25.0-35.0) pg MCHC 31.2 (31.0-37.0) g/dL RDW 15.2 (11.5-15.5) % Plt Count 139 L (150-450) k/uL Neutrophils % 92 % Lymphocytes % 3 % Monocytes % 4 % Eosinophils % 0 % Basophils % 0 % Neutrophils # 7.4 (1.3-7.7) k/uL Lymphocytes # 0.3 L (1.0-4.8) k/uL Monocytes # 0.3 (0-1.0) k/uL Eosinophils # 0.0 (0-0.7) k/uL Basophils # 0.0 (0-0.2) k/uL PT (9.0-12.0) sec INR (<1.2) APTT (22.0-30.0) sec Sodium 139 (137-145) mmol/L Potassium 4.5 (3.5-5.1) mmol/L Chloride 104 (98-107) mmol/L Carbon Dioxide 20 L (22-30) mmol/L Anion Gap 15 mmol/L BUN 28 H (9-20) mg/dL Creatinine 1.33 H (0.66-1.25) mg/dL Est GFR (CKD-EPI)AfAm 60 (>60 ml/min/1.73 sqM) Est GFR (CKD-EPI)NonAf 52 (>60 ml/min/1.73 sqM) Glucose 242 H (74-99) mg/dL Plasma Lactic Acid Kenny (0.7-2.0) mmol/L Calcium 9.4 (8.4-10.2) mg/dL Total Bilirubin 7.4 H (0.2-1.3) mg/dL AST 362 H (17-59) U/L ALT 495 H (21-72) U/L Alkaline Phosphatase 441 H (38-126) U/L Creatine Kinase 46 L (55-170) U/L Troponin I (0.000-0.034) ng/mL Total Protein 7.5 (6.3-8.2) g/dL Albumin 4.2 (3.5-5.0) g/dL Influenza Type A RNA Not Detected (Not Detectd) Influenza Type B (PCR) Not Detected (Not Detectd) 12/08/18 12/08/18 12/08/18 Range/Units 15:14 15:14 15:14 WBC (3.8-10.6) k/uL RBC (4.30-5.90) m/uL Hgb (13.0-17.5) gm/dL Hct (39.0-53.0) % MCV (80.0-100.0) fL MCH (25.0-35.0) pg MCHC (31.0-37.0) g/dL RDW (11.5-15.5) % Plt Count (150-450) k/uL Neutrophils % % Lymphocytes % % Monocytes % % Eosinophils % % Basophils % % Neutrophils # (1.3-7.7) k/uL Lymphocytes # (1.0-4.8) k/uL Monocytes # (0-1.0) k/uL Eosinophils # (0-0.7) k/uL Basophils # (0-0.2) k/uL PT 11.8 (9.0-12.0) sec INR 1.1 (<1.2) APTT 26.2 (22.0-30.0) sec Sodium (137-145) mmol/L Potassium (3.5-5.1) mmol/L Chloride (98-107) mmol/L Carbon Dioxide (22-30) mmol/L Anion Gap mmol/L BUN (9-20) mg/dL Creatinine (0.66-1.25) mg/dL Est GFR (CKD-EPI)AfAm (>60 ml/min/1.73 sqM) Est GFR (CKD-EPI)NonAf (>60 ml/min/1.73 sqM) Glucose (74-99) mg/dL Plasma Lactic Acid Kenny 2.0 (0.7-2.0) mmol/L Calcium (8.4-10.2) mg/dL Total Bilirubin (0.2-1.3) mg/dL AST (17-59) U/L ALT (21-72) U/L Alkaline Phosphatase (38-126) U/L Creatine Kinase (55-170) U/L Troponin I 0.052 H* (0.000-0.034) ng/mL Total Protein (6.3-8.2) g/dL Albumin (3.5-5.0) g/dL Influenza Type A RNA (Not Detectd) Influenza Type B (PCR) (Not Detectd) Disposition Clinical Impression: SIRS (systemic inflammatory response syndrome), Elevated troponin Disposition: ADMITTED IP TO THIS [facility] Condition: Fair Referrals: Faizan Ba DO [Primary Care Provider] - 1-2 days Decision Time: 16:27
[2018-12-08] MEDS ORDERED: ACETAMINOPHEN TAB 500 MG TAB PO STA (15:21)
[2018-12-08] MEDS: SODIUM CHLORIDE 0.9% 500 ML 500 ML IV SCH (15:21)
[2018-12-08 15:39] LABS: Basophils % (A) 0 %; Eosinophils % (A) 0 %; HCT 48.7 % (39.0-53.0); HGB 15.2 gm/dL (13.0-17.5); Lymphocytes # (A) 0.3 k/uL (1.0-4.8); Lymphocytes % (A) 3 %; MCH 28.5 pg (25.0-35.0); MCHC 31.2 g/dL (31.0-37.0); MCV 91.1 fL (80.0-100.0); Monocytes # (A) 0.3 k/uL (0-1.0); Monocytes % (A) 4 %; Neutrophils # (A) 7.4 k/uL (1.3-7.7); Neutrophils % (A) 92 %; Platelet Count 139 k/uL (150-450); RBC 5.35 m/uL (4.30-5.90); RDW 15.2 % (11.5-15.5); WBC 8.1 k/uL (3.8-10.6)
--- NOTE | 2018-12-08 15:41 | XR ---
EXAMINATION TYPE: XR chest 2V DATE OF EXAM: 12/08/2018 COMPARISON: Prior chest x-ray February 20, 2018 HISTORY: Fever and shortness of breath. TECHNIQUE: Frontal and lateral views of the chest are obtained. FINDINGS: Overlying sternal wires are redemonstrated. Cardiac closure device posterior left superior portion of heart is redemonstrated. There is chronic parenchymal change without suspicious focal air space opacity, pleural effusion, or pneumothorax seen. The cardiac silhouette size is stable and mi ldly enlarged. The osseous structures are intact. IMPRESSION: Chronic parenchymal changes and cardiomegaly without acute pulmonary process.
[2018-12-08 15:42] LABS: Albumin 4.2 g/dL (3.5-5.0); Calcium 9.4 mg/dL (8.4-10.2); Potassium 4.5 mmol/L (3.5-5.1); Total Bilirubin 7.4 mg/dL (0.2-1.3); Total Protein 7.5 g/dL (6.3-8.2)
[2018-12-08 15:52] LABS: INR 1.1 (<1.2); Partial Thromboplastin Time 26.2 sec (22.0-30.0); Prothrombin Time 11.8 sec (9.0-12.0)
[2018-12-08] MEDS ORDERED: HEPARIN SODIUM,PORCINE 5,000 UNIT/ML 1 ML VIAL IV PRN (16:23)
[2018-12-08] MEDS ORDERED: HEPARIN SODIUM,PORCINE 5,000 UNIT/ML 1 ML VIAL IV ONE (16:23)
[2018-12-08] MEDS ORDERED: ONDANSETRON 4 MG/2 ML VIAL IVP PRN (16:27)
[2018-12-08] MEDS ORDERED: NALOXONE 0.4 MG/ML 1 ML VIAL IV PRN (16:27)
[2018-12-08] MEDS ORDERED: ACETAMINOPHEN TAB 325 MG TAB PO PRN (16:27)
[2018-12-08] MEDS ORDERED: PIPERACILLIN-TAZOBACTAM 3.375 GM in SODIUM CHLORIDE 0.9% 100 ML IVPB STA (16:31)
[2018-12-08] MEDS: HEPARIN SOD,PORK IN 0.45% NACL 25,000 UNIT in 0.45% NACL 1 250ML.BAG IV SCH (17:01)
[2018-12-08 17:02] LABS: Appearance,Urine Clear (Clear); Bilirubin,Urine 1+ (Negative); Blood,Urine Negative (Negative); Color,Urine Yellow; Glucose,Urine (UA) Negative (Negative); Ketones,Urine Negative (Negative); Leukocyte Esterase,Urine Negative (Negative); Nitrite,Urine Negative (Negative); Protein,Urine Negative (Negative); Specific Gravity,Urine 1.007 (1.001-1.035)
--- NOTE | 2018-12-08 17:31 | CT ---
EXAMINATION TYPE: CT abdomen pelvis wo con DATE OF EXAM: 12/08/2018 COMPARISON: 02/20/2018 CT HISTORY: Patient poor historian. Fever per patient daughter CT DLP: 846.9 mGycm Automated exposure control for dose reduction was used. TECHNIQUE: Helical acquisition of images was performed from the lung bases through the pelvis. FINDINGS: Within the limits of noncontrast CT the following observations are made: LUNG BASES: No significant abnormality is appreciated. LIVER/GB: No significant abnormality is appreciated. PANCREAS: No significant abnormality is seen. SPLEEN: No significant abnormality is seen. ADRENALS: No significant abnormality is seen. KIDNEYS: No significant abnormality is seen. FREE AIR: No free air is visualized RETROPERITONEAL ADENOPATHY: None visualized REPRODUCTIVE ORGANS: No significant abnormality is seen URINARY BLADDER: No significant abnormality is seen. PELVIC ADENOPATHY: None visualized. OSSEOUS STRUCTURES: No significant abnormality is seen. BOWEL: No significant abnormality is seen. IMPRESSION: NO ACUTE PROCESS.
[2018-12-08] MEDS ORDERED: IPRATROPIUM-ALBUTEROL 3 ML NEB INHALATION PRN (18:15)
--- NOTE | 2018-12-08 18:26 | P.HPIM ---
History of Present Illness H&P Date: 12/08/18 Chief Complaint: Fever [age] male with significant past medical history of atrial fibrillation, systolic CHF with EF between 30 and 35%, COPD, diabetes mellitus, hypertension, hyperlipidemia, history of gangrenous cholecystitis status post cholecystectomy approximately one year ago presents the ED for generalized weakness. Patient reports waking up yesterday morning with chills and shaking. He reports that he had generalized weakness and he was unable to get out of a chair. Patient reports a mild episode of chest pain yesterday as well that was relieved with Tums, he does have a history of GERD. Of note, daughter has noticed yellowing of the skin since yesterday afternoon. Of note, patient reports having his gallbladder removed for gangrenous cholecystitis last year at [facility]. He denies smoking cigarettes or alcohol use. He denies any headaches, lower extremity edema, nausea, vomiting, cough, shortness of breath, palpitations, changes in urination or bowel habits. No changes in the color of urine or stool. He denies any appetite or weight changes. In the ED, patient was found to have a T-max of 102.5F. CBC showed a platelet count of 139. Likely relation panel was negative. CMP showed a bicarbonate of 20, BUN of 28, creatinine of 1.33, total bilirubin of 7.4, AST of 362, ALTs of 495, alkaline phosphatase of 441. Troponin was 0.05 to, EKG showing atrial fibrillation. Patient is admitted for fever of unknown origin, elevated troponins, elevated liver enzymes, GI/general surgery/cardiology and ID on board. 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 gangrenous gallbladder-removed History of Any Multi-Drug Resistant Organisms: None Reported Past Surgical History: Cardiac Valve Replacement, Cholecystectomy, Heart Catheterization, Orthopedic Surgery Additional Past Surgical History / Comment(s): vein stripping of left leg, carpel tunnel right hand, YAS, cataract safia. eyes with implants, periocardiocentesis -1979, aortic valve repair-March, colonoscopies/benign polypectomy, EGD with benign polypectomy. Past Anesthesia/Blood Transfusion Reactions: No Reported Reaction Additional Past Anesthesia/Blood Transfusion Reaction / Comment(s): Pt has received blood without reaction. Past Psychological History: No Psychological Hx Reported Smoking Status: Former smoker Past Alcohol Use History: None Reported Past Drug Use History: None Reported - Past Family History Mother Additional Family Medical History / Comment(s): Mother at the age of 98yrs from heart problems. Father Family Medical History: No Reported History Additional Family Medical History / Comment(s): Father in a MVA at the age of 59yrs. Sister(s) Family Medical History: Cancer Medications and Allergies Home Medications Medication Instructions Recorded Confirmed Type Ergocalciferol [Vitamin D2 50,000 unit PO Q14D 11/10/16 12/08/18 History (DRISDOL)] Allopurinol [Zyloprim] 100 mg PO DAILY 01/11/18 12/08/18 History Ferrous Gluconate 324 mg PO BID 01/11/18 12/08/18 History Furosemide [Lasix] 40 mg PO DAILY 02/16/18 12/08/18 History Glimepiride [Amaryl] 2 mg PO [id number] 02/16/18 12/08/18 History Losartan [Cozaar] 25 mg PO DAILY 02/16/18 12/08/18 History Potassium Citrate [Potassium 10 meq PO BID 02/16/18 12/08/18 History Citrate ER] Aspirin [Turner Aspirin EC] 81 mg PO DAILY 12/08/18 12/08/18 History Calcitriol 0.25 mcg PO DIRECTED 12/08/18 12/08/18 History Cyanocobalamin (Vitamin B-12) 1,000 mcg PO DAILY 12/08/18 12/08/18 History [Vitamin B-12] Warfarin [Coumadin] 7.5 mg PO TUTH 12/08/18 12/08/18 History Warfarin [Coumadin] 10 mg PO [id number] 12/08/18 12/08/18 History Allergies Allergy/AdvReac Type Severity Reaction Status Date / Time codeine Allergy Rash/Hives Verified 12/08/18 16:15 Physical Exam Vitals: Vital Signs Temp Pulse Resp BP Pulse Ox 12/08/18 16:00 67 22 136/85 98 12/08/18 15:30 66 22 168/97 99 12/08/18 15:04 102.5 F H 84 20 168/97 100 Intake and Output 12/08/18 12/08/18 12/08/18 06:59 14:59 22:59 Other: Weight 111.13 kg General: [non toxic], [no distress], [appears at stated age] Derm: [warm], [dry], [jaundiced] Head: [atraumatic], [normocephalic], [symmetric] Eyes: [EOMI], [no lid lag], [jaundice sclera] Mouth: [no lip lesion], [mucus membranes moist] Cardiovascular: [S1S2 reg], [no murmur], [positive DP pulse bilateral] Lungs: [CTA bilateral], [no rhonchi, no rales] , [no accessory muscle use] Abdominal: [soft], [ nontender to palpation], [no guarding], [no appreciable organomegaly] Ext: [no gross muscle atrophy], [no edema], [no contractures] Neuro: [ CN II-XI grossly intact], [no focal neuro deficits] Psych: [Alert], [oriented], [appropriate affect] Results CBC & Chem 7: 12/08/18 15:14 12/08/18 15:14 Labs: Abnormal Lab Results - Last 24 Hours (Table) 12/08/18 12/08/18 12/08/18 Range/Units 15:14 15:14 15:14 Plt Count 139 L (150-450) k/uL Lymphocytes # 0.3 L (1.0-4.8) k/uL Carbon Dioxide 20 L (22-30) mmol/L BUN 28 H (9-20) mg/dL Creatinine 1.33 H (0.66-1.25) mg/dL Glucose 242 H (74-99) mg/dL Total Bilirubin 7.4 H (0.2-1.3) mg/dL AST 362 H (17-59) U/L ALT 495 H (21-72) U/L Alkaline Phosphatase 441 H (38-126) U/L Creatine Kinase 46 L (55-170) U/L Troponin I 0.052 H* (0.000-0.034) ng/mL Urine Bilirubin (Negative) 12/08/18 Range/Units 16:30 Plt Count (150-450) k/uL Lymphocytes # (1.0-4.8) k/uL Carbon Dioxide (22-30) mmol/L BUN (9-20) mg/dL Creatinine (0.66-1.25) mg/dL Glucose (74-99) mg/dL Total Bilirubin (0.2-1.3) mg/dL AST (17-59) U/L ALT (21-72) U/L Alkaline Phosphatase (38-126) U/L Creatine Kinase (55-170) U/L Troponin I (0.000-0.034) ng/mL Urine Bilirubin 1+ H (Negative) Thrombosis Risk Factor Assmnt - Choose All That Apply Any of the Below Risk Factors Present?: Yes Each Factor Represents 1 point: Heart failure (<1month), Obesity (BMI >25) Other Risk Factors: No Each Risk Factor Represents 3 Points: Age 75 years or older Thrombosis Risk Factor Assessment Total Risk Factor Score: 5 Thrombosis Risk Factor Assessment Level: High Risk Assessment and Plan Assessment: Assessment and Plan 1. Fever 2. Troponin elevation 3. Acute kidney injury 4. Elevated transaminase 5. Atrial fibrillation 6. CHF 7. COPD 8. Diabetes mellitus 9. Hypertension 1. Patient is febrile with T-max of 102.5 Fahrenheit with no leukocytosis. His blood pressure and pulse rate has remained stable. Lactic acid is negative. Urinalysis is negative for nitrite or leukocyte esterase. Influenza is negat chase. Chest x-ray shows no acute process. Recently underwent cholecystectomy in December for gangrenous cholecystitis complicated with abscess. We will continue piperacillin and tazobactam IV. Follow infectious disease consult. Follow blood culture, urine culture results. 2. Troponin 0.052, EKG showing atrial fibrillation with left BBB. Concerns for ACS given chest pain, thought to be GERD-like symptoms. Trend 2 troponin/EKG to rule out ACS. Patient started on heparin drip in the ED. Tylenol as needed for pain management. Telemetry monitoring. We will follow cardiology consultation. Follow echocardiogram. 3. BUN 28, creatinine 1.33 with GFR of 52. This is likely secondary to dehydr ation. We will encourage by mouth hydration. Daily BMP. Avoid nephrotoxins. 4. Total bilirubin 7.4, AST 362, ALC 495, alkaline phosphatase 441. Concerns for obstruction given history of cholecystectomy. CT abdomen and pelvis unrevealing. We will consult general surgery and gastroenterology for further recommendations. 5. Currently rate controlled on EKG. Continue heparin drip for anticoag ulation. Telemetry monitoring. Keep potassium greater than 4 and magnesium greater than 2. Follow cardiology recommendations. 6. Most recent echocardiogram in 2017 shows EF 30-35%. Continue losartan. Patient would probably benefit from beta porsha and spironolactone. Follow cardiology recommendations. 7. Stable. DuoNeb as needed for shortness of breath or wheezing. 8. Insulin sliding scale. Hypoglycemic precautions. Regular Accu-Cheks. 9. BP 136/85. Continue losartan. Monitor vitals, adjust medications as necessary. Patient admitted for fever, unknown origin, found to have elevated transaminitis, history of gangrenous cholecystitis, infectious disease/general surgery/GI on board while continuing IV antibiotics. Cardiology consulted for elevated troponins, continue heparin drip. Patient would like to make is daughter Carola decision-maker in the case that he can't make decisions for himself. Patient states that he would like to remain full code at this time.
[2018-12-08 20:36] VITALS: BMI 29.3
[2018-12-08] MEDS: SODIUM CHLORIDE 0.9% 1,000 ML IV SCH (21:26)
[2018-12-09 06:07] LABS: Glucose,Whole Blood 179 mg/dL (75-99)
[2018-12-09] MEDS: INSULIN ASPART (NovoLOG) 100 UNIT/ML VIAL SQ SCH ×3 (06:49→17:35)
[2018-12-09] MEDS: FUROSEMIDE 40 MG TAB PO SCH (08:48)
[2018-12-09] MEDS: ASPIRIN 81 MG PO SCH (08:48)
[2018-12-09] MEDS: PANTOPRAZOLE 40 MG/10 ML VIAL IV SCH (08:48)
[2018-12-09] MEDS ORDERED: LOSARTAN 25 MG TAB PO SCH (09:00)
[2018-12-09 09:26] LABS: Albumin 3.2 g/dL (3.5-5.0); Calcium 8.6 mg/dL (8.4-10.2); Potassium 4.1 mmol/L (3.5-5.1); Total Bilirubin 3.7 mg/dL (0.2-1.3); Total Protein 6.1 g/dL (6.3-8.2)
[2018-12-09 09:37] LABS: Creatine Kinase MB 0.7 ng/mL (0.0-2.4)
[2018-12-09 09:43] LABS: Troponin I 0.161 ng/mL (0.000-0.034)
--- NOTE | 2018-12-09 10:36 | P.PN ---
Subjective Progress Note Date: 12/09/18 Principal diagnosis: troponin elevation, elevated liver enzymes, fever 78-year-old male with significant past medical history of atrial fibrillation, systolic CHF with EF between 30 and 35%, COPD, diabetes mellitus, hypertension, hyperlipidemia, history of gangrenous cholecystitis status post cholecystectomy approximately one year ago presents the ED for generalized weakness. Patient reports waking up yesterday morning with chills and shaking. No changes in the color of urine or stool. In the ED, patient was found to have a T-max of 102.5F. CMP showed a total bilirubin of 7.4, AST of 362, ALTs of 495, alkaline phosphatase of 441. Troponin was 0.05, EKG showing atrial fibrillation. Patient is admitted for fever of unknown origin, elevated troponins, elevated liver enzymes, GI/general surgery/cardiology and ID on board. Patient was seen and examined this morning. No acute events overnight. Patient has no complaints this morning. Patient able to urinate freely and had a bowel movement which was normal. He denies any chest pain, shortness of breath or palpitations. No nausea or vomiting. No fever or chills. Objective - Vital Signs Vital signs: Vital Signs Temp 98.5 F 12/09/18 08:00 Pulse 54 L 12/09/18 08:00 Resp 16 12/09/18 08:00 BP 119/59 12/09/18 08:00 Pulse Ox 96 12/09/18 08:00 Intake & Output 12/08/18 12/09/18 12/09/18 18:59 06:59 18:59 Intake Total 71.088 151.65 Balance 71.088 151.65 Weight 111.13 kg 107 kg Intake: Intake, IV Titration 71.088 151.65 Amount Heparin Sod,Pork in 0.45% 71.088 91.65 NaCl 25,000 unit In 0.45 % NaCl 1 250ml.bag @ 9 UNITS/KG/HR 10.002 mls/hr IV .Q24H RADHA Rx#: [id number] Sodium Chloride 0.9% 1, 60 000 ml @ 20 mls/hr IV . Q24H RADHA Rx#:[id number] Other: Voiding Method Toilet # Voids 0 - Exam General: [non toxic], [no distress], [appears at stated age] Derm: [warm], [dry], [jaundiced] Head: [atraumatic], [normocephalic], [symmetric] Eyes: [EOMI], [no lid lag], [jaundice sclera] Mouth: [no lip lesion], [mucus membranes moist] Cardiovascular: [S1S2 reg], [no murmur], [positive DP pulse bilateral] Lungs: [CTA bilateral], [no rhonchi, no rales] , [no accessory muscle use] Abdominal: [soft], [ nontender to palpation], [no guarding], [no appreciable organomegaly] Ext: [no gross muscle atrophy], [no edema], [no contractures] Neuro: [no focal neuro deficits] Psych: [Alert], [oriented], [appropriate affect] - Labs CBC & Chem 7: 12/08/18 15:14 12/09/18 06:15 Labs: Abnormal Lab Results - Last 24 Hours (Table) 12/08/18 12/08/18 12/08/18 Range/Units 15:14 15:14 15:14 Plt Count 139 L (150-450) k/uL Lymphocytes # 0.3 L (1.0-4.8) k/uL APTT (22.0-30.0) sec Sodium (137-145) mmol/L Carbon Dioxide 20 L (22-30) mmol/L BUN 28 H (9-20) mg/dL Creatinine 1.33 H (0.66-1.25) mg/dL Glucose 242 H (74-99) mg/dL POC Glucose (mg/dL) (75-99) mg/dL Total Bilirubin 7.4 H (0.2-1.3) mg/dL AST 362 H (17-59) U/L ALT 495 H (21-72) U/L Alkaline Phosphatase 441 H (38-126) U/L Creatine Kinase 46 L (55-170) U/L Troponin I 0.052 H* (0.000-0.034) ng/mL Total Protein (6.3-8.2) g/dL Albumin (3.5-5.0) g/dL Urine Bilirubin (Negative) 12/08/18 12/08/18 12/09/18 Range/Units 16:30 22:37 06:05 Plt Count (150-450) k/uL Lymphocytes # (1.0-4.8) k/uL APTT 34.3 H (22.0-30.0) sec Sodium (137-145) mmol/L Carbon Dioxide (22-30) mmol/L BUN (9-20) mg/dL Creatinine (0.66-1.25) mg/dL Glucose (74-99) mg/dL POC Glucose (mg/dL) 179 H (75-99) mg/dL Total Bilirubin (0.2-1.3) mg/dL AST (17-59) U/L ALT (21-72) U/L Alkaline Phosphatase (38-126) U/L Creatine Kinase (55-170) U/L Troponin I (0.000-0.034) ng/mL Total Protein (6.3-8.2) g/dL Albumin (3.5-5.0) g/dL Urine Bilirubin 1+ H (Negative) 12/09/18 12/09/18 12/09/18 Range/Units 06:15 06:15 06:15 Plt Count (150-450) k/uL Lymphocytes # (1.0-4.8) k/uL APTT 47.1 H (22.0-30.0) sec Sodium 136 L (137-145) mmol/L Carbon Dioxide 20 L (22-30) mmol/L BUN 36 H (9-20) mg/dL Creatinine 1.38 H (0.66-1.25) mg/dL Glucose 190 H (74-99) mg/dL POC Glucose (mg/dL) (75-99) mg/dL Total Bilirubin 3.7 H (0.2-1.3) mg/dL AST 200 H (17-59) U/L ALT 343 H (21-72) U/L Alkaline Phosphatase 314 H (38-126) U/L Creatine Kinase (55-170) U/L Troponin I 0.161 H* (0.000-0.034) ng/mL Total Protein 6.1 L (6.3-8.2) g/dL Albumin 3.2 L (3.5-5.0) g/dL Urine Bilirubin (Negative) Microbiology - Last 24 Hours (Table) 12/08/18 16:30 Urine Culture - Preliminary Urine,Voided Assessment and Plan Assessment: Assessment and Plan 1. Fever 2. Troponin elevation 3. Acute kidney injury 4. Elevated transaminase 5. Atrial fibrillation 6. CHF 7. COPD 8. Diabetes mellitus 9. Hypertension 1. Patient is febrile with T-max of 102.5 Fahrenheit with no leukocytosison admission, 100 Fahrenheit this morning. His blood pressure and pulse rate has remained stable. Lactic acid is negative. Urinalysis is negative for nitrite or leukocyte esterase. Influenza is negative. Chest x-ray shows no acute process. Recently underwent cholecystectomy in December for gangrenous cholecystitis complicated with abscess. We will continue piperacillin and tazobactam IV. Follow infectious disease consult. Follow blood culture, urine culture results. 2. Troponin 0.052, 0.161, EKG showing atrial fibrillation with left BBB. Concerns for ACS given chest pain, thought to be GERD-like symptoms. Follow troponin/EKG. Patient started on heparin drip in the ED. Tylenol as needed for pain management. Telemetry monitoring. We will follow cardiology consultation. Follow echocardiogram. 3. BUN 28-36, creatinine 1.33-1.38 with GFR of 52-49. This is likely secondary to dehydration. Encourage by mouth hydration. Daily BMP. Hold losartan due to VINICIO. Avoid nephrotoxins. 4. Total bilirubin 7.4-3.7, AST 362-200, ALT 495-343, alkaline phosphatase 441- 314. Concerns for obstruction given history of cholecystectomy. CT abdomen and pelvis unrevealing. We will consult general surgery and gastroenterology for further recommendations. Follow ultrasound of the abdomen, acute hepatitis panel. 5. Currently rate controlled on EKG. Continue heparin drip for anticoagulation. Telemetry monitoring. Keep potassium greater than 4 and magn esium greater than 2. Follow cardiology recommendations. 6. Most recent echocardiogram in 2017 shows EF 30-35%. Continue losartan. Patient would probably benefit from beta porsha and spironolactone. Follow cardiology recommendations. 7. Stable. DuoNeb as needed for shortness of breath or wheezing. 8. [id number] glucose 190. Insulin sliding scale. Hypoglycemic precautions. Regular Accu-Cheks. 9. BP 119/59. Hold losartan. Monitor vitals, adjust medications as necessary. Patient admitted for fever, unknown origin, found to have elevated transaminitis, history of gangrenous cholecystitis, infectious disease/general surgery/GI on board while continuing IV antibiotics. Cardiology consulted for elevated troponins, continue heparin drip. Patient would like to make is daughter Carola decision-maker in the case that he can't make decisions for himself. Patient states that he would like to remain full code at this time.
[2018-12-09] MEDS: PIPERACILLIN-TAZOBACTAM 3.375 GM in SODIUM CHLORIDE 0.9% 100 ML IVPB SCH ×2 (11:12→16:57)
--- NOTE | 2018-12-09 11:26 | US ---
EXAMINATION TYPE: US liver DATE OF EXAM: 12/09/2018 COMPARISON: Previous study dated 01/12/2018 CLINICAL HISTORY: Obstructive jaundice. Jaundice, patient denies any abdomen pain or N/V, history of cholecystectomy, exam done portable. EXAM MEASUREMENTS: Liver Length: 15.9 cm Gallbladder Wall: surgically absent CBD: 0.7 cm Right Kidney: 10.8 x 6.1 x 6.2 cm Pancreas: visualized portions wnl, limited by overlying midline bowel gas Liver: mildly heterogeneous Gallbladder: surgically absent Evidence for sonographic Garcia's sign: no CBD: visualized portions wnl, limited by overlying bowel gas Right Kidney: visualized portions wnl, inferior pole limited by overlying bowel gas The pancreas is poorly visualized. The liver is normal in size without biliary dilatation. The gallbladder is been removed. Distal common hepatic duct measures 7 mm. Limited views of the right kidney are unremarkable. IMPRESSION: STATUS POST CHOLECYSTECTOMY.
[2018-12-09 11:33] LABS: Glucose,Whole Blood 163 mg/dL (75-99)
--- NOTE | 2018-12-09 13:17 | P.GSCN ---
History of Present Illness Consult date: 12/09/18 History of present illness: CHIEF COMPLAINT: Elevated liver enzymes HISTORY OF PRESENT ILLNESS: The patient is a 78-year-old male who presented with chest pain including workup of elevated liver enzymes. His history significant for cholecystectomy 1 year ago December [address] James. No reports of abdominal pain. In fact, on my evaluation he is getting his echo done at bedside. Cardiology also assessing for elevated liver enzymes. "I'm hungry." No reports of fevers or chills. No reports of abdominal pain. Gen. surgery is consulted for elevated liver enzymes. She denies any jaundice. Liver enzymes has been elevated during current admission the last 24 hours. PAST MEDICAL HISTORY: See list. PAST SURGICAL HISTORY: See list. MEDICATIONS: See list. ALLERGIES: See list. SOCIAL HISTORY: No illicit drug use FAMILY HISTORY: No reports of Crohn's disease or inflammatory bowel disease REVIEW OF ORGAN SYSTEMS: CONSTITUTIONAL: No fevers or chills. No recent weight loss. EYES: Past eye implants. No glasses. HEENT: No difficulties with hearing. No nosebleeds. RESPIRATORY: Denies current troubles with breathing. No active pneumonia. CARDIOVASCULAR: Current elevated troponins. Past chest pain and heart attacks. GASTROINTESTINAL: Past cholecystectomy for gangrenous cholecystitis. No crepitus stools. GENITOURINARY: Denies current hematuria or urinary hesitancy. NEUROLOGICAL: Denies any numbness or tingling along the distal extremities. No seizure disorders or headaches. MUSCULOSKELETAL: Hasback pain, stiffness or joint arthritis. SKIN: No current skin cancer. No rash. PSYCHIATRIC: Denies current depression or suicidal thoughts. ENDOCRINE: Denies current thyroid disorders. Has blood sugar glucose intolerance. HEME/LYMPHATIC: Denies any lumps and bumps around the neck. No recent deep venous thrombosis. ALLERGY/IMMUNOLOGY: No immunoglobulin therapy. No immune deficiencies. BREAST: Denies current breast lumps, pain or nipple discharge. PHYSICAL EXAM: VITALS: Reviewed CONSTITUTIONAL: Well developed and in no acute distress. EYES: Conjuctivae without sclera icterus. Pupils are equally round and reactive to light. Extraocular movements grossly intact. HEAD, EARS, NOSE, THROAT: Moist buccal mucosa. Head is atraumatic, normocephalic. Hears conversational speech. No nasal drainage. NECK: Supple. No thyroidomegaly. RESPIRATORY: Non-labored respirations and equal bilateral excursions. No gross wheezes. CARDIOVASCULAR: Irregular rate. Irregular rhythm. without moderate edema. Palpable 2+ radial pulses. ABDOMEN: Soft. Non-tender. Nondistended. MUSCULOSKELETAL: Range of motion bilateral upper extremities within normal limits. Nail and fingers with good capillary refill. SKIN: Warm and well perfused with good skin turgor. NEUROLOGIC: Cranial nerves I through XII grossly intact. No focal or lateralizing signs. PSYCH: Appropriate affect. Alert and oriented to person, place and time. Dis plays appropriate insight. CLINCAL LABS: Reviewed RADIOLOGY: Report reviewed IMAGING: Independently reviewed alongside with patient RECORDS: previous old records reviewed consistent with new liver enzymes that is elevated ASSESSMENT: 1. Abnormal elevation of liver enzymes 2. Elevated troponin 3. Ischemic cardiomyopathy 4. History of atrial fibrillation PLAN: 1. His liver enzymes has moderately improved in 24 hours without any abdominal pain at the time of my evaluation. No further surgical intervention needed as his gallbladder has been removed. 2. May benefit from GI consultation as he has new moderately elevated liver enzymes compared to previous admissions. Ultrasound of the common bile duct and biliary system may be of benefit 3. Heart healthy diet agreeable Thank you for this kind consultation. Past Medical History Past Medical History: Atrial Fibrillation, Heart Failure, COPD, Diabetes Mellitus, Hearing Disorder / Deafness, Hyperlipidemia, Hypertension, Osteoarthritis (OA), Vascular Disorder Additional Past Medical History / Comment(s): Viral myocarditis & pericarditis 1979, IDDM type II, neuropathy bilateral feet and occasionally in bilateral hands, L thigh varicose veins, venous insufficiency, [place] bilaterally. gangrenous gallbladder-removed History of Any Multi-Drug Resistant Organisms: None Reported Past Surgical History: Cardiac Valve Replacement, Cholecystectomy, Heart Catheterization, Orthopedic Surgery Additional Past Surgical History / Comment(s): vein stripping of left leg, carpel tunnel right hand, YAS, cataract safia. eyes with implants, periocardiocentesis -1979, aortic valve repair-March, colonoscopies/benign polypectomy, EGD with benign polypectomy. Past Anesthesia/Blood Transfusion Reactions: No Reported Reaction Additional Past Anesthesia/Blood Transfusion Reaction / Comm: Pt has received blood without reaction. Past Psychological History: No Psychological Hx Reported Additional Psychological History / Comment(s): Pt resides with his spouse. He is independent. He will use a cane or walker prn. Smoking Status: Former smoker Past Alcohol Use History: None Reported Additional Past Alcohol Use History / Comment(s): Pt started smoking in 1956 and quit in 1979. He was less than a ppd smoker. Past Drug Use History: None Reported - Past Family History Mother Additional Family Medical History / Comment(s): Mother at the age of 98yrs from heart problems. Father Family Medical History: No Reported History Additional Family Medical History / Comment(s): Father in a MVA at the age of 59yrs. Sister(s) Family Medical History: Cancer Medications and Allergies Home Medications Medication Instructions Recorded Confirmed Type Ergocalciferol [Vitamin D2 50,000 unit PO Q14D 11/10/16 12/08/18 History (DRISDOL)] Allopurinol [Zyloprim] 100 mg PO DAILY 01/11/18 12/08/18 History Ferrous Gluconate 324 mg PO BID 01/11/18 12/08/18 History Furosemide [Lasix] 40 mg PO DAILY 02/16/18 12/08/18 History Glimepiride [Amaryl] 2 mg PO AC-BRKFST 02/16/18 12/08/18 History Losartan [Cozaar] 25 mg PO DAILY 02/16/18 12/08/18 History Potassium Citrate [Potassium 10 meq PO BID 02/16/18 12/08/18 History Citrate ER] Aspirin [[place] Aspirin EC] 81 mg PO DAILY 12/08/18 12/08/18 History Calcitriol 0.25 mcg PO DIRECTED 12/08/18 12/08/18 History Cyanocobalamin (Vitamin B-12) 1,000 mcg PO DAILY 12/08/18 12/08/18 History [Vitamin B-12] Warfarin [Coumadin] 7.5 mg PO TUTH 12/08/18 12/08/18 History Warfarin [Coumadin] 10 mg PO SUMOWEFRSA 12/08/18 12/08/18 History Allergies Allergy/AdvReac Type Severity Reaction Status Date / Time codeine Allergy Rash/Hives Verified 12/08/18 16:15 Surgical - Exam Vital Signs Temp Pulse Resp BP Pulse Ox 102.5 F H 84 20 168/97 100 12/08/18 15:04 12/08/18 15:04 12/08/18 15:04 12/08/18 15:04 12/08/18 15:04 Results - Labs 12/08/18 15:14 12/09/18 06:15 Abnormal Lab Results - Last 24 Hours (Table) 12/08/18 12/08/18 12/08/18 Range/Units 15:14 15:14 15:14 Plt Count 139 L (150-450) k/uL Lymphocytes # 0.3 L (1.0-4.8) k/uL APTT (22.0-30.0) sec D-Dimer (<0.60) mg/L FEU Sodium (137-145) mmol/L Carbon Dioxide 20 L (22-30) mmol/L BUN 28 H (9-20) mg/dL Creatinine 1.33 H (0.66-1.25) mg/dL Glucose 242 H (74-99) mg/dL POC Glucose (mg/dL) (75-99) mg/dL Total Bilirubin 7.4 H (0.2-1.3) mg/dL AST 362 H (17-59) U/L ALT 495 H (21-72) U/L Alkaline Phosphatase 441 H (38-126) U/L Creatine Kinase 46 L (55-170) U/L Troponin I 0.052 H* (0.000-0.034) ng/mL Total Protein (6.3-8.2) g/dL Albumin (3.5-5.0) g/dL Urine Bilirubin (Negative) 12/08/18 12/08/18 12/09/18 Range/Units 16:30 22:37 06:05 Plt Count (150-450) k/uL Lymphocytes # (1.0-4.8) k/uL APTT 34.3 H (22.0-30.0) sec D-Dimer (<0.60) mg/L FEU Sodium (137-145) mmol/L Carbon Dioxide (22-30) mmol/L BUN (9-20) mg/dL Creatinine (0.66-1.25) mg/dL Glucose (74-99) mg/dL POC Glucose (mg/dL) 179 H (75-99) mg/dL Total Bilirubin (0.2-1.3) mg/dL AST (17-59) U/L ALT (21-72) U/L Alkaline Phosphatase (38-126) U/L Creatine Kinase (55-170) U/L Troponin I (0.000-0.034) ng/mL Total Protein (6.3-8.2) g/dL Albumin (3.5-5.0) g/dL Urine Bilirubin 1+ H (Negative) 12/09/18 12/09/18 12/09/18 Range/Units 06:15 06:15 06:15 Plt Count (150-450) k/uL Lymphocytes # (1.0-4.8) k/uL APTT 47.1 H (22.0-30.0) sec D-Dimer (<0.60) mg/L FEU Sodium 136 L (137-145) mmol/L Carbon Dioxide 20 L (22-30) mmol/L BUN 36 H (9-20) mg/dL Creatinine 1.38 H (0.66-1.25) mg/dL Glucose 190 H (74-99) mg/dL POC Glucose (mg/dL) (75-99) mg/dL Total Bilirubin 3.7 H (0.2-1.3) mg/dL AST 200 H (17-59) U/L ALT 343 H (21-72) U/L Alkaline Phosphatase 314 H (38-126) U/L Creatine Kinase (55-170) U/L Troponin I 0.161 H* (0.000-0.034) ng/mL Total Protein 6.1 L (6.3-8.2) g/dL Albumin 3.2 L (3.5-5.0) g/dL Urine Bilirubin (Negative) 12/09/18 12/09/18 12/09/18 Range/Units 11:30 12:04 12:04 Plt Count (150-450) k/uL Lymphocytes # (1.0-4.8) k/uL APTT (22.0-30.0) sec D-Dimer 0.69 H (<0.60) mg/L FEU Sodium (137-145) mmol/L Carbon Dioxide (22-30) mmol/L BUN (9-20) mg/dL Creatinine (0.66-1.25) mg/dL Glucose (74-99) mg/dL POC Glucose (mg/dL) 163 H (75-99) mg/dL Total Bilirubin (0.2-1.3) mg/dL AST (17-59) U/L ALT (21-72) U/L Alkaline Phosphatase (38-126) U/L Creatine Kinase (55-170) U/L Troponin I 0.091 H* (0.000-0.034) ng/mL Total Protein (6.3-8.2) g/dL Albumin (3.5-5.0) g/dL Urine Bilirubin (Negative) Microbiology - Last 24 Hours (Table) 12/08/18 16:30 Urine Culture - Preliminary Urine,Voided Diabetes panel 12/08/18 12/09/18 Range/Units 15:14 06:15 Sodium 139 136 L (137-145) mmol/L Potassium 4.5 4.1 (3.5-5.1) mmol/L Chloride 104 106 (98-107) mmol/L Carbon Dioxide 20 L 20 L (22-30) mmol/L BUN 28 H 36 H (9-20) mg/dL Creatinine 1.33 H 1.38 H (0.66-1.25) mg/dL Glucose 242 H 190 H (74-99) mg/dL Calcium 9.4 8.6 (8.4-10.2) mg/dL AST 362 H 200 H (17-59) U/L ALT 495 H 343 H (21-72) U/L Alkaline Phosphatase 441 H 314 H (38-126) U/L Total Protein 7.5 6.1 L (6.3-8.2) g/dL Albumin 4.2 3.2 L (3.5-5.0) g/dL Calcium panel 12/08/18 12/09/18 Range/Units 15:14 06:15 Calcium 9.4 8.6 (8.4-10.2) mg/dL Albumin 4.2 3.2 L (3.5-5.0) g/dL Pituitary panel 12/08/18 12/09/18 Range/Units 15:14 06:15 Sodium 139 136 L (137-145) mmol/L Potassium 4.5 4.1 (3.5-5.1) mmol/L Chloride 104 106 (98-107) mmol/L Carbon Dioxide 20 L 20 L (22-30) mmol/L BUN 28 H 36 H (9-20) mg/dL Creatinine 1.33 H 1.38 H (0.66-1.25) mg/dL Glucose 242 H 190 H (74-99) mg/dL Calcium 9.4 8.6 (8.4-10.2) mg/dL Adrenal panel 12/08/18 12/09/18 Range/Units 15:14 06:15 Sodium 139 136 L (137-145) mmol/L Potassium 4.5 4.1 (3.5-5.1) mmol/L Chloride 104 106 (98-107) mmol/L Carbon Dioxide 20 L 20 L (22-30) mmol/L BUN 28 H 36 H (9-20) mg/dL Creatinine 1.33 H 1.38 H (0.66-1.25) mg/dL Glucose 242 H 190 H (74-99) mg/dL Calcium 9.4 8.6 (8.4-10.2) mg/dL Total Bilirubin 7.4 H 3.7 H (0.2-1.3) mg/dL AST 362 H 200 H (17-59) U/L ALT 495 H 343 H (21-72) U/L Alkaline Phosphatase 441 H 314 H (38-126) U/L Total Protein 7.5 6.1 L (6.3-8.2) g/dL Albumin 4.2 3.2 L (3.5-5.0) g/dL
--- NOTE | 2018-12-09 13:36 | P.CRDCN ---
History of Present Illness Consult date: 12/09/18 Reason for Consult (text): /chest pain/ shortness of breath/elevated troponin Chief complaint: chest pain/shortness of breath/elevated troponin History of present illness: HISTORY OF PRESENT ILLNESS AND PLAN: This is a [78]-year-old [male] with history of atrial fibrillation, mitral valve repair, mild CAD, CHF with ejection fraction 40%, persistent atrial fibrillation, bradycardia, COPD, hypertension, hyperlipidemia and cholecystectomy with gangrenous gallbladder. Patient presents in the emergency department with complaints of [near syncope at home, increasing weakness, heartburn and chest pain. Patient anticoagulated with Coumadin for known persistent atrial fibrillation. Patient presents to ER with fever of 102.5. Patient currently sitting up in chair with no current complaints of chest pain, chest pressure, palpitations or shortness of breath. Patient states family members had recent upper respiratory infection home. Troponins are elevated 2, controlled A. fib heart rate 60. Subtherapeutic INR on presentation, 1.1]. SIGNIFICANT PAST MEDICAL HISTORY: [atrial fibrillation, mitral valve repair, mild CAD, CHF with ejection fraction 40%, persistent atrial fibrillation, bradycardia, COPD, hypertension, hyperlipidemia and cholecystectomy with gangrenous gallbladder] PAST SURGICAL HISTORY: See list. EKG shows [atrial fibrillation], heart rate [65] bpm. Troponins elevated x [2]. @ 0.052, 0.161 SIGNIFICANT LABORATORY VALUES: [CBC, WNL. Platelets low at 139. BMP, WNL. K 4.1. CO2 low at 20. AST/ALT/alk phos elevated. lactic acid 2.0. Negative for influenza swab. Negative UA. INR 1.1]. Chest x-ray [Chronic changes. Cardiomegaly. Negative for acute process.]. CT of abdomen and pelvis [WNL]. Most recent echo dated = [04/2017] indicates [EF40-45%, moderate concentric LVH. Right ventricle moderately enlarged. LA severely dilated. Mild MR. Mild TR. Mild pulmonary hypertension.]. Most recent stress testing dated = [January 2018] indicates [no ischemia]. Most recent cardiac cath dated February 2016 = [mild CAD] REVIEW OF SYSTEMS: CONSTITUTIONAL: [Denies fever. Denies chills.] EYES: Denies blurred vision. [Denies blurred vision or vision changes. Denies eye pain.] EARS, NOSE, MOUTH & THROAT: [Denies headache. Denies sore throat. Denies ear pain Denies hemoptysis.] CARDIOVASCULAR: [Complains of chest pain/midsternal/sharp. Denies shortness of breath. Denies orthopnea. Denies PND. Denies palpitations.] RESPIRATORY: [Denies cough. Denies shortness of breath. ] GASTROINTESTINAL: [Complains of heartburn. Denies abdominal pain or distention. Complains of diarrhea. Denies constipation. Denies nausea. Denies vomiting.] MUSCULOSKELETAL: [c/o myalgias.] INTEGUMENTARY: [Denies pruitis. Denies rash.] ENDOCRINE: [Complains of fatigue. Denies weight change. Denies polydipsia. Denies polyurina Denies heat/cold intolerance.] GENITOURINARY:[ Denies burning, hematuria or urgency with micturation.] HEMATOLOGIC: [Denies history of anemia. Denies bleeding.] NEUROLOGIC: [Denies numbness. Denies tingling. Complains of weakness.] PSYCHIATRIC: [Denies anxiety. Denies depression.] PHYSICAL EXAM: VITAL SIGNS: Stable. Temp 100.0 GENERAL: Well developed, in no acute distress. HEENT: Head is atraumatic, normocephalic. Pupils are equal, round. Extra ocular movements intact. Mucous membranes moist. Neck supple. No JVD. No carotid bruit. No thyromegaly. LUNGS: Clear to auscultation no wheezes, rales or rhonchi. No chest wall tenderness on palpation or with deep breathing. HEART: Irregular rate and rhythm. No rubs or gallops. S1 and S2 heard. No murmur. ABDOMEN: Abdominal exam, WNL. Bowel sounds x4 quads. Soft, non-tender, without masses, organomegaly, or abdominal aorta enlargement. EXTREMITIES/VASCULAR: Extremities have easily palpable radial, femoral, dorsalis pedis and posterior tibial pulses. No cyanosis, calf tenderness. No BLE edema. NEUROLOGIC: Patient is awake, alert and oriented x3. No focal neurologic abnormalities. FINAL IMPRESSION: 1. [non-ST elevation MS, troponin elevation]. 2. [near-syncope]. 3. [chronic atrial fibrillation]. 4. [status post mitral valve repair]. 5. [abnormal liver enzymes as]. PLAN: [Repeat echocardiogram. Continue IV heparin, no coumadin. Subtherapeutic INR on presentation, INR 1.1. Add d-dimer to lab. Considering cardiac cath. Nothing by mouth past midnight. Heart healthy diet. Continue to follow, please call with questions or concerns. Thank you kindly for this consult.] Nurse Practitioner note has been reviewed by the Physician. Signing provider agrees with the documented findings, assessment and plan of care. Past Medical History Past Medical History: Atrial Fibrillation, Heart Failure, COPD, Diabetes Mellitus, Hearing Disorder / Deafness, Hyperlipidemia, Hypertension, Osteoarthritis (OA), Vascular Disorder Additional Past Medical History / Comment(s): Viral myocarditis & pericarditis 1979, IDDM type II, neuropathy bilateral feet and occasionally in bilateral hands, L thigh varicose veins, venous insufficiency, [place] bilaterally. gangrenous gallbladder-removed History of Any Multi-Drug Resistant Organisms: None Reported Past Surgical History: Cardiac Valve Replacement, Cholecystectomy, Heart Catheterization, Orthopedic Surgery Additional Past Surgical History / Comment(s): vein stripping of left leg, carpel tunnel right hand, YAS, cataract safia. eyes with implants, periocardiocentesis -1979, aortic valve repair-March, colonoscopie s/benign polypectomy, EGD with benign polypectomy. Past Anesthesia/Blood Transfusion Reactions: No Reported Reaction Additional Past Anesthesia/Blood Transfusion Reaction / Comment(s): Pt has received blood without reaction. Past Psychological History: No Psychological Hx Reported Additional Psychological History / Comment(s): Pt resides with his spouse. He is independent. He will use a cane or walker prn. Smoking Status: Former smoker Past Alcohol Use History: None Reported Additional Past Alcohol Use History / Comment(s): Pt started smoking in 1955 and quit in 1979. He was less than a ppd smoker. Past Drug Use History: None Reported - Past Family History Mother Additional Family Medical History / Comment(s): Mother at the age of 98yrs from heart problems. Father Family Medical History: No Reported History Additional Family Medical History / Comment(s): Father in a MVA at the age of 59yrs. Sister(s) Family Medical History: Cancer Medications and Allergies Home Medications Medication Instructions Recorded Confirmed Type Ergocalciferol [Vitamin D2 50,000 unit PO Q14D 11/10/16 12/08/18 History (DRISDOL)] Allopurinol [Zyloprim] 100 mg PO DAILY 01/11/18 12/08/18 History Ferrous Gluconate 324 mg PO BID 01/11/18 12/08/18 History Furosemide [Lasix] 40 mg PO DAILY 02/16/18 12/08/18 History Glimepiride [Amaryl] 2 mg PO AC-BRKFST 02/16/18 12/08/18 History Losartan [Cozaar] 25 mg PO DAILY 02/16/18 12/08/18 History Potassium Citrate [Potassium 10 meq PO BID 02/16/18 12/08/18 History Citrate ER] Aspirin [[place] Aspirin EC] 81 mg PO DAILY 12/08/18 12/08/18 History Calcitriol 0.25 mcg PO DIRECTED 12/08/18 12/08/18 History Cyanocobalamin (Vitamin B-12) 1,000 mcg PO DAILY 12/08/18 12/08/18 History [Vitamin B-12] Warfarin [Coumadin] 7.5 mg PO TUTH 12/08/18 12/08/18 History Warfarin [Coumadin] 10 mg PO SUMOWEFRSA 12/08/18 12/08/18 History Allergies Allergy/AdvReac Type Severity Reaction Status Date / Time codeine Allergy Rash/Hives Verified 12/08/18 16:15 Physical Exam Vitals: Vital Signs Temp Pulse Pulse Resp BP BP Pulse Ox 12/09/18 11:26 98.5 F 65 16 97/59 98 12/09/18 08:00 98.5 F 54 L 16 119/59 96 12/09/18 04:56 100 F H 65 18 114/70 96 12/09/18 00:00 99.2 F 54 L 18 110/61 96 12/08/18 20:26 98 F 69 20 127/71 98 12/08/18 20:11 18 12/08/18 20:00 98 F 69 20 127/71 98 12/08/18 19:54 99.0 F 58 L 18 98/58 97 12/08/18 18:43 99.9 F H 12/08/18 18:00 64 23 119/56 96 12/08/18 17:30 68 22 103/63 95 12/08/18 17:00 67 24 95/69 96 12/08/18 16:30 68 26 H 124/90 97 12/08/18 16:00 67 22 136/85 98 12/08/18 15:30 66 22 168/97 99 12/08/18 15:04 102.5 F H 84 20 168/97 100 Intake and Output 12/08/18 12/09/18 12/09/18 22:59 06:59 14:59 Intake Total 71.088 391.65 Balance 71.088 391.65 Intake: Intake, IV Titration 71.088 151.65 Amount Heparin Sod,Pork in 0.45% 71.088 91.65 NaCl 25,000 unit In 0.45 % NaCl 1 250ml.bag @ 9 UNITS/KG/HR 10.002 mls/hr IV .Q24H RADHA Rx#: [id number] Sodium Chloride 0.9% 1, 60 000 ml @ 20 mls/hr IV . Q24H RADHA Rx#:[id number] Oral 240 Other: Voiding Method Toilet Toilet # Voids 0 Weight 111.13 kg 107 kg Results 12/08/18 15:14 12/09/18 06:15 Cardiac Enzymes 12/08/18 12/08/18 12/09/18 Range/Units 15:14 15:14 06:15 AST 362 H 200 H (17-59) U/L CK-MB (CK-2) (0.0-2.4) ng/mL Troponin I 0.052 H* (0.000-0.034) ng/mL 12/09/18 12/09/18 Range/Units 06:15 12:04 AST (17-59) U/L CK-MB (CK-2) 0.7 (0.0-2.4) ng/mL Troponin I 0.161 H* 0.091 H* (0.000-0.034) ng/mL Coagulation 12/08/18 12/08/18 12/09/18 Range/Units 15:14 22:37 06:15 PT 11.8 (9.0-12.0) sec APTT 26.2 34.3 H 47.1 H (22.0-30.0) sec CBC 12/08/18 Range/Units 15:14 WBC 8.1 (3.8-10.6) k/uL RBC 5.35 (4.30-5.90) m/uL Hgb 15.2 (13.0-17.5) gm/dL Hct 48.7 (39.0-53.0) % Plt Count 139 L (150-450) k/uL Comprehensive Metabolic Panel 12/08/18 12/09/18 Range/Units 15:14 06:15 Sodium 139 136 L (137-145) mmol/L Potassium 4.5 4.1 (3.5-5.1) mmol/L Chloride 104 106 (98-107) mmol/L Carbon Dioxide 20 L 20 L (22-30) mmol/L BUN 28 H 36 H (9-20) mg/dL Creatinine 1.33 H 1.38 H (0.66-1.25) mg/dL Glucose 242 H 190 H (74-99) mg/dL Calcium 9.4 8.6 (8.4-10.2) mg/dL AST 362 H 200 H (17-59) U/L ALT 495 H 343 H (21-72) U/L Alkaline Phosphatase 441 H 314 H (38-126) U/L Total Protein 7.5 6.1 L (6.3-8.2) g/dL Albumin 4.2 3.2 L (3.5-5.0) g/dL Current Medications Generic Name Dose Route Start Last Admin Trade Name Freq PRN Reason Stop Dose Admin Acetaminophen 650 mg 12/08/18 16:27 Tylenol Tab PO Q6HR PRN Mild Pain or Fever > 100.5 Albuterol/Ipratropium 3 ml 12/08/18 18:15 Duoneb 0.5 Mg-3 Mg/3 Ml Soln INHALATION RT-QID PRN Shortness Of Breath Or Wheezing Aspirin 81 mg 12/09/18 09:00 12/09/18 08:48 Aspirin PO 81 mg DAILY RADHA Administration Furosemide 40 mg 12/09/18 09:00 12/09/18 08:48 Lasix PO 40 mg DAILY RADHA Administration Heparin Sodium (Porcine) 0 unit 12/08/18 16:23 12/09/18 00:04 Heparin IV 4,000 unit PER PROTOCOL PRN Administration Low PTT Protocol Heparin Sodium/Sodium Chloride 250 mls @ 10.002 mls/hr 12/08/18 16:30 12/09/18 07:10 25,000 unit/ Sodium Chloride IV 11.7 units/kg/hr .Q24H RADHA 13 mls/hr Titration Protocol 9 UNITS/KG/HR Sodium Chloride 1,000 mls @ 20 mls/hr 12/08/18 16:30 12/08/18 21:26 Saline 0.9% IV Not Given .Q24H RADHA Piperacillin Sod/Tazobactam 100 mls @ 25 mls/hr 12/09/18 11:00 12/09/18 11:12 Sod 3.375 gm/ Sodium Chloride IVPB 25 mls/hr Q8HR RADHA Administration Insulin Aspart 0 unit 12/09/18 07:30 12/09/18 12:18 Novolog SQ 1 unit AC-TID RADHA Administration Protocol Naloxone HCl 0.2 mg 12/08/18 16:27 Narcan IV Q2M PRN Opioid Reversal Ondansetron HCl 4 mg 12/08/18 16:27 Zofran IVP Q8HR PRN Nausea And Vomiting Pantoprazole Sodium 40 mg 12/09/18 09:00 12/09/18 08:48 Protonix IV 40 mg DAILY RADHA Administration Intake and Output 12/08/18 12/09/18 12/09/18 22:59 06:59 14:59 Intake Total 71.088 391.65 Balance 71.088 391.65 Intake: Intake, IV Titration 71.088 151.65 Amount Heparin Sod,Pork in 0.45% 71.088 91.65 NaCl 25,000 unit In 0.45 % NaCl 1 250ml.bag @ 9 UNITS/KG/HR 10.002 mls/hr IV .Q24H RADHA Rx#: [id number] Sodium Chloride 0.9% 1, 60 000 ml @ 20 mls/hr IV . Q24H RADHA Rx#:[id number] Oral 240 Other: Voiding Method Toilet Toilet # Voids 0 Weight 111.13 kg 107 kg 12/08/18 15:14 12/09/18 06:15 - EKG Interpretation EKG shows: atrial fibrillation (controlled rate)
[2018-12-09 14:43] LABS: HCT 42.6 % (39.0-53.0); HGB 13.4 gm/dL (13.0-17.5); MCH 28.8 pg (25.0-35.0); MCHC 31.4 g/dL (31.0-37.0); MCV 91.5 fL (80.0-100.0); Mean Platelet Volume 9.7; Platelet Count 119 k/uL (150-450); RBC 4.65 m/uL (4.30-5.90); RDW 15.2 % (11.5-15.5); WBC 7.3 k/uL (3.8-10.6)
[2018-12-09] MEDS: HEPARIN SOD,PORK IN 0.45% NACL 25,000 UNIT in 0.45% NACL 1 250ML.BAG IV SCH (15:52)
[2018-12-09] MEDS: SODIUM CHLORIDE 0.9% 1,000 ML IV SCH (15:54)
[2018-12-09 16:20] LABS: Glucose,Whole Blood 253 mg/dL (75-99)
--- NOTE | 2018-12-09 17:02 | P.CONS ---
History of Present Illness - Reason for Consult Consult date: 12/09/18 Elevated bilirubin Requesting physician: Edna Rivers - Chief Complaint Weakness, fever - History of Present Illness 78-year-old male with a medical history significant for atrial fibrillation, systolic heart failure, COPD, diabetes mellitus, hypertension and gangrenous cholecystitis status post cholecystectomy approximately 1 year ago who presents with a constellation of complaints. The patient reports worsening generalized weakness prior to presentation. In addition the patient reports shaking, and chills and subjective fever at home. The patient's also reports a sharp pain over the middle of his abdomen and chest described as severe in nature. He denies any change in bowel habits with bowel movements every 2-3 days. On presentation to the hospital he was found to be febrile and has been started on antibiotic therapy. He is also currently being evaluated by the cardiology service. He had a computed tomography scan of the abdomen which was negative for any acute process. Ultrasound of the abdomen was also essentially unremarkable with no CBD dilation noted. Labs on presentation were significant for a white count of 8.1, hemoglobin 15.2, platelet count 139, total bilirubin 7.4 which trended down to 3.7, alkaline phosphatase 441 which trended down to 314, AST 362 which trended down to 200 and ALT 495 which trended down to 343. Review of Systems REVIEW OF SYSTEMS: CONSTITUTIONAL: The patient did report generalized weakness, fevers which were subjective and chills prior to presentation. CARDIOVASCULAR: Denies any chest pain, palpitations high or low blood pressures RESPIRATORY: Denies any shortness of breath, hemoptysis or cough. GENITOURINARY: No dysuria or hematuria. MUSCULOSKELETAL: No weakness reported. SKIN: Denies any new rashes or lesions or pallor. PSYCHIATRIC: Denies any depression or anxiety. NEUROLOGY: Denies headache, denies any new focal deficits. EARS/NOSE/THROAT: No recent hearing change, congestion, nasal discharge or sore throat. EYES: No pain in eyes, discharge or change in vision. GASTROINTESTINAL: As per HPI. 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 gangrenous gallbladder-removed History of Any Multi-Drug Resistant Organisms: None Reported Past Surgical History: Cardiac Valve Replacement, Cholecystectomy, Heart Catheterization, Orthopedic Surgery Additional Past Surgical History / Comment(s): vein stripping of left leg, carpel tunnel right hand, YAS, cataract safia. eyes with implants, periocardiocentesis -1979, aortic valve repair-March, colonoscopies/benign polypectomy, EGD with benign polypectomy. Past Anesthesia/Blood Transfusion Reactions: No Reported Reaction Additional Past Anesthesia/Blood Transfusion Reaction / Comm: Pt has received b lood without reaction. Past Psychological History: No Psychological Hx Reported Additional Psychological History / Comment(s): Pt resides with his spouse. He is independent. He will use a cane or walker prn. Smoking Status: Former smoker Past Alcohol Use History: None Reported Additional Past Alcohol Use History / Comment(s): Pt started smoking in 1955 and quit in 1979. He was less than a ppd smoker. Past Drug Use History: None Reported - Past Family History Mother Additional Family Medical History / Comment(s): Mother at the age of 98yrs from heart problems. Father Family Medical History: No Reported History Additional Family Medical History / Comment(s): Father in a MVA at the age of 59yrs. Sister(s) Family Medical History: Cancer Medications and Allergies Home Medications Medication Instructions Recorded Confirmed Type Ergocalciferol [Vitamin D2 50,000 unit PO Q14D 11/10/16 12/08/18 History (DRISDOL)] Allopurinol [Zyloprim] 100 mg PO DAILY 01/11/18 12/08/18 History Ferrous Gluconate 324 mg PO BID 01/11/18 12/08/18 History Furosemide [Lasix] 40 mg PO DAILY 02/16/18 12/08/18 History Glimepiride [Amaryl] 2 mg PO [id number]-[id number] 02/16/18 12/08/18 History Losartan [Cozaar] 25 mg PO DAILY 02/16/18 12/08/18 History Potassium Citrate [Potassium 10 meq PO BID 02/16/18 12/08/18 History Citrate ER] Aspirin [[place]leigh Aspirin EC] 81 mg PO DAILY 12/08/18 12/08/18 History Calcitriol 0.25 mcg PO DIRECTED 12/08/18 12/08/18 History Cyanocobalamin (Vitamin B-12) 1,000 mcg PO DAILY 12/08/18 12/08/18 History [Vitamin B-12] Warfarin [Coumadin] 7.5 mg PO TUTH 12/08/18 12/08/18 History Warfarin [Coumadin] 10 mg PO SUMOWEFRSA 12/08/18 12/08/18 History Allergies Allergy/AdvReac Type Severity Reaction Status Date / Time codeine Allergy Rash/Hives Verified 12/08/18 16:15 Physical Exam Vitals: Vital Signs Temp Pulse Pulse Resp BP BP Pulse Ox 12/09/18 15:21 98.5 F 62 16 111/57 95 12/09/18 11:26 98.5 F 65 16 97/59 98 12/09/18 08:00 98.5 F 54 L 16 119/59 96 12/09/18 04:56 100 F H 65 18 114/70 96 12/09/18 00:00 99.2 F 54 L 18 110/61 96 12/08/18 20:26 98 F 69 20 127/71 98 12/08/18 20:11 18 12/08/18 20:00 98 F 69 20 127/71 98 12/08/18 19:54 99.0 F 58 L 18 98/58 97 12/08/18 18:43 99.9 F H 12/08/18 18:00 64 23 119/56 96 12/08/18 17:30 68 22 103/63 95 12/08/18 17:00 67 24 95/69 96 Intake and Output 12/09/18 12/09/18 12/09/18 06:59 14:59 22:59 Intake Total 71.088 478.912 Balance 71.088 478.912 Intake: Intake, IV Titration 71.088 238.912 Amount Heparin Sod,Pork in 0.45% 71.088 178.912 NaCl 25,000 unit In 0.45 % NaCl 1 250ml.bag @ 9 UNITS/KG/HR 10.002 mls/hr IV .Q24H [facility] Rx#: [id number] Sodium Chloride 0.9% 1, 60 000 ml @ 20 mls/hr IV . Q24H [facility] Rx#:[id number] Oral 240 Other: Voiding Method Toilet # Voids 0 Weight 107 kg On physical examination, patient appears comfortable in no apparent distress. HEAD: Normocephalic, atraumatic. EYES: No scleral icterus. No conjunctival injection. MOUTH: No lesions, tongue midline. NECK: Trachea midline, no gross abnormalities. CHEST: Clear to auscultation with no wheezing or rhonchi appreciated. HEART: Irregularly irregular. ABDOMEN: Soft. Bowel sounds are positive. No organomegaly. No guarding or rigidity. EXTREMITIES: No pedal edema. SKIN: No rashes, no jaundice. NEUROLOGIC: Alert and oriented x3. No focal deficits. Results CBC & Chem 7: 12/09/18 06:15 12/09/18 06:15 Labs: Abnormal Lab Results - Last 24 Hours (Table) 12/08/18 12/08/18 12/09/18 Range/Units 16:30 22:37 06:05 Plt Count (150-450) k/uL APTT 34.3 H (22.0-30.0) sec D-Dimer (<0.60) mg/L FEU Sodium (137-145) mmol/L Carbon Dioxide (22-30) mmol/L BUN (9-20) mg/dL Creatinine (0.66-1.25) mg/dL Glucose (74-99) mg/dL POC Glucose (mg/dL) 179 H (75-99) mg/dL Total Bilirubin (0.2-1.3) mg/dL AST (17-59) U/L ALT (21-72) U/L Alkaline Phosphatase (38-126) U/L Troponin I (0.000-0.034) ng/mL Total Protein (6.3-8.2) g/dL Albumin (3.5-5.0) g/dL Urine Bilirubin 1+ H (Negative) 12/09/18 12/09/18 12/09/18 Range/Units 06:15 06:15 06:15 Plt Count 119 L (150-450) k/uL APTT 47.1 H (22.0-30.0) sec D-Dimer (<0.60) mg/L FEU Sodium 136 L (137-145) mmol/L Carbon Dioxide 20 L (22-30) mmol/L BUN 36 H (9-20) mg/dL Creatinine 1.38 H (0.66-1.25) mg/dL Glucose 190 H (74-99) mg/dL POC Glucose (mg/dL) (75-99) mg/dL Total Bilirubin 3.7 H (0.2-1.3) mg/dL AST 200 H (17-59) U/L ALT 343 H (21-72) U/L Alkaline Phosphatase 314 H (38-126) U/L Troponin I (0.000-0.034) ng/mL Total Protein 6.1 L (6.3-8.2) g/dL Albumin 3.2 L (3.5-5.0) g/dL Urine Bilirubin (Negative) 12/09/18 12/09/18 12/09/18 Range/Units 06:15 11:30 12:04 Plt Count (150-450) k/uL APTT (22.0-30.0) sec D-Dimer (<0.60) mg/L FEU Sodium (137-145) mmol/L Carbon Dioxide (22-30) mmol/L BUN (9-20) mg/dL Creatinine (0.66-1.25) mg/dL Glucose (74-99) mg/dL POC Glucose (mg/dL) 163 H (75-99) mg/dL Total Bilirubin (0.2-1.3) mg/dL AST (17-59) U/L ALT (21-72) U/L Alkaline Phosphatase (38-126) U/L Troponin I 0.161 H* 0.091 H* (0.000-0.034) ng/mL Total Protein (6.3-8.2) g/dL Albumin (3.5-5.0) g/dL Urine Bilirubin (Negative) 12/09/18 12/09/18 Range/Units 12:04 16:18 Plt Count (150-450) k/uL APTT (22.0-30.0) sec D-Dimer 0.69 H (<0.60) mg/L FEU Sodium (137-145) mmol/L Carbon Dioxide (22-30) mmol/L BUN (9-20) mg/dL Creatinine (0.66-1.25) mg/dL Glucose (74-99) mg/dL POC Glucose (mg/dL) 253 H (75-99) mg/dL Total Bilirubin (0.2-1.3) mg/dL AST (17-59) U/L ALT (21-72) U/L Alkaline Phosphatase (38-126) U/L Troponin I (0.000-0.034) ng/mL Total Protein (6.3-8.2) g/dL Albumin (3.5-5.0) g/dL Urine Bilirubin (Negative) Microbiology - Last 24 Hours (Table) 12/08/18 16:30 Urine Culture - Preliminary Urine,Voided CT scan - abdomen: report reviewed (Computed tomography scan of the abdomen with no acute process noted.) Assessment and Plan (1) Elevated liver enzymes Narrative/Plan: Patient presenting with a constellation of symptoms including generalized weakness, chills and fever and was found to have elevation in his liver enzymes in both a cholestatic and hepatocellular pattern. Unknown etiology, this may be related to a infectious/viral process,, ischemia, biliary etiology although no ductal dilation or acute process noted on CT or ultrasound or other etiology. Current Visit: Yes Status: Acute Code(s): R74.8 - ABNORMAL LEVELS OF OTHER SERUM ENZYMES SNOMED Code(s): 691561125 (2) SIRS (systemic inflammatory response syndrome) Current Visit: Yes Status: Acute Code(s): R65.10 - SIRS OF NON-INFECTIOUS ORIGIN W/O ACUTE ORGAN DYSFUNCTION SNOMED Code(s): 218676227 Plan: Supportive care Okay for diet as tolerated Computed tomography scan and ultrasound reviewed Plan on an MRCP to rule out choledocholithiasis A viral hepatitis panel will be ordered If liver enzymes continue to remain elevated will order full serology No plan for ERCP at this time, however if findings of MRCP or suggestive of obstructive process will plan for further evaluation Continue cardiac workup Thank you for allowing us to participate in the care of the patient we will continue to follow
--- NOTE | 2018-12-09 18:51 | ECHOF ---
Referral Reason:SOB MEASUREMENTS -------- HEIGHT: 185.4 cm WEIGHT: 106.6 kg BP: 114/70 RVIDd: 3.5 cm (< 3.3) IVSd: 1.3 cm (0.6 - 1.1) LVIDd: 4.2 cm (3.9 - 5.3) LVPWd: 1.4 cm (0.6 - 1.1) IVSs: 1.6 cm LVIDs: 3.3 cm LVPWs: 1.6 cm LAESV Index (A-L): 44.39 ml/m Ao Diam: 3.5 cm (2.0 - 3.7) AV Cusp: 1.8 cm (1.5 - 2.6) LA Diam: 5.7 cm (2.7 - 3.8) RAP: 5.00 mmHg RVSP: 41.91 mmHg FINDINGS -------- Resting bradycardia (HR<60bpm). This was a technically adequate study. The left ventricular size is normal. There is mild concentric left ventricular hypertrophy. Overa ll left ventricular systolic function is mild-moderately impaired with, an EF between 40 - 45 %. Ap ical lateral LV wall motion is hypokinetic. Apical septum LV wall motion is hypokinetic. The right ventricle is mildly enlarged. LA is severely dilated >40 ml/m2 RA appears enlarged. Aortic valve is trileaflet and is mildly thickened. There is no evidence of aortic regurgitation. There is no evidence of aortic stenosis. Rjiv-zy-hwxntmzy mitral regurgitation is present. The peak and mean MV gradients are 11.39mmHg 3.3 2mmHg as measured by doppler. Mitral ring annulloplasty is in place. Apti-[id number]-[id number] tricuspid regurgitation present. There is mild pulmonary hypertension. The right ventricular systolic pressure, as measured by Doppler, is 41.91mmHg. Trace/mild (physiologic) pulmonic regurgitation. The aortic root size is normal. Normal inferior vena cava with normal inspiratory collapse consistent with estimated right atrial pre ssure of 5 mmHg. There is no pericardial effusion. CONCLUSIONS -------- 1. Resting bradycardia (HR<60bpm). 2. This was a technically adequate study. 3. The left ventricular size is normal. 4. There is mild concentric left ventricular hypertrophy. 5. Overall left ventricular systolic function is mild-moderately impaired with, an EF between 40 - 45 %. 6. The right ventricle is mildly enlarged. 7. LA is severely dilated >40 ml/m2 8. RA appears enlarged. 9. Aortic valve is trileaflet and is mildly thickened. 10. The peak and mean MV gradients are 11.39mmHg 3.32mmHg as measured by doppler. 11. Mitral ring annulloplasty is in place. 12. Ystw-vf-bcscuawc tricuspid regurgitation present. 13. There is mild pulmonary hypertension. 14. The right ventricular systolic pressure, as measured by Doppler, is 41.91mmHg. 15. Trace/mild (physiologic) pulmonic regurgitation. 16. The aortic root size is normal. 17. There is no pericardial effusion. SHIPPING RECEIVING CLERK: Chano Cross RDCS
[2018-12-09 19:41] LABS: Creatine Kinase MB 1.1 ng/mL (0.0-2.4)
[2018-12-09 19:56] LABS: Troponin I 0.055 ng/mL (0.000-0.034)
[2018-12-09 21:05] LABS: Glucose,Whole Blood 205 mg/dL (75-99)
[2018-12-09] MEDS: AMPICILLIN-SULBACTAM 3 GM in SODIUM CHLORIDE 0.9% 100 ML IVPB SCH (23:53)
[2018-12-10] MEDS: AMPICILLIN-SULBACTAM 3 GM in SODIUM CHLORIDE 0.9% 100 ML IVPB SCH ×4 (05:30→23:42)
[2018-12-10 06:23] LABS: Glucose,Whole Blood 203 mg/dL (75-99)
[2018-12-10] MEDS: INSULIN ASPART (NovoLOG) 100 UNIT/ML VIAL SQ SCH ×3 (06:39→17:30)
[2018-12-10 07:40] LABS: Bilirubin, Delta 0.8 mg/dL (0.0-0.2); Bilirubin,Unconjugated 0.6 mg/dL (0.0-1.1); Total Bilirubin 1.4 mg/dL (0.2-1.3); Total Protein 5.8 g/dL (6.3-8.2)
--- NOTE | 2018-12-10 08:21 | CONS ---
CONSULTATION DATE OF SERVICE: 12/09/2018. REASON FOR CONSULTATION: HISTORY OF PRESENT ILLNESS: The patient is a 78-year-old male with a past medical history significant for sepsis secondary to acute gangrenous cholecystitis status post cholecystectomy about a year ago. The patient is presenting to the ER at [facility] yesterday afternoon with chief complaints of generalized weakness, no energy, shaking and chills and subjective fever at home. The patient symptoms going on for a day before he presented to the hospital. Patient complaining of pain mostly in the epigastric area. It is more of a dull aching to sharp pain 5 to 6 out of 10, and no radiation. The patient has been nauseated but no vomiting. Denies any diarrhea. With these symptoms, the patient was evaluated by the ER physician. On arrival to the ER, the patient was febrile with a temperature of 102.5 degrees Fahrenheit. The patient's white count was not elevated. Influenza serology was negative. Urine was negative. The patient did have a CT of the abdomen and pelvis completed which shows no acute process. An ultrasound of the liver completed did not show any evidence of a . The patient did have elevated AST and ALT. The patient has been started on Zosyn and admitted to the hospital. Infectious disease was consulted for further recommendation regarding antibiotic therapy. REVIEW OF SYSTEMS: Positive points have been mentioned in HPI. Rest of the systems are negative. PAST MEDICAL HISTORY: Atrial fibrillation, heart failure, diabetes mellitus, hypertension, hyperlipidemia, osteoarthritis, pericarditis, . PAST SURGICAL HISTORY: Heart valve replacement, cholecystectomy, heart catheterization. SOCIAL HISTORY: Remote history of smoking. No drinking or drug use. FAMILY HISTORY: Mother at age of 98 from heart problem. Father from motor vehicle accident with no medical problems. ALLERGIES: CODEINE. MEDICATIONS: The patient is currently on Tylenol, DuoNeb, Zosyn, aspirin, Lasix, heparin, NovoLog, Narcan, Zofran and Protonix. PHYSICAL EXAMINATION: Blood pressure 145/71 with a pulse of 67. Temperature 97.5. He is 97% on room air. General description is an elderly male up in the chair in no distress. No tachypnea or accessory muscles of respiration use. HEENT: No pallor or scleral icterus. Oral mucosa is moist. No erythema or thrush. Neck trachea central. No thyromegaly. Lungs unlabored breathing. Clear to auscultation anteriorly. No wheeze or crackles. Heart S1, S2. Regular rate and rhythm. ABDOMEN: Soft, no tenderness. No guarding or rigidity. No organomegaly. EXTREMITIES: No edema of the feet. Skin examination: No rash or mass palpable. Neurologic: The patient is awake, alert, oriented x3. Mood and affect normal. LABS: Hemoglobin is 13.4, white count 7.3 with a BUN of 36, creatinine 1.38. Electrolytes have been normal. Liver enzymes elevated. Blood cultures currently pending. DIAGNOSTIC IMPRESSION AND PLAN: Patient admitted to the hospital with fever, chills and did have epigastric area pain in this patient who did have elevated liver enzymes, more likely representing ascending cholangitis with question of possible of stone in view of the elevated bilirubin and liver enzymes ultrasound was negative for any CBD dilatation. Will need to cover for enteric gram-negative. The patient has not been on antibiotics in the recent past could be sensitive pathogen. PLAN: 1. Discontinue the Zosyn. 2. Start the patient on Unasyn 3 g every 6 hours. 3. We will monitor his clinical course closely as well as culture and adjust antibiotic further if needed. Thank you for the consultation. We will continue to follow this patient along with you. MMODL / IJN: [id number] /
[2018-12-10] MEDS: PANTOPRAZOLE 40 MG/10 ML VIAL IV SCH (08:34)
[2018-12-10] MEDS: FUROSEMIDE 40 MG TAB PO SCH (08:34)
[2018-12-10] MEDS: ASPIRIN 81 MG PO SCH (08:34)
[2018-12-10] MEDS: HEPARIN SOD,PORK IN 0.45% NACL 25,000 UNIT in 0.45% NACL 1 250ML.BAG IV SCH (08:35)
--- NOTE | 2018-12-10 10:55 | P.PN ---
Subjective Progress Note Date: 12/10/18 Principal diagnosis: fever Patient is a 78-year-old male to past medical history of A. fib, systolic congestive heart failure with ejection fraction 30-35%, COPD, diabetes, hypertension, and dyslipidemia who presented to the ER with complaints of generalized weakness and rigors. In the ER he underwent an extensive evaluation. He was found to have a T-max of 102.5, total bili of 7.4, AST 362, ALP 495, and alk phos of 441. Initial troponin was elevated at 0.05 and EKG showed A. fib. He underwent a CT abdomen and pelvis which was negative. Chest x-ray was negative, and urinalysis was negative. He was subsequently admitted to the cardiac floor for elevated troponin. Troponins were cycled and maxed at 0.1. Cardiology was consulted. Echocardiogram showed an EF of 40-45% area and he was seen by cardiology. Liver ultrasound was completed which was negative. He was seen by GI and hepatitis profile was ordered. His liver enzymes down trended. He was seen by ID who recommended empiric Unasyn and adjust antibiotics as his course is evaluated further. Patient seen and examined at bedside. He denies any nausea, vomiting, diarrhea, constipation. His son and grandson today recently had a gastroenteritis type of illness. Denies any chest pain or shortness of breath. No other complaints currently. Objective - Vital Signs Vital signs: Vital Signs Temp 98.2 F 12/10/18 07:58 Pulse 64 12/10/18 07:58 Resp 16 12/10/18 07:58 BP 115/63 12/10/18 07:58 Pulse Ox 93 L 12/10/18 07:58 Intake & Output 12/09/18 12/10/18 12/10/18 18:59 06:59 18:59 Intake Total 1078.912 340.567 Balance 1078.912 340.567 Weight 107.2 kg Intake: Intake, IV Titration 598.912 340.567 Amount Ampicillin-Sulbactam 3 gm 100 In Sodium Chloride 0.9% 100 ml @ 200 mls/hr IVPB Q6HR [facility] Rx#:[id number] Heparin Sod,Pork in 0.45% 178.912 220.567 NaCl 25,000 unit In 0.45 % NaCl 1 250ml.bag @ 9 UNITS/KG/HR 10.002 mls/hr IV .Q24H [facility] Rx#: [id number] Piperacillin-Tazobactam 3 200 .375 gm In Sodium Chloride 0.9% 100 ml @ 25 mls/hr IVPB Q8HR [facility] Rx# :[id number] Sodium Chloride 0.9% 1, 220 20 000 ml @ 20 mls/hr IV . Q24H [facility] Rx#:[id number] Oral 480 Other: Voiding Method Toilet # Voids 1 1 # Bowel Movements 1 - Exam General: non toxic, no distress, appears at stated age Derm: warm, dry Head: atraumatic, normocephalic, symmetric Eyes: EOMI, no lid lag, anicteric sclera Mouth: no lip lesion, mucus membranes moist Cardiovascular: S1S2 with murmur, positive posterior tibial pulse bilateral, Lungs: CTA bilateral, no rhonchi, no rales , no accessory muscle use Abdominal: soft, nontender to palpation, no guarding, no appreciable organomegaly Ext: no gross muscle atrophy, trace edema, no contractures Neuro: CN II-XI grossly intact, no focal neuro deficits Psych: Alert, oriented, appropriate affect - Labs CBC & Chem 7: 12/09/18 06:15 12/09/18 06:15 Labs: Abnormal Lab Results - Last 24 Hours (Table) 12/09/18 12/09/18 12/09/18 Range/Units 06:15 11:30 12:04 Plt Count 119 L (150-450) k/uL APTT (22.0-30.0) sec D-Dimer (<0.60) mg/L FEU POC Glucose (mg/dL) 163 H (75-99) mg/dL Total Bilirubin (0.2-1.3) mg/dL Delta Bilirubin (0.0-0.2) mg/dL AST (17-59) U/L ALT (21-72) U/L Alkaline Phosphatase (38-126) U/L Troponin I 0.091 H* (0.000-0.034) ng/mL Total Protein (6.3-8.2) g/dL Albumin (3.5-5.0) g/dL 12/09/18 12/09/18 12/09/18 Range/Units 12:04 16:18 18:30 Plt Count (150-450) k/uL APTT (22.0-30.0) sec D-Dimer 0.69 H (<0.60) mg/L FEU POC Glucose (mg/dL) 253 H (75-99) mg/dL Total Bilirubin (0.2-1.3) mg/dL Delta Bilirubin (0.0-0.2) mg/dL AST (17-59) U/L ALT (21-72) U/L Alkaline Phosphatase (38-126) U/L Troponin I 0.055 H* (0.000-0.034) ng/mL Total Protein (6.3-8.2) g/dL Albumin (3.5-5.0) g/dL 12/09/18 12/10/18 12/10/18 Range/Units 21:04 06:12 06:29 Plt Count (150-450) k/uL APTT 36.6 H (22.0-30.0) sec D-Dimer (<0.60) mg/L FEU POC Glucose (mg/dL) 205 H 203 H (75-99) mg/dL Total Bilirubin (0.2-1.3) mg/dL Delta Bilirubin (0.0-0.2) mg/dL AST (17-59) U/L ALT (21-72) U/L Alkaline Phosphatase (38-126) U/L Troponin I (0.000-0.034) ng/mL Total Protein (6.3-8.2) g/dL Albumin (3.5-5.0) g/dL 12/10/18 Range/Units 06:29 Plt Count (150-450) k/uL APTT (22.0-30.0) sec D-Dimer (<0.60) mg/L FEU POC Glucose (mg/dL) (75-99) mg/dL Total Bilirubin 1.4 H (0.2-1.3) mg/dL Delta Bilirubin 0.8 H (0.0-0.2) mg/dL AST 107 H (17-59) U/L ALT 259 H (21-72) U/L Alkaline Phosphatase 299 H (38-126) U/L Troponin I (0.000-0.034) ng/mL Total Protein 5.8 L (6.3-8.2) g/dL Albumin 3.0 L (3.5-5.0) g/dL Microbiology - Last 24 Hours (Table) 12/08/18 15:14 Blood Culture Gram Stain - Preliminary Blood 12/08/18 15:14 Blood Culture - Final Blood 12/08/18 16:30 Urine Culture - Final Urine,Voided Assessment and Plan Assessment: Fever and epigastric pain -No repeat fevers during hospitalization -ID recommendations appreciated continue with Unasyn -Urine culture negative, blood cultures negative to date, CT abdomen and pelvis negative, liver ultrasound negative, chest x-ray negative Non-STEMI -Cardiology recommendations appreciated -Continue with aspirin, heparin drip Transaminitis -GI recommendations appreciated, discussed with Dr. Altamirano -MRCP in a.m. -Downtrending -Hepatitis profile pending -Repeat liver enzymes in a.m. Acute kidney injury likely secondary to dehydration -IV fluids -Follow renal function -Avoid additional nephrotoxic agents as able -Monitor closely while on Lasix -Off BHARGAV inhibitor -Anticipate slight increase in a.m. secondary to Atrial fibrillation, mitral valve repair -On heparin drip at this point in time, chronically on Coumadin therapy -Repeat INR in a.m. -Continue with heparin drip until determined that there will not need to be si gnificant intervention such as ERCP he -Cardiology recommendations -Continue telemetry Systolic congestive heart failure without exacerbation ejection fraction 40-45% -Currently compensated -Continue with Lasix by mouth -Not chronically on beta porsha -BHARGAV inhibitor on hold secondary to acute kidney injury Diabetes -Joel on hold -Sliding-scale insulin -Last measured A1c 6.8 DVT prophylaxis: Heparin drip Discussed with: Pt, nursing, Dr. Altamirano Anticipated discharge: 24-[address]:home A total of 35 minutes was spent on the care of this complex patient more than 50% of the time was spent in counseling and care coordination.
[2018-12-10] MEDS ORDERED: SODIUM CHLORIDE 0.9% 1,000 ML in EMPTY BAG 1 BAG IV ONE (10:59)
[2018-12-10] MEDS ORDERED: ALPRAZolam 0.5 MG TAB PO PRN (10:59)
[2018-12-10] MEDS ORDERED: ALPRAZolam 0.25 MG TAB PO PRN (10:59)
[2018-12-10] MEDS ORDERED: ASPIRIN 325 MG TAB PO STA (10:59)
[2018-12-10] MEDS ORDERED: ATORVASTATIN 80 MG TAB PO STA (10:59)
[2018-12-10] MEDS ORDERED: NITROGLYCERIN SL TABS 0.4 MG TAB SUBLINGUAL PRN (10:59)
[2018-12-10 11:30] LABS: Glucose,Whole Blood 205 mg/dL (75-99)
[2018-12-10] MEDS ORDERED: VERAPAMIL 2.5 MG/ML 2 ML AMP ONE (13:23)
[2018-12-10] MEDS ORDERED: HEPARIN SODIUM 1,000 UN/ML (10ML VL) ONE (13:23)
[2018-12-10] MEDS ORDERED: MIDAZOLAM 2 MG/2 ML VIAL IVP ONE (13:34)
[2018-12-10] MEDS ORDERED: SODIUM CHLORIDE 0.9% 1,000 ML IV ONE (13:34)
[2018-12-10] MEDS ORDERED: LIDOCAINE 2% INJ 20 MG/ML SQ ONE (13:40)
[2018-12-10] MEDS: VERAPAMIL SYRINGE (5 MG/10 ML) INTRAARTER ONE ×2 (13:44→14:04)
[2018-12-10] MEDS ORDERED: HEPARIN SODIUM 1,000 UN/ML (10ML VL) IV ONE (13:58)
[2018-12-10] MEDS ORDERED: IOPAMIDOL-370 50ML BTL INJ ONE (14:03)
--- NOTE | 2018-12-10 14:03 | PN ---
PROGRESS NOTE Mr. Shabazz is a gentleman who was admitted with a episode of near syncope, shortness of breath, dizziness, lightheadedness and nondescript symptoms of chest tightness and pressure. He had a troponin elevation. Echocardiogram revealed hypokinesia in the distal anteroapical septal portion of left ventricle, possible mild apical ballooning, EKG showed Afib with IVCD and new T wave inversion. In view of these abnormalities,on the echocardiogram and non ST-elevation IA, I am recommending coronary angiography. I explained to him the rationale, risks, benefits, and options. He understands all details and wishes to proceed with the procedure. He is status post mitral valve repair that was performed in the past. The patient understands risks, benefits, options, rationale, wishes to proceed. Vital signs are stable. S1-S2 heard normally. Short systolic murmur is audible. Lungs reveal fine rales over both bases. This patient has as comorbid conditions in addition to mitral valve repair. He also has hypertension, hypercholesterolemia, type 2 diabetes mellitus. He has noncritical CAD based on a cardiac cath from 2016 with diffuse LAD disease and a right dominant system. He will have coronary angiography today. MMODL / IJN: [id number] / ESTER
[2018-12-10] MEDS ORDERED: IOPAMIDOL-370 100ML BTL INJ ONE (14:04)
[2018-12-10] MEDS ORDERED: RX INFO: IV CONTRAST WAS GIVEN 1 EACH MISC MISCELLANE PRN (14:16)
[2018-12-10] MEDS: SODIUM CHLORIDE 0.9% 1,000 ML IV SCH (14:39)
[2018-12-10] MEDS ORDERED: WARFARIN 10 MG TAB PO ONE (15:00)
--- NOTE | 2018-12-10 15:44 | P.PN ---
Subjective Progress Note Date: 12/10/18 CHIEF COMPLAINT: Elevated liver enzymes HISTORY OF PRESENT ILLNESS: The patient is a 78-year-old male who presented with chest pain including workup of elevated liver enzymes. His gallbladder has been removed since last year December 2017. No reports of abdominal pain. Liver enzymes continued to improve. He is tolerating diet. PHYSICAL EXAM: VITALS: Reviewed CONSTITUTIONAL: Well developed and in no acute distress. EYES: Conjuctivae without sclera icterus. Pupils are equally round and reactive to light. Extraocular movements grossly intact. HEAD, EARS, NOSE, THROAT: Moist buccal mucosa. Head is atraumatic, normocephalic. Hears conversational speech. No nasal drainage. NECK: Supple. No thyroidomegaly. RESPIRATORY: Non-labored respirations and equal bilateral excursions. No gross wheezes. CARDIOVASCULAR: Irregular rate. Irregular rhythm. without moderate edema. Palpable 2+ radial pulses. ABDOMEN: Soft. Non-tender. Nondistended. MUSCULOSKELETAL: Nail and fingers with good capillary refill. No clubbing cyanosis or edema SKIN: Warm and well perfused with good skin turgor. NEUROLOGIC: Cranial nerves I through XII grossly intact. No focal or lateralizing signs. PSYCH: Appropriate affect. Alert and oriented to person, place and time. Displays appropriate insight. CLINCAL LABS: Reviewed ASSESSMENT: 1. Abnormal elevation of liver enzymes 2. Elevated troponin 3. Ischemic cardiomyopathy 4. History of atrial fibrillation PLAN: 1. Clinically his liver enzymes has moderately improved. 2. No surgical intervention. 3. Diet as tolerated. 4. We'll sign off. Please reconsult if needed Thank you for this kind consultation. Objective - Vital Signs Vital signs: Vital Signs Temp 98.4 F 12/10/18 11:18 Pulse 62 12/10/18 15:03 Resp 16 12/10/18 15:03 BP 105/50 12/10/18 15:03 Pulse Ox 96 12/10/18 15:03 Intake & Output 12/09/18 12/10/18 12/10/18 18:59 06:59 18:59 Intake Total 1078.912 790.567 Balance 1078.912 790.567 Weight 107.2 kg Intake: IV 450 Intake, IV Titration 598.912 340.567 Amount Ampicillin-Sulbactam 3 gm 100 In Sodium Chloride 0.9% 100 ml @ 200 mls/hr IVPB Q6HR [facility] Rx#:[id number] Heparin Sod,Pork in 0.45% 178.912 220.567 NaCl 25,000 unit In 0.45 % NaCl 1 250ml.bag @ 9 UNITS/KG/HR 10.002 mls/hr IV .Q24H [facility] Rx#: [id number] Piperacillin-Tazobactam 3 200 .375 gm In Sodium Chloride 0.9% 100 ml @ 25 mls/hr IVPB Q8HR [facility] Rx# :[id number] Sodium Chloride 0.9% 1, 220 20 000 ml @ 20 mls/hr IV . Q24H [facility] Rx#:[id number] Oral 480 Other: Voiding Method Toilet # Voids 1 1 # Bowel Movements 1 - Labs CBC & Chem 7: 12/09/18 06:15 12/09/18 06:15 Labs: Abnormal Lab Results - Last 24 Hours (Table) 12/09/18 12/09/18 12/09/18 Range/Units 16:18 18:30 21:04 APTT (22.0-30.0) sec POC Glucose (mg/dL) 253 H 205 H (75-99) mg/dL Total Bilirubin (0.2-1.3) mg/dL Delta Bilirubin (0.0-0.2) mg/dL AST (17-59) U/L ALT (21-72) U/L Alkaline Phosphatase (38-126) U/L Troponin I 0.055 H* (0.000-0.034) ng/mL Total Protein (6.3-8.2) g/dL Albumin (3.5-5.0) g/dL 12/10/18 12/10/18 12/10/18 Range/Units 06:12 06:29 06:29 APTT 36.6 H (22.0-30.0) sec POC Glucose (mg/dL) 203 H (75-99) mg/dL Total Bilirubin 1.4 H (0.2-1.3) mg/dL Delta Bilirubin 0.8 H (0.0-0.2) mg/dL AST 107 H (17-59) U/L ALT 259 H (21-72) U/L Alkaline Phosphatase 299 H (38-126) U/L Troponin I (0.000-0.034) ng/mL Total Protein 5.8 L (6.3-8.2) g/dL Albumin 3.0 L (3.5-5.0) g/dL 12/10/18 Range/Units 11:24 APTT (22.0-30.0) sec POC Glucose (mg/dL) 205 H (75-99) mg/dL Total Bilirubin (0.2-1.3) mg/dL Delta Bilirubin (0.0-0.2) mg/dL AST (17-59) U/L ALT (21-72) U/L Alkaline Phosphatase (38-126) U/L Troponin I (0.000-0.034) ng/mL Total Protein (6.3-8.2) g/dL Albumin (3.5-5.0) g/dL Microbiology - Last 24 Hours (Table) 12/08/18 15:14 Blood Culture Gram Stain - Preliminary Blood Blood Culture - Preliminary Gram Neg Bacilli 12/08/18 15:14 Blood Culture - Final Blood 12/08/18 16:30 Urine Culture - Final Urine,Voided
[2018-12-10 16:34] LABS: Glucose,Whole Blood 162 mg/dL (75-99)
--- NOTE | 2018-12-10 16:48 | P.PN ---
Subjective Progress Note Date: 12/10/18 Principal diagnosis: Elevated liver enzymes, abdominal pain Patient seen sitting bedside, tolerating his diet. No further abdominal pain. No nausea vomiting reported. Objective - Vital Signs Vital signs: Vital Signs Temp 98.4 F 12/10/18 11:18 Pulse 61 12/10/18 16:03 Resp 16 12/10/18 16:03 BP 112/62 12/10/18 16:03 Pulse Ox 96 12/10/18 16:03 Intake & Output 12/09/18 12/10/18 12/10/18 18:59 06:59 18:59 Intake Total 5223.980 1467.567 Balance 8330.965 2921.567 Weight 107.2 kg Intake: IV 450 Intake, IV Titration 598.912 565.567 Amount Ampicillin-Sulbactam 3 gm 100 In Sodium Chloride 0.9% 100 ml @ 200 mls/hr IVPB Q6HR [facility] Rx#:[id number] Heparin Sod,Pork in 0.45% 178.912 220.567 NaCl 25,000 unit In 0.45 % NaCl 1 250ml.bag @ 9 UNITS/KG/HR 10.002 mls/hr IV .Q24H [facility] Rx#: [id number] Piperacillin-Tazobactam 3 200 .375 gm In Sodium Chloride 0.9% 100 ml @ 25 mls/hr IVPB Q8HR [facility] Rx# :[id number] Sodium Chloride 0.9% 1, 220 20 000 ml @ 20 mls/hr IV . Q24H [facility] Rx#:[id number] Sodium Chloride 0.9% 1, 225 000 ml @ 75 mls/hr IV . [id number] [facility] Rx#:[id number] Oral 480 Other: Voiding Method Toilet # Voids 1 1 # Bowel Movements 1 - Exam On physical examination, patient appears comfortable in no apparent distress. HEAD: Normocephalic, atraumatic. EYES: No scleral icterus. No conjunctival injection. MOUTH: No lesions, tongue midline. NECK: Trachea midline, no gross abnormalities. CHEST: Clear to auscultation with no wheezing or rhonchi appreciated. HEART: Regular rate and rhythm. ABDOMEN: Soft, obese. Bowel sounds are positive. No organomegaly. No guarding or rigidity. EXTREMITIES: No pedal edema. SKIN: No rashes, no jaundice. NEUROLOGIC: Alert and oriented x3. No focal deficits. - Labs CBC & Chem 7: 12/09/18 06:15 12/09/18 06:15 Labs: Abnormal Lab Results - Last 24 Hours (Table) 12/09/18 12/09/18 12/10/18 Range/Units 18:30 21:04 06:12 APTT (22.0-30.0) sec POC Glucose (mg/dL) 205 H 203 H (75-99) mg/dL Total Bilirubin (0.2-1.3) mg/dL Delta Bilirubin (0.0-0.2) mg/dL AST (17-59) U/L ALT (21-72) U/L Alkaline Phosphatase (38-126) U/L Troponin I 0.055 H* (0.000-0.034) ng/mL Total Protein (6.3-8.2) g/dL Albumin (3.5-5.0) g/dL 12/10/18 12/10/18 12/10/18 Range/Units 06:29 06:29 11:24 APTT 36.6 H (22.0-30.0) sec POC Glucose (mg/dL) 205 H (75-99) mg/dL Total Bilirubin 1.4 H (0.2-1.3) mg/dL Delta Bilirubin 0.8 H (0.0-0.2) mg/dL AST 107 H (17-59) U/L ALT 259 H (21-72) U/L Alkaline Phosphatase 299 H (38-126) U/L Troponin I (0.000-0.034) ng/mL Total Protein 5.8 L (6.3-8.2) g/dL Albumin 3.0 L (3.5-5.0) g/dL 12/10/18 12/10/18 Range/Units 14:54 16:31 APTT 34.4 H (22.0-30.0) sec POC Glucose (mg/dL) 162 H (75-99) mg/dL Total Bilirubin (0.2-1.3) mg/dL Delta Bilirubin (0.0-0.2) mg/dL AST (17-59) U/L ALT (21-72) U/L Alkaline Phosphatase (38-126) U/L Troponin I (0.000-0.034) ng/mL Total Protein (6.3-8.2) g/dL Albumin (3.5-5.0) g/dL Microbiology - Last 24 Hours (Table) 12/08/18 15:14 Blood Culture Gram Stain - Preliminary Blood Blood Culture - Preliminary Gram Neg Bacilli 12/08/18 15:14 Blood Culture - Final Blood 12/08/18 16:30 Urine Culture - Final Urine,Voided Assessment and Plan (1) Elevated liver enzymes Narrative/Plan: Patient presenting with a constellation of symptoms including generalized weakness, chills and fever and was found to have elevation in his liver enzymes in both a cholestatic and hepatocellular pattern. Unknown etiology, this may be related to a infectious/viral process,, ischemia, biliary etiology although no ductal dilation or acute process noted on CT or ultrasound or other etiology. Current Visit: Yes Status: Acute Code(s): R74.8 - ABNORMAL LEVELS OF OTHER SERUM ENZYMES SNOMED Code(s): 088844204 (2) SIRS (systemic inflammatory response syndrome) Current Visit: Yes Status: Acute Code(s): R65.10 - SIRS OF NON-INFECTIOUS ORIGIN W/O ACUTE ORGAN DYSFUNCTION SNOMED Code(s): 968271460 Plan: Supportive care Okay for diet as tolerated Computed tomography scan and ultrasound reviewed Plan on an MRCP to rule out choledocholithiasis A viral hepatitis panel will be ordered If liver enzymes continue to remain elevated will order full serology No plan for ERCP at this time, however if findings of MRCP or suggestive of obstructive process will plan for further evaluation Continue cardiac workup Thank you for allowing us to participate in the care of the patient we will continue to follow
--- NOTE | 2018-12-10 18:25 | CC ---
CARDIAC CATHETERIZATION REPORT DATE OF SERVICE: 12/10/2018 PROCEDURE: Left heart catheterization, coronary angiography and left ventriculography. PERFORMED BY: Dr. Estephania Lopez. SEDATION: Moderate conscious sedation time was 30 minute. The patient was administered Versed. His oxygen saturation, hemodynamics and EKG were monitored closely. CLINICAL INFORMATION: Mr. Darrin Shabazz is a gentleman with a known history of long-standing atrial fibrillation which is chronic, status post mitral valve repair, no evidence of any significant obstructive CAD. He also has a history of a gallbladder surgery from which he has recovered. He came into the hospital with a near syncopal spell, had fever, but negative blood cultures. He demonstrated precordial T-wave inversion on EKG changes and elevated troponin with a profile suggestive of non-ST elevation [place] and echocardiogram, which revealed hypokinesia of the distal septum and adjoining anteroapical wall, raising the possibility of a takotsubo syndrome. He was therefore advised coronary angiography after due discussion regarding risks, benefits, and options. PROCEDURE NOTE: Under local anesthesia and strict aseptic precautions, a 6-Swedish introducer was placed in the right radial artery. Using an Ultima 1 catheter for left coronary and a standard right for right coronary, I performed selective coronary angiography and a pigtail catheter was used to check LV pressures and LV-gram was performed in 30 degree GAINES projection. The sheath was taken out and a TR band applied as per protocol and saturation in the fingers of the right hand was 95%. The patient tolerated procedure well without complication. Results were discussed with the patient and family and he was sent to the room in a stable condition. CARDIAC CATHETERIZATION FINDINGS: The left ventricle end-diastolic pressure was 10 mmHg without any gradient across aortic valve. LEFT VENTRICULOGRAM: This was performed in 30 degree GAINES projection, revealed left ventricle which is upper limits of normal with mild global decrease in contractility and the distal anteroapical and inferoapical wall are hypokinetic with an apical focal hypokinesia which could be consistent with apical ballooning syndrome, although not very dramatic. Ejection fraction is about 40%. There is mild to moderate mitral regurgitation noted. SELECTIVE CORONARY ANGIOGRAPHY: RIGHT CORONARY ARTERY: Dominant vessel, no significant disease. Supplies a sizable amount of myocardium. Distally bifurcates into PDA and PLV, both of which have no obstructive disease. Mild irregularities are noted. LEFT MAIN CORONARY ARTERY: Short patent disease-free vessel that immediately bifurcates into LAD and circumflex. LEFT ANTERIOR DESCENDING CORONARY ARTERY: Starts off as a good caliber vessel. Very proximally, it gives off a diagonal branch and septal branches. After the diagonal branch, the caliber of the vessel decreases. There is about a 40% stenosis in the midportion, unchanged from before and then in the distal 1/4 it divides into 2 branches, 1 continues as a LAD. The other continues as a diagonal. After the origin of the proximal septal and diagonal branch, the caliber of the vessel decreases and there is diffuse disease throughout. The angiographic appearance of the LAD which is diffuse disease in the middle and distal 1/3 as well as the diagonal branch is very similar to the previous angiogram from 2016. No significant progression of disease is noted. LEFT POSTERIOR CIRCUMFLEX CORONARY ARTERY: Technically a nondominant vessel gives off a large obtuse marginal that runs laterally, has no significant disease and also then continues in the AV groove, has distal small posterolateral branch and AV groove branches. The circumflex has no significant disease. FINAL IMPRESSION: This patient has ejection fraction of about 40% with [id number] mitral regurgitation and apical focal hypokinesia, raising the possibility of takotsubo syndrome. He has a right dominant system. Diffuse disease in mid and distal LAD and diagonal is noted, unchanged from before. Circumflex has no significant disease. There was no gradient across aortic valve and filling pressures are normal. RECOMMENDATIONS: I am recommending continued medical therapy with risk factor modification. Findings were discussed at length with the patient and family members and I also and also with Dr. Nix the admitting doctor. MMANTONYL / JINGN: [id number] /
[2018-12-10 20:16] LABS: Glucose,Whole Blood 227 mg/dL (75-99)
[2018-12-10] MEDS: LOSARTAN 25 MG TAB PO SCH (20:42)
--- NOTE | 2018-12-10 22:36 | PN ---
PROGRESS NOTE DATE OF SERVICE: 12/10/2018 REASON FOR FOLLOWUP: Gram-negative bacteremia, likely ascending cholangitis. INTERVAL HISTORY: The patient is currently afebrile. Patient is breathing comfortably. Denies any further ( ) pain has improved with no nausea, no vomiting, no abdominal pain, no diarrhea. PHYSICAL EXAMINATION: Blood pressure 105/59 with a pulse of 62, temperature 98; he is 96% on room air. General description is an elderly male lying in bed in no distress. Respiratory system: Unlabored breathing with decreased breath sounds at the bases; no wheeze. Heart S1, S2. Regular rate and rhythm. Abdomen soft, no tenderness. Extremities: No edema of the feet. LABS: Hemoglobin 13.4, white count 7.3. Liver enzymes has improved. Blood culture with gram- negative bacilli. DIAGNOSTIC IMPRESSION AND PLAN: Patient admitted to the hospital with sepsis. Source is likely ascending cholangitis. No evidence of gram-negative bacteremia. Patient is currently covered with Unasyn. to continue for now while waiting for the culture to finalize. Plan of care was discussed with the admitting team. Continue supportive care. MMODL / IJN: [id number] /
[2018-12-11] MEDS: SODIUM CHLORIDE 0.9% 1,000 ML IV SCH (04:59)
[2018-12-11] MEDS: AMPICILLIN-SULBACTAM 3 GM in SODIUM CHLORIDE 0.9% 100 ML IVPB SCH ×3 (05:20→18:34)
[2018-12-11 06:03] LABS: Glucose,Whole Blood 224 mg/dL (75-99)
[2018-12-11] MEDS: INSULIN ASPART (NovoLOG) 100 UNIT/ML VIAL SQ SCH ×3 (06:31→18:35)
[2018-12-11 07:00] LABS: Calcium 8.4 mg/dL (8.4-10.2); Potassium 4.3 mmol/L (3.5-5.1); Total Bilirubin 1.3 mg/dL (0.2-1.3); Total Protein 5.7 g/dL (6.3-8.2)
[2018-12-11 07:06] LABS: Basophils % (A) 1 %; Eosinophils # (A) 0.2 k/uL (0-0.7); Eosinophils % (A) 5 %; HCT 39.8 % (39.0-53.0); HGB 12.5 gm/dL (13.0-17.5); Hypochromasia Slight; Lymphocytes # (A) 0.6 k/uL (1.0-4.8); Lymphocytes % (A) 13 %; MCHC 31.4 g/dL (31.0-37.0); MCV 92.3 fL (80.0-100.0); Mean Platelet Volume 8.5; Monocytes # (A) 0.2 k/uL (0-1.0); Monocytes % (A) 5 %; Neutrophils # (A) 3.2 k/uL (1.3-7.7); Neutrophils % (A) 74 %; Platelet Count 111 k/uL (150-450); RBC 4.31 m/uL (4.30-5.90); RDW 15.2 % (11.5-15.5); WBC 4.4 k/uL (3.8-10.6)
[2018-12-11] MEDS: PANTOPRAZOLE 40 MG TABLET PO SCH (09:21)
[2018-12-11] MEDS: FUROSEMIDE 40 MG TAB PO SCH (09:21)
[2018-12-11] MEDS: ASPIRIN 81 MG PO SCH (09:21)
[2018-12-11 10:40] LABS: Hepatitis A Antibody IgM Non-Reactive (Non-Reactive); Hepatitis B Core IgM Non-Reactive (Non-Reactive)
[2018-12-11 12:01] LABS: Glucose,Whole Blood 180 mg/dL (75-99)
--- NOTE | 2018-12-11 12:03 | P.PN ---
Subjective Progress Note Date: 12/11/18 This is a pleasant 78-year-old gentleman with known history of mitral valve repair, mild coronary artery disease, COPD, persistent atrial fibrillation, hypertension, hyperlipidemia, who presented to the hospital with a near syncopal episode. He was also found on admission here to have a fever of 102.5.the cardiac catheterization was performed which revealed an ejection fraction of about 40% with mild to moderate mitral regurgitation and apical 4 hypokinesia reason the possibility of stress Cardiolite adenopathy. Diffuse disease in the mid and distal LAD and diagonal was noted unchanged from previous. Circumflex had no significant disease. Medical therapy was advised. Patient was seen and examined this morning, denies any chest pain or difficulty in breathing. He was noted at times to have a heart rate in the 40s. He will be transferred today to medical surgical unit, we will recommend on discharge that he have a Holter monitor placed, and a follow-up appointment with Dr. Thrasher. Objective - Vital Signs Vital signs: Vital Signs Temp 97.6 F 12/11/18 11:34 Pulse 54 L 12/11/18 11:34 Resp 16 12/11/18 11:34 BP 129/58 12/11/18 11:34 Pulse Ox 96 12/11/18 11:34 Intake & Output 12/10/18 12/11/18 12/11/18 18:59 06:59 18:59 Intake Total 1135.567 150 Balance 1135.567 150 Weight 109.6 kg Intake: IV 450 Intake, IV Titration 565.567 150 Amount Ampicillin-Sulbactam 3 gm 100 In Sodium Chloride 0.9% 100 ml @ 200 mls/hr IVPB Q6HR [facility] Rx#:[id number] Heparin Sod,Pork in 0.45% 220.567 NaCl 25,000 unit In 0.45 % NaCl 1 250ml.bag @ 9 UNITS/KG/HR 10.002 mls/hr IV .Q24H [facility] Rx#: [id number] Sodium Chloride 0.9% 1, 20 000 ml @ 20 mls/hr IV . Q24H [facility] Rx#:[id number] Sodium Chloride 0.9% 1, 225 150 000 ml @ 75 mls/hr IV . [id number] [facility] Rx#:[id number] Oral 120 Other: Voiding Method Toilet # Voids 1 - Exam PHYSICAL EXAMINATION: GENERAL:78 year old gentleman in no acute distress at the time of my examination HEENT: Head is atraumatic, normocephalic. Pupils equal, round. Sclera anicteric. Conjunctiva are clear. Mucous membranes of the mouth are moist. Neck is supple. There is no elevated jugular venous pressure.i bruit is heard. HEART EXAMINATION:heart S1 and S2 systolic murmur is heard. CHEST EXAMINATION:[ Lungs are clear to auscultation and precussion. No chest wall tenderness is noted on palpation or with deep breathing.] ABDOMEN: [ Soft, nontender. Bowel sounds are heard. No organomegaly noted]. EXTREMITIES:[ 2+ peripheral pulses with no evidence of peripheral edema and no calf tenderness noted]. NEUROLOGIC [patient is awake, alert and oriented 3.] . - Labs CBC & Chem 7: 12/11/18 06:20 12/11/18 06:20 Labs: Abnormal Lab Results - Last 24 Hours (Table) 12/10/18 12/10/18 12/10/18 Range/Units 14:54 16:31 20:11 Hgb (13.0-17.5) gm/dL Plt Count (150-450) k/uL Lymphocytes # (1.0-4.8) k/uL APTT 34.4 H (22.0-30.0) sec Chloride (98-107) mmol/L BUN (9-20) mg/dL Glucose (74-99) mg/dL POC Glucose (mg/dL) 162 H 227 H (75-99) mg/dL ALT (21-72) U/L Alkaline Phosphatase (38-126) U/L Total Protein (6.3-8.2) g/dL Albumin (3.5-5.0) g/dL 12/11/18 12/11/18 12/11/18 Range/Units 06:02 06:20 06:20 Hgb 12.5 L (13.0-17.5) gm/dL Plt Count 111 L (150-450) k/uL Lymphocytes # 0.6 L (1.0-4.8) k/uL APTT (22.0-30.0) sec Chloride 108 H (98-107) mmol/L BUN 26 H (9-20) mg/dL Glucose 194 H (74-99) mg/dL POC Glucose (mg/dL) 224 H (75-99) mg/dL ALT 179 H (21-72) U/L Alkaline Phosphatase 228 H (38-126) U/L Total Protein 5.7 L (6.3-8.2) g/dL Albumin 3.0 L (3.5-5.0) g/dL Microbiology - Last 24 Hours (Table) 12/08/18 15:14 Blood Culture Gram Stain - Final Blood Blood Culture - Final Klebsiella pneumoniae Assessment and Plan Plan: assessment and plan #1 near syncope, status post cardiac catheterization which raise the suspicion of a possible stress cardiomyopathy. #2 chronic persistent atrial fibrillation #3 hyperlipidemia #4 diabetes #5 history of mitral valve repair #6 bradycardia Plan From cardiology's perspective, patient may be transferred today to the medical surgical unit. On discharge we recommend a Holter monitor as well as follow-up appointment with Dr. Jc post discharge. DNP note has been reviewed, I agree with a documented findings and plan of care. Patient was seen and examined.
--- NOTE | 2018-12-11 15:10 | MR ---
EXAMINATION TYPE: MR MRCP DATE OF EXAM: 12/11/2018 COMPARISON: Ultrasound of the liver dated 12/09/[address] abdomen pelvis dated 12/08/2018 HISTORY: Elevated bilirubin, R/O choledocholithiasis TECHNIQUE: Multiplanar, multisequential MR imaging was performed of the abdomen per MRCP protocol. AK P images were created of the biliary tree. FINDINGS: There is a solitary hepatic cyst demonstrating T1 hyperintensity and T2 hypointensity measuring 1.4 c m within segment IVb. There is moderate intrahepatic biliary ductal dilatation and extrahepatic bilia ry ductal dilatation with dilatation of the cystic duct. The gallbladder is partially contracted and no cholelithiasis is seen. No right upper quadrant fat stranding or pericholecystic fluid. The left m ain intrahepatic duct measures 9 mm, the common hepatic duct measures 1.1 cm and the common bile duct measures 1.1 cm, all dilated. There is no main pancreatic ductal dilatation. There is a dependent ro unded filling defect seen at the ampulla of Vater on coronal T2 nonfat sat image 24 and 23 measuring 6 mm however this is reproduced on the T2 fat sat axial images only (image 9). There is nonspecific perinephric fat stranding and few punctate hyperintense T2 lesions that likely r epresent scattered subcentimeter cysts. There is mild pancreatic parenchymal atrophy. Abdominal aorta and its visualized portion is of normal course and caliber. The spleen, adrenal glands, and liver de monstrate an unremarkable morphology. No adenopathy within the abdomen. No dilated bowel. No signal d ropout of the liver to suggest hepatic steatosis. IMPRESSION: There is a 6 mm filling defect at the ampulla of Vater. This could represent an obstructing calculus, tumefactive sludge, or periampullary mass. This results in moderate intrahepatic and extrahepatic bi liary ductal dilatation and dilatation of the cystic duct without MR evidence of acute cholecystitis. A Yellow level critical message alert has been initiated for Colton Lopez MD~[id number] via the [employer] Critical Results System on 12/11/2018 3:07 PM. This message alert has been sent to Mina Lopez MD~[id number] via the preferences provided by the clinician for the receipt of Radiology Crit ical Findings. Message ID [id number].
[2018-12-11 16:28] LABS: Glucose,Whole Blood 185 mg/dL (75-99)
[2018-12-11] MEDS ORDERED: WARFARIN 10 MG TAB PO SCH (18:00)
--- NOTE | 2018-12-11 18:52 | P.PN ---
Subjective Progress Note Date: 12/11/18 (delayed charting patient seen at 1000) Principal diagnosis: fever Patient is a 78-year-old male to past medical history of A. fib, systolic congestive heart failure with ejection fraction 30-35%, COPD, diabetes, hypertension, and dyslipidemia who presented to the ER with complaints of generalized weakness and rigors. In the ER he underwent an extensive evaluation. He was found to have a T-max of 102.5, total bili of 7.4, AST 362, ALP 495, and alk phos of 441. Initial troponin was elevated at 0.05 and EKG showed A. fib. He underwent a CT abdomen and pelvis which was negative. Chest x-ray was negative, and urinalysis was negative. He was subsequently admitted to the cardiac floor for elevated troponin. Troponins were cycled and maxed at 0.1. Cardiology was consulted. Echocardiogram showed an EF of 40-45% area and he was seen by cardiology. Liver ultrasound was completed which was negative. He was seen by GI and hepatitis profile was ordered. His liver enzymes down trended. He was seen by ID who recommended empiric Unasyn and adjust antibiotic s as his course is evaluated further. Blood culture showed kelbsiella pneumonia. He underwent cath which did not show and changes in his CAD but did show apical hypokaneis. Patient seen and examined at bedside. Feeling much better today. Denies any nausea, vomiting, or diarrhea. No chest pain or shortness of breath. Feeling better every day. Objective - Vital Signs Vital signs: Vital Signs Temp 97.1 F L 12/11/18 15:04 Pulse 66 12/11/18 15:04 Resp 16 12/11/18 15:04 BP 123/69 12/11/18 15:04 Pulse Ox 96 12/11/18 15:04 Intake & Output 12/10/18 12/11/18 12/11/18 18:59 06:59 18:59 Intake Total 1135.567 390 Balance 1135.567 390 Weight 109.6 kg Intake: IV 450 Intake, IV Titration 565.567 150 Amount Ampicillin-Sulbactam 3 gm 100 In Sodium Chloride 0.9% 100 ml @ 200 mls/hr IVPB Q6HR [facility] Rx#:[id number] Heparin Sod,Pork in 0.45% 220.567 NaCl 25,000 unit In 0.45 % NaCl 1 250ml.bag @ 9 UNITS/KG/HR 10.002 mls/hr IV .Q24H [facility] Rx#: [id number] Sodium Chloride 0.9% 1, 20 000 ml @ 20 mls/hr IV . Q24H [facility] Rx#:[id number] Sodium Chloride 0.9% 1, 225 150 000 ml @ 75 mls/hr IV . [id number] [facility] Rx#:[id number] Oral 120 240 Other: Voiding Method Toilet # Voids 1 1 - Exam General: non toxic, no distress, appears at stated age Derm: warm, dry Head: atraumatic, normocephalic, symmetric Eyes: EOMI, no lid lag, anicteric sclera Mouth: no lip lesion, mucus membranes moist Cardiovascular: S1S2 with murmur, positive posterior tibial pulse bilateral, Lungs: CTA bilateral, no rhonchi, no rales , no accessory muscle use Abdominal: soft, nontender to palpation, no guarding, no appreciable organomegaly Ext: no gross muscle atrophy, trace edema, no contractures Neuro: CN II-XI grossly intact, no focal neuro deficits Psych: Alert, oriented, appropriate affect - Labs CBC & Chem 7: 12/11/18 06:20 12/11/18 06:20 Labs: Abnormal Lab Results - Last 24 Hours (Table) 12/10/18 12/11/18 12/11/18 Range/Units 20:11 06:02 06:20 Hgb 12.5 L (13.0-17.5) gm/dL Plt Count 111 L (150-450) k/uL Lymphocytes # 0.6 L (1.0-4.8) k/uL Chloride (98-107) mmol/L BUN (9-20) mg/dL Glucose (74-99) mg/dL POC Glucose (mg/dL) 227 H 224 H (75-99) mg/dL ALT (21-72) U/L Alkaline Phosphatase (38-126) U/L Total Protein (6.3-8.2) g/dL Albumin (3.5-5.0) g/dL 12/11/18 12/11/18 12/11/18 Range/Units 06:20 11:58 16:26 Hgb (13.0-17.5) gm/dL Plt Count (150-450) k/uL Lymphocytes # (1.0-4.8) k/uL Chloride 108 H (98-107) mmol/L BUN 26 H (9-20) mg/dL Glucose 194 H (74-99) mg/dL POC Glucose (mg/dL) 180 H 185 H (75-99) mg/dL ALT 179 H (21-72) U/L Alkaline Phosphatase 228 H (38-126) U/L Total Protein 5.7 L (6.3-8.2) g/dL Albumin 3.0 L (3.5-5.0) g/dL Microbiology - Last 24 Hours (Table) 12/08/18 15:14 Blood Culture Gram Stain - Final Blood Blood Culture - Final Klebsiella pneumoniae Assessment and Plan Assessment: Klebsiella bacteremia -No repeat fevers during hospitalization -ID recommendations appreciated: continue with Unasyn -Urine culture negative, blood cultures negative to date, CT abdomen and pelvis negative, liver ultrasound negative, chest x-ray negative -ID who is concern for possible cholangitis-type picture secondary to bacteremia, elevated liver enzymes, elevated bilirubin, and abdominal pain on admission. Non-STEMI, type II stress induced -Cardiology recommendations appreciated -cath without significant obstruction -Off heparin drip -Aspirin Transaminitis -GI recommendations appreciated, discussed with Dr. Altamirano -MRCP- defect at ampulla plan for ERCP in AM -Downtrending -Hepatitis profile pending -Repeat liver enzymes in a.m. Acute kidney injury likely secondary to dehydration, improving -IV fluids -Follow renal function -Avoid additional nephrotoxic agents as able -Monitor closely while on Lasix -Off BHARGAV inhibitor, resume in AM -Anticipate slight increase in a.m. secondary to cath Atrial fibrillation, mitral valve repair - off heparin gtt per cardio, lovenox to cover, no coumadin as may need ERCP -Cardiology recommendations -Continue telemetry Systolic congestive heart failure without exacerbation ejection fraction 40-45% -Currently compensated -Continue with Lasix by mouth -Not chronically on beta porsha -BHARGAV inhibitor on hold secondary to acute kidney injury Diabetes -Amaryl on hold -Sliding-scale insulin -Last measured A1c 6.8 - slightly elevated blood sugar will not start levemir tonight as will be NPO for procedure in AM DVT prophylaxis: Heparin drip Discussed with: Pt, nursing, Dr. Altamirano Anticipated discharge: 24-[address]:home A total of 35 minutes was spent on the care of this complex patient more than 50% of the time was spent in counseling and care coordination.
[2018-12-11] MEDS: ENOXAPARIN 40 MG/0.4 ML SYRINGE SQ SCH (19:05)
[2018-12-11 20:48] LABS: Glucose,Whole Blood 307 mg/dL (75-99)
--- NOTE | 2018-12-11 21:34 | P.PN ---
Subjective Progress Note Date: 12/11/18 Principal diagnosis: Elevated liver enzymes, abdominal pain Patient seen sitting bedside, reporting that he is feeling well. No abdominal pain. No fevers reported. He is tolerating his diet. Objective - Vital Signs Vital signs: Vital Signs Temp 97.1 F L 12/11/18 15:04 Pulse 50 L 12/11/18 18:00 Resp 16 12/11/18 15:04 BP 120/60 12/11/18 18:00 Pulse Ox 96 12/11/18 15:04 Intake & Output 12/11/18 12/11/18 12/12/18 06:59 18:59 06:59 Intake Total 400 10 Balance 400 10 Weight 109.6 kg Intake: IV 10 10 Invasive Line 3 10 10 Intake, IV Titration 150 Amount Sodium Chloride 0.9% 1, 150 000 ml @ 75 mls/hr IV . [id number] [facility] Rx#:[id number] Oral 240 Other: Voiding Method Toilet # Voids 1 1 - Exam On physical examination, patient appears comfortable in no apparent distress. HEAD: Normocephalic, atraumatic. EYES: No scleral icterus. No conjunctival injection. MOUTH: No lesions, tongue midline. NECK: Trachea midline, no gross abnormalities. CHEST: Clear to auscultation with no wheezing or rhonchi appreciated. HEART: Regular rate and rhythm. ABDOMEN: Soft, obese. Bowel sounds are positive. No organomegaly. No guarding or rigidity. EXTREMITIES: No pedal edema. SKIN: No rashes, no jaundice. NEUROLOGIC: Alert and oriented x3. No focal deficits. - Labs CBC & Chem 7: 12/11/18 06:20 12/11/18 06:20 Labs: Abnormal Lab Results - Last 24 Hours (Table) 12/11/18 12/11/18 12/11/18 Range/Units 06:02 06:20 06:20 Hgb 12.5 L (13.0-17.5) gm/dL Plt Count 111 L (150-450) k/uL Lymphocytes # 0.6 L (1.0-4.8) k/uL Chloride 108 H (98-107) mmol/L BUN 26 H (9-20) mg/dL Glucose 194 H (74-99) mg/dL POC Glucose (mg/dL) 224 H (75-99) mg/dL ALT 179 H (21-72) U/L Alkaline Phosphatase 228 H (38-126) U/L Total Protein 5.7 L (6.3-8.2) g/dL Albumin 3.0 L (3.5-5.0) g/dL 12/11/18 12/11/18 12/11/18 Range/Units 11:58 16:26 20:43 Hgb (13.0-17.5) gm/dL Plt Count (150-450) k/uL Lymphocytes # (1.0-4.8) k/uL Chloride (98-107) mmol/L BUN (9-20) mg/dL Glucose (74-99) mg/dL POC Glucose (mg/dL) 180 H 185 H 307 H (75-99) mg/dL ALT (21-72) U/L Alkaline Phosphatase (38-126) U/L Total Protein (6.3-8.2) g/dL Albumin (3.5-5.0) g/dL Microbiology - Last 24 Hours (Table) 12/08/18 15:14 Blood Culture Gram Stain - Final Blood Blood Culture - Final Klebsiella pneumoniae Assessment and Plan (1) Elevated liver enzymes Narrative/Plan: Patient presenting with a constellation of symptoms including generalized weakness, chills and fever and was found to have elevation in his liver enzymes in both a cholestatic and hepatocellular pattern. MRCP today showed filling defect in the ampulla of Vater concerning for possible stone. Current Visit: Yes Status: Acute Code(s): R74.8 - ABNORMAL LEVELS OF OTHER SERUM ENZYMES SNOMED Code(s): 582905493 (2) SIRS (systemic inflammatory response syndrome) Current Visit: Yes Status: Acute Code(s): R65.10 - SIRS OF NON-INFECTIOUS ORIGIN W/O ACUTE ORGAN DYSFUNCTION SNOMED Code(s): 702564639 Plan: Supportive care Okay for diet as tolerated Computed tomography scan and ultrasound reviewed MRCP reviewed A viral hepatitis panel ordered Plan on ERCP tomorrow pending morning INR given findings of MRCP of stone at the ampulla Vater Hold morning Lovenox Continue cardiac workup Thank you for allowing us to participate in the care of the patient we will con tinue to follow
[2018-12-11] MEDS: LOSARTAN 25 MG TAB PO SCH (22:04)
[2018-12-12] MEDS: AMPICILLIN-SULBACTAM 3 GM in SODIUM CHLORIDE 0.9% 100 ML IVPB SCH ×5 (00:02→22:55)
--- NOTE | 2018-12-12 00:28 | PN ---
PROGRESS NOTE DATE OF SERVICE: 12/11/2018. REASON FOR FOLLOWUP: Klebsiella pneumoniae bacteremia secondary to ascending cholangitis. INTERVAL HISTORY: The patient is afebrile. Has been breathing comfortably. Denies having any chest pain or any cough. No nausea, vomiting, no abdomina pain or diarrhea. PHYSICAL EXAMINATION: Blood pressure 121/50 with a pulse of 72, temperature 98.7, he is 95% on room air. GENERAL DESCRIPTION: An elderly male lying in bed in no distress. RESPIRATORY SYSTEM: Unlabored breathing. Clear to auscultation anteriorly. HEART: S1, S2. Regular rate and rhythm. ABDOMEN: Soft, no tenderness. EXTREMITIES: No edema of the feet. LABS: Hemoglobin is 12.5, white count 4.4, BUN of 26, creatinine is 1.1. MRCP with evidence of 6 mm filling defect in the ampulla of Vater. DIAGNOSTIC IMPRESSION AND PLAN: Patient with Klebsiella pneumoniae bacteremia secondary to ascending cholangitis secondary to a 6 mm filling defect that was seen in the ampulla of Vater. The patient benefit from ERCP and removal of the stone causing obstruction. The patient is currently on Unasyn, continue for now. Continue supportive care. MMODL / IJN: [id number] /
[2018-12-12 07:13] LABS: Glucose,Whole Blood 198 mg/dL (75-99)
[2018-12-12] MEDS: ENOXAPARIN 40 MG/0.4 ML SYRINGE SQ SCH (07:14)
[2018-12-12] MEDS: INSULIN ASPART (NovoLOG) 100 UNIT/ML VIAL SQ SCH ×3 (07:18→17:53)
[2018-12-12] MEDS: FUROSEMIDE 40 MG TAB PO SCH (07:18)
[2018-12-12] MEDS: PANTOPRAZOLE 40 MG TABLET PO SCH (07:18)
[2018-12-12] MEDS: ASPIRIN 81 MG PO SCH (07:58)
[2018-12-12 09:17] LABS: Basophils % (A) 1 %; Eosinophils # (A) 0.3 k/uL (0-0.7); Eosinophils % (A) 6 %; HCT 40.5 % (39.0-53.0); HGB 12.7 gm/dL (13.0-17.5); Hypochromasia Slight; Lymphocytes # (A) 0.8 k/uL (1.0-4.8); Lymphocytes % (A) 15 %; MCH 28.7 pg (25.0-35.0); MCHC 31.4 g/dL (31.0-37.0); MCV 91.4 fL (80.0-100.0); Mean Platelet Volume 9.1; Monocytes # (A) 0.2 k/uL (0-1.0); Monocytes % (A) 4 %; Neutrophils # (A) 3.7 k/uL (1.3-7.7); Neutrophils % (A) 74 %; Platelet Count 143 k/uL (150-450); RBC 4.43 m/uL (4.30-5.90); RDW 15.1 % (11.5-15.5)
[2018-12-12 09:20] LABS: Prothrombin Time 10.3 sec (9.0-12.0)
[2018-12-12 09:30] LABS: Albumin 3.4 g/dL (3.5-5.0); Calcium 8.9 mg/dL (8.4-10.2); Potassium 4.4 mmol/L (3.5-5.1); Total Bilirubin 2.8 mg/dL (0.2-1.3); Total Protein 6.2 g/dL (6.3-8.2)
[2018-12-12 11:21] LABS: Glucose,Whole Blood 194 mg/dL (75-99)
--- NOTE | 2018-12-12 12:14 | P.PN ---
Subjective Progress Note Date: 12/12/18 Principal diagnosis: fever Patient is a 78-year-old male to past medical history of A. fib, systolic congestive heart failure with ejection fraction 30-35%, COPD, diabetes, hypertension, and dyslipidemia who presented to the ER with complaints of generalized weakness and rigors. In the ER he underwent an extensive evaluation. He was found to have a T-max of 102.5, total bili of 7.4, AST 362, ALP 495, and alk phos of 441. Initial troponin was elevated at 0.05 and EKG showed A. fib. He underwent a CT abdomen and pelvis which was negative. Chest x-ray was negative, and urinalysis was negative. He was subsequently admitted to the cardiac floor for elevated troponin. Troponins were cycled and maxed at 0.1. Cardiology was consulted. Echocardiogram showed an EF of 40-45% area and he was seen by cardiology. Liver ultrasound was completed which was negative. He was seen by GI and hepatitis profile was ordered. His liver enzymes down trended. He was seen by ID who recommended empiric Unasyn and adjust antibiotics as his course is evaluated further. Blood culture showed kelbsiella pneumonia. He underwent cath which did not show and changes in his CAD but did show apical hypokaneis. MRCP showed blockage at the ampulla of vater. Patient seen and examined at bedside. No nausea, vomiting, diarrhea, abdominal pain, no chest pain/sob/edema Objective - Vital Signs Vital signs: Vital Signs Temp 98.3 F 12/12/18 05:10 Pulse 60 12/12/18 05:10 Resp 16 12/12/18 05:10 BP 116/66 12/12/18 05:10 Pulse Ox 98 12/12/18 07:14 Intake & Output 12/11/18 12/12/18 12/12/18 18:59 06:59 18:59 Intake Total 400 30 Balance 400 30 Intake: IV 10 30 Invasive Line 3 10 30 Intake, IV Titration 150 Amount Sodium Chloride 0.9% 1, 150 000 ml @ 75 mls/hr IV . [id number] [facility] Rx#:[id number] Oral 240 Other: # Voids 1 2 - Exam General: non toxic, no distress, appears at stated age Derm: warm, dry Head: atraumatic, normocephalic, symmetric Eyes: EOMI, no lid lag, anicteric sclera Mouth: no lip lesion, mucus membranes moist Cardiovascular: S1S2 with murmur, positive posterior tibial pulse bilateral, Lungs: decreased breath sounds bilateral, no rhonchi, no rales , no accessory muscle use Abdominal: soft, nontender to palpation, no guarding, no appreciable organomegaly Ext: no gross muscle atrophy, trace edema, no contractures Neuro: CN II-XI grossly intact, no focal neuro deficits Psych: Alert, oriented, appropriate affect - Labs CBC & Chem 7: 12/12/18 08:09 12/12/18 08:09 Labs: Abnormal Lab Results - Last 24 Hours (Table) 12/11/18 12/11/18 12/11/18 Range/Units 11:58 16:26 20:43 Hgb (13.0-17.5) gm/dL Plt Count (150-450) k/uL Lymphocytes # (1.0-4.8) k/uL Chloride (98-107) mmol/L Glucose (74-99) mg/dL POC Glucose (mg/dL) 180 H 185 H 307 H (75-99) mg/dL Total Bilirubin (0.2-1.3) mg/dL AST (17-59) U/L ALT (21-72) U/L Alkaline Phosphatase (38-126) U/L Total Protein (6.3-8.2) g/dL Albumin (3.5-5.0) g/dL 12/12/18 12/12/18 12/12/18 Range/Units 07:11 08:09 08:09 Hgb 12.7 L (13.0-17.5) gm/dL Plt Count 143 L (150-450) k/uL Lymphocytes # 0.8 L (1.0-4.8) k/uL Chloride 108 H (98-107) mmol/L Glucose 185 H (74-99) mg/dL POC Glucose (mg/dL) 198 H (75-99) mg/dL Total Bilirubin 2.8 H (0.2-1.3) mg/dL AST 95 H (17-59) U/L ALT 178 H (21-72) U/L Alkaline Phosphatase 326 H (38-126) U/L Total Protein 6.2 L (6.3-8.2) g/dL Albumin 3.4 L (3.5-5.0) g/dL 12/12/18 Range/Units 11:19 Hgb (13.0-17.5) gm/dL Plt Count (150-450) k/uL Lymphocytes # (1.0-4.8) k/uL Chloride (98-107) mmol/L Glucose (74-99) mg/dL POC Glucose (mg/dL) 194 H (75-99) mg/dL Total Bilirubin (0.2-1.3) mg/dL AST (17-59) U/L ALT (21-72) U/L Alkaline Phosphatase (38-126) U/L Total Protein (6.3-8.2) g/dL Albumin (3.5-5.0) g/dL Microbiology - Last 24 Hours (Table) 12/08/18 15:14 Blood Culture Gram Stain - Final Blood Blood Culture - Final Klebsiella pneumoniae Assessment and Plan Assessment: Klebsiella bacteremia -No repeat fevers during hospitalization -ID recommendations appreciated: continue with Pierce, D/C home on cipro for 10 additional days -Urine culture negative, blood cultures negative to date, CT abdomen and pelvis negative, liver ultrasound negative, chest x-ray negative -ID who is concern for possible cholangitis-type picture secondary to bacteremia, elevated liver enzymes, elevated bilirubin, and abdominal pain on admission. Non-STEMI, type II stress induced -Cardiology recommendations appreciated -cath without significant obstruction -Off heparin drip -Aspirin Transaminitis -GI recommendations appreciated, discussed with Dr. Altamirano -MRCP- defect at ampulla plan for ERCP this afternoon -Hepatitis profile negative -Repeat liver enzymes in a.m. Atrial fibrillation, mitral valve repair - off heparin gtt per cardio, lovenox to cover, no coumadin prior to ERCP -Cardiology recommendations -Continue telemetry Systolic congestive heart failure without exacerbation ejection fraction 40-45% -Currently compensated -Continue with Lasix by mouth -Not chronically on beta porsha -ARB Diabetes -Amaryl on hold -Sliding-scale insulin -Last measured A1c 6.8 - slightly elevated blood sugar will not start levemir tonight as will be NPO for procedure in AM Acute kidney injury likely secondary to dehydration, resolved DVT prophylaxis: Lovenox Discussed with: Pt, nursing, Dr. Rivera Anticipated discharge: [address]:home A total of 35 minutes was spent on the care of this complex patient more than 50% of the time was spent in counseling and care coordination.
[2018-12-12] MEDS ORDERED: FAMOTIDINE 20 MG/2 ML VIAL IV ONE (12:15)
[2018-12-12] MEDS ORDERED: INDOMETHACIN 50MG SUPPOSITORY RECTAL ONE (13:00)
[2018-12-12] MEDS ORDERED: LIDOCAINE 1% INJ 10MG/ML (20 ML MDV) ONE (15:47)
[2018-12-12] MEDS ORDERED: MIDAZOLAM 2 MG/2 ML VIAL ONE (15:47)
[2018-12-12] MEDS ORDERED: PROPOFOL 10 MG/ML 20 ML VIAL IV ONE (15:47)
[2018-12-12] MEDS ORDERED: fentaNYL (PF) 50 MCG/ML 2 ML AMP ONE (15:47)
[2018-12-12] MEDS ORDERED: SUCCINYLCHOLINE CHLORIDE 100 MG/5 ML SYR IV ONE (15:47)
[2018-12-12] MEDS ORDERED: IV FLUID CONTINUATION 1,000 ML IV ONE (15:56)
--- NOTE | 2018-12-12 16:11 | PN ---
PROGRESS NOTE DATE OF SERVICE: 12/12/2018. REASON FOR FOLLOWUP: Ascending cholangitis with klebsiella bacteremia. INTERVAL HISTORY: The patient is currently afebrile. The patient has been breathing comfortably. The patient is scheduled for ERCP this afternoon. Denies having any chest pain or shortness of breath or cough. No nausea, no vomiting and no diarrhea. PHYSICAL EXAMINATION: Blood pressure 136/72 with a pulse of 66, temperature 97.5. He is 96% on room air. General description is an elderly male lying in bed in no distress. RESPIRATORY SYSTEM: Unlabored breathing. Clear to auscultation anteriorly. HEART: S1, S2. Regular rate and rhythm. ABDOMEN: Soft. No tenderness. EXTREMITIES: No edema of the feet. LABS: Hemoglobin is 12.7, white count 5.0, BUN of 20, creatinine 1.06. DIAGNOSTIC IMPRESSION AND PLAN: Patient with Klebsiella pneumoniae bacteremia secondary to ascending cholangitis. The patient is scheduled for ERCP today for removal of the stone. The patient at this time will continue Unasyn. Plan to finish therapy with oral Cipro 500 mg b.i.d. for another 10 days with close outpatient followup. Plan of care was discussed with the admitting team. MMODL / IJN: [id number] /
--- NOTE | 2018-12-12 17:14 | P.PCN ---
Date of Procedure: 12/12/18 Description of Procedure: Brief history: 78-year-old male with a medical history significant for atrial fibrillation, systolic heart failure, COPD, diabetes mellitus, hypertension and gangrenous cholecystitis status post cholecystectomy approximately 1 year ago who presents with a constellation of complaints. The patient reports worsening generalized weakness prior to presentation. In addition the patient reports shaking, and chills and subjective fever at home. The patient's also reports a sharp pain over the middle of his abdomen and chest described as severe in nature. He denies any change in bowel habits with bowel movements every 2-3 days. On presentation to the hospital he was found to be febrile and has been started on antibiotic therapy. He is also currently being evaluated by the cardiology service. He had a computed tomography scan of the abdomen which was negative for any acute process. Ultrasound of the abdomen was also essentially unremarkable with no CBD dilation noted. Labs on presentation were significant for a white count of 8.1, hemoglobin 15.2, platelet count 139, total bilirubin 7.4 which trended down to 3.7, alkaline phosphatase 441 which trended down to 314, AST 362 which trended down to 200 and ALT 495 which trended down to 343. MRCP was ordered and a 6 mm filling defect at the ampulla of vater was noted. Procedure performed: ERCP with cholangiogram, sphincterotomy and balloon sweep Preoperative diagnoses: Choldedocholithiasis, cholangitis IV sedation per anesthesia Estimated blood loss: Minimal. Procedure: After informed consent was obtained from the patient and after the risks benefits and complications including bleeding perforation and pancreatitis explained in detail the patient was brought into the endoscopy unit. The patient was placed in prone position and IV conscious sedation was administered by anesthesia under continuous monitoring. The Olympus side-viewing duodenoscope was then inserted into the mouth and esophagus intubated without any difficulty. The scope was gradually advanced into the stomach and duodenum. The major papilla was identified without any difficulty. A sphinctertome was used to cannulate the ampulla and a wire was passed into the CBD. Cholangiogram was then performed and significant for any mildly dilated common bile duct with a filling defect at the ampulla consistent with findings on MRCP. A 12 mm sphincterotomy was performed. Sphincterotome was exchanged for a balloon which was then passed over the wire into the common bile duct, common hepatic duct and to the bifurcation. Multiple passes through the duct with the balloon inflated first to 8 mm and then to 11.5 mm were performed. Mild oozing of blood was noted which stopped on its own. A large stone was removed with balloon sweep, as well as bile and pus from the CBD. The pancreas was not cannulated or injected. The patient tolerated the procedure well. Impression: 1. ERCP with cholangiogram, sphincterotomy and balloon sweep with removal of a common bile duct stone and pus. Recommendations: The findings of this examination were discussed with the patient. Okay for full liquids, advance as tolerated. Monitor liver enzymes. Continue antibiotic therapy for an additional 7 days. Watch for signs or symptoms of pancreatitis.
[2018-12-12] MEDS ORDERED: IOPAMIDOL-300 50ML BTL MISCELLANE ONE (17:18)
[2018-12-12 17:31] LABS: Glucose,Whole Blood 222 mg/dL (75-99)
[2018-12-12 17:35] VITALS: RESP 18
[2018-12-12] MEDS ORDERED: WARFARIN 10 MG TAB PO ONE (18:00)
[2018-12-12 20:32] LABS: Glucose,Whole Blood 398 mg/dL (75-99)
[2018-12-12] MEDS: LOSARTAN 25 MG TAB PO SCH (20:52)
[2018-12-12] MEDS ORDERED: INSULIN DETEMIR (LEVEMIR) 100 UNIT/ML SYR SQ SCH (21:00)
[2018-12-13] MEDS: AMPICILLIN-SULBACTAM 3 GM in SODIUM CHLORIDE 0.9% 100 ML IVPB SCH ×2 (05:30→11:48)
[2018-12-13 05:43] VITALS: BP 141/75; PULSE 66; TEMP 97
[2018-12-13 07:03] LABS: Glucose,Whole Blood 169 mg/dL (75-99)
[2018-12-13 08:00] LABS: INR 1.1 (<1.2); Prothrombin Time 11.5 sec (9.0-12.0)
[2018-12-13 08:08] LABS: Calcium 8.5 mg/dL (8.4-10.2); Potassium 3.9 mmol/L (3.5-5.1); Total Bilirubin 1.8 mg/dL (0.2-1.3); Total Protein 5.7 g/dL (6.3-8.2)
[2018-12-13] MEDS: ASPIRIN 81 MG PO SCH (08:18)
[2018-12-13] MEDS: FUROSEMIDE 40 MG TAB PO SCH (08:18)
[2018-12-13] MEDS: ENOXAPARIN 40 MG/0.4 ML SYRINGE SQ SCH (08:18)
[2018-12-13] MEDS: INSULIN ASPART (NovoLOG) 100 UNIT/ML VIAL SQ SCH (08:18)
[2018-12-13] MEDS: PANTOPRAZOLE 40 MG TABLET PO SCH (08:18)
[2018-12-13] MEDS ORDERED: ENOXAPARIN 100 MG/ML SYRINGE SQ STA (09:45)
--- NOTE | 2018-12-13 10:05 | P.DS ---
Providers Date of admission: 12/09/18 15:32 Expected date of discharge: 12/13/18 Attending physician: Edna Rivers MD Consults: 12/08/18 16:28 Consult Physician Routine Consulting Provider: Gale Rivera Consult Reason/Comments: sirs Do you want consulting provider notified?: Yes 12/08/18 17:08 Consult Physician Routine Consulting Provider: Colton Lopez Consult Reason/Comments: elevated trop Do you want consulting provider notified?: Yes 12/08/18 18:10 Consult Physician Routine Consulting Provider: Tristan James Consult Reason/Comments: Elevated liver enzymes, h/o cholecystectomy Do you want consulting provider notified?: Yes Consult Physician Stat Consulting Provider: Martin Altamirano Consult Reason/Comments: Elevated liver enzymes, h/o cholecystectomy Do you want consulting provider notified?: Yes Primary care physician: Faizan Ba Hospital Course: Discharge Diagnosis: Cholangitis Choledocholithiasis Klebsiella Pneumonia bacteremia Takotsubo cardiomyopathy Compensated systolic CHF Transaminitis NSTEMI, type II A fib with mitral valve repair Diabetes, controlled VINICIO due to dehydration Hospital Course: Patient is a 78-year-old male with a past medical history of A. fib, systolic congestive heart failure with ejection fraction 30-35%, COPD, diabetes, hypertension, and dyslipidemia who presented to the ER with complaints of generalized weakness and rigors. In the ER he underwent an extensive evaluation. He was found to have a T-max of 102.5, total bili of 7.4, AST 362, ALP 495, and alk phos of 441. Initial troponin was elevated at 0.05 and EKG showed A. fib. He underwent a CT abdomen and pelvis which was negative. Chest x-ray was negative, and urinalysis was negative. He was subsequently admitted to the cardiac floor for elevated troponin. Troponins were cycled and maxed at 0.1. Cardiology was consulted. Echocardiogram showed an EF of 40-45% and he was seen by cardiology. Liver ultrasound was completed which was negative. He was seen by GI and hepatitis profile was ordered. His liver enzymes down trended. He was seen by ID who recommended empiric Unasyn and adjust antibiotics as his course is evaluated further. Blood culture showed kelbsiella pneumonia. He underwent cath which did not show any changes in his CAD but did show apical h ypokaneis. MRCP showed blockage at the ampulla of vater. He underewent ERCP on 12/12 with removal of common bile duct stone. He tolerated the procedure well and did not have any post-op complications. He was determined stable for discharge home. He will complete another 10 days of cipro for his bacteremia. Discussed with cardio and they would like to bridge his coumadin with lovenox. He will take coumadin 10mg dialy and lovenox 100mg BID X 5 days. He will come in for PT/INR and CMP on Tuesday. Results will go to Dr. Jc's office who will continue to adjust his coumadin. He will see Dr. Rivera in 1 week, Dr. Jc in 1-2 weeks, and Dr. Ba in 1 week. Patient seen and examined at bedside. No chest pain, SOB, nausea, vomiting, or belly pain. Acid reflux resolved. Tolerating diet. Wants to go home. Vital signs reviewed and stable. General: non toxic, no distress, appears at stated age Derm: warm, dry Head: atraumatic, normocephalic, symmetric Eyes: EOMI, no lid lag, anicteric sclera Mouth: no lip lesion, mucus membranes moist Cardiovascular: S1S2 reg, no murmur, positive posterior tibial pulse bilateral, Lungs: CTA bilateral, no rhonchi, no rales , no accessory muscle use Abdominal: soft, nontender to palpation, no guarding, no appreciable organomegaly Ext: no gross muscle atrophy, no edema, no contractures Neuro: CN II-XI grossly intact, no focal neuro deficits Psych: Alert, oriented, appropriate affect A total of 38 minutes of time were spent preparing this complex discharge summary . Pertinent Studies: MRCP- dilated with blockage at the ampulla of vater Echo- E 40-45% CT abd and pelvis - NAP Procedures: ERCP 12/12 removal of common dile duct stone Cath 12/10- stable coronary artery disease Patient Condition at Discharge: Stable Plan - Discharge Summary Discharge Rx Participant: No New Discharge Prescriptions: New Ciprofloxacin HCl [Cipro] 500 mg PO Q12HR #20 tablet Enoxaparin [Lovenox] 100 mg SQ Q12H #8 syr Continue Ergocalciferol [Vitamin D2 (DRISDOL)] 50,000 unit PO Q14D Allopurinol [Zyloprim] 100 mg PO DAILY Ferrous Gluconate 324 mg PO BID Furosemide [Lasix] 40 mg PO DAILY Glimepiride [Amaryl] 2 mg PO AC-BRKFST Losartan [Cozaar] 25 mg PO DAILY Warfarin [Coumadin] 10 mg PO SUMOWEFRSA Calcitriol 0.25 mcg PO DIRECTED Cyanocobalamin (Vitamin B-12) [Vitamin B-12] 1,000 mcg PO DAILY Aspirin [[place] Aspirin EC] 81 mg PO DAILY Discontinued Potassium Citrate [Potassium Citrate ER] 10 meq PO BID Warfarin [Coumadin] 7.5 mg PO TUTH Discharge Medication List Ergocalciferol [Vitamin D2 (DRISDOL)] 50,000 unit PO Q14D 11/10/16 [History] Allopurinol [Zyloprim] 100 mg PO DAILY 01/11/18 [History] Ferrous Gluconate 324 mg PO BID 01/11/18 [History] Furosemide [Lasix] 40 mg PO DAILY 02/16/18 [History] Glimepiride [Amaryl] 2 mg PO AC-BRKFST 02/16/18 [History] Losartan [Cozaar] 25 mg PO DAILY 02/16/18 [History] Aspirin [[place] Aspirin EC] 81 mg PO DAILY 12/08/18 [History] Calcitriol 0.25 mcg PO DIRECTED 12/08/18 [History] Cyanocobalamin (Vitamin B-12) [Vitamin B-12] 1,000 mcg PO DAILY 12/08/18 [History] Warfarin [Coumadin] 10 mg PO SUMOWEFRSA 12/08/18 [History] Ciprofloxacin HCl [Cipro] 500 mg PO Q12HR #20 tablet 12/13/18 [Rx] Enoxaparin [Lovenox] 100 mg SQ Q12H #8 syr 12/13/18 [Rx] Follow up Appointment(s)/Referral(s): Faizan Ba DO [Primary Care Provider] - 1-2 days Gale Rivera MD [STAFF PHYSICIAN] - 1 Week Gary Jc MD [STAFF PHYSICIAN] - 1 Week Ambulatory/Diagnostic Orders: Comprehensive Metabolic Panel [LAB.AMB] Time Frame: 3 Days, Location: None Selected Prothrombin Time INR [LAB.AMB] Location: None Selected
--- NOTE | 2018-12-13 12:33 | PN ---
PROGRESS NOTE DATE OF SERVICE: 12/13/2018 REASON FOR FOLLOWUP: Klebsiella bacteremia secondary to ascending cholangitis. INTERVAL HISTORY: The patient is currently afebrile. Patient is status post ERCP, removal of the CBD stone. The patient has tolerated procedure. Currently, denies having any abdominal pain. No nausea, no vomiting and no diarrhea. PHYSICAL EXAMINATION: On examination, blood pressure 141/75, pulse of 66, temperature 97. He is 94% on room air. General description is an elderly male up in the chair in no distress. RESPIRATORY SYSTEM: Unlabored breathing, clear to auscultation. HEART: S1, S2. Regular rate and rhythm. ABDOMEN: Soft, no tenderness. LABS: BUN of 19, creatinine 1.09. INR is 1.1. DIAGNOSTIC IMPRESSION AND PLAN: Patient with Klebsiella pneumoniae bacteremia secondary to ascending cholangitis status post ERCP with removal of the stone. Patient seemed to have shown clinical improvement. He will given another 10-day course of oral Cipro. His INR needs to be monitored very closely. This was discussed with the discharging physician. Follow up in the office in a week. Continue supportive care. MMODL / IJN: [id number] /
--- NOTE | 2018-12-13 14:48 | FL ---
EXAMINATION TYPE: FL ERCP HISTORY: Fluoroscopy time Impression: 1. Fluoroscopy support provided to the referring physician. 17 seconds of fluoroscopy provided.
[2018-12-13] MEDS ORDERED: WARFARIN 10 MG TAB PO ONE (18:00)
--- NOTE | 2018-12-14 09:11 | CDI ---
Documentation Clarification Form Date: 12/14/18 From: Allyson Rl Anais Amara, [employer] Operator Hours-8:30 am & 5 pm M-F Admit Date: 12/09/2018 3:32:00 PM Patient Name: Darrin Shabazz Visit Number: [id number] Discharge Date: 12/13/2018 1:02:00 PM ATTENTION: The Clinical Documentation Specialists (CDI) and [facility] Coding Staff appreciate your assistance in clarifying documentation. Please respond to the clarification below the line at the bottom and electronically sign. The CDI & [facility] Coding staff will review the response and follow-up if needed. Please note: Queries are made part of the Legal Health Record. If you have any questions, please contact the author of this message via ITS. Dr. Liss Nix Conflicting documentation has been found in the medical record: Per Dr Rivera's PN on 12/10- patient admitted to the hospital with sepsis. Source is likely ascending cholangitis. No evidence of gram-negative bacteremia. Dr. Rivera's PN on 12/11, 12/12 - K. pneumoniae bacteremia secondary to ascending cholangitis. Your PN 12/12 & DS - Klebsiella bacteremia History/Risk Factors: s/p cholecystectomy d/t gangrenous cholecystitis, Type II AL, persistent A Fib, acidosis, VINICIO, Chr systolic CHF w HTN, Takotsubo Clinical Indicators: lactic acid-2.0, total bilirubin-7.4, T-102.5/100, R-26, BP-98/58 (on 12/08) Treatment: IV Unasyn, IV fluids In your opinion, what is the most clinically appropriate diagnosis for this patient? Sepsis d/t K pneumonia Bacteremia d/t K pneumonia Other explanation of clinical findings Unable to determine (no explanation for clinical findings) Sepsis ruled out, only 1 SIRS Criteria on admission Correct diagnosis: Klebsiella bacteremia due to ascending cholangitis. MTDD
== END 2018-12-13 13:02 | disposition home or self-care (01) | DRG 444 ==
LOC: EC 14:51 → INTOOBSV 16:27 → 3SCARD 16:27 → OBSVTOIN 12-09 15:32 → 4MS4W 12-11 21:39
PROVIDERS: ADMIT Family Medicine; ATTEND Family Medicine
PROC: B2111ZZ Fluoroscopy of Multiple Coronary Arteries using Low Osmolar Contrast (ICD-10-PCS; 2018-12-10)
PROC: B2151ZZ Fluoroscopy of Left Heart using Low Osmolar Contrast (ICD-10-PCS; 2018-12-10)
PROC: 4A023N7 Measurement of Cardiac Sampling and Pressure, Left Heart, Percutaneous Approach (ICD-10-PCS; principal; 2018-12-10 13:30)
PROC: 0FC98ZZ Extirpation of Matter from Common Bile Duct, Via Natural or Artificial Opening Endoscopic (ICD-10-PCS; 2018-12-12)
DX: K80.31 Calculus of bile duct with cholangitis, unspecified, with obstruction (principal); I21.A1 Myocardial infarction type 2; I48.1 Persistent atrial fibrillation; E87.2 Acidosis; N17.9 Acute kidney failure, unspecified; I50.22 Chronic systolic (congestive) heart failure; I51.81 Takotsubo syndrome; R78.81 Bacteremia; E11.40 Type 2 diabetes mellitus with diabetic neuropathy, unspecified; I08.1 Rheumatic disorders of both mitral and tricuspid valves; B96.1 Klebsiella pneumoniae [K. pneumoniae] as the cause of diseases classified elsewhere; I11.0 Hypertensive heart disease with heart failure; E86.0 Dehydration; I27.20 Pulmonary hypertension, unspecified; J44.9 Chronic obstructive pulmonary disease, unspecified; R56.9 Unspecified convulsions; I25.5 Ischemic cardiomyopathy; R00.1 Bradycardia, unspecified; E78.00 Pure hypercholesterolemia, unspecified; I25.10 Atherosclerotic heart disease of native coronary artery without angina pectoris; E78.5 Hyperlipidemia, unspecified; I83.90 Asymptomatic varicose veins of unspecified lower extremity; H91.90 Unspecified hearing loss, unspecified ear; K21.9 Gastro-esophageal reflux disease without esophagitis; M19.90 Unspecified osteoarthritis, unspecified site; E66.9 Obesity, unspecified; Z68.31 Body mass index [BMI] 31.0-31.9, adult; Z90.49 Acquired absence of other specified parts of digestive tract; Z79.82 Long term (current) use of aspirin; Z79.01 Long term (current) use of anticoagulants; Z79.84 Long term (current) use of oral hypoglycemic drugs; Z79.899 Other long term (current) drug therapy; Z87.19 Personal history of other diseases of the digestive system; Z86.19 Personal history of other infectious and parasitic diseases; Z95.2 Presence of prosthetic heart valve; Z87.891 Personal history of nicotine dependence; Z98.42 Cataract extraction status, left eye; Z98.41 Cataract extraction status, right eye; Z96.1 Presence of intraocular lens; Z88.5 Allergy status to narcotic agent; Z82.49 Family history of ischemic heart disease and other diseases of the circulatory system; Z80.9 Family history of malignant neoplasm, unspecified
CPT/HCPCS: 36415; 43262; 43264; 71046; 74176; 74181; 74330; 76705; 80053; 80074; 80076; 81003; 82550; 82553; 83605; 84443; 84484; 85025; 85027; 85379; 85610; 85730; 87040; 87077; 87086; 87186; 87502; 93005; 93306; 93458; 94760; 96361; 96365; 96366; 96376; 99285

== ENCOUNTER 2019-02-24 13:57 | Observation (INO) | payer MEDICARE ==
[2019-02-24] MEDS ORDERED: PANTOPRAZOLE 40 MG/10 ML VIAL IVP STA (14:20)
--- NOTE | 2019-02-24 14:35 | ED ---
General Adult HPI - General Chief complaint: Recheck/Abnormal Lab/Rx Stated complaint: Abn Labs Time Seen by Provider: 02/24/19 14:10 Source: patient, RN notes reviewed, old records reviewed Mode of arrival: ambulatory Limitations: no limitations - History of Present Illness Initial comments: 78 -year-old male presenting for evaluation of anemia. He is currently on Coumadin with history of valve repair. Patient states he takes 10 mg of Coumadin daily. He does report dark stools over the past several weeks. He says he has infrequent bowel movements at baseline. No diarrhea. No fever chills. No abdominal pain. No chest pain. He has dyspnea but he states this is been chronic and unchanged from baseline. - Related Data Home Medications Medication Instructions Recorded Confirmed Allopurinol [Zyloprim] 100 mg PO DAILY 01/11/18 02/24/19 Ferrous Gluconate 324 mg PO BID 01/11/18 02/24/19 Furosemide [Lasix] 40 mg PO DAILY 02/16/18 02/24/19 Glimepiride [Amaryl] 2 mg PO AC-BRKFST 02/16/18 02/24/19 Aspirin [Major Aspirin EC] 81 mg PO DAILY 12/08/18 02/24/19 Calcitriol 0.25 mcg PO [place] 12/08/18 02/24/19 Cyanocobalamin (Vitamin B-12) 1,000 mcg PO DAILY 12/08/18 02/24/19 [Vitamin B-12] Warfarin [Coumadin] 10 mg PO DAILY 12/08/18 02/24/19 Allergies Allergy/AdvReac Type Severity Reaction Status Date / Time codeine Allergy Rash/Hives Verified 02/24/19 14:24 Review of Systems ROS Statement: Those systems with pertinent positive or pertinent negative responses have been documented in the HPI. ROS Other: All systems not noted in ROS Statement are negative. 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 gangrenous gallbladder-removed History of Any Multi-Drug Resistant Organisms: None Reported Past Surgical History: Cardiac Valve Replacement, Cholecystectomy, Heart Catheterization, Orthopedic Surgery Additional Past Surgical History / Comment(s): vein stripping of left leg, carpel tunnel right hand, YAS, cataract safia. eyes with implants, periocardiocen tesis -1979, aortic valve repair-March, colonoscopies/benign polypectomy, EGD with benign polypectomy. Past Anesthesia/Blood Transfusion Reactions: No Reported Reaction Additional Past Anesthesia/Blood Transfusion Reaction / Comment(s): Pt has received blood without reaction. Past Psychological History: No Psychological Hx Reported Smoking Status: Former smoker Past Alcohol Use History: None Reported Past Drug Use History: None Reported - Past Family History Mother Additional Family Medical History / Comment(s): Mother at the age of 98yrs from heart problems. Father Family Medical History: No Reported History Additional Family Medical History / Comment(s): Father in a MVA at the age of 59yrs. Sister(s) Family Medical History: Cancer General Exam Limitations: no limitations General appearance: alert, in no apparent distress Head exam: Present: atraumatic, normocephalic Eye exam: Present: normal appearance, PERRL, other ( Pale Conjunctiva) ENT exam: Present: normal exam Neck exam: Present: normal inspection. Absent: tenderness, meningismus Respiratory exam: Present: normal lung sounds bilaterally, respiratory distress Cardiovascular Exam: Present: regular rate, normal rhythm, systolic murmur GI/Abdominal exam: Present: soft, distended. Absent: tenderness, guarding, rebound Rectal exam: Present: normal inspection, normal rectal tone, black stool Extremities exam: Present: normal inspection, full ROM Neurological exam: Present: alert, oriented X3, CN II-XII intact. Absent: motor sensory deficit Psychiatric exam: Present: normal affect, normal mood Skin exam: Present: warm, dry, pallor Course Vital Signs 02/24/19 02/24/19 02/24/19 14:03 15:23 16:21 Temperature 97.7 F 97.8 F Pulse Rate 76 70 64 Respiratory 18 16 16 Rate Blood Pressure 128/71 124/74 127/72 O2 Sat by Pulse 99 96 97 Oximetry Medical Decision Making - Medical Decision Making 78-year-old male presenting for low hemoglobin and concern for GI bleed. Patient has melanotic stool which is heme positive. He has a hemoglobin 9.5, INR is 3.2, Coumadin will be held. Patient will have every 6 hours hemoglobin testing. He is admitted on proton pump inhibitor to a monitored bed. Gastroenterology placed on consult, case discussed with admitting physician. - Lab Data Result diagrams: 02/24/19 14:55 02/24/19 14:55 Lab Results 02/24/19 02/24/19 02/24/19 Range/Units 14:55 14:55 14:55 WBC 4.6 (3.8-10.6) k/uL RBC 3.40 L (4.30-5.90) m/uL Hgb 9.5 L (13.0-17.5) gm/dL Hct 32.1 L (39.0-53.0) % MCV 94.4 (80.0-100.0) fL MCH 28.0 (25.0-35.0) pg MCHC 29.6 L (31.0-37.0) g/dL RDW 15.0 (11.5-15.5) % Plt Count 213 (150-450) k/uL Neutrophils % 76 % Lymphocytes % 15 % Monocytes % 4 % Eosinophils % 3 % Basophils % 1 % Neutrophils # 3.5 (1.3-7.7) k/uL Lymphocytes # 0.7 L (1.0-4.8) k/uL Monocytes # 0.2 (0-1.0) k/uL Eosinophils # 0.1 (0-0.7) k/uL Basophils # 0.0 (0-0.2) k/uL Hypochromasia Marked Poikilocytosis Slight PT (9.0-12.0) sec INR (<1.2) APTT (22.0-30.0) sec Sodium 141 (137-145) mmol/L Potassium 3.8 (3.5-5.1) mmol/L Chloride 106 (98-107) mmol/L Carbon Dioxide 25 (22-30) mmol/L Anion Gap 10 mmol/L BUN 22 H (9-20) mg/dL Creatinine 1.15 (0.66-1.25) mg/dL Est GFR (CKD-EPI)AfAm 72 (>60 ml/min/1.73 sqM) Est GFR (CKD-EPI)NonAf 62 (>60 ml/min/1.73 sqM) Glucose 200 H (74-99) mg/dL Calcium 9.1 (8.4-10.2) mg/dL Magnesium 2.2 (1.6-2.3) mg/dL Total Bilirubin 0.6 (0.2-1.3) mg/dL AST 18 (17-59) U/L ALT 16 L (21-72) U/L Alkaline Phosphatase 80 (38-126) U/L Troponin I (0.000-0.034) ng/mL Total Protein 6.5 (6.3-8.2) g/dL Albumin 3.9 (3.5-5.0) g/dL Stool Occult Blood Positive (Negative) Blood Type Blood Type Recheck Antibody Screen Spec Expiration Date 02/24/19 02/24/19 02/24/19 Range/Units 14:55 14:55 14:55 WBC (3.8-10.6) k/uL RBC (4.30-5.90) m/uL Hgb (13.0-17.5) gm/dL Hct (39.0-53.0) % MCV (80.0-100.0) fL MCH (25.0-35.0) pg MCHC (31.0-37.0) g/dL RDW (11.5-15.5) % Plt Count (150-450) k/uL Neutrophils % % Lymphocytes % % Monocytes % % Eosinophils % % Basophils % % Neutrophils # (1.3-7.7) k/uL Lymphocytes # (1.0-4.8) k/uL Monocytes # (0-1.0) k/uL Eosinophils # (0-0.7) k/uL Basophils # (0-0.2) k/uL Hypochromasia Poikilocytosis PT 31.0 H (9.0-12.0) sec INR 3.2 H (<1.2) APTT 33.8 H (22.0-30.0) sec Sodium (137-145) mmol/L Potassium (3.5-5.1) mmol/L Chloride (98-107) mmol/L Carbon Dioxide (22-30) mmol/L Anion Gap mmol/L BUN (9-20) mg/dL Creatinine (0.66-1.25) mg/dL Est GFR (CKD-EPI)AfAm (>60 ml/min/1.73 sqM) Est GFR (CKD-EPI)NonAf (>60 ml/min/1.73 sqM) Glucose (74-99) mg/dL Calcium (8.4-10.2) mg/dL Magnesium (1.6-2.3) mg/dL Total Bilirubin (0.2-1.3) mg/dL AST (17-59) U/L ALT (21-72) U/L Alkaline Phosphatase (38-126) U/L Troponin I 0.027 (0.000-0.034) ng/mL Total Protein (6.3-8.2) g/dL Albumin (3.5-5.0) g/dL Stool Occult Blood (Negative) Blood Type A Positive Blood Type Recheck No Antibody Screen NEGATIVE Spec Expiration Date 02/27/2019 - 2353 Disposition Clinical Impression: GI bleed Disposition: ADMITTED IP TO THIS [facility] Condition: Stable Is patient prescribed a controlled substance at d/c from ED?: No Referrals: Faizan Ba DO [Primary Care Provider] - 1-2 days Decision to Admit Reason: Admit from EC Decision Date: 02/24/19 Decision Time: 17:03
[2019-02-24] MEDS: SODIUM CHLORIDE 0.9% 1,000 ML IV SCH (15:07)
[2019-02-24 15:22] LABS: INR 3.2 (<1.2); Partial Thromboplastin Time 33.8 sec (22.0-30.0)
[2019-02-24 15:35] LABS: Basophils % (A) 1 %; Eosinophils # (A) 0.1 k/uL (0-0.7); Eosinophils % (A) 3 %; HCT 32.1 % (39.0-53.0); HGB 9.5 gm/dL (13.0-17.5); Hypochromasia Marked; Lymphocytes # (A) 0.7 k/uL (1.0-4.8); Lymphocytes % (A) 15 %; MCHC 29.6 g/dL (31.0-37.0); MCV 94.4 fL (80.0-100.0); Monocytes # (A) 0.2 k/uL (0-1.0); Monocytes % (A) 4 %; Neutrophils # (A) 3.5 k/uL (1.3-7.7); Neutrophils % (A) 76 %; Platelet Count 213 k/uL (150-450); Poikilocytosis Slight; WBC 4.6 k/uL (3.8-10.6)
[2019-02-24 15:48] LABS: Albumin 3.9 g/dL (3.5-5.0); Calcium 9.1 mg/dL (8.4-10.2); Magnesium 2.2 mg/dL (1.6-2.3); Potassium 3.8 mmol/L (3.5-5.1); Total Bilirubin 0.6 mg/dL (0.2-1.3); Total Protein 6.5 g/dL (6.3-8.2)
[2019-02-24] MEDS ORDERED: NALOXONE 0.4 MG/ML 1 ML VIAL IV PRN (17:00)
[2019-02-24] MEDS ORDERED: ACETAMINOPHEN TAB 325 MG TAB PO PRN (17:00)
[2019-02-24 19:59] LABS: Glucose,Whole Blood 176 mg/dL (75-99)
[2019-02-24] MEDS: PANTOPRAZOLE 40 MG/10 ML VIAL IVP SCH (21:09)
[2019-02-25 00:41] LABS: Basophils % (A) 1 %; Eosinophils # (A) 0.2 k/uL (0-0.7); Eosinophils % (A) 4 %; HCT 27.9 % (39.0-53.0); HGB 8.5 gm/dL (13.0-17.5); Hypochromasia Marked; Lymphocytes # (A) 0.9 k/uL (1.0-4.8); Lymphocytes % (A) 16 %; MCH 28.5 pg (25.0-35.0); MCHC 30.3 g/dL (31.0-37.0); Mean Platelet Volume 8.4; Monocytes # (A) 0.3 k/uL (0-1.0); Monocytes % (A) 5 %; Neutrophils % (A) 73 %; Platelet Count 160 k/uL (150-450); Poikilocytosis Slight; RBC 2.97 m/uL (4.30-5.90); RDW 14.7 % (11.5-15.5); WBC 5.5 k/uL (3.8-10.6)
[2019-02-25] MEDS: SODIUM CHLORIDE 0.9% 1,000 ML IV SCH ×2 (04:51→16:45)
[2019-02-25 07:06] LABS: Glucose,Whole Blood 196 mg/dL (75-99)
[2019-02-25 07:48] LABS: Basophils # (A) 0.1 k/uL (0-0.2); Basophils % (A) 1 %; Eosinophils # (A) 0.2 k/uL (0-0.7); Eosinophils % (A) 4 %; Hypochromasia Marked; Lymphocytes # (A) 0.5 k/uL (1.0-4.8); Lymphocytes % (A) 11 %; MCH 28.6 pg (25.0-35.0); MCHC 29.9 g/dL (31.0-37.0); MCV 95.6 fL (80.0-100.0); Mean Platelet Volume 9.4; Monocytes # (A) 0.2 k/uL (0-1.0); Monocytes % (A) 5 %; Neutrophils # (A) 3.7 k/uL (1.3-7.7); Neutrophils % (A) 78 %; Platelet Count 173 k/uL (150-450); Poikilocytosis Slight; RBC 3.14 m/uL (4.30-5.90); WBC 4.8 k/uL (3.8-10.6)
[2019-02-25 09:02] LABS: Albumin 3.6 g/dL (3.5-5.0); Calcium 8.6 mg/dL (8.4-10.2); Potassium 4.1 mmol/L (3.5-5.1); Total Bilirubin 0.8 mg/dL (0.2-1.3); Total Protein 6.1 g/dL (6.3-8.2)
[2019-02-25] MEDS: PANTOPRAZOLE 40 MG/10 ML VIAL IVP SCH ×2 (09:03→20:16)
[2019-02-25] MEDS ORDERED: CALCITRIOL 0.25 MCG CAP PO SCH (10:45)
[2019-02-25 12:27] LABS: Glucose,Whole Blood 235 mg/dL (75-99)
[2019-02-25] MEDS: INSULIN ASPART (NovoLOG) 100 UNIT/ML VIAL SQ SCH ×3 (13:36→21:13)
[2019-02-25] MEDS: FUROSEMIDE 40 MG TAB PO SCH (13:36)
[2019-02-25] MEDS: CYANOCOBALAMIN 500 MCG TAB PO SCH (13:36)
[2019-02-25] MEDS: ALLOPURINOL 100 MG TAB PO SCH (13:36)
[2019-02-25] MEDS: GLIMEPIRIDE 2 MG TAB PO SCH (13:53)
[2019-02-25] MEDS ORDERED: PHYTONADIONE ORAL 5 MG/5 ML ORAL.SYRG PO STA (15:38)
--- NOTE | 2019-02-25 15:38 | P.HPIM ---
History of Present Illness H&P Date: 02/25/19 Chief Complaint: Anemia History of present complaint: This is a very pleasant 78 year old patient of Dr. Faizan Severino. Chronic stable medical conditions include atrial fibrillation, congestive heart failure EF 30%, COPD, diabetes, hypertension, hyperlipidemia. Patient had a blood work checked by his family doctor he told he wasn't anemic and sent to the ER. Patient has b een having DrYessenia was off and on. Patient has chronic edema. Does not feel dizzy or lightheaded no chest pain or palpitation. The patient being scheduled for EGD tomorrow. GI was consulted. Not on pain. No fever or chills. Review of systems: GEN.: None EYES: None HEENT: None NECK: None RESPIRATORY: None CARDIOVASCULAR: None GASTROINTESTINAL: As above GENITOURINARY: None MUSCULOSKELETAL: Pain in the joints LYMPHATICS: None HEMATOLOGICAL: As above PSYCHIATRY: None NEUROLOGICAL: None Social history: Medical. Does use a cane and a walker. No alcohol. Smoked for 25 years, stopped in 1979. Family history: Mother of heart problems age of 98 Physical examination: VITAL SIGNS: 97.7, 76, 18, 128/71, 99% GENERAL: BMI 32.5, sitting up, comfortable. EYES: Pupils equal. Conjunctiva palel. HEENT: External appearance of nose and ears normal, oral cavity grossly normal. NECK: JVD not raised; masses not palpable. HEART: First and second heart sounds are normal; edema present. LUNGS: Respiratory rate normal; clear to auscultation. ABDOMEN: Soft, nontender, liver spleen not palpable, no masses palpable. LYMPHATICS: No lymph nodes palpable in the axilla and neck. PSYCH: Alert and oriented x3; mood and affect normal. NEUROLOGICAL: Cranial nerves grossly intact; no facial asymmetry, power and sensation grossly intact. Investigations-reviewed in the clinical context White count 4.6 and globin 9.5 repeat 8.5 platelets 213 INR 3.2 potassium 3.8. 22 crit and 1.15 Assessment: -Acute GI bleed in a patient was put on aspirin and Coumadin. -Persistent atrial fibrillation, currently sinus rhythm -Nonobstructive coronary artery disease per cardiac cath done in November 2018 -Chronic congestive heart failure from systolic dysfunction EF 40% -COPD -Avid as well as type II on oral hypoglycemic -Hyperlipidemia -Essential hypertension -Primary osteoarthritis -Diabetic peripheral neuropathy -Chronic lower extremity venous insufficiency, and this explains patient lower e xtremity edema. Patient has no evidence of clinical CHF decompensation Plan: Will give patient vitamin K 2.5 mg by mouth. Other medication is to continue. Follow Accu-Cheks. Patient's aspirin and Coumadin have been held. GI was consulted. The planning for endoscopy tomorrow morning. Care was discussed with the patient. Questions were answered. Patient also put on proton pump inhibitor. We'll keep the patient on telemetry. Past Medical History Past Medical History: Atrial Fibrillation, Heart Failure, COPD, Diabetes Mellitus, Hearing Disorder / Deafness, Hyperlipidemia, Hypertension, Osteoarthritis (OA), Vascular Disorder Additional Past Medical History / Comment(s): Viral myocarditis & pericarditis 1979, IDDM type II, neuropathy bilateral feet and occasionally in bilateral hands, L thigh varicose veins, venous insufficiency, [place] bilaterally. gangrenous gallbladder-removed History of Any Multi-Drug Resistant Organisms: None Reported Past Surgical History: Cardiac Valve Replacement, Cholecystectomy, Heart Catheterization, Orthopedic Surgery Additional Past Surgical History / Comment(s): vein stripping of left leg, carpel tunnel right hand, YAS, cataract safia. eyes with implants, periocardiocentesis -1979, aortic valve repair-March, colonoscopies/benign polypectomy, EGD with benign polypectomy. Past Anesthesia/Blood Transfusion Reactions: No Reported Reaction Additional Past Anesthesia/Blood Transfusion Reaction / Comment(s): Pt has received blood without reaction. Past Psychological History: No Psychological Hx Reported Additional Psychological History / Comment(s): Pt resides with his spouse. He is independent. He will use a cane or walker prn. Smoking Status: Former smoker Past Alcohol Use History: None Reported Additional Past Alcohol Use History / Comment(s): Pt started smoking in 1955 and quit in 1979. He was less than a ppd smoker. Past Drug Use History: None Reported - Past Family History Mother Additional Family Medical History / Comment(s): Mother at the age of 98yrs from heart problems. Father Family Medical History: No Reported History Additional Family Medical History / Comment(s): Father in a MVA at the age of 59yrs. Sister(s) Family Medical History: Cancer Medications and Allergies Home Medications Medication Instructions Recorded Confirmed Type Allopurinol [Zyloprim] 100 mg PO DAILY 01/11/18 02/24/19 History Ferrous Gluconate 324 mg PO BID 01/11/18 02/24/19 History Furosemide [Lasix] 40 mg PO DAILY 02/16/18 02/24/19 History Glimepiride [Amaryl] 2 mg PO AC-BRKFST 02/16/18 02/24/19 History Aspirin [[place] Aspirin EC] 81 mg PO DAILY 12/08/18 02/24/19 History Calcitriol 0.25 mcg PO [place] 12/08/18 02/24/19 History Cyanocobalamin (Vitamin B-12) 1,000 mcg PO DAILY 12/08/18 02/24/19 History [Vitamin B-12] Warfarin [Coumadin] 10 mg PO DAILY 12/08/18 02/24/19 History Allergies Allergy/AdvReac Type Severity Reaction Status Date / Time codeine Allergy Rash/Hives Verified 02/24/19 14:24 Physical Exam Vitals: Vital Signs Temp Pulse Pulse Resp BP BP Pulse Ox 02/25/19 05:00 97.5 F L 63 16 135/71 98 02/25/19 00:00 16 02/24/19 20:57 96.6 F L 78 16 128/65 97 02/24/19 18:40 97.9 F 65 16 144/81 98 02/24/19 17:49 98 F 63 16 118/67 98 02/24/19 16:21 64 16 127/72 97 02/24/19 15:23 97.8 F 70 16 124/74 96 02/24/19 14:03 97.7 F 76 18 128/71 99 Intake and Output 02/24/19 02/25/19 02/25/19 22:59 06:59 14:59 Intake Total 1380 1310 Balance 1380 1310 Intake: Intake, IV Titration 300 600 Amount Sodium Chloride 0.9% 1, 300 600 000 ml @ 75 mls/hr IV . [id number] RADHA Rx#:[id number] Oral 1080 710 Other: # Voids 1 2 Results CBC & Chem 7: 02/25/19 07:15 02/25/19 07:15 Labs: Abnormal Lab Results - Last 24 Hours (Table) 02/24/19 02/24/19 02/24/19 Range/Units 14:55 14:55 14:55 RBC 3.40 L (4.30-5.90) m/uL Hgb 9.5 L (13.0-17.5) gm/dL Hct 32.1 L (39.0-53.0) % MCHC 29.6 L (31.0-37.0) g/dL Lymphocytes # 0.7 L (1.0-4.8) k/uL PT 31.0 H (9.0-12.0) sec INR 3.2 H (<1.2) APTT 33.8 H (22.0-30.0) sec Chloride (98-107) mmol/L BUN 22 H (9-20) mg/dL Glucose 200 H (74-99) mg/dL POC Glucose (mg/dL) (75-99) mg/dL AST (17-59) U/L ALT 16 L (21-72) U/L Total Protein (6.3-8.2) g/dL 02/24/19 02/25/19 02/25/19 Range/Units 19:57 00:08 07:05 RBC 2.97 L (4.30-5.90) m/uL Hgb 8.5 L (13.0-17.5) gm/dL Hct 27.9 L (39.0-53.0) % MCHC 30.3 L (31.0-37.0) g/dL Lymphocytes # 0.9 L (1.0-4.8) k/uL PT (9.0-12.0) sec INR (<1.2) APTT (22.0-30.0) sec Chloride (98-107) mmol/L BUN (9-20) mg/dL Glucose (74-99) mg/dL POC Glucose (mg/dL) 176 H 196 H (75-99) mg/dL AST (17-59) U/L ALT (21-72) U/L Total Protein (6.3-8.2) g/dL 02/25/19 02/25/19 Range/Units 07:15 07:15 RBC 3.14 L (4.30-5.90) m/uL Hgb 9.0 L (13.0-17.5) gm/dL Hct 30.0 L (39.0-53.0) % MCHC 29.9 L (31.0-37.0) g/dL Lymphocytes # 0.5 L (1.0-4.8) k/uL PT (9.0-12.0) sec INR (<1.2) APTT (22.0-30.0) sec Chloride 108 H (98-107) mmol/L BUN (9-20) mg/dL Glucose 170 H (74-99) mg/dL POC Glucose (mg/dL) (75-99) mg/dL AST 16 L (17-59) U/L ALT 20 L (21-72) U/L Total Protein 6.1 L (6.3-8.2) g/dL Thrombosis Risk Factor Assmnt - Choose All That Apply Any of the Below Risk Factors Present?: Yes Each Factor Represents 1 point: Swollen legs (current) Other Risk Factors: Yes Each Risk Factor Represents 3 Points: Age 75 years or older Other congenital or acquired thrombophilia - If yes, enter type in comment: No Thrombosis Risk Factor Assessment Total Risk Factor Score: 4 Thrombosis Risk Factor Assessment Level: Moderate Risk
[2019-02-25 17:03] LABS: Glucose,Whole Blood 167 mg/dL (75-99)
--- NOTE | 2019-02-25 17:11 | P.CONS ---
History of Present Illness - Reason for Consult Consult date: 02/25/19 Melena Requesting physician: Alexy Cedeño - Chief Complaint Melena - History of Present Illness 78-year-old male with a medical history significant for atrial fibrillation on Coumadin therapy, diabetes mellitus, hypertension, choledocholithiasis status post ERCP, neuropathy and COPD who presented to the hospital secondary to anemia. The patient was previously seen in 04/2017 at which time he was evaluated for anemia with EGD significant for polypectomy, colonoscopy significant for diverticulosis and polypectomy, video capsule endoscopy which did show active bleeding which was followed by a push enteroscopy which was negative. He denies any anemia since that time and denies any NSAID use, or history of peptic ulcer disease, abdominal pain, nausea or vomiting. She does report that over the past few weeks he has seen dark stool. He is on iron supplementation with ferrous sulfate at home but reports that bowel movements have been black and tarry. Last bowel movement today was also described as dark in color. On presentation to the hospital hemoglobin was found to be 9.5 down from 12.7 on 11/2018. Currently hemoglobin is 9 with INR 3.2, total bilirubin 0.8, alkaline phosphatase 75, AST 16 and ALT 20. Otherwise patient is denying any current Review of Systems REVIEW OF SYSTEMS: CONSTITUTIONAL: Denies any fevers, chills, weight change. CARDIOVASCULAR: Denies any chest pain, or low blood pressures but does have a history of atrial fibrillation. RESPIRATORY: Denies any shortness of breath, hemoptysis or cough. GENITOURINARY: No dysuria or hematuria. MUSCULOSKELETAL: No weakness reported. SKIN: Denies any new rashes or lesions, jaundice or pallor. PSYCHIATRIC: Denies any depression or anxiety. NEUROLOGY: Denies headache, denies any new focal deficits. EARS/NOSE/THROAT: No recent hearing change, congestion, nasal discharge or sore throat, does have history of decreased hearing. EYES: No pain in eyes, discharge or change in vision. GASTROINTESTINAL: As per HPI. Past Medical History Past Medical History: Atrial Fibrillation, Heart Failure, COPD, Diabetes Mellitus, Hearing Disorder / Deafness, Hyperlipidemia, Hypertension, Osteoar thritis (OA), Vascular Disorder Additional Past Medical History / Comment(s): Viral myocarditis & pericarditis 1979, IDDM type II, neuropathy bilateral feet and occasionally in bilateral hands, L thigh varicose veins, venous insufficiency, [place] bilaterally. gangrenous gallbladder-removed History of Any Multi-Drug Resistant Organisms: None Reported Past Surgical History: Cardiac Valve Replacement, Cholecystectomy, Heart Cat heterization, Orthopedic Surgery Additional Past Surgical History / Comment(s): vein stripping of left leg, carpel tunnel right hand, YAS, cataract safia. eyes with implants, pe riocardiocentesis -1979, aortic valve repair-March, colonoscopies/benign polypectomy, EGD with benign polypectomy. Past Anesthesia/Blood Transfusion Reactions: No Reported Reaction Additional Past Anesthesia/Blood Transfusion Reaction / Comm: Pt has received blood without reaction. Past Psychological History: No Psychological Hx Reported Additional Psychological History / Comment(s): Pt resides with his spouse. He is independent. He will use a cane or walker prn. Smoking Status: Former smoker Past Alcohol Use History: None Reported Additional Past Alcohol Use History / Comment(s): Pt started smoking in 1955 and quit in 1979. He was less than a ppd smoker. Past Drug Use History: None Reported - Past Family History Mother Additional Family Medical History / Comment(s): Mother at the age of 98yrs from heart problems. Father Family Medical History: No Reported History Additional Family Medical History / Comment(s): Father in a MVA at the age of 59yrs. Sister(s) Family Medical History: Cancer Medications and Allergies Home Medications Medication Instructions Recorded Confirmed Type Allopurinol [Zyloprim] 100 mg PO DAILY 01/11/18 02/24/19 History Ferrous Gluconate 324 mg PO BID 01/11/18 02/24/19 History Furosemide [Lasix] 40 mg PO DAILY 02/16/18 02/24/19 History Glimepiride [Amaryl] 2 mg PO AC-BRKFST 02/16/18 02/24/19 History Aspirin [[place] Aspirin EC] 81 mg PO DAILY 12/08/18 02/24/19 History Calcitriol 0.25 mcg PO [place] 12/08/18 02/24/19 History Cyanocobalamin (Vitamin B-12) 1,000 mcg PO DAILY 12/08/18 02/24/19 History [Vitamin B-12] Warfarin [Coumadin] 10 mg PO DAILY 12/08/18 02/24/19 History Allergies Allergy/AdvReac Type Severity Reaction Status Date / Time codeine Allergy Rash/Hives Verified 02/24/19 14:24 Physical Exam Vitals: Vital Signs Temp Pulse Pulse Resp BP BP Pulse Ox 02/25/19 12:26 97.5 F L 55 L 16 151/75 100 02/25/19 05:00 97.5 F L 63 16 135/71 98 02/25/19 00:00 16 02/24/19 20:57 96.6 F L 78 16 128/65 97 02/24/19 18:40 97.9 F 65 16 144/81 98 02/24/19 17:49 98 F 63 16 118/67 98 02/24/19 16:21 64 16 127/72 97 02/24/19 15:23 97.8 F 70 16 124/74 96 Intake and Output 02/25/19 02/25/19 02/25/19 06:59 14:59 22:59 Intake Total 1310 1500 Balance 1310 1500 Intake: Intake, IV Titration 600 Amount Sodium Chloride 0.9% 1, 600 000 ml @ 75 mls/hr IV . [id number] RADHA Rx#:[id number] Oral 710 1500 Other: # Voids 2 2 # Bowel Movements 1 On physical examination, patient appears comfortable in no apparent distress. HEAD: Normocephalic, atraumatic. EYES: No scleral icterus. No conjunctival injection. MOUTH: No lesions, tongue midline. NECK: Trachea midline, no gross abnormalities. CHEST: Clear to auscultation with no wheezing or rhonchi appreciated. HEART: Irregularly irregular. ABDOMEN: Soft, obese. Bowel sounds are positive. No organomegaly. No guarding or rigidity. EXTREMITIES: No pedal edema. SKIN: No rashes, no jaundice. NEUROLOGIC: Alert and oriented x3. No focal deficits. Results CBC & Chem 7: 02/25/19 07:15 02/25/19 07:15 Labs: Abnormal Lab Results - Last 24 Hours (Table) 02/24/19 02/24/19 02/24/19 Range/Units 14:55 14:55 14:55 RBC 3.40 L (4.30-5.90) m/uL Hgb 9.5 L (13.0-17.5) gm/dL Hct 32.1 L (39.0-53.0) % MCHC 29.6 L (31.0-37.0) g/dL Lymphocytes # 0.7 L (1.0-4.8) k/uL PT 31.0 H (9.0-12.0) sec INR 3.2 H (<1.2) APTT 33.8 H (22.0-30.0) sec Chloride (98-107) mmol/L BUN 22 H (9-20) mg/dL Glucose 200 H (74-99) mg/dL POC Glucose (mg/dL) (75-99) mg/dL AST (17-59) U/L ALT 16 L (21-72) U/L Total Protein (6.3-8.2) g/dL 02/24/19 02/25/19 02/25/19 Range/Units 19:57 00:08 07:05 RBC 2.97 L (4.30-5.90) m/uL Hgb 8.5 L (13.0-17.5) gm/dL Hct 27.9 L (39.0-53.0) % MCHC 30.3 L (31.0-37.0) g/dL Lymphocytes # 0.9 L (1.0-4.8) k/uL PT (9.0-12.0) sec INR (<1.2) APTT (22.0-30.0) sec Chloride (98-107) mmol/L BUN (9-20) mg/dL Glucose (74-99) mg/dL POC Glucose (mg/dL) 176 H 196 H (75-99) mg/dL AST (17-59) U/L ALT (21-72) U/L Total Protein (6.3-8.2) g/dL 02/25/19 02/25/19 02/25/19 Range/Units 07:15 07:15 12:26 RBC 3.14 L (4.30-5.90) m/uL Hgb 9.0 L (13.0-17.5) gm/dL Hct 30.0 L (39.0-53.0) % MCHC 29.9 L (31.0-37.0) g/dL Lymphocytes # 0.5 L (1.0-4.8) k/uL PT (9.0-12.0) sec INR (<1.2) APTT (22.0-30.0) sec Chloride 108 H (98-107) mmol/L BUN (9-20) mg/dL Glucose 170 H (74-99) mg/dL POC Glucose (mg/dL) 235 H (75-99) mg/dL AST 16 L (17-59) U/L ALT 20 L (21-72) U/L Total Protein 6.1 L (6.3-8.2) g/dL Comments: No imaging studies performed on this hospitalization. Assessment and Plan (1) GI bleed Narrative/Plan: 78-year-old male who presented to the hospital with complaints of melena and anemia. Hemoglobin in December 07 1911.7 and found to be 9.5 on presentation with a supratherapeutic INR at 3.2 and reports of melena over the past few weeks. Suspicion is for upper GI bleed with differential including peptic ulcer disease, gastritis/esophagitis, Marisa-Pham tear or other etiology. He had similar presentation in 04/2017 at which time he had EGD, colonoscopy, video capsule endoscopy and push enteroscopy which were negative for source of bleeding. Current Visit: Yes Status: Acute Code(s): K92.2 - GASTROINTESTINAL HEMORRHAGE, UNSPECIFIED SNOMED Code(s): 07164220 (2) Acute blood loss anemia Current Visit: No Status: Acute Code(s): D62 - ACUTE POSTHEMORRHAGIC ANEMIA SNOMED Code(s): 938592009 Plan: Supportive care Okay for liquids Nothing by mouth after midnight Continue Protonix twice daily Continue to monitor hemoglobin and transfuse as needed Continue monitor for signs or symptoms of GI bleeding Plan for upper endoscopy tomorrow for further evaluation Further recommendations pending findings of EGD Continue to hold anticoagulation therapy Thank you for allowing us to participate in the care of this patient we will continue to follow
[2019-02-25] MEDS ORDERED: INSULIN ASPART (NovoLOG) 100 UNIT/ML VIAL SQ SCH (17:30)
[2019-02-25 21:11] LABS: Glucose,Whole Blood 157 mg/dL (75-99)
[2019-02-26] MEDS: SODIUM CHLORIDE 0.9% 1,000 ML IV SCH ×2 (05:28→14:39)
[2019-02-26 07:04] LABS: Glucose,Whole Blood 155 mg/dL (75-99)
[2019-02-26 08:27] LABS: Basophils % (A) 1 %; Eosinophils # (A) 0.3 k/uL (0-0.7); Eosinophils % (A) 5 %; HCT 29.3 % (39.0-53.0); HGB 8.7 gm/dL (13.0-17.5); Hypochromasia Marked; Lymphocytes # (A) 0.6 k/uL (1.0-4.8); Lymphocytes % (A) 12 %; MCH 28.2 pg (25.0-35.0); MCHC 29.6 g/dL (31.0-37.0); MCV 95.4 fL (80.0-100.0); Mean Platelet Volume 8.5; Monocytes # (A) 0.2 k/uL (0-1.0); Monocytes % (A) 5 %; Neutrophils # (A) 3.6 k/uL (1.3-7.7); Neutrophils % (A) 76 %; Platelet Count 162 k/uL (150-450); Poikilocytosis Slight; RBC 3.07 m/uL (4.30-5.90); RDW 14.7 % (11.5-15.5); WBC 4.8 k/uL (3.8-10.6)
[2019-02-26 08:37] LABS: INR 1.8 (<1.2); Prothrombin Time 17.5 sec (9.0-12.0)
[2019-02-26] MEDS: PANTOPRAZOLE 40 MG/10 ML VIAL IVP SCH ×2 (09:14→20:32)
[2019-02-26] MEDS: INSULIN ASPART (NovoLOG) 100 UNIT/ML VIAL SQ SCH ×4 (10:03→20:59)
[2019-02-26] MEDS: GLIMEPIRIDE 2 MG TAB PO SCH (10:03)
[2019-02-26 12:10] LABS: Glucose,Whole Blood 194 mg/dL (75-99)
--- NOTE | 2019-02-26 13:14 | P.CRDCN ---
History of Present Illness History of present illness: This is a pleasant 78-year-old male past medical history significant for chronic persistent atrial fibrillation on skilled nursing anti-coagulation with coumadin, valvular heart disease s/p mitral valve repair, non-ischemic cardiomyopathy with EF of 40%, bradycardia, COPD, hypertension and mild non- obstructive CAD. He follows in the office with Dr. Jc. We have been asked to see him in consultation for sinus pauses. He presented to the hospital on recommendation of his physician for low hemoglobin found. He states he has been noticing black stools for the last couple of weeks. Denies chest pain, shortness of breath, dizziness, nausea, vomiting, palpitations or diaphoresis. He is scheduled for an EGD this afternoon. EKG and telemetry tracings reviewed reveal atrial fibrillation with intermittent slow ventricular rates with overall stable heart rates. There is no sinus pauses as the patient is not in sinus rhythm. Laboratory data reviewed, WBC 4.8, hemoglobin 8.7, platelets 162, INR 1.8, sodium 140, potassium 4.1, creatinine 1.19. Daily cardiac medications include aspirin 81 mg daily, Lasix 40 mg daily and Coumadin 10 mg daily. Aspirin and Coumadin has been held since admission. At the time of my exam: CONSTITUTIONAL: Denies fever. Denies chills. EYES: Denies blurred vision. Denies vision changes. Denies eye pain. EARS, NOSE, MOUTH & THROAT: Denies headache. Denies sore throat. Denies ear pain. CARDIOVASCULAR: Denies chest pain. Denies shortness of breath. Denies orthopnea. Denies PND. Denies palpitations. RESPIRATORY: Denies cough. GASTROINTESTINAL: Denies abdominal pain. Denies diarrhea. Denies constipation. Denies nausea. Denies vomiting. MUSCULOSKELETAL: Denies myalgias. INTEGUMENTARY: Denies pruitis. Denies rash. NEUROLOGIC: Denies numbness. Denies tingling. Denies weakness. PSYCHIATRIC: Denies anxiety. Denies depression. ENDOCRINE: Denies fatigue. Denies weight change. Denies polydipsia. Denies polyurina. GENITOURINARY: Denies burning, hematuria or urgency with micturation. HEMATOLOGIC: Denies history of anemia. Complains of black stools. Denies active bright red bleeding. Blood pressure 129/78 heart rate 59 afebrile maintaining oxygen saturation on room air GENERAL: This is a 78-year-old male in no apparent distress at the time of my examination. HEENT: Head is atraumatic, normocephalic. Pupils are equal, round. Sclerae anicteric. Conjunctivae are clear. Mucous membranes of the mouth are moist. Neck is supple. There is no jugular venous distention. No carotid bruit is heard. LUNGS: Clear to auscultation no wheezes, rales or rhonchi. No chest wall tenderness is noted on palpation or with deep breathing. HEART: Irregular rate and rhythm with systolic ejection murmur at the left sternal border, no rubs or gallops. S1 and S2 heard. ABDOMEN: Soft, nontender. Bowel sounds are heard. No organomegaly noted. EXTREMITIES: No evidence of peripheral edema and no calf tenderness noted. VASCULAR: Radial and dorsalis pedis pulses palpated, no evidence of clubbing. NEUROLOGIC: Patient is awake, alert and oriented x3. ASSESSMENT Chronic persistent atrial fibrillation with variable rates. Asymptomatic. Acute GI bleeding Valvular heart disease s/p mitral valve repair COPD Hypertension Mild non-obstructive CAD PLAN Telemetry tracings reviewed and reveal atrial fibrillation with variable rates. This is chonic and ongoing for this patient. He remains asymptomatic. Check TSH. Resume coumadin and aspirin per GI service after EGD. Please feel free to call with further questions or concerns. Follow up with Dr. Jc upon discharge. Nurse Practitioner note has been reviewed, I agree with a documented findings a nd plan of care. Patient was seen and examined. Past Medical History Past Medical History: Atrial Fibrillation, Heart Failure, COPD, Diabetes Mellitus, Hearing Disorder / Deafness, Hyperlipidemia, Hypertension, Osteoarthritis (OA), Vascular Disorder Additional Past Medical History / Comment(s): Viral myocarditis & pericarditis 1979, IDDM type II, neuropathy bilateral feet and occasionally in bilateral hands, L thigh varicose veins, venous insufficiency, CREEK bilaterally. gangrenous gallbladder-removed History of Any Multi-Drug Resistant Organisms: None Reported Past Surgical History: Cardiac Valve Replacement, Cholecystectomy, Heart Catheterization, Orthopedic Surgery Additional Past Surgical History / Comment(s): vein stripping of left leg, carpel tunnel right hand, YAS, cataract safia. eyes with implants, periocardiocentesis -1979, aortic valve repair-March, colonoscopies/benign polypectomy, EGD with benign polypectomy. Past Anesthesia/Blood Transfusion Reactions: No Reported Reaction Additional Past Anesthesia/Blood Transfusion Reaction / Comment(s): Pt has received blood without reaction. Past Psychological History: No Psychological Hx Reported Additional Psychological History / Comment(s): Pt resides with his spouse. He is independent. He will use a cane or walker prn. Smoking Status: Former smoker Past Alcohol Use History: None Reported Additional Past Alcohol Use History / Comment(s): Pt started smoking in 1955 and quit in 1979. He was less than a ppd smoker. Past Drug Use History: None Reported - Past Family History Mother Additional Family Medical History / Comment(s): Mother at the age of 98yrs from heart problems. Father Family Medical History: No Reported History Additional Family Medical History / Comment(s): Father in a MVA at the age of 59yrs. Sister(s) Family Medical History: Cancer Medications and Allergies Home Medications Medication Instructions Recorded Confirmed Type Allopurinol [Zyloprim] 100 mg PO DAILY 01/11/18 02/24/19 History Ferrous Gluconate 324 mg PO BID 01/11/18 02/24/19 History Furosemide [Lasix] 40 mg PO DAILY 02/16/18 02/24/19 History Glimepiride [Amaryl] 2 mg PO AC-BRKFST 02/16/18 02/24/19 History Aspirin [[place] Aspirin EC] 81 mg PO DAILY 12/08/18 02/24/19 History Calcitriol 0.25 mcg PO [place]ICK[place] 12/08/18 02/24/19 History Cyanocobalamin (Vitamin B-12) 1,000 mcg PO DAILY 12/08/18 02/24/19 History [Vitamin B-12] Warfarin [Coumadin] 10 mg PO DAILY 12/08/18 02/24/19 History Allergies Allergy/AdvReac Type Severity Reaction Status Date / Time codeine Allergy Rash/Hives Verified 02/24/19 14:24 Physical Exam Vitals: Vital Signs Temp Pulse Pulse Resp BP Pulse Ox 02/26/19 12:29 97.6 F 59 L 16 129/78 97 02/26/19 08:08 97.4 F L 58 L 16 120/61 97 02/26/19 05:00 97.6 F 52 L 18 141/75 96 02/25/19 21:00 97.6 F 52 L 18 141/75 96 Intake and Output 02/25/19 02/26/19 02/26/19 22:59 06:59 14:59 Intake Total 780 600 Balance 780 600 Intake: Intake, IV Titration 300 600 Amount Sodium Chloride 0.9% 1, 300 600 000 ml @ 75 mls/hr IV . [id number] [facility] Rx#:[id number] Oral 480 Other: Voiding Method Toilet # Voids 2 2 # Bowel Movements 1 Results 02/26/19 07:25 02/25/19 07:15 Coagulation 02/26/19 Range/Units 07:25 PT 17.5 H (9.0-12.0) sec CBC 02/26/19 Range/Units 07:25 WBC 4.8 (3.8-10.6) k/uL RBC 3.07 L (4.30-5.90) m/uL Hgb 8.7 L (13.0-17.5) gm/dL Hct 29.3 L (39.0-53.0) % Plt Count 162 (150-450) k/uL Current Medications Generic Name Dose Route Start Last Admin Trade Name Freq PRN Reason Stop Dose Admin Acetaminophen 650 mg 02/24/19 17:00 Tylenol Tab PO Q6HR PRN Mild Pain or Fever > 100.5 Allopurinol 100 mg 02/25/19 10:45 02/25/19 13:36 Zyloprim PO 100 mg DAILY [facility] Administration Calcitriol 0.25 mcg 02/25/19 10:45 02/25/19 13:35 Rocaltrol PO 0.25 mcg [place] [facility] Administration Cyanocobalamin 1,000 mcg 02/25/19 10:45 02/25/19 13:36 Vitamin B-12 PO 1,000 mcg DAILY [facility] Administration Furosemide 40 mg 02/25/19 10:45 02/25/19 13:36 Lasix PO 40 mg DAILY [facility] Administration Glimepiride 2 mg 02/25/19 13:30 02/26/19 10:03 Amaryl PO Not Given AC-BRKFST [facility] Sodium Chloride 1,000 mls @ 75 mls/hr 02/24/19 14:30 02/26/19 05:28 Saline 0.9% IV 75 mls/hr .[id number] [facility] Administration Insulin Aspart 0 unit 02/25/19 13:30 02/26/19 10:03 Novolog SQ Not Given ACHS [facility] Protocol Naloxone HCl 0.2 mg 02/24/19 17:00 Narcan IV Q2M PRN Opioid Reversal Pantoprazole Sodium 40 mg 02/24/19 21:00 02/26/19 09:14 Protonix IVP 40 mg BID [facility] Administration Intake and Output 02/25/19 02/26/19 02/26/19 22:59 06:59 14:59 Intake Total 780 600 Balance 780 600 Intake: Intake, IV Titration 300 600 Amount Sodium Chloride 0.9% 1, 300 600 000 ml @ 75 mls/hr IV . [id number] [facility] Rx#:[id number] Oral 480 Other: Voiding Method Toilet # Voids 2 2 # Bowel Movements 1 02/26/19 07:25 02/25/19 07:15
[2019-02-26] MEDS ORDERED: MIDAZOLAM 2 MG/2 ML VIAL ONE (13:59)
[2019-02-26] MEDS ORDERED: PROPOFOL 10 MG/ML 20 ML VIAL IV ONE (13:59)
[2019-02-26] MEDS ORDERED: IV FLUID CONTINUATION 1,000 ML IV ONE ×2 (14:01)
--- NOTE | 2019-02-26 14:23 | P.PCN ---
Date of Procedure: 02/26/19 Description of Procedure: BRIEF HISTORY: 78-year-old male with a medical history significant for atrial fibrillation on Coumadin therapy, diabetes mellitus, hypertension, choledocholithiasis status post ERCP, neuropathy and COPD who presented to the hospital secondary to anemia. The patient was previously seen in 04/2017 at which time he was evaluated for anemia with EGD significant for polypectomy, colonoscopy significant for diverticulosis and polypectomy, video capsule endoscopy which did show active bleeding which was followed by a push enteroscopy which was negative. He denies any anemia since that time and denies any NSAID use, or history of peptic ulcer disease, abdominal pain, nausea or vomiting. She does report that over the past few weeks he has seen dark stool. He is on iron supplementation with ferrous sulfate at home but reports that bowel movements have been black and tarry. Last bowel movement today was also described as dark in color. On presentation to the hospital hemoglobin was found to be 9.5 down from 12.7 on 11/2018. Currently hemoglobin is 9 with INR 3.2, total bilirubin 0.8, alkaline phosphatase 75, AST 16 and ALT 20. Otherwise patient is denying any current PROCEDURE PERFORMED: Esophagogastroduodenoscopy with biopsy. PREOPERATIVE DIAGNOSIS: Melena, anemia acute blood loss. ESTIMATED BLOOD LOSS: Minimal. IV sedation per anesthesia. PROCEDURE: After informed consent was obtained, the patient was brought into the endoscopy unit. IV sedation was administered by Anesthesia under continuous monitoring. Initially the Olympus GIF-190 video endoscope was inserted into the mouth. Esophagus intubated without any difficulty. It was gradually advanced into the stomach and duodenum and carefully examined. The bulb and the second part of the duodenum appeared normal, with biopsies taken. The scope at this time was withdrawn to the stomach, adequately insufflated with air, and upon careful examination, mucosa of the antrum, body, cardia and the fundus appeared normal except for some mild scattered erythema in the gastric body suggestive of gastritis with biopsies taken. The scope was then withdrawn into the esophagus. The GE junction was located at 43 cm from the incisors. The esophagus appeared normal. There were no erosions or ulcerations seen and the patient tolerated the procedure well. IMPRESSION: 1. Mild gastritis antrum and body, biopsied. 2. Duodenal biopsies. RECOMMENDATIONS: The findings of this examination were discussed with the patient. Okay to resume diet. Await pathology from biopsy. Okay to resume anticoagulation. If further signs or symptoms of bleeding occur will discuss repeat colonoscopy with last lower endoscopy performed in 05/05 for similar presentation, otherwise okay for discharge given stable hemoglobin.
[2019-02-26] MEDS: CYANOCOBALAMIN 500 MCG TAB PO SCH (14:39)
[2019-02-26] MEDS: ALLOPURINOL 100 MG TAB PO SCH (14:39)
[2019-02-26] MEDS: FUROSEMIDE 40 MG TAB PO SCH (14:39)
[2019-02-26 17:12] LABS: Glucose,Whole Blood 170 mg/dL (75-99)
--- NOTE | 2019-02-26 20:34 | PN ---
PROGRESS NOTE DATE OF SERVICE: February 26, 2019. PRESENTING COMPLAINT: Dark stools. INTERVAL HISTORY: This patient is on aspirin and Coumadin, has presented with dark stools off and on and anemia. Did not require any blood transfusion. I saw this patient earlier today. The patient was due to go down for an endoscopy. There was a question about a pause 2.3 seconds on the telemetry. Hence, Cardiology was consulted for the same. Did see the patient, but it was felt to be just a variable atrial fibrillation rate. REVIEW OF SYSTEMS: Done for constitutional, cardiovascular, GI, pulmonary; relevant findings as above. CURRENT MEDICATIONS: Reviewed that include PPI. PHYSICAL EXAMINATION: VITAL SIGNS: Temperature 97.4 pulse 58, respirations 16, blood pressure 120/61, pulse ox 97% on room air. GENERAL APPEARANCE: Sitting up, awake. EYES: Pupils equal, conjunctivae pale. NECK: JVD not raised. Mass not palpable. RESPIRATORY effort normal. LUNGS are clear. CARDIOVASCULAR: Heart sounds irregular. Edema present. ABDOMEN: Soft, nontender. Liver and spleen not palpable. PSYCHIATRY: Alert and oriented x3. Mood and affect normal. INVESTIGATIONS: Hemoglobin 8.7, INR 1.8. TSH normal. ASSESSMENT: 1. Acute gastrointestinal bleed in a patient who is on aspirin and Coumadin pending endoscopy. 2. Persistent atrial fibrillation. 3. Nonobstructive coronary artery disease per cardiac cath done in November of 2018. 4. Chronic congestive heart failure from systolic dysfunction, EF 40%. 5. Chronic obstructive pulmonary disease. 6. Diabetes mellitus type 2 on oral hypoglycemic. 7. Hyperlipidemia. 8. Essential hypertension. 9. Primary osteoarthritis. 10.Diabetic peripheral neuropathy. 11.Chronic lower extremity venous insufficiency. PLAN: Continue current medication and treatment plan. Await EGD. Patient was seen by Cardiology earlier, not for any further intervention. Repeat a CBC in the morning. MMODL / IJN: [id number] /
[2019-02-26 20:55] LABS: Glucose,Whole Blood 252 mg/dL (75-99)
[2019-02-26] MEDS ORDERED: WARFARIN 10 MG TAB PO ONE (21:00)
[2019-02-26 21:41] VITALS: RESP 18
[2019-02-27 04:47] VITALS: BP 129/62; PULSE 58; TEMP 98.2
[2019-02-27 07:03] LABS: Glucose,Whole Blood 180 mg/dL (75-99)
[2019-02-27] MEDS: GLIMEPIRIDE 2 MG TAB PO SCH (07:56)
[2019-02-27] MEDS: INSULIN ASPART (NovoLOG) 100 UNIT/ML VIAL SQ SCH ×2 (07:56→12:47)
[2019-02-27] MEDS: ALLOPURINOL 100 MG TAB PO SCH (07:57)
[2019-02-27] MEDS: CYANOCOBALAMIN 500 MCG TAB PO SCH (07:57)
[2019-02-27] MEDS: FUROSEMIDE 40 MG TAB PO SCH (07:57)
[2019-02-27] MEDS: PANTOPRAZOLE 40 MG/10 ML VIAL IVP SCH (07:57)
[2019-02-27] MEDS ORDERED: ASPIRIN 81 MG PO SCH (09:00)
[2019-02-27 09:44] LABS: INR 1.2 (<1.2); Prothrombin Time 12.5 sec (9.0-12.0)
[2019-02-27 09:51] LABS: Basophils % (A) 0 %; Eosinophils # (A) 0.2 k/uL (0-0.7); Eosinophils % (A) 4 %; HCT 29.7 % (39.0-53.0); HGB 8.8 gm/dL (13.0-17.5); Hypochromasia Marked; Lymphocytes # (A) 0.7 k/uL (1.0-4.8); Lymphocytes % (A) 13 %; MCH 28.1 pg (25.0-35.0); MCHC 29.7 g/dL (31.0-37.0); MCV 94.6 fL (80.0-100.0); Mean Platelet Volume 8.4; Monocytes # (A) 0.2 k/uL (0-1.0); Monocytes % (A) 4 %; Neutrophils % (A) 77 %; Platelet Count 171 k/uL (150-450); Poikilocytosis Slight; RBC 3.13 m/uL (4.30-5.90); RDW 14.4 % (11.5-15.5); WBC 5.1 k/uL (3.8-10.6)
[2019-02-27 10:55] LABS: Glucose,Whole Blood 241 mg/dL (75-99)
--- NOTE | 2019-02-27 12:59 | P.PN ---
Subjective Progress Note Date: 02/27/19 Principal diagnosis: Anemia melena Status post EGD yesterday mild gastritis biopsies pending. No episodes of bleeding. Feels well. Anticipate discharge. Hemoglobin 8.8. INR 1.2. Objective - Vital Signs Vital signs: Vital Signs Temp 98.2 F 02/27/19 04:46 Pulse 58 L 02/27/19 04:46 Resp 18 02/27/19 04:46 BP 129/62 02/27/19 04:46 Pulse Ox 94 L 02/27/19 04:46 Intake & Output 02/26/19 02/27/19 02/27/19 18:59 06:59 18:59 Intake Total 200 1080 Balance 200 1080 Intake: IV 200 Intake, IV Titration 600 Amount Sodium Chloride 0.9% 1, 600 000 ml @ 75 mls/hr IV . [id number] [facility] Rx#:[id number] Oral 480 Other: Voiding Method Toilet Toilet Toilet # Voids 3 2 # Bowel Movements 1 - Exam General appearance: The patient is alert, oriented, in no acute distress. HET: Head is normocephalic and atraumatic. Pupils are equal and reactive. Oropharynx is clear without lesions. Neck: Supple without lymphadenopathy. Trachea midline. Heart: S1 S2. Regular rate and rhythm. Lungs: No crackles or wheezes are heard. Abdomen: Soft, nontender, nondistended with bowel sounds. No peritoneal signs. No palpable organomegaly or masses. Extremities: Normal skin color and turgor. No cyanosis, rash, ulceration, clubbing, or edema. Radial and pedal pulses are 2/4 bilaterally. Neurological: No focal deficits. Strength and sensation are grossly intact. - Labs CBC & Chem 7: 02/27/19 08:48 02/25/19 07:15 Labs: Abnormal Lab Results - Last 24 Hours (Table) 02/26/19 02/26/19 02/27/19 Range/Units 17:11 20:54 07:01 RBC (4.30-5.90) m/uL Hgb (13.0-17.5) gm/dL Hct (39.0-53.0) % MCHC (31.0-37.0) g/dL Lymphocytes # (1.0-4.8) k/uL PT (9.0-12.0) sec INR (<1.2) POC Glucose (mg/dL) 170 H 252 H 180 H (75-99) mg/dL 02/27/19 02/27/19 02/27/19 Range/Units 08:48 08:48 10:53 RBC 3.13 L (4.30-5.90) m/uL Hgb 8.8 L (13.0-17.5) gm/dL Hct 29.7 L (39.0-53.0) % MCHC 29.7 L (31.0-37.0) g/dL Lymphocytes # 0.7 L (1.0-4.8) k/uL PT 12.5 H (9.0-12.0) sec INR 1.2 H (<1.2) POC Glucose (mg/dL) 241 H (75-99) mg/dL Assessment and Plan (1) GI bleed Current Visit: Yes Status: Acute Code(s): K92.2 - GASTROINTESTINAL HEMORRHAGE, UNSPECIFIED SNOMED Code(s): 99531631 (2) Acute blood loss anemia Current Visit: No Status: Acute Code(s): D62 - ACUTE POSTHEMORRHAGIC ANEMIA SNOMED Code(s): 919886125 Plan: 1. Diet as tolerate. Discharge per medicine. Okay to resume anticoagulation. Outpatient colonoscopy discussed. Return to office in 2-3 weeks. Outpatient CBC monitoring. Assessment and plan a care discussed with Dr. Altamirano
[2019-02-27] MEDS ORDERED: WARFARIN 10 MG TAB PO ONE (18:00)
--- NOTE | 2019-03-01 15:30 | DS ---
DISCHARGE SUMMARY DATE OF ADMISSION: 02/24/2019 DATE OF DISCHARGE: 02/27/2019 FINAL DIAGNOSES: 1. Acute gastrointestinal bleed, exact source undetermined. 2. Persistent atrial fibrillation. 3. Nonobstructive coronary artery disease per cardiac cath in November of 2018. 4. Chronic congestive heart failure from systolic dysfunction, ejection fraction 40%. 5. Chronic obstructive pulmonary disease. 6. Diabetes mellitus type 2 on oral hypoglycemic. 7. Hyperlipidemia. 8. Essential hypertension. 9. Primary osteoarthritis. 10.Diabetic peripheral neuropathy. 11.Chronic lower extremity venous insufficiency. PROCEDURE: EGD. CONSULTATION: Dr. Altamirano from GI, Dr. Contreras from Cardiology. HOSPITAL COURSE: This patient with multiple medical problems was found on his regular checkup that he was anemic. The patient actually did not have any symptoms. The patient's hemoglobin did not change much. It was 8.8 by the time of discharge. Did undergo EGD. Did find a little bit of gastritis. The patient was okay to be discharged for outpatient possible colonoscopy. Otherwise, patient remains asymptomatic, comfortable. PHYSICAL EXAMINATION: Temperature 98.2, pulse 58, respirations 18, blood pressure 129/62, pulse ox 94 percent on room air. ABDOMEN: Soft, nontender. DISCHARGE MEDICATIONS: 1. Allopurinol 100 mg a day. 2. Iron 325 mg p.o. b.i.d. 3. Lasix 40 mg p.o. daily. 4. Amaryl 2 mg a.c. breakfast. 5. Aspirin 81 mg a day. 6. Calcitrol 0.25 mcg on Sundays. 7. Vitamin B12 1000 mcg p.o. daily. 8. Coumadin 10 mg p.o. daily. 9. Pepcid 20 mg p.o. b.i.d. FOLLOWUP: Follow up with Dr. Faizan Severino on 03/05/2019, Dr. Sherry Jc on 03/13/2019, Dr. Altamirano on 03/21/2019. CBC, INR in 1 week. MMODL / IJN: [id number] /
== END 2019-02-27 16:00 | disposition home or self-care (01) ==
LOC: EC 13:57 → 3NMEDONC 17:08
PROVIDERS: ADMIT Hospitalist; ATTEND Hospitalist
DX: K92.1 Melena (principal); K29.51 Unspecified chronic gastritis with bleeding; I25.10 Atherosclerotic heart disease of native coronary artery without angina pectoris; J44.9 Chronic obstructive pulmonary disease, unspecified; E78.5 Hyperlipidemia, unspecified; M19.91 Primary osteoarthritis, unspecified site; E11.42 Type 2 diabetes mellitus with diabetic polyneuropathy; I87.2 Venous insufficiency (chronic) (peripheral); I11.0 Hypertensive heart disease with heart failure; I50.22 Chronic systolic (congestive) heart failure; I48.2 Chronic atrial fibrillation; D62 Acute posthemorrhagic anemia; I42.9 Cardiomyopathy, unspecified; H91.93 Unspecified hearing loss, bilateral; R79.1 Abnormal coagulation profile; Z90.49 Acquired absence of other specified parts of digestive tract; Z79.01 Long term (current) use of anticoagulants; Z95.2 Presence of prosthetic heart valve; Z79.899 Other long term (current) drug therapy; Z79.82 Long term (current) use of aspirin; Z79.4 Long term (current) use of insulin; Z88.5 Allergy status to narcotic agent; Z86.010 Personal history of colon polyps; Z87.891 Personal history of nicotine dependence; Z82.49 Family history of ischemic heart disease and other diseases of the circulatory system; Z80.9 Family history of malignant neoplasm, unspecified
CPT/HCPCS: 96376 ×3; 96361 ×2; 96374; 99284; 36415; 86900; 86901; 88305; 80053 ×2; 84443; 83605; 83735; 84484; 85025 ×4; 85610 ×3; 85730; 86850; 82272; 43239; G0378 ×4; J2250; J2704; C9113 ×4

== ENCOUNTER 2019-04-11 10:40 | Inpatient (IN) | payer MEDICARE ==
[2019-04-11 12:05] LABS: Albumin 3.7 g/dL (3.5-5.0); Magnesium 2.1 mg/dL (1.6-2.3); Potassium 3.5 mmol/L (3.5-5.1); Total Bilirubin 0.7 mg/dL (0.2-1.3); Total Protein 6.2 g/dL (6.3-8.2)
[2019-04-11 12:20] LABS: Anisocytosis Slight; Basophils % (A) 1 %; Eosinophils # (A) 0.2 k/uL (0-0.7); Eosinophils % (A) 2 %; HCT 23.6 % (39.0-53.0); Hypochromasia Marked; Lymphocytes # (A) 0.7 k/uL (1.0-4.8); Lymphocytes % (A) 10 %; MCH 27.6 pg (25.0-35.0); MCHC 28.7 g/dL (31.0-37.0); MCV 96.2 fL (80.0-100.0); Macrocytosis Slight; Mean Platelet Volume 8.7; Monocytes # (A) 0.3 k/uL (0-1.0); Monocytes % (A) 5 %; Neutrophils # (A) 5.6 k/uL (1.3-7.7); Neutrophils % (A) 82 %; Platelet Count 226 k/uL (150-450); RBC 2.45 m/uL (4.30-5.90); RDW 17.4 % (11.5-15.5); WBC 6.9 k/uL (3.8-10.6)
[2019-04-11 12:22] LABS: INR 3.1 (<1.2); Partial Thromboplastin Time 33.4 sec (22.0-30.0); Prothrombin Time 29.8 sec (9.0-12.0)
[2019-04-11 12:23] LABS: HGB 6.8 gm/dL (13.0-17.5)
--- NOTE | 2019-04-11 14:43 | ED ---
Recheck HPI - General Chief Complaint: Recheck/Abnormal Lab/Rx Stated Complaint: needs blood-sent by Time Seen by Provider: 04/11/19 10:42 Source: patient, RN notes reviewed Mode of arrival: wheelchair Limitations: no limitations - History of Present Illness Initial Comments: This is a 78-year-old male was sent in by his doctor, Dr. Severino, after was found he had a hemoglobin 6.3. Patient's been having black colored stools. He has also have complaints of exertional dyspnea. No overt chest pain. No palpitations. He states he does have a history of this in the past he has had endoscopy which was not able find any source of bleeding. No fevers chills nausea vomiting sweats or other symptoms at this time. MD Complaint: abnormal lab - Related Data Home Medications Medication Instructions Recorded Confirmed Allopurinol [Zyloprim] 100 mg PO DAILY 01/11/18 04/11/19 Ferrous Gluconate 324 mg PO BID 01/11/18 04/11/19 Furosemide [Lasix] 40 mg PO DAILY 02/16/18 04/11/19 Glimepiride [Amaryl] 2 mg PO AC-BRKFST 02/16/18 04/11/19 Aspirin [[place] Aspirin EC] 81 mg PO DAILY 12/08/18 04/11/19 Calcitriol 0.25 mcg PO [place] 12/08/18 04/11/19 Cyanocobalamin (Vitamin B-12) 1,000 mcg PO DAILY 12/08/18 04/11/19 [Vitamin B-12] Warfarin [Coumadin] 10 mg PO DAILY 12/08/18 04/11/19 Previous Rx's Medication Instructions Recorded Famotidine [Pepcid] 20 mg PO BID #60 tablet 02/27/19 Allergies Allergy/AdvReac Type Severity Reaction Status Date / Time codeine Allergy Rash/Hives Verified 04/11/19 11:09 Review of Systems ROS Statement: Those systems with pertinent positive or pertinent negative responses have been documented in the HPI. ROS Other: All systems not noted in ROS Statement are negative. Past Medical History Past Medical History: Atrial Fibrillation, Heart Failure, COPD, Diabetes Mellitus, Hearing Disorder / Deafness, Hyperlipidemia, Hypertension, Osteoarthritis (OA), Vascular Disorder Additional Past Medical History / Comment(s): Viral myocarditis & pericarditis 1979, IDDM type II, neuropathy bilateral feet and occasionally in bilateral hands, L thigh varicose veins, venous insufficiency, [place] bilaterally. gangrenous gallbladder-removed History of Any Multi-Drug Resistant Organisms: None Reported Past Surgical History: Cardiac Valve Replacement, Cholecystectomy, Heart Catheterization, Orthopedic Surgery Additional Past Surgical History / Comment(s): vein stripping of left leg, carpel tunnel right hand, YAS, cataract safia. eyes with implants, periocardiocentesis -1979, aortic valve repair-March, colonoscopies/benign polypectomy, EGD with benign polypectomy. Past Anesthesia/Blood Transfusion Reactions: No Reported Reaction Additional Past Anesthesia/Blood Transfusion Reaction / Comment(s): Pt has received blood without reaction. Past Psychological History: No Psychological Hx Reported Smoking Status: Former smoker Past Alcohol Use History: None Reported Past Drug Use History: None Reported - Past Family History Mother Additional Family Medical History / Comment(s): Mother at the age of 98yrs from heart problems. Father Family Medical History: No Reported History Additional Family Medical History / Comment(s): Father in a MVA at the age of 59yrs. Sister(s) Family Medical History: Cancer General Exam - General Exam Comments Initial Comments: This is a well-developed well-nourished awake alert oriented times 3 male Limitations: no limitations General appearance: alert, in no apparent distress Head exam: Present: atraumatic, normocephalic, normal inspection Eye exam: Present: PERRL, EOMI, other (Pale conjunctiva). Absent: scleral icterus, conjunctival injection, periorbital swelling ENT exam: Present: normal exam, mucous membranes moist Neck exam: Present: normal inspection. Absent: tenderness, meningismus, lymphadenopathy Respiratory exam: Present: normal lung sounds bilaterally. Absent: respiratory distress, wheezes, rales, rhonchi, stridor Cardiovascular Exam: Present: irregular rhythm. Absent: systolic murmur, diastolic murmur, rubs, gallop, clicks GI/Abdominal exam: Present: soft, normal bowel sounds. Absent: distended, tenderness, guarding, rebound, rigid Rectal exam: Present: heme (+) stool, black stool Extremities exam: Present: normal inspection, full ROM, normal capillary refill. Absent: tenderness, pedal edema, joint swelling, calf tenderness Back exam: Present: normal inspection Neurological exam: Present: alert, oriented X3, CN II-XII intact Psychiatric exam: Present: normal affect, normal mood Skin exam: Present: warm, dry, intact, pallor. Absent: rash Course Vital Signs 04/11/19 04/11/19 04/11/19 10:46 10:48 11:48 Temperature 97.8 F 97.4 F L 97.8 F Pulse Rate 60 75 69 Respiratory 18 18 18 Rate Blood Pressure 127/73 116/91 118/94 O2 Sat by Pulse 98 99 99 Oximetry 04/11/19 04/11/19 04/11/19 13:00 13:50 14:00 Temperature 97.7 F 97.5 F L Pulse Rate 56 L 42 L 49 L Respiratory 18 16 18 Rate Blood Pressure 116/91 103/59 110/73 O2 Sat by Pulse 100 100 Oximetry 04/11/19 14:15 Temperature 98.0 F Pulse Rate 56 L Respiratory 16 Rate Blood Pressure 117/60 O2 Sat by Pulse 100 Oximetry - Reevaluation(s) Reevaluation #1: 04/11/19 14:40 I did reevaluate the patient does demonstrate exertional dyspnea. Medical Decision Making - Medical Decision Making Patient was found have a hemoglobin 6.8 asymptomatic require blood transfusion. He also had a elevation of his troponin. He will be admitted Dr. Thrasher will be consulted I did discuss case with Dr. analisa MCKEON will also be consulted. - Lab Data Result diagrams: 04/11/19 11:15 04/11/19 11:15 Lab Results 04/11/19 04/11/19 04/11/19 Range/Units 11:10 11:15 11:15 WBC 6.9 (3.8-10.6) k/uL RBC 2.45 L (4.30-5.90) m/uL Hgb 6.8 L* D (13.0-17.5) gm/dL Hct 23.6 L (39.0-53.0) % MCV 96.2 (80.0-100.0) fL MCH 27.6 (25.0-35.0) pg MCHC 28.7 L (31.0-37.0) g/dL RDW 17.4 H (11.5-15.5) % Plt Count 226 (150-450) k/uL Neutrophils % 82 % Lymphocytes % 10 % Monocytes % 5 % Eosinophils % 2 % Basophils % 1 % Neutrophils # 5.6 (1.3-7.7) k/uL Lymphocytes # 0.7 L (1.0-4.8) k/uL Monocytes # 0.3 (0-1.0) k/uL Eosinophils # 0.2 (0-0.7) k/uL Basophils # 0.0 (0-0.2) k/uL Hypochromasia Marked Anisocytosis Slight Macrocytosis Slight PT (9.0-12.0) sec INR (<1.2) APTT (22.0-30.0) sec Sodium 139 (137-145) mmol/L Potassium 3.5 (3.5-5.1) mmol/L Chloride 105 (98-107) mmol/L Carbon Dioxide 24 (22-30) mmol/L Anion Gap 10 mmol/L BUN 34 H (9-20) mg/dL Creatinine 1.34 H (0.66-1.25) mg/dL Est GFR (CKD-EPI)AfAm 59 (>60 ml/min/1.73 sqM) Est GFR (CKD-EPI)NonAf 51 (>60 ml/min/1.73 sqM) Glucose 197 H (74-99) mg/dL Calcium 9.0 (8.4-10.2) mg/dL Magnesium 2.1 (1.6-2.3) mg/dL Total Bilirubin 0.7 (0.2-1.3) mg/dL AST 18 (17-59) U/L ALT 20 L (21-72) U/L Alkaline Phosphatase 67 (38-126) U/L Troponin I (0.000-0.034) ng/mL Total Protein 6.2 L (6.3-8.2) g/dL Albumin 3.7 (3.5-5.0) g/dL Stool Occult Blood Positive (Negative) Blood Type Blood Type Recheck Antibody Screen Crossmatch Spec Expiration Date 04/11/19 04/11/19 04/11/19 Range/Units 11:15 11:15 11:15 WBC (3.8-10.6) k/uL RBC (4.30-5.90) m/uL Hgb (13.0-17.5) gm/dL Hct (39.0-53.0) % MCV (80.0-100.0) fL MCH (25.0-35.0) pg MCHC (31.0-37.0) g/dL RDW (11.5-15.5) % Plt Count (150-450) k/uL Neutrophils % % Lymphocytes % % Monocytes % % Eosinophils % % Basophils % % Neutrophils # (1.3-7.7) k/uL Lymphocytes # (1.0-4.8) k/uL Monocytes # (0-1.0) k/uL Eosinophils # (0-0.7) k/uL Basophils # (0-0.2) k/uL Hypochromasia Anisocytosis Macrocytosis PT 29.8 H (9.0-12.0) sec INR 3.1 H (<1.2) APTT 33.4 H (22.0-30.0) sec Sodium (137-145) mmol/L Potassium (3.5-5.1) mmol/L Chloride (98-107) mmol/L Carbon Dioxide (22-30) mmol/L Anion Gap mmol/L BUN (9-20) mg/dL Creatinine (0.66-1.25) mg/dL Est GFR (CKD-EPI)AfAm (>60 ml/min/1.73 sqM) Est GFR (CKD-EPI)NonAf (>60 ml/min/1.73 sqM) Glucose (74-99) mg/dL Calcium (8.4-10.2) mg/dL Magnesium (1.6-2.3) mg/dL Total Bilirubin (0.2-1.3) mg/dL AST (17-59) U/L ALT (21-72) U/L Alkaline Phosphatase (38-126) U/L Troponin I 0.090 H* (0.000-0.034) ng/mL Total Protein (6.3-8.2) g/dL Albumin (3.5-5.0) g/dL Stool Occult Blood (Negative) Blood Type A Positive Blood Type Recheck No Antibody Screen NEGATIVE Crossmatch See Detail Spec Expiration Date 04/14/2019 - 9595 - EKG Data -: EKG Interpreted by Me (Atrial fibrillation rate of 49 QRS 128 QT since QTC 440 744 left exodeviati) Disposition Clinical Impression: GI bleed, Symptomatic anemia, Elevated troponin Disposition: ADMITTED IP TO THIS HOSP Condition: Fair Referrals: Faizan Ba DO [Primary Care Provider] - 1-2 days
[2019-04-11] MEDS ORDERED: NALOXONE 0.4 MG/ML 1 ML VIAL IV PRN (14:46)
--- NOTE | 2019-04-11 14:55 | P.HPIM ---
History of Present Illness this is a pleasant 78 years old male with past medical history of congestive heart failure with ejection fraction of 40%, atrial fibrillationon Coumadin, COPD, diabetes mellitus, hyperlipidemia, hypertension, osteoarthritis, viral myocarditis and pericarditis, diabetic neuropathy,he presented to his doctor yesterday with black stool and exertional dyspnea, Dr. Severino send him to the hospital today for low hemoglobin of 6.3. Patient complains from exertional dyspneaand , and breathing difficulty at night concerning for paroxysmal nocturnal dyspnea, and bilateral leg swelling. Patient says that he has black stool for about a month, but he denies abdominal pain, no nausea vomiting. Also patient denies chest pain and denies dyspnea at rest. No dizziness. However he feels generally weak he was recently admitted to the hospital for acute GI bleed and persistent atrial fibrillation on 07/28/2019 patient is status post EGD on 02/26/2019 showing mild gastritis patient is afebrile and hemodynamically stable. That's showing severe anemia with hemoglobin 6.8, no leukocytosis and platelets within normal limits, INR is supratherapeutic at 3.1creatinine is elevated at 1.34, baseline is 1.1-1.3.the troponin is 0.09. Occult blood is positive in stool. Patient currently receiving 1 unit of blood transfusion in the emergency room Review of Systems CONSTITUTIONAL: No fever, no malaise, no fatigue. HEENT: No recent visual problems or hearing problems. Denied any sore throat. CARDIOVASCULAR: No orthopnea, PND, no palpitations, no syncope. PULMONARY: No shortness of breath, no cough, no hemoptysis. GASTROINTESTINAL: No diarrhea, no nausea, no vomiting, no abdominal pain. Normoa ctive bowel sounds. NEUROLOGICAL: No headaches, no weakness, no numbness. HEMATOLOGICAL: Denies any bleeding or petechiae. GENITOURINARY: Denies any burning micturition, frequency, or urgency. MUSCULOSKELETAL/RHEUMATOLOGICAL: Denies any joint pain, swelling, or any muscle pain. ENDOCRINE: Denies any polyuria or polydipsia. Past Medical History Past Medical History: Atrial Fibrillation, Heart Failure, COPD, Diabetes Mellitus, Hearing Disorder / Deafness, Hyperlipidemia, Hypertension, Osteoarthritis (OA), Vascular Disorder Additional Past Medical History / Comment(s): Viral myocarditis & pericarditis 1979, IDDM type II, neuropathy bilateral feet and occasionally in bilateral hands, L thigh varicose veins, venous insufficiency, [place] bilaterally. gangrenous gallbladder-removed History of Any Multi-Drug Resistant Organisms: None Reported Past Surgical History: Cardiac Valve Replacement, Cholecystectomy, Heart Catheterization, Orthopedic Surgery Additional Past Surgical History / Comment(s): vein stripping of left leg, carpel tunnel right hand, YAS, cataract safia. eyes with implants, periocardiocentesis -1979, aortic valve repair-March, colonoscopies/benign polypectomy, EGD with benign polypectomy. Past Anesthesia/Blood Transfusion Reactions: No Reported Reaction Additional Past Anesthesia/Blood Transfusion Reaction / Comment(s): Pt has received blood without reaction. Past Psychological History: No Psychological Hx Reported Smoking Status: Former smoker Past Alcohol Use History: None Reported Past Drug Use History: None Reported - Past Family History Mother Additional Family Medical History / Comment(s): Mother at the age of 98yrs from heart problems. Father Family Medical History: No Reported History Additional Family Medical History / Comment(s): Father in a MVA at the age of 59yrs. Sister(s) Family Medical History: Cancer Medications and Allergies Home Medications Medication Instructions Recorded Confirmed Type Allopurinol [Zyloprim] 100 mg PO DAILY 01/11/18 04/11/19 History Ferrous Gluconate 324 mg PO BID 01/11/18 04/11/19 History Furosemide [Lasix] 40 mg PO DAILY 02/16/18 04/11/19 History Glimepiride [Amaryl] 2 mg PO AC-BRKFST 02/16/18 04/11/19 History Aspirin [[place] Aspirin EC] 81 mg PO DAILY 12/08/18 04/11/19 History Calcitriol 0.25 mcg PO [place] 12/08/18 04/11/19 History Cyanocobalamin (Vitamin B-12) 1,000 mcg PO DAILY 12/08/18 04/11/19 History [Vitamin B-12] Warfarin [Coumadin] 10 mg PO DAILY 12/08/18 04/11/19 History Famotidine [Pepcid] 20 mg PO BID #60 tablet 02/27/19 04/11/19 Rx Allergies Allergy/AdvReac Type Severity Reaction Status Date / Time codeine Allergy Rash/Hives Verified 04/11/19 11:09 Physical Exam Vitals: Vital Signs Temp Pulse Resp BP Pulse Ox 04/11/19 14:15 98.0 F 56 L 16 117/60 100 04/11/19 14:00 97.5 F L 49 L 18 110/73 04/11/19 13:50 97.7 F 42 L 16 103/59 100 04/11/19 13:00 56 L 18 116/91 100 04/11/19 11:48 97.8 F 69 18 118/94 99 04/11/19 10:48 97.4 F L 75 18 116/91 99 04/11/19 10:46 97.8 F 60 18 127/73 98 Intake and Output 04/10/19 04/11/19 04/11/19 22:59 06:59 14:59 Intake Total 0 Output Total 600 Balance -600 Intake: Blood Product 0 Rc As-1 Unit 0 [id number] Output: Urine 600 Other: Weight 105.233 kg GENERAL: The patient is alert and oriented x3, not in any acute distress. Well developed, well nourished. HEENT: Pupils are round and equally reacting to light. EOMI. No scleral icterus. No conjunctival pallor. Normocephalic, atraumatic. No pharyngeal erythema. No thyromegaly. CARDIOVASCULAR: S1 and S2 present. No murmurs, rubs, or gallops. PULMONARY: Chest is clear to auscultation, no wheezing or crackles. ABDOMEN: Soft, nontender, nondistended, normoactive bowel sounds. No palpable organomegaly. MUSCULOSKELETAL: No joint swelling or deformity. EXTREMITIES: No cyanosis, clubbing, or pedal edema. NEUROLOGICAL: Gross neurological examination did not reveal any focal deficits. SKIN: No rashes. Results CBC & Chem 7: 04/11/19 11:15 04/11/19 11:15 Labs: Abnormal Lab Results - Last 24 Hours (Table) 04/11/19 04/11/19 04/11/19 Range/Units 11:15 11:15 11:15 RBC 2.45 L (4.30-5.90) m/uL Hgb 6.8 L* D (13.0-17.5) gm/dL Hct 23.6 L (39.0-53.0) % MCHC 28.7 L (31.0-37.0) g/dL RDW 17.4 H (11.5-15.5) % Lymphocytes # 0.7 L (1.0-4.8) k/uL PT 29.8 H (9.0-12.0) sec INR 3.1 H (<1.2) APTT 33.4 H (22.0-30.0) sec BUN 34 H (9-20) mg/dL Creatinine 1.34 H (0.66-1.25) mg/dL Glucose 197 H (74-99) mg/dL ALT 20 L (21-72) U/L Troponin I (0.000-0.034) ng/mL Total Protein 6.2 L (6.3-8.2) g/dL Crossmatch 04/11/19 04/11/19 Range/Units 11:15 11:15 RBC (4.30-5.90) m/uL Hgb (13.0-17.5) gm/dL Hct (39.0-53.0) % MCHC (31.0-37.0) g/dL RDW (11.5-15.5) % Lymphocytes # (1.0-4.8) k/uL PT (9.0-12.0) sec INR (<1.2) APTT (22.0-30.0) sec BUN (9-20) mg/dL Creatinine (0.66-1.25) mg/dL Glucose (74-99) mg/dL ALT (21-72) U/L Troponin I 0.090 H* (0.000-0.034) ng/mL Total Protein (6.3-8.2) g/dL Crossmatch See Detail Assessment and Plan Assessment: GI bleed elevated troponin 0.09. 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 COPD, not an exacerbation Hypertension N diabetes mellitus Diabetic neuropathy Hyperlipidemia History of osteoarthritis Plan: this is a pleasant 78 years old male who presents with GI bleed and elevated troponin. Contrast was brought to keep hemoglobin more than 7. Hold Coumadin. Monitor hemoglobin.call cardiology and gastroenterology consult Labs and medication were reviewed.. Continue same treatment. Continue with symptomatic treatment. Resume home medication. Monitor lytes and vitals. DVT and GI prophylaxis. Further recommendations of the clinical course of the patient DVT prophylaxis: no anticoagulation in view of GI bleed GI Prophylaxis: Protonix PT/OT: Pending Prognosis is guarded
--- NOTE | 2019-04-11 15:12 | XR ---
EXAMINATION TYPE: XR chest 2V DATE OF EXAM: 04/11/2019 COMPARISON: Chest x-ray December 08, 2018. HISTORY: History of COPD and heart failure presents with cough and anemia TECHNIQUE: Frontal and lateral views of the chest are obtained. FINDINGS: Overlying sternal wires are redemonstrated. There is chronic emphysematous change without s uspicious new focal air space opacity, pleural effusion, or pneumothorax seen. The cardiac silhouett e size remains enlarged with closure device along superior left heart border posteriorly redemonstrat ed. The osseous structures are intact. IMPRESSION: Chronic emphysematous changes and cardiomegaly without acute pulmonary process.
--- NOTE | 2019-04-11 15:41 | CDI ---
Documentation Clarification Form Date: 04/11/2019 3:34:06 PM From: Ruma Munoz RN, CCDS Admit Date: 04/11/2019 2:47:00 PM Patient Name: Darrin Shabazz Visit Number: [id number] ATTENTION: The Clinical Documentation Specialists (CDI) and [facility] Coding Staff appreciate your assistance in clarifying documentation. Please respond to the clarification below the line at the bottom and electronically sign. The CDI & [facility] Coding staff will review the response and follow-up if needed. Please note: Queries are made part of the Legal Health Record. If you have any questions, please contact the author of this message via ITS. Dr. Guardado Sheet A diagnosis of anemia lacks specificity to accurately reflect your patients severity of condition and clarification is needed. History/Risk Factors: CKD stage 2, GIB this admission, Coumadin coagulopathy with chronic atrial fib Clinical indicators: 04/11 H&P: "severe anemia with hemoglobin 6.8, no leukocytosis and platelets within normal limits, INR is supratherapeutic at 3.1creatinine is elevated at 1.34, baseline is 1.1-1.3." Hemoglobin: 6.8 Hematocrit: 23.6 Treatment: 1 units of PRBCs transfusing currently Feosol 325 mg PO BID Monitoring labs daily In order to capture the severity of condition, please clarify the type of anemia and etiology if known: Acute blood loss anemia Acute on chronic blood loss anemia Chronic blood loss anemia Iron deficiency anemia Anemia of chronic disease (please specify) Nutritional anemia Anemia of chronic kidney disease Unable to determine Other, please specify (Last Revision: June 2017) Acute blood loss anemia MTDD
--- NOTE | 2019-04-11 15:51 | CDI ---
Documentation Clarification Form Date: 04/11/2019 3:42:17 PM From: Ruma Munoz RN, CCDS Admit Date: 04/11/2019 2:47:00 PM Patient Name: Darrin Shabazz Visit Number: [id number] ATTENTION: The Clinical Documentation Specialists (CDI) and [facility] Coding Staff appreciate your assistance in clarifying documentation. Please respond to the clarification below the line at the bottom and electronically sign. The CDI & [facility] Coding staff will review the response and follow-up if needed. Please note: Queries are made part of the Legal Health Record. If you have any questions, please contact the author of this message via ITS. Dr. Guardado Sheet History/Risk Factors: CHF, CKD stage 2, GIB with anemia, HTN, Hyperlipidemia, Myocaridtis, valve replacement Clinical Indicators: H&P: "history of congestive heart failure with ejection fraction of 40%, atrial fibrillationon Coumadin, COPD, diabetes mellitus, hyperlipidemia, hypertension, osteoarthritis, viral myocarditis and pericarditis, diabetic neuropathy,he presented to his doctor yesterday with black stool and exertional dyspnea..." VS/Pulse OX: temp 97.8, hr 60, rr 18, b/p 127/73, spo2 98% ra BNP: not checked 12/09/18 Echocardiogram Results: EF 40-45%, Apical Lateral LV is hypokinetic. LA is severely dilated 04/11/19 Chest X Ray:"Chronic emphysematous changes and cardiomegaly without acute pulmonary process." Treatment: Lasix 40 mg PO QD In your professional opinion, can you please clarify the acuity and type of CHF if known? Chronic Systolic Heart Failure: Chronic Systolic & Diastolic Heart Failure: Unable to Determine Other, please specify (Last Revision: December 2017) Chronic Systolic Heart Failure: MTDD
[2019-04-11] MEDS: SODIUM CHLORIDE 0.9% 1,000 ML IV SCH (19:53)
[2019-04-11] MEDS: FERROUS SULFATE 325 MG TAB PO SCH (20:45)
[2019-04-11] MEDS: PANTOPRAZOLE 40 MG/10 ML VIAL IV SCH (20:46)
[2019-04-12] MEDS: SODIUM CHLORIDE 0.9% 1,000 ML IV SCH ×2 (05:12→08:43)
[2019-04-12 06:27] LABS: INR 2.2 (<1.2); Prothrombin Time 21.8 sec (9.0-12.0)
[2019-04-12 06:29] LABS: Anisocytosis Slight; Basophils % (A) 0 %; Eosinophils # (A) 0.1 k/uL (0-0.7); Eosinophils % (A) 3 %; HCT 25.8 % (39.0-53.0); HGB 7.1 gm/dL (13.0-17.5); Hypochromasia Marked; Lymphocytes # (A) 0.8 k/uL (1.0-4.8); Lymphocytes % (A) 15 %; MCH 26.2 pg (25.0-35.0); MCHC 27.7 g/dL (31.0-37.0); MCV 94.4 fL (80.0-100.0); Mean Platelet Volume 8.5; Monocytes # (A) 0.2 k/uL (0-1.0); Monocytes % (A) 4 %; Neutrophils % (A) 76 %; Platelet Count 158 k/uL (150-450); Poikilocytosis Moderate; RBC 2.73 m/uL (4.30-5.90); WBC 5.2 k/uL (3.8-10.6)
[2019-04-12 07:06] LABS: Calcium 8.4 mg/dL (8.4-10.2); Potassium 3.5 mmol/L (3.5-5.1)
--- NOTE | 2019-04-12 08:34 | P.PN ---
Subjective this is a pleasant 78 years old male with past medical history of congestive heart failure with ejection fraction of 40%, atrial fibrillationon Coumadin, COPD, diabetes mellitus, hyperlipidemia, hypertension, osteoarthritis, viral myocarditis and pericarditis, diabetic neuropathy,he presented to his doctor yesterday with black stool and exertional dyspnea, Dr. Severino send him to the hospital today for low hemoglobin of 6.3. Patient complains from exertional dyspneaand , and breathing difficulty at night concerning for paroxysmal nocturnal dyspnea, and bilateral leg swelling. Patient says that he has black stool for about a month, but he denies abdominal pain, no nausea vomiting. Also patient denies chest pain and denies dyspnea at rest. No dizziness. However he feels generally weak he was recently admitted to the hospital for acute GI bleed and persistent atrial fibrillation on 60-07/28/2019 patient is status post EGD on 02/26/2019 showing mild gastritis patient is afebrile and hemodynamically stable. That's showing severe anemia with hemoglobin 6.8, no leukocytosis and platelets within normal limits, INR is supratherapeutic at 3.1creatinine is elevated at 1.34, baseline is 1.1-1.3.the troponin is 0.09. Occult blood is positive in stool. Patient currently receiving 1 unit of blood transfusion in the emergency room 04/12/2019 Patient feels that his dyspnea is improving, no chest pain or coughing however he still have orthopnea. He didn't sleep well only for 3 hours last night. However he denies abdominal pain, no bloody bowel movements or nausea vomiting. His legs are swollen chronically. Patient is seen by jet man this morning for elevated troponin. GI team are going to evaluated the patient. His he moglobin went only from 6.8 up to 7.1 after went to for blood transfusion. Coumadin and aspirin on hold. Creatinine is back to normal at 1.1, repeat troponin is still pending. recommend another unit of blood transfusion since his INR still high and there is no much improvement in his hemoglobin and therefore is expected to bleed more. Patient is afebrile and blood pressure is acceptable. hemoglobin 7.1, INR 2.2, creatinine is improved to 1.1, repeat troponin is pending. Review of systems CONSTITUTIONAL: No fever, no malaise, no fatigue. HEENT: No recent visual problems or hearing problems. Denied any sore throat. CARDIOVASCULAR: No orthopnea, PND, no palpitations, no syncope. PULMONARY: No shortness of breath, no cough, no hemoptysis. GASTROINTESTINAL: No diarrhea, no nausea, no vomiting, no abdominal pain. Normoactive bowel sounds. NEUROLOGICAL: No headaches, no weakness, no numbness. HEMATOLOGICAL: Denies any bleeding or petechiae. GENITOURINARY: Denies any burning micturition, frequency, or urgency. MUSCULOSKELETAL/RHEUMATOLOGICAL: Denies any joint pain, swelling, or any muscle pain. ENDOCRINE: Denies any polyuria or polydipsia. Active Medications Generic Name Dose Route Start Last Admin Trade Name Freq PRN Reason Stop Dose Admin Allopurinol 100 mg 04/12/19 09:00 Zyloprim PO DAILY RADHA Calcitriol 0.25 mcg 04/15/19 09:00 Rocaltrol PO STRICKLAND RADHA Cyanocobalamin 1,000 mcg 04/12/19 09:00 Vitamin B-12 PO DAILY [facility] Ferrous Sulfate 325 mg 04/11/19 21:00 04/11/19 20:45 Feosol PO 325 mg BID RADHA Administration Furosemide 40 mg 04/12/19 09:00 Lasix PO DAILY RADHA Sodium Chloride 1,000 mls @ 75 mls/hr 04/11/19 15:00 04/12/19 05:12 Saline 0.9% IV Not Given .[id number] RADHA Naloxone HCl 0.2 mg 04/11/19 14:46 Narcan IV Q2M PRN Opioid Reversal Pantoprazole Sodium 40 mg 04/11/19 21:00 04/11/19 20:46 Protonix IV 40 mg BID RADHA Administration Objective - Vital Signs Vital signs: Vital Signs Temp 97 F L 04/12/19 03:30 Pulse 49 L 04/12/19 03:30 Resp 18 04/12/19 03:30 BP 125/60 04/12/19 03:30 Pulse Ox 99 04/12/19 03:30 Intake & Output 04/11/19 04/12/19 04/12/19 18:59 06:59 18:59 Intake Total 0 675 240 Output Total 600 Balance -600 675 240 Weight 105.233 kg 105.6 kg Intake: Intake, IV Titration 675 Amount Sodium Chloride 0.9% 1, 675 000 ml @ 75 mls/hr IV . [id number] [facility] Rx#:[id number] Oral 240 Blood Product 0 Rc As-1 Unit 0 [id number] Rc As-1 Unit 0 [id number] Output: Urine 600 Other: # Voids 1 - Exam GENERAL: The patient is alert and oriented x3, not in any acute distress. Well developed, well nourished. HEENT: Pupils are round and equally reacting to light. EOMI. No scleral icterus. No conjunctival pallor. Normocephalic, atraumatic. No pharyngeal erythema. No thyromegaly. CARDIOVASCULAR: S1 and S2 present. No murmurs, rubs, or gallops. PULMONARY: Chest is clear to auscultation, no wheezing or crackles. ABDOMEN: Soft, nontender, nondistended, normoactive bowel sounds. No palpable organomegaly. MUSCULOSKELETAL: No joint swelling or deformity. EXTREMITIES: No cyanosis, clubbing, or pedal edema. NEUROLOGICAL: Gross neurological examination did not reveal any focal deficits. SKIN: No rashes. - Labs CBC & Chem 7: 04/12/19 05:32 04/12/19 05:32 Labs: Abnormal Lab Results - Last 24 Hours (Table) 04/11/19 04/11/19 04/11/19 Range/Units 11:15 11:15 11:15 RBC 2.45 L (4.30-5.90) m/uL Hgb 6.8 L* D (13.0-17.5) gm/dL Hct 23.6 L (39.0-53.0) % MCHC 28.7 L (31.0-37.0) g/dL RDW 17.4 H (11.5-15.5) % Lymphocytes # 0.7 L (1.0-4.8) k/uL PT 29.8 H (9.0-12.0) sec INR 3.1 H (<1.2) APTT 33.4 H (22.0-30.0) sec BUN 34 H (9-20) mg/dL Creatinine 1.34 H (0.66-1.25) mg/dL Glucose 197 H (74-99) mg/dL ALT 20 L (21-72) U/L Troponin I (0.000-0.034) ng/mL Total Protein 6.2 L (6.3-8.2) g/dL Crossmatch 04/11/19 04/11/19 04/12/19 Range/Units 11:15 11:15 05:32 RBC 2.73 L (4.30-5.90) m/uL Hgb 7.1 L (13.0-17.5) gm/dL Hct 25.8 L (39.0-53.0) % MCHC 27.7 L (31.0-37.0) g/dL RDW 17.0 H (11.5-15.5) % Lymphocytes # 0.8 L (1.0-4.8) k/uL PT (9.0-12.0) sec INR (<1.2) APTT (22.0-30.0) sec BUN (9-20) mg/dL Creatinine (0.66-1.25) mg/dL Glucose (74-99) mg/dL ALT (21-72) U/L Troponin I 0.090 H* (0.000-0.034) ng/mL Total Protein (6.3-8.2) g/dL Crossmatch See Detail 04/12/19 04/12/19 Range/Units 05:32 05:32 RBC (4.30-5.90) m/uL Hgb (13.0-17.5) gm/dL Hct (39.0-53.0) % MCHC (31.0-37.0) g/dL RDW (11.5-15.5) % Lymphocytes # (1.0-4.8) k/uL PT 21.8 H (9.0-12.0) sec INR 2.2 H (<1.2) APTT (22.0-30.0) sec BUN 29 H (9-20) mg/dL Creatinine (0.66-1.25) mg/dL Glucose 102 H (74-99) mg/dL ALT (21-72) U/L Troponin I (0.000-0.034) ng/mL Total Protein (6.3-8.2) g/dL Crossmatch Assessment and Plan Assessment: GI bleed elevated troponin 0.09. 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 COPD, not an exacerbation Hypertension N diabetes mellitus Diabetic neuropathy Hyperlipidemia History of osteoarthritis Plan: this is a pleasant 78 years old male who presents with GI bleed and elevated troponin. Contrast was brought to keep hemoglobin more than 7. Hold Coumadin. Monitor hemoglobin.call cardiology and gastroenterology consult Labs and medication were reviewed.. Continue same treatment. Continue with symptomatic treatment. Resume home medication. Monitor lytes and vitals. DVT and GI prophylaxis. Further recommendations of the clinical course of the gus ent DVT prophylaxis: no anticoagulation in view of GI bleed GI Prophylaxis: Protonix PT/OT: Pending Prognosis is guarded
[2019-04-12] MEDS: FERROUS SULFATE 325 MG TAB PO SCH ×2 (08:37→20:21)
[2019-04-12] MEDS: CYANOCOBALAMIN 500 MCG TAB PO SCH (08:37)
[2019-04-12] MEDS: PANTOPRAZOLE 40 MG/10 ML VIAL IV SCH ×2 (08:37→20:22)
[2019-04-12] MEDS: ALLOPURINOL 100 MG TAB PO SCH (08:37)
[2019-04-12] MEDS: FUROSEMIDE 40 MG TAB PO SCH ×2 (08:43→16:12)
--- NOTE | 2019-04-12 08:55 | CONS ---
CONSULTATION CHIEF COMPLAINT: Shortness of breath. Darrin is a 78-year-old gentleman with history of chronic atrial fibrillation, valvular heart disease, anemia secondary to GI bleed, who presented to the hospital with progressively worsening shortness of breath. He was found to be profoundly anemic with a hemoglobin of 6.3 and is admitted to hospital for the same. He received 2 units of blood transfusion following which his symptoms have improved. I saw him in the ER yesterday. Compared to that, he looks much better. He is on Coumadin and INR is therapeutic. His occult stool blood is positive. At last admission, he underwent an EGD that was negative and GI has advised resumption of anticoagulation. Patient has known aortic stenosis and underwent aortic valve replacement and also has had prior cardiac catheterizations. I believe his shortness of breath is related to anemia and he is not a candidate for long-term anticoagulation at this time and I am going to stop the Coumadin. The patient will need his colonoscopy to complete his workup. This was supposed to be done in the outpatient setting. PAST MEDICAL HISTORY: Significant for chronic atrial fibrillation, diabetes, hypertension, dyslipidemia, osteoarthritis, valvular heart disease, status post aortic valve replacement and chronic atrial fibrillation. MEDICATIONS: The patient is on Coumadin, Amaryl, Lasix, iron, Pepcid, B12, aspirin and Zyloprim. ALLERGIES: Allergies to CODEINE. FAMILY HISTORY: Negative for premature coronary artery disease. SOCIAL HISTORY: Negative for current smoking, EtOH abuse, or drug abuse. REVIEW OF SYSTEMS: HEENT is unremarkable. CARDIAC: As described above. RESPIRATORY: As described above. GI: Negative. GENITOURINARY: Negative. ALLERGY/IMMUNOLOGY: Negative. SKIN: Negative. MUSCULOSKELETAL: Significant for arthritis. PSYCHOSOCIAL: Negative. ENDOCRINE: Negative. DERM: Negative. CONSTITUTIONAL: Negative. ONCOLOGICAL: Negative. HEMATOLOGICAL: Significant for anemia. Rest of the system review is not relevant. PHYSICAL EXAMINATION: On exam, he appears comfortable at rest. Vital signs are stable. There is no jugular venous distention. Chest exam reveals diminished air entry at the bases. I do not hear any crackles or rhonchi. Heart exam reveals first and second heart sounds. Ejection systolic murmur in the aortic area. Systolic murmur at the left lower sternal border. Abdomen is soft. Examination of extremities reveals bilateral moderate pitting edema. LABS: Labs show a creatinine of 1.1. INR is 2.2. Hemoglobin is 7.1, platelet count is 158. Troponin is 0.09 and of unclear clinical significance. Stool occult blood is positive. ASSESSMENT: 1. Shortness of breath secondary to symptomatic anemia. 2. Anemia secondary to gastrointestinal blood loss. 3. History of aortic valve replacement. 4. Cardiomyopathy with chronic systolic heart failure. PLAN: I will increase the dose of Lasix given the leg edema. I am going to hold the Coumadin at this time. There is an increased risk of stroke, but I think given how low the hemoglobin had become, we first need to figure out where and how the patient is losing blood. We will continue rest of his medications. Blood pressure tolerating we may add BAHRGAV inhibitors and beta blockers which he in the past. MMANTONYL / IJN: [id number] /
[2019-04-12] MEDS ORDERED: FUROSEMIDE 40 MG TAB PO SCH (09:00)
--- NOTE | 2019-04-12 23:04 | P.CONS ---
History of Present Illness - Reason for Consult Consult date: 04/12/19 Anemia of acute blood loss, melena Requesting physician: Geo E Sheet - Chief Complaint Low hemoglobin - History of Present Illness 78-year-old male with a medical history significant for congestive heart failure, atrial fibrillation on Coumadin therapy, COPD, diabetes mellitus, hyperlipidemia and hypertension who presented to the hospital after being seen in the outpatient setting for shortness of breath and melena. The patient had reported exertional dyspnea which had been worsening prior to presentation. With associated bilateral lower extremity swelling. He is also noticed black tarry bowel movements for the past month. Patient's hemoglobin on presentation was found to be 6.8 with WBC 6.4 and INR 3.1. The patient has been seen and evaluated by the gastroenterology service for similar complaints since 04/2017 when the patient had EGD negative for bleed, colonoscopy with polypectomy followed by video capsule endoscopy with signs of small bowel bleeding. Enteroscopy was performed on 05/07/2017 which was negative. Similar complaints earlier in the year when the patient was taken for EGD which was also negative for source of acute bleeding. With EGD on 02/2019 significant only for gastritis. Presenting to the hospital patient denies any further episodes of melena. No abdominal pain reported. Review of Systems REVIEW OF SYSTEMS: CONSTITUTIONAL: Denies any fevers, chills, weight change or fatigue. CARDIOVASCULAR: Denies any chest pain, palpitations high or low blood pressures but does report paroxysmal nocturnal dyspnea and lower shortly swelling. RESPIRATORY: Denies any hemoptysis or cough, but did report shortness of breath. GENITOURINARY: No dysuria or hematuria. MUSCULOSKELETAL: No weakness reported. SKIN: Denies any new rashes or lesions, jaundice or pallor. PSYCHIATRIC: Denies any depression or anxiety. NEUROLOGY: Denies headache, denies any new focal deficits. EARS/NOSE/THROAT: No recent hearing change, congestion, nasal discharge or sore throat. EYES: No pain in eyes, discharge or change in vision. GASTROINTESTINAL: As per HPI. Past Medical History Past Medical History: Atrial Fibrillation, Heart Failure, COPD, Diabetes Mellitus, Hearing Disorder / Deafness, Hyperlipidemia, Hypertension, Osteoarthritis (OA), Vascular Disorder Additional Past Medical History / Comment(s): Viral myocarditis & pericarditis 1979, IDDM type II, neuropathy bilateral feet and occasionally in bilateral hands, L thigh varicose veins, venous insufficiency, AUGUSTINE bilaterally. gangrenous gallbladder-removed History of Any Multi-Drug Resistant Organisms: None Reported Past Surgical History: Cardiac Valve Replacement, Cholecystectomy, Heart Catheterization, Orthopedic Surgery Additional Past Surgical History / Comment(s): vein stripping of left leg, carpel tunnel right hand, YAS, cataract safia. eyes with implants, periocardioce ntesis -1979, aortic valve repair-March, colonoscopies/benign polypectomy, EGD with benign polypectomy. Past Anesthesia/Blood Transfusion Reactions: No Reported Reaction Additional Past Anesthesia/Blood Transfusion Reaction / Comm: Pt has received blood without reaction. Past Psychological History: No Psychological Hx Reported Additional Psychological History / Comment(s): Pt resides with his spouse. He is independent. He will use a cane or walker prn. Smoking Status: Former smoker Past Alcohol Use History: None Reported Additional Past Alcohol Use History / Comment(s): Pt started smoking in 1955 and quit in 1979. He was less than a ppd smoker. Past Drug Use History: None Reported - Past Family History Mother Additional Family Medical History / Comment(s): Mother at the age of 98yrs from heart problems. Father Family Medical History: No Reported History Additional Family Medical History / Comment(s): Father in a MVA at the age of 59yrs. Sister(s) Family Medical History: Cancer Medications and Allergies Home Medications Medication Instructions Recorded Confirmed Type Allopurinol [Zyloprim] 100 mg PO DAILY 01/11/18 04/11/19 History Ferrous Gluconate 324 mg PO BID 01/11/18 04/11/19 History Furosemide [Lasix] 40 mg PO DAILY 02/16/18 04/11/19 History Glimepiride [Amaryl] 2 mg PO [id number] 02/16/18 04/11/19 History Aspirin [Coles Aspirin EC] 81 mg PO DAILY 12/08/18 04/11/19 History Calcitriol 0.25 mcg PO STRICKLAND 12/08/18 04/11/19 History Cyanocobalamin (Vitamin B-12) 1,000 mcg PO DAILY 12/08/18 04/11/19 History [Vitamin B-12] Warfarin [Coumadin] 10 mg PO DAILY 12/08/18 04/11/19 History Famotidine [Pepcid] 20 mg PO BID #60 tablet 02/27/19 04/11/19 Rx Allergies Allergy/AdvReac Type Severity Reaction Status Date / Time codeine Allergy Rash/Hives Verified 04/11/19 11:09 Physical Exam Vitals: Vital Signs Temp Pulse Resp BP Pulse Ox 04/12/19 20:25 97.9 F 52 L 16 110/65 99 04/12/19 15:39 97.7 F 66 20 142/65 97 04/12/19 11:28 97.8 F 56 L 20 114/54 99 04/12/19 08:00 98.1 F 61 20 119/57 98 04/12/19 03:30 97 F L 49 L 18 125/60 99 04/12/19 00:18 97.5 F L 69 18 100/48 100 Intake and Output 04/12/19 04/12/19 04/12/19 06:59 14:59 22:59 Intake Total 600 1062 222 Output Total 250 Balance 600 1062 -28 Intake: Intake, IV Titration 600 600 Amount Sodium Chloride 0.9% 1, 600 600 000 ml @ 75 mls/hr IV . [id number] [facility] Rx#:[id number] Oral 462 222 Output: Urine 250 Other: Voiding Method Toilet # Voids 1 Weight 105.6 kg On physical examination, patient appears comfortable in no apparent distress. HEAD: Normocephalic, atraumatic. EYES: No scleral icterus. No conjunctival injection. MOUTH: No lesions, tongue midline. NECK: Trachea midline, no gross abnormalities. CHEST: Clear to auscultation with no wheezing or rhonchi appreciated. HEART: Irregularly irregular. ABDOMEN: Soft, obese. Bowel sounds are positive. No organomegaly. No guarding or rigidity. EXTREMITIES: No pedal edema. SKIN: No rashes, no jaundice. NEUROLOGIC: Alert and oriented x3. No focal deficits. Results CBC & Chem 7: 04/12/19 05:32 04/12/19 05:32 Labs: Abnormal Lab Results - Last 24 Hours (Table) 04/12/19 04/12/19 04/12/19 Range/Units 05:32 05:32 05:32 RBC 2.73 L (4.30-5.90) m/uL Hgb 7.1 L (13.0-17.5) gm/dL Hct 25.8 L (39.0-53.0) % MCHC 27.7 L (31.0-37.0) g/dL RDW 17.0 H (11.5-15.5) % Lymphocytes # 0.8 L (1.0-4.8) k/uL PT 21.8 H (9.0-12.0) sec INR 2.2 H (<1.2) BUN 29 H (9-20) mg/dL Glucose 102 H (74-99) mg/dL Troponin I (0.000-0.034) ng/mL 04/12/19 Range/Units 05:32 RBC (4.30-5.90) m/uL Hgb (13.0-17.5) gm/dL Hct (39.0-53.0) % MCHC (31.0-37.0) g/dL RDW (11.5-15.5) % Lymphocytes # (1.0-4.8) k/uL PT (9.0-12.0) sec INR (<1.2) BUN (9-20) mg/dL Glucose (74-99) mg/dL Troponin I 0.081 H* (0.000-0.034) ng/mL Chest x-ray: report reviewed (Chronic emphysematous changes with cardiomegaly.) Assessment and Plan (1) GI bleed Narrative/Plan: 78-year-old presenting for evaluation of shortness of breath and melena with hemoglobin found to be 6.8. The patient has been evaluated for similar symptoms since 04/2017 when video capsule endoscopy showed evidence of small bowel bleed. Enteroscopy performed after the positive study was negative for source of bleeding. Recently admitted on 02/2019 repeat EGD again was negative for any source of bleeding with only gastritis noted. His presentation to the hospital no further reports of melena. Current Visit: Yes Status: Acute Code(s): K92.2 - GASTROINTESTINAL HEMORRHAGE, UNSPECIFIED SNOMED Code(s): 62117382 (2) Acute blood loss anemia Current Visit: No Status: Acute Code(s): D62 - ACUTE POSTHEMORRHAGIC ANEMIA SNOMED Code(s): 550630043 Plan: Supportive care Okay for liquid diet Continue to monitor hemoglobin and hematocrit and transfuse as needed Correction of supratherapeutic INR Continue Protonix 40 mg twice daily Continue to monitor for signs or symptoms of GI bleeding If further fall in hemoglobin or recurrence of melena will plan for push enteroscopy, otherwise continue medical management Plan discussed with the patient length who agrees with the current treatment Thank you for allowing us to participate in the care of the patient we will continue to follow
[2019-04-13 06:49] LABS: Anisocytosis Slight; Basophils % (A) 0 %; Eosinophils # (A) 0.2 k/uL (0-0.7); Eosinophils % (A) 4 %; HGB 7.1 gm/dL (13.0-17.5); Hypochromasia Marked; Lymphocytes # (A) 0.5 k/uL (1.0-4.8); Lymphocytes % (A) 9 %; MCHC 27.2 g/dL (31.0-37.0); MCV 95.5 fL (80.0-100.0); Mean Platelet Volume 8.7; Monocytes # (A) 0.2 k/uL (0-1.0); Monocytes % (A) 4 %; Neutrophils # (A) 3.8 k/uL (1.3-7.7); Neutrophils % (A) 80 %; Platelet Count 169 k/uL (150-450); Poikilocytosis Moderate; RBC 2.72 m/uL (4.30-5.90); WBC 4.7 k/uL (3.8-10.6)
[2019-04-13 07:01] LABS: INR 1.8 (<1.2); Prothrombin Time 17.7 sec (9.0-12.0)
[2019-04-13 07:09] LABS: Calcium 8.2 mg/dL (8.4-10.2); Potassium 3.7 mmol/L (3.5-5.1)
--- NOTE | 2019-04-13 07:46 | P.PN ---
Subjective this is a pleasant 78 years old male with past medical history of congestive heart failure with ejection fraction of 40%, atrial fibrillationon Coumadin, COPD, diabetes mellitus, hyperlipidemia, hypertension, osteoarthritis, viral myocarditis and pericarditis, diabetic neuropathy,he presented to his doctor yesterday with black stool and exertional dyspnea, Dr. Severino send him to the hospital today for low hemoglobin of 6.3. Patient complains from exertional dyspneaand , and breathing difficulty at night concerning for paroxysmal nocturnal dyspnea, and bilateral leg swelling. Patient says that he has black stool for about a month, but he denies abdominal pain, no nausea vomiting. Also patient denies chest pain and denies dyspnea at rest. No dizziness. However he feels generally weak he was recently admitted to the hospital for acute GI bleed and persistent atrial fibrillation on 60-07/28/2019 patient is status post EGD on 02/26/2019 showing mild gastritis patient is afebrile and hemodynamically stable. That's showing severe anemia with hemoglobin 6.8, no leukocytosis and platelets within normal limits, INR is supratherapeutic at 3.1creatinine is elevated at 1.34, baseline is 1.1-1.3.the troponin is 0.09. Occult blood is positive in stool. Patient currently receiving 1 unit of blood transfusion in the emergency room 04/12/2019 Patient feels that his dyspnea is improving, no chest pain or coughing however he still have orthopnea. He didn't sleep well only for 3 hours last night. However he denies abdominal pain, no bloody bowel movements or nausea vomiting. His legs are swollen chronically. Patient is seen by cash applications specialist this morning for elevated troponin. GI team are going to evaluated the patient. His he moglobin went only from 6.8 up to 7.1 after went to for blood transfusion. Coumadin and aspirin on hold. Creatinine is back to normal at 1.1, repeat troponin is still pending. recommend another unit of blood transfusion since his INR still high and there is no much improvement in his hemoglobin and therefore is expected to bleed more. Patient is afebrile and blood pressure is acceptable. hemoglobin 7.1, INR 2.2, creatinine is improved to 1.1, repeat troponin is pending. 04/13/2019 Patient is awake, no chest pain or dyspnea. No abdominal pain. the patient was lying in bed with not in respiratory distress and no orthopnea was noted.. Patient has no more nausea vomiting. And on bowel movement since admission. Vital signs stable and patient is afebrile. Hemoglobin is stable at 7.1 similar to yesterday. INR is coming down to 1.8 while Coumadin is still on hold. GI team evaluated the patient and recommended monitoring and to do enteroscopy if bleeding or melena, or drop in hemoglobin. Cream Dipper recommended BHARGAV inhibitor and beta porsha. Lasix is been added to 4 leg edema and still on normal saline 75 mL which is lowered to 50. Aspirin is also on hold. Creatinine is back close to baseline of 1.1 review of systems CONSTITUTIONAL: No fever, no malaise, no fatigue. HEENT: No recent visual problems or hearing problems. Denied any sore throat. CARDIOVASCULAR: No orthopnea, PND, no palpitations, no syncope. PULMONARY: No shortness of breath, no cough, no hemoptysis. GASTROINTESTINAL: No diarrhea, no nausea, no vomiting, no abdominal pain. Normoactive bowel sounds. NEUROLOGICAL: No headaches, no weakness, no numbness. HEMATOLOGICAL: Denies any bleeding or petechiae. GENITOURINARY: Denies any burning micturition, frequency, or urgency. MUSCULOSKELETAL/RHEUMATOLOGICAL: Denies any joint pain, swelling, or any muscle pain. ENDOCRINE: Denies any polyuria or polydipsia. Active Medications Generic Name Dose Route Start Last Admin Trade Name Freq PRN Reason Stop Dose Admin Allopurinol 100 mg 04/12/19 09:00 Zyloprim PO DAILY RAD[facility] Calcitriol 0.25 mcg 04/15/19 09:00 Rocaltrol PO [facility] Cyanocobalamin 1,000 mcg 04/12/19 09:00 Vitamin B-12 PO DAILY RADHA Ferrous Sulfate 325 mg 04/11/19 21:00 04/11/19 20:45 Feosol PO 325 mg BID RADHA Administration Furosemide 40 mg 04/12/19 09:00 Lasix PO DAILY [facility] Sodium Chloride 1,000 mls @ 75 mls/hr 04/11/19 15:00 04/12/19 05:12 Saline 0.9% IV Not Given .[id number] RADHA Naloxone HCl 0.2 mg 04/11/19 14:46 Narcan IV Q2M PRN Opioid Reversal Pantoprazole Sodium 40 mg 04/11/19 21:00 04/11/19 20:46 Protonix IV 40 mg BID RADHA Administration Objective - Vital Signs Vital signs: Vital Signs Temp 97.9 F 04/13/19 04:00 Pulse 68 04/13/19 04:00 Resp 17 04/13/19 04:00 BP 109/57 04/13/19 04:00 Pulse Ox 98 04/13/19 04:00 Intake & Output 04/12/19 04/13/19 04/13/19 18:59 06:59 18:59 Intake Total 1284 240 Output Total 550 Balance 1284 -550 240 Weight 106.9 kg Intake: Intake, IV Titration 600 Amount Sodium Chloride 0.9% 1, 600 000 ml @ 75 mls/hr IV . [id number] [facility] Rx#:[id number] Oral 684 240 Output: Urine 550 Other: Voiding Method Toilet - Exam GENERAL: The patient is alert and oriented x3, not in any acute distress. Well developed, well nourished. HEENT: Pupils are round and equally reacting to light. EOMI. No scleral icterus. No conjunctival pallor. Normocephalic, atraumatic. No pharyngeal erythema. No thyromegaly. CARDIOVASCULAR: S1 and S2 present. No murmurs, rubs, or gallops. PULMONARY: Chest is clear to auscultation, no wheezing or crackles. ABDOMEN: Soft, nontender, nondistended, normoactive bowel sounds. No palpable organomegaly. MUSCULOSKELETAL: No joint swelling or deformity. EXTREMITIES: No cyanosis, clubbing, or pedal edema. NEUROLOGICAL: Gross neurological examination did not reveal any focal deficits. SKIN: No rashes. - Labs CBC & Chem 7: 04/13/19 05:24 04/13/19 05:24 Labs: Abnormal Lab Results - Last 24 Hours (Table) 04/12/19 04/13/19 04/13/19 Range/Units 05:32 05:24 05:24 RBC 2.72 L (4.30-5.90) m/uL Hgb 7.1 L (13.0-17.5) gm/dL Hct 26.0 L (39.0-53.0) % MCHC 27.2 L (31.0-37.0) g/dL RDW 17.0 H (11.5-15.5) % Lymphocytes # 0.5 L (1.0-4.8) k/uL PT 17.7 H (9.0-12.0) sec INR 1.8 H (<1.2) Glucose (74-99) mg/dL Calcium (8.4-10.2) mg/dL Troponin I 0.081 H* (0.000-0.034) ng/mL 04/13/19 Range/Units 05:24 RBC (4.30-5.90) m/uL Hgb (13.0-17.5) gm/dL Hct (39.0-53.0) % MCHC (31.0-37.0) g/dL RDW (11.5-15.5) % Lymphocytes # (1.0-4.8) k/uL PT (9.0-12.0) sec INR (<1.2) Glucose 160 H (74-99) mg/dL Calcium 8.2 L (8.4-10.2) mg/dL Troponin I (0.000-0.034) ng/mL Assessment and Plan Assessment: GI bleed elevated troponin 0.09. 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 COPD, not an exacerbation Hypertension N diabetes mellitus Diabetic neuropathy Hyperlipidemia History of osteoarthritis Plan: this is a pleasant 78 years old male who presents with GI bleed and elevated troponin. Contrast was brought to keep hemoglobin more than 7. Hold Coumadin. Monitor hemoglobin.call cardiology and gastroenterology consult Labs and medication were reviewed.. Continue same treatment. Continue with symptomatic treatment. Resume home medication. Monitor lytes and vitals. DVT and GI prophylaxis. Further recommendations of the clinical course of the patient DVT prophylaxis: no anticoagulation in view of GI bleed GI Prophylaxis: Protonix PT/OT: Pending Prognosis is guarded
[2019-04-13] MEDS: ALLOPURINOL 100 MG TAB PO SCH (08:09)
[2019-04-13] MEDS: CYANOCOBALAMIN 500 MCG TAB PO SCH (08:09)
[2019-04-13] MEDS: FERROUS SULFATE 325 MG TAB PO SCH ×2 (08:09→20:15)
[2019-04-13] MEDS: PANTOPRAZOLE 40 MG/10 ML VIAL IV SCH ×2 (08:09→20:15)
[2019-04-13] MEDS: FUROSEMIDE 40 MG TAB PO SCH ×2 (08:09→16:43)
--- NOTE | 2019-04-13 12:11 | PN ---
PROGRESS NOTE Darrin is a 78-year-old gentleman with history of chronic atrial fibrillation, aortic valve replacement who presented to hospital with symptomatic anemia. He is feeling better. Hemoglobin has remained stable at 7.1. INR is 1.8. Coumadin is on hold. He has been receiving Lasix with improvement in his leg edema. PHYSICAL EXAMINATION: On exam, comfortable at rest. Vital signs are stable. There is no jugular venous distention. Chest exam reveals good air entry bilaterally. Heart exam reveals first and second heart sounds. Ejection systolic murmur in the aortic area. Abdomen is soft. Examination of extremities reveals bilateral pitting edema, but this has improved. ASSESSMENT: 1. Symptomatic anemia. 2. Chronic atrial fibrillation. 3. Chronic systolic heart failure. PLAN: Patient is not a candidate for anticoagulation. They are awaiting GI workup. We will continue to monitor him. LOVELY / JINGN: [id number] /
[2019-04-13] MEDS: SODIUM CHLORIDE 0.9% 1,000 ML IV SCH ×2 (16:57→20:15)
--- NOTE | 2019-04-13 21:10 | P.PN ---
Subjective Progress Note Date: 04/13/19 Principal diagnosis: Melena, anemia of acute blood loss Patient seen at bedside. Tolerated liquids yesterday and advanced for lunch today. No signs or symptoms of GI bleeding and no bowel movements reported. Objective - Vital Signs Vital signs: Vital Signs Temp 98.2 F 04/13/19 20:13 Pulse 67 04/13/19 20:13 Resp 15 04/13/19 20:13 BP 118/66 04/13/19 20:13 Pulse Ox 100 04/13/19 20:13 Intake & Output 04/13/19 04/13/19 04/14/19 06:59 18:59 06:59 Intake Total 1360 Output Total 550 Balance -550 1360 Weight 106.9 kg Intake: Intake, IV Titration 400 Amount Sodium Chloride 0.9% 1, 400 000 ml @ 50 mls/hr IV . Q20H [facility] Rx#:[id number] Oral 960 Output: Urine 550 Other: Voiding Method Toilet Toilet - Exam On physical examination, patient appears comfortable in no apparent distress. HEAD: Normocephalic, atraumatic. EYES: No scleral icterus. No conjunctival injection. MOUTH: No lesions, tongue midline. NECK: Trachea midline, no gross abnormalities. CHEST: Clear to auscultation with no wheezing or rhonchi appreciated. HEART: S1-S2 appreciated. ABDOMEN: Soft, obese. Bowel sounds are positive. No organomegaly. No guarding or rigidity. EXTREMITIES: No pedal edema. SKIN: No rashes, no jaundice. NEUROLOGIC: Alert and oriented x3. No focal deficits. - Labs CBC & Chem 7: 04/13/19 05:24 04/13/19 05:24 Labs: Abnormal Lab Results - Last 24 Hours (Table) 04/13/19 04/13/19 04/13/19 Range/Units 05:24 05:24 05:24 RBC 2.72 L (4.30-5.90) m/uL Hgb 7.1 L (13.0-17.5) gm/dL Hct 26.0 L (39.0-53.0) % MCHC 27.2 L (31.0-37.0) g/dL RDW 17.0 H (11.5-15.5) % Lymphocytes # 0.5 L (1.0-4.8) k/uL PT 17.7 H (9.0-12.0) sec INR 1.8 H (<1.2) Glucose 160 H (74-99) mg/dL Calcium 8.2 L (8.4-10.2) mg/dL Assessment and Plan (1) GI bleed Narrative/Plan: 78-year-old presenting for evaluation of shortness of breath and melena with hemoglobin found to be 6.8. The patient has been evaluated for similar symptoms since 04/2017 when video capsule endoscopy showed evidence of small bowel bleed. Enteroscopy performed after the positive study was negative for source of blee ding. Recently admitted on 02/2019 repeat EGD again was negative for any source of bleeding with only gastritis noted. Since his presentation to the hospital no further reports of melena. Current Visit: Yes Status: Acute Code(s): K92.2 - GASTROINTESTINAL HEMORRHAGE, UNSPECIFIED SNOMED Code(s): 10664270 (2) Acute blood loss anemia Current Visit: No Status: Acute Code(s): D62 - ACUTE POSTHEMORRHAGIC ANEMIA SNOMED Code(s): 560777323 Plan: Supportive care Okay for diet, nothing by mouth after midnight Continue to monitor hemoglobin and hematocrit and transfuse as needed Correction of supratherapeutic INR Continue Protonix 40 mg twice daily Continue to monitor for signs or symptoms of GI bleeding Plan is for push enteroscopy tomorrow Thank you for allowing us to participate in the care of the patient we will continue to follow
[2019-04-14 07:19] LABS: Anisocytosis Slight; Basophils % (A) 1 %; Eosinophils # (A) 0.2 k/uL (0-0.7); Eosinophils % (A) 4 %; HCT 28.3 % (39.0-53.0); HGB 8.2 gm/dL (13.0-17.5); Hypochromasia Marked; Lymphocytes # (A) 0.5 k/uL (1.0-4.8); Lymphocytes % (A) 10 %; MCH 28.3 pg (25.0-35.0); MCHC 28.8 g/dL (31.0-37.0); MCV 98.4 fL (80.0-100.0); Macrocytosis Slight; Mean Platelet Volume 9.1; Monocytes # (A) 0.3 k/uL (0-1.0); Monocytes % (A) 6 %; Neutrophils # (A) 3.6 k/uL (1.3-7.7); Neutrophils % (A) 78 %; Platelet Count 146 k/uL (150-450); Poikilocytosis Slight; RBC 2.88 m/uL (4.30-5.90); RDW 16.3 % (11.5-15.5); WBC 4.6 k/uL (3.8-10.6)
[2019-04-14 07:31] LABS: INR 1.5 (<1.2); Prothrombin Time 14.8 sec (9.0-12.0)
[2019-04-14 07:42] LABS: Calcium 8.5 mg/dL (8.4-10.2)
[2019-04-14] MEDS ORDERED: FUROSEMIDE 10 MG/ML 4 ML VIAL IV STA (08:38)
--- NOTE | 2019-04-14 09:59 | XR ---
EXAMINATION TYPE: XR chest 2V DATE OF EXAM: 04/14/2019 HISTORY: sob. REFERENCE: Previous study dated 04/11/2019. FINDINGS: There has been a midline sternotomy. Heart size upper limits of normal. There is bibasilar scarring or atelectasis. There are mild increased markings. These may have worsened slightly. Pleural spaces appear clear. IMPRESSION: 1. CORRELATE FOR COPD. 2. BORDERLINE CARDIOMEGALY. 3. SCARRING VERSUS ATELECTASIS, BOTH LUNG BASES.
--- NOTE | 2019-04-14 10:06 | P.PN ---
Subjective Progress Note Date: 04/14/19 This is a 78-year-old gentleman with known history of chronic persistent atrial fibrillation, valvular heart disease status post aortic valve replacement, anemia secondary to GI bleed, hypertension, hyperlipidemia, who presented to the hospital with symptoms of progressively worsening shortness of breath. Patient was found to be significantly anemic with a hemoglobin of 6.3 and was admitted for the same. He did receive 2 units of blood transfusion after which his breathing had stabilized. His stool is also positive for occult blood. On his most recent admission patient underwent an EGD that was negative and GI advised resuming anticoagulation. At the time of my examination this morning, patient does feel that he has more edema in his lower extremities, he's complaining of some orthopnea this morning as well. His blood pressure 106/50 with a heart rate in the 50s, 100% on room air, temperature 90.8. White blood cell count 4.6, hemoglobin 8.2, platelet count 146. INR this morning 1.5, sodium 139, potassium 4.0, BUN 18 and creatinine 1.2. BNP level 2009. Objective - Vital Signs Vital signs: Vital Signs Temp 98 F 04/14/19 08:10 Pulse 53 L 04/14/19 08:10 Resp 18 04/14/19 08:10 BP 106/59 04/14/19 08:10 Pulse Ox 100 04/14/19 08:10 Intake & Output 04/13/19 04/14/19 04/14/19 18:59 06:59 18:59 Intake Total 1360 0 Output Total 300 Balance 1360 -300 Weight 108.5 kg Intake: Intake, IV Titration 400 Amount Sodium Chloride 0.9% 1, 400 000 ml @ 50 mls/hr IV . Q20H [facility] Rx#:[id number] Oral 960 0 Output: Urine 300 Other: Voiding Method Toilet # Voids 1 - Exam PHYSICAL EXAMINATION: GENERAL: 78-year-old gentleman in no acute distress at the time of my examination HEENT: Head is atraumatic, normocephalic. Pupils equal, round. Sclera anicteric. Conjunctiva are clear. Mucous membranes of the mouth are moist. Neck is supple. There is no elevated jugular venous pressure. No carotid bruit is heard. HEART EXAMINATION: Heart S1 and S2 irregularly irregular a systolic murmur is heard CHEST EXAMINATION: Lungs reveal diminished air entry to bilateral bases. ABDOMEN: Soft, nontender. Bowel sounds are heard. No organomegaly noted. EXTREMITIES: 2+ peripheral pulses with 1-2+ evidence of peripheral edema and no calf tenderness noted. NEUROLOGIC patient is awake, alert and oriented 3. . - Labs CBC & Chem 7: 04/14/19 06:56 04/14/19 06:56 Labs: Abnormal Lab Results - Last 24 Hours (Table) 04/14/19 04/14/19 04/14/19 Range/Units 06:56 06:56 06:56 RBC 2.88 L (4.30-5.90) m/uL Hgb 8.2 L (13.0-17.5) gm/dL Hct 28.3 L (39.0-53.0) % MCHC 28.8 L (31.0-37.0) g/dL RDW 16.3 H (11.5-15.5) % Plt Count 146 L (150-450) k/uL Lymphocytes # 0.5 L (1.0-4.8) k/uL PT 14.8 H (9.0-12.0) sec INR 1.5 H (<1.2) Glucose 177 H (74-99) mg/dL Assessment and Plan Plan: Assessment and plan #1 symptoms of shortness of breath, secondary to symptomatic anemia #2 anemia secondary to GI blood loss #3 chronic persistent atrial fibrillation, at present not a candidate for anticoagulation because of GI bleed, patient had a recent EGD performed this last admission, he will need to have a colonoscopy before resuming anticoagulation at this time. #4 history of aortic valve replacement #5 diabetes #6 hypertension #7 hyperlipidemia #8 systolic congestive heart failure acute on chronic Plan We will give the patient one time dose of IV Lasix today, repeat chest x-ray. No anticoagulation at this time. DNP note has been reviewed, I agree with a documented findings and plan of care. Patient was seen and examined.
[2019-04-14] MEDS ORDERED: PROPOFOL 10 MG/ML 20 ML VIAL IV ONE (10:45)
[2019-04-14] MEDS ORDERED: LIDOCAINE 1% INJ 10MG/ML (20 ML MDV) ONE (10:45)
[2019-04-14] MEDS ORDERED: IV FLUID CONTINUATION 100 ML IV ONE (10:48)
[2019-04-14] MEDS ORDERED: SODIUM CHLORIDE 0.9% 500 ML 500 ML IV ONE (10:49)
--- NOTE | 2019-04-14 10:49 | P.PN ---
Subjective this is a pleasant 78 years old male with past medical history of congestive heart failure with ejection fraction of 40%, atrial fibrillationon Coumadin, COPD, diabetes mellitus, hyperlipidemia, hypertension, osteoarthritis, viral myocarditis and pericarditis, diabetic neuropathy,he presented to his doctor yesterday with black stool and exertional dyspnea, Dr. Severino send him to the hospital today for low hemoglobin of 6.3. Patient complains from exertional dyspneaand , and breathing difficulty at night concerning for paroxysmal nocturnal dyspnea, and bilateral leg swelling. Patient says that he has black stool for about a month, but he denies abdominal pain, no nausea vomiting. Also patient denies chest pain and denies dyspnea at rest. No dizziness. However he feels generally weak he was recently admitted to the hospital for acute GI bleed and persistent atrial fibrillation on 60-07/28/2019 patient is status post EGD on 02/26/2019 showing mild gastritis patient is afebrile and hemodynamically stable. That's showing severe anemia with hemoglobin 6.8, no leukocytosis and platelets within normal limits, INR is supratherapeutic at 3.1creatinine is elevated at 1.34, baseline is 1.1-1.3.the troponin is 0.09. Occult blood is positive in stool. Patient currently receiving 1 unit of blood transfusion in the emergency room 04/12/2019 Patient feels that his dyspnea is improving, no chest pain or coughing however he still have orthopnea. He didn't sleep well only for 3 hours last night. However he denies abdominal pain, no bloody bowel movements or nausea vomiting. His legs are swollen chronically. Patient is seen by cartoonist special effects this morning for elevated troponin. GI team are going to evaluated the patient. His he moglobin went only from 6.8 up to 7.1 after went to for blood transfusion. Coumadin and aspirin on hold. Creatinine is back to normal at 1.1, repeat troponin is still pending. recommend another unit of blood transfusion since his INR still high and there is no much improvement in his hemoglobin and therefore is expected to bleed more. Patient is afebrile and blood pressure is acceptable. hemoglobin 7.1, INR 2.2, creatinine is improved to 1.1, repeat troponin is pending. 04/13/2019 Patient is awake, no chest pain or dyspnea. No abdominal pain. the patient was lying in bed with not in respiratory distress and no orthopnea was noted.. Patient has no more nausea vomiting. And on bowel movement since admission. Vital signs stable and patient is afebrile. Hemoglobin is stable at 7.1 similar to yesterday. INR is coming down to 1.8 while Coumadin is still on hold. GI team evaluated the patient and recommended monitoring and to do enteroscopy if bleeding or melena, or drop in hemoglobin. Sweeper Operator Highways recommended BHARGAV inhibitor and beta porsha. Lasix is been added to 4 leg edema and still on normal saline 75 mL which is lowered to 50. Aspirin is also on hold. Creatinine is back close to baseline of 1.1 04/14/2019 Patient is doing well with no dyspnea or chest pain. No orthopnea. GI bleed has stopped. However patient might be going for push enteroscopy per GI team. Cardiology team are following the patient as well For high troponin. Patient is not a candidate for anticoagulation given his recent episodes of GI bleed, risk of holding Coumadin including but not limited to the risk of stroke R explained to the patient and he verbalized understanding and acceptance.. He is hemodynamically stable. His hemoglobin is 8.2 today, platelets down to 146. INR 1.5 while holding Coumadin. And BMP is unremarkable. review of systems CONSTITUTIONAL: No fever, no malaise, no fatigue. HEENT: No recent visual problems or hearing problems. Denied any sore throat. CARDIOVASCULAR: No orthopnea, PND, no palpitations, no syncope. PULMONARY: No shortness of breath, no cough, no hemoptysis. GASTROINTESTINAL: No diarrhea, no nausea, no vomiting, no abdominal pain. Normoactive bowel sounds. NEUROLOGICAL: No headaches, no weakness, no numbness. HEMATOLOGICAL: Denies any bleeding or petechiae. GENITOURINARY: Denies any burning micturition, frequency, or urgency. MUSCULOSKELETAL/RHEUMATOLOGICAL: Denies any joint pain, swelling, or any muscle pain. ENDOCRINE: Denies any polyuria or polydipsia. Active Medications Generic Name Dose Route Start Last Admin Trade Name Freq PRN Reason Stop Dose Admin Allopurinol 100 mg 04/12/19 09:00 Zyloprim PO DAILY [facility] Calcitriol 0.25 mcg 04/15/19 09:00 Rocaltrol PO [facility] Cyanocobalamin 1,000 mcg 04/12/19 09:00 Vitamin B-12 PO DAILY [facility] Ferrous Sulfate 325 mg 04/11/19 21:00 04/11/19 20:45 Feosol PO 325 mg BID [facility] Administration Furosemide 40 mg 04/12/19 09:00 Lasix PO DAILY [facility] Sodium Chloride 1,000 mls @ 75 mls/hr 04/11/19 15:00 04/12/19 05:12 Saline 0.9% IV Not Given .[id number] [facility] Naloxone HCl 0.2 mg 04/11/19 14:46 Narcan IV Q2M PRN Opioid Reversal Pantoprazole Sodium 40 mg 04/11/19 21:00 04/11/19 20:46 Protonix IV 40 mg BID [facility] Administration Objective - Vital Signs Vital signs: Vital Signs Temp 98 F 04/14/19 08:10 Pulse 53 L 04/14/19 08:10 Resp 18 04/14/19 08:10 BP 106/59 04/14/19 08:10 Pulse Ox 100 04/14/19 08:10 Intake & Output 04/13/19 04/14/19 04/14/19 18:59 06:59 18:59 Intake Total 1360 0 Output Total 300 Balance 1360 -300 Weight 108.5 kg Intake: Intake, IV Titration 400 Amount Sodium Chloride 0.9% 1, 400 000 ml @ 50 mls/hr IV . Q20H [facility] Rx#:[id number] Oral 960 0 Output: Urine 300 Other: Voiding Method Toilet # Voids 1 - Exam GENERAL: The patient is alert and oriented x3, not in any acute distress. Well developed, well nourished. HEENT: Pupils are round and equally reacting to light. EOMI. No scleral icterus. No conjunctival pallor. Normocephalic, atraumatic. No pharyngeal erythema. No thyromegaly. CARDIOVASCULAR: S1 and S2 present. No murmurs, rubs, or gallops. PULMONARY: Chest is clear to auscultation, no wheezing or crackles. ABDOMEN: Soft, nontender, nondistended, normoactive bowel sounds. No palpable organomegaly. MUSCULOSKELETAL: No joint swelling or deformity. EXTREMITIES: No cyanosis, clubbing, or pedal edema. NEUROLOGICAL: Gross neurological examination did not reveal any focal deficits. SKIN: No rashes. - Labs CBC & Chem 7: 04/14/19 06:56 04/14/19 06:56 Labs: Abnormal Lab Results - Last 24 Hours (Table) 04/14/19 04/14/19 04/14/19 Range/Units 06:56 06:56 06:56 RBC 2.88 L (4.30-5.90) m/uL Hgb 8.2 L (13.0-17.5) gm/dL Hct 28.3 L (39.0-53.0) % MCHC 28.8 L (31.0-37.0) g/dL RDW 16.3 H (11.5-15.5) % Plt Count 146 L (150-450) k/uL Lymphocytes # 0.5 L (1.0-4.8) k/uL PT 14.8 H (9.0-12.0) sec INR 1.5 H (<1.2) Glucose 177 H (74-99) mg/dL Assessment and Plan Assessment: GI bleed elevated troponin 0.09. 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 COPD, not an exacerbation Hypertension N diabetes mellitus Diabetic neuropathy Hyperlipidemia History of osteoarthritis Plan: this is a pleasant 78 years old male who presents with GI bleed and elevated troponin. Contrast was brought to keep hemoglobin more than 7. Hold Coumadin. Monitor hemoglobin.call cardiology and gastroenterology consult Labs and medication were reviewed.. Continue same treatment. Continue with symptomatic treatment. Resume home medication. Monitor lytes and vitals. DVT and GI prophylaxis. Further recommendations of the clinical course of the patient DVT prophylaxis: no anticoagulation in view of GI bleed GI Prophylaxis: Protonix PT/OT: Pending Prognosis is guarded
--- NOTE | 2019-04-14 11:19 | P.PCN ---
Date of Procedure: 04/14/19 Description of Procedure: BRIEF HISTORY: 78-year-old male with a medical history significant for congestive heart failure, atrial fibrillation on Coumadin therapy, COPD, diabetes mellitus, hyperlipidemia and hypertension who presented to the hospital after being seen in the outpatient setting for shortness of breath and melena. The patient had reported exertional dyspnea which had been worsening prior to presentation. With associated bilateral lower extremity swelling. He is also noticed black tarry bowel movements for the past month. Patient's hemoglobin on presentation was found to be 6.8 with WBC 6.4 and INR 3.1. The patient has been seen and evaluated by the gastroenterology service for similar complaints since 04/2017 when the patient had EGD negative for bleed, colonoscopy with polypectomy followed by video capsule endoscopy with signs of small bowel bleeding. E nteroscopy was performed on 05/07/2017 which was negative. Similar complaints earlier in the year when the patient was taken for EGD which was also negative for source of acute bleeding. With EGD on 02/2019 significant only for gastritis. Presenting to the hospital patient denies any further episodes of melena. No abdominal pain reported. PROCEDURE PERFORMED: Push enteroscopy. PREOPERATIVE DIAGNOSIS: Melena, anemia of acute blood loss, history of small bowel bleeding. ESTIMATED BLOOD LOSS: Minimal. IV sedation per anesthesia. PROCEDURE: After informed consent was obtained, the patient was brought into the endoscopy unit. IV sedation was administered by Anesthesia under continuous monitoring. Initially the pediatric colonoscope was inserted into the mouth. Esophagus intubated without any difficulty. It was gradually advanced into the stomach and duodenum and carefully examined. The bulb and the second part of the duodenum appeared normal, and the scope was advanced to approximately 65 cm distal to the pyloric channel with no evidence of active bleeding, old blood or pathology to explain anemia seen. The scope at this time was withdrawn to the stomach, adequately insufflated with air, and upon careful examination, mucosa of the antrum, body, cardia and the fundus appeared normal. The scope was then withdrawn into the esophagus. The GE junction was located at 41 cm from the incisors. The esophagus appeared normal. There were no erosions or ulcerations seen and the patient tolerated the procedure well. IMPRESSION: 1. No evidence of active bleeding, old blood or pathology to explain anemia in the entire visualized small bowel. RECOMMENDATIONS: The findings of this examination were discussed with the patient. Okay to resume diet. Continue to monitor hemoglobin and hematocrit and transfuse as needed. Continue daily Protonix therapy. Consider tagged RBC scan if further bleeding occurs.
[2019-04-14] MEDS: PANTOPRAZOLE 40 MG TABLET PO SCH (12:24)
[2019-04-14] MEDS: FERROUS SULFATE 325 MG TAB PO SCH ×2 (12:24→20:13)
[2019-04-14] MEDS: ALLOPURINOL 100 MG TAB PO SCH (12:24)
[2019-04-14] MEDS: CYANOCOBALAMIN 500 MCG TAB PO SCH (12:24)
[2019-04-14] MEDS: PANTOPRAZOLE 40 MG/10 ML VIAL IV SCH (12:32)
[2019-04-14] MEDS: FUROSEMIDE 40 MG TAB PO SCH ×2 (12:32→15:55)
[2019-04-14] MEDS: SODIUM CHLORIDE 0.9% 1,000 ML IV SCH (15:56)
[2019-04-15] MEDS: PANTOPRAZOLE 40 MG TABLET PO SCH (06:37)
[2019-04-15 07:20] LABS: Basophils % (A) 1 %; Eosinophils # (A) 0.2 k/uL (0-0.7); Eosinophils % (A) 4 %; HCT 28.6 % (39.0-53.0); HGB 8.3 gm/dL (13.0-17.5); Hypochromasia Marked; Lymphocytes # (A) 0.7 k/uL (1.0-4.8); Lymphocytes % (A) 12 %; MCH 28.3 pg (25.0-35.0); MCHC 29.2 g/dL (31.0-37.0); MCV 96.9 fL (80.0-100.0); Mean Platelet Volume 9.3; Monocytes # (A) 0.2 k/uL (0-1.0); Monocytes % (A) 4 %; Neutrophils # (A) 4.2 k/uL (1.3-7.7); Neutrophils % (A) 77 %; Platelet Count 174 k/uL (150-450); Poikilocytosis Slight; RBC 2.95 m/uL (4.30-5.90); WBC 5.4 k/uL (3.8-10.6)
[2019-04-15] MEDS: ALLOPURINOL 100 MG TAB PO SCH (07:42)
[2019-04-15] MEDS: FERROUS SULFATE 325 MG TAB PO SCH ×2 (07:42→21:51)
[2019-04-15] MEDS: FUROSEMIDE 40 MG TAB PO SCH ×2 (07:42→16:36)
[2019-04-15] MEDS: CYANOCOBALAMIN 500 MCG TAB PO SCH (07:42)
[2019-04-15 08:48] LABS: Calcium 8.8 mg/dL (8.4-10.2)
[2019-04-15] MEDS ORDERED: CALCITRIOL 0.25 MCG CAP PO SCH (09:00)
--- NOTE | 2019-04-15 10:13 | P.PN ---
Subjective Progress Note Date: 04/15/19 This is a 78-year-old gentleman with known history of chronic persistent atrial fibrillation, valvular heart disease status post aortic valve replacement, anemia secondary to GI bleed, hypertension, hyperlipidemia, who presented to the hospital with symptoms of progressively worsening shortness of breath. Patient was found to be significantly anemic with a hemoglobin of 6.3 and was admitted for the same. He did receive 2 units of blood transfusion after which his breathing had stabilized. His stool is also positive for occult blood. On his most recent admission patient underwent an EGD that was negative and GI advised resuming anticoagulation. At the time of my examination this morning, patient does feel that he has more edema in his lower extremities, he's complaining of some orthopnea this morning as well. His blood pressure 106/50 with a heart rate in the 50s, 100% on room air, temperature 90.8. White blood cell count 4.6, hemoglobin 8.2, platelet count 146. INR this morning 1.5, sodium 139, potassium 4.0, BUN 18 and creatinine 1.2. BNP level 2009. 04/15/2019 Patient seen and examined this morning, feeling better overall. Hemoglobin today is 8.3, sodium 138, potassium 4.0, BUN 19 and creatinine 1.9. Colonoscopy was performed yesterday which did not reveal any evidence of active bleeding, old blood or pathology to explain his anemia. Blood pressure 110/50 with a heart rate in the 50s. Objective - Vital Signs Vital signs: Vital Signs Temp 98.1 F 04/15/19 08:05 Pulse 56 L 04/15/19 08:05 Resp 17 04/15/19 08:05 BP 110/54 04/15/19 08:05 Pulse Ox 98 04/15/19 08:05 Intake & Output 04/14/19 04/15/19 04/15/19 18:59 06:59 18:59 Intake Total 680 240 Output Total 800 Balance -120 240 Weight 107.9 kg Intake: IV 200 Oral 480 240 Output: Urine 800 Other: Voiding Method Toilet # Voids 2 # Bowel Movements 1 - Exam PHYSICAL EXAMINATION: GENERAL: 78-year-old gentleman in no acute distress at the time of my examination HEENT: Head is atraumatic, normocephalic. Pupils equal, round. Sclera anicteric. Conjunctiva are clear. Mucous membranes of the mouth are moist. Neck is supple. There is no elevated jugular venous pressure. No carotid bruit is heard. HEART EXAMINATION: Heart S1 and S2 irregularly irregular a systolic murmur is heard CHEST EXAMINATION: Lungs reveal diminished air entry to bilateral bases. ABDOMEN: Soft, nontender. Bowel sounds are heard. No organomegaly noted. EXTREMITIES: 2+ peripheral pulses with 1-2+ evidence of peripheral edema and no calf tenderness noted. NEUROLOGIC patient is awake, alert and oriented 3. . - Labs CBC & Chem 7: 04/15/19 06:44 04/15/19 06:44 Labs: Abnormal Lab Results - Last 24 Hours (Table) 04/15/19 04/15/19 Range/Units 06:44 06:44 RBC 2.95 L (4.30-5.90) m/uL Hgb 8.3 L (13.0-17.5) gm/dL Hct 28.6 L (39.0-53.0) % MCHC 29.2 L (31.0-37.0) g/dL RDW 16.0 H (11.5-15.5) % Lymphocytes # 0.7 L (1.0-4.8) k/uL Glucose 202 H (74-99) mg/dL Assessment and Plan Plan: Assessment and plan #1 symptoms of shortness of breath, secondary to symptomatic anemia #2 anemia secondary to GI blood loss #3 chronic persistent atrial fibrillation, at present not a candidate for anticoagulation because of GI bleed, patient had a recent EGD performed this last admission, he will need to have a colonoscopy before resuming anticoagulation at this time. #4 history of aortic valve replacement #5 diabetes #6 hypertension #7 hyperlipidemia #8 systolic congestive heart failure acute on chronic Plan From cardiology's perspective, we'll recommend to continue this patient on his current medications, we will discuss with GI, if okay with them we will resume the patient's Coumadin. DNP note has been reviewed, I agree with a documented findings and plan of care. Patient was seen and examined.
--- NOTE | 2019-04-15 10:31 | P.PN ---
Subjective this is a pleasant 78 years old male with past medical history of congestive heart failure with ejection fraction of 40%, atrial fibrillationon Coumadin, COPD, diabetes mellitus, hyperlipidemia, hypertension, osteoarthritis, viral myocarditis and pericarditis, diabetic neuropathy,he presented to his doctor yesterday with black stool and exertional dyspnea, Dr. Severino send him to the hospital today for low hemoglobin of 6.3. Patient complains from exertional dyspneaand , and breathing difficulty at night concerning for paroxysmal nocturnal dyspnea, and bilateral leg swelling. Patient says that he has black stool for about a month, but he denies abdominal pain, no nausea vomiting. Also patient denies chest pain and denies dyspnea at rest. No dizziness. However he feels generally weak he was recently admitted to the hospital for acute GI bleed and persistent atrial fibrillation on 60-07/28/2019 patient is status post EGD on 02/26/2019 showing mild gastritis patient is afebrile and hemodynamically stable. That's showing severe anemia with hemoglobin 6.8, no leukocytosis and platelets within normal limits, INR is supratherapeutic at 3.1creatinine is elevated at 1.34, baseline is 1.1-1.3.the troponin is 0.09. Occult blood is positive in stool. Patient currently receiving 1 unit of blood transfusion in the emergency room 04/12/2019 Patient feels that his dyspnea is improving, no chest pain or coughing however he still have orthopnea. He didn't sleep well only for 3 hours last night. However he denies abdominal pain, no bloody bowel movements or nausea vomiting. His legs are swollen chronically. Patient is seen by flight attendant/inflight manager this morning for elevated troponin. GI team are going to evaluated the patient. His he moglobin went only from 6.8 up to 7.1 after went to for blood transfusion. Coumadin and aspirin on hold. Creatinine is back to normal at 1.1, repeat troponin is still pending. recommend another unit of blood transfusion since his INR still high and there is no much improvement in his hemoglobin and therefore is expected to bleed more. Patient is afebrile and blood pressure is acceptable. hemoglobin 7.1, INR 2.2, creatinine is improved to 1.1, repeat troponin is pending. 04/13/2019 Patient is awake, no chest pain or dyspnea. No abdominal pain. the patient was lying in bed with not in respiratory distress and no orthopnea was noted.. Patient has no more nausea vomiting. And on bowel movement since admission. Vital signs stable and patient is afebrile. Hemoglobin is stable at 7.1 similar to yesterday. INR is coming down to 1.8 while Coumadin is still on hold. GI team evaluated the patient and recommended monitoring and to do enteroscopy if bleeding or melena, or drop in hemoglobin. Precision Assembler recommended BHARGAV inhibitor and beta porsha. Lasix is been added to 4 leg edema and still on normal saline 75 mL which is lowered to 50. Aspirin is also on hold. Creatinine is back close to baseline of 1.1 04/14/2019 Patient is doing well with no dyspnea or chest pain. No orthopnea. GI bleed has stopped. However patient might be going for push enteroscopy per GI team. Cardiology team are following the patient as well For high troponin. Patient is not a candidate for anticoagulation given his recent episodes of GI bleed, risk of holding Coumadin including but not limited to the risk of stroke R explained to the patient and he verbalized understanding and acceptance.. He is hemodynamically stable. His hemoglobin is 8.2 today, platelets down to 146. INR 1.5 while holding Coumadin. And BMP is unremarkable. 04/15/2019 Patient with no chest pain or dyspnea or abdominal pain. Yesterday after the enteroscopy he had another episode of black stool. She status post push enteroscopy yesterday which shows no evidence of active bleeding. If patient rebleeds again and then consider direct RBCs per GI recommendations. Hemoglobin is stable at 8.3. Creatinine and serum electrolytes are within normal limits. Patient is still off Coumadin and aspirin.. Objective - Vital Signs Vital signs: Vital Signs Temp 98.1 F 04/15/19 08:05 Pulse 56 L 04/15/19 08:05 Resp 17 04/15/19 08:05 BP 110/54 04/15/19 08:05 Pulse Ox 98 04/15/19 08:05 Intake & Output 04/14/19 04/15/19 04/15/19 18:59 06:59 18:59 Intake Total 680 240 Output Total 800 Balance -120 240 Weight 107.9 kg Intake: IV 200 Oral 480 240 Output: Urine 800 Other: Voiding Method Toilet # Voids 2 # Bowel Movements 1 - Exam GENERAL: The patient is alert and oriented x3, not in any acute distress. Well developed, well nourished. HEENT: Pupils are round and equally reacting to light. EOMI. No scleral icterus. No conjunctival pallor. Normocephalic, atraumatic. No pharyngeal erythema. No thyromegaly. CARDIOVASCULAR: S1 and S2 present. No murmurs, rubs, or gallops. PULMONARY: Chest is clear to auscultation, no wheezing or crackles. ABDOMEN: Soft, nontender, nondistended, normoactive bowel sounds. No palpable organomegaly. MUSCULOSKELETAL: No joint swelling or deformity. EXTREMITIES: No cyanosis, clubbing, or pedal edema. NEUROLOGICAL: Gross neurological examination did not reveal any focal deficits. SKIN: No rashes. - Labs CBC & Chem 7: 04/15/19 06:44 04/15/19 06:44 Labs: Abnormal Lab Results - Last 24 Hours (Table) 04/15/19 04/15/19 Range/Units 06:44 06:44 RBC 2.95 L (4.30-5.90) m/uL Hgb 8.3 L (13.0-17.5) gm/dL Hct 28.6 L (39.0-53.0) % MCHC 29.2 L (31.0-37.0) g/dL RDW 16.0 H (11.5-15.5) % Lymphocytes # 0.7 L (1.0-4.8) k/uL Glucose 202 H (74-99) mg/dL Assessment and Plan Assessment: GI bleed. Push enteroscopy showing no source of bleeding. elevated troponin 0.09. Coagulopathy secondary to Coumadin, improved chronic atrial fibrillation on Coumadin which is on hold now. history of nonischemic cardiomyopathy with ejection fraction of 40% chronic kidney disease, stage III. 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 COPD, not an exacerbation Hypertension N diabetes mellitus Diabetic neuropathy Hyperlipidemia History of osteoarthritis Plan: this is a pleasant 78 years old male who presents with GI bleed and elevated troponin. Keep monitoring hemoglobin. Hold Coumadin. We'll discuss with GI team their recommendation when to restart Coumadin or and aspirin. Monitor hemoglobin.recheck FOBT again. cardiology and gastroenterology consults are appreciated Labs and medication were reviewed.. Continue same treatment. Continue with symptomatic treatment. Resume home medication. Monitor lytes and vitals. DVT and GI prophylaxis. Further recommendations of the clinical course of the patient DVT prophylaxis: no anticoagulation in view of GI bleed GI Prophylaxis: Protonix Prognosis is guarded
[2019-04-15] MEDS ORDERED: ALPRAZolam 0.5 MG TAB PO PRN (10:32)
--- NOTE | 2019-04-15 10:55 | P.PN ---
Progress Note - Text Progress Note Date: 04/15/19 This is an addendum to the cardiology progress note dictated earlier today. Because this is a recurrent episode of bleeding after patient had been resumed back on Coumadin, he had a discussion with Dr. Thrasher and the decision was made at this time to hold the Coumadin and not resume it. Understanding the risk for stroke. DNP note has been reviewed, I agree with a documented findings and plan of care. Patient was seen and examined.
[2019-04-15] MEDS: SENNOSIDES-DOCUSATE SODIUM 1 EACH TAB PO SCH ×2 (11:14→21:51)
--- NOTE | 2019-04-15 19:42 | P.PN ---
Subjective Progress Note Date: 04/15/19 Principal diagnosis: Melena, anemia of acute blood loss Patient seen at bedside. Tolerated diet and denies any bowel movements or signs or symptoms of GI bleeding. Objective - Vital Signs Vital signs: Vital Signs Temp 98 F 04/15/19 16:10 Pulse 68 04/15/19 16:10 Resp 17 04/15/19 16:10 BP 122/57 04/15/19 16:10 Pulse Ox 100 04/15/19 16:10 Intake & Output 04/15/19 04/15/19 04/16/19 06:59 18:59 06:59 Intake Total 720 Output Total 1200 Balance -480 Weight 107.9 kg Intake: Oral 720 Output: Urine 1200 Other: Voiding Method Toilet # Voids 2 - Exam On physical examination, patient appears comfortable in no apparent distress. HEAD: Normocephalic, atraumatic. EYES: No scleral icterus. No conjunctival injection. MOUTH: No lesions, tongue midline. NECK: Trachea midline, no gross abnormalities. CHEST: Clear to auscultation with no wheezing or rhonchi appreciated. HEART: S1-S2 appreciated. ABDOMEN: Soft, obese. Bowel sounds are positive. No organomegaly. No guarding or rigidity. EXTREMITIES: No pedal edema. SKIN: No rashes, no jaundice. NEUROLOGIC: Alert and oriented x3. No focal deficits. - Labs CBC & Chem 7: 04/15/19 06:44 04/15/19 06:44 Labs: Abnormal Lab Results - Last 24 Hours (Table) 04/15/19 04/15/19 Range/Units 06:44 06:44 RBC 2.95 L (4.30-5.90) m/uL Hgb 8.3 L (13.0-17.5) gm/dL Hct 28.6 L (39.0-53.0) % MCHC 29.2 L (31.0-37.0) g/dL RDW 16.0 H (11.5-15.5) % Lymphocytes # 0.7 L (1.0-4.8) k/uL Glucose 202 H (74-99) mg/dL Assessment and Plan (1) GI bleed Narrative/Plan: 78-year-old presenting for evaluation of shortness of breath and melena with hemoglobin found to be 6.8. The patient has been evaluated for similar symptoms since 04/2017 when video capsule endoscopy showed evidence of small bowel bleed. Enteroscopy performed after the positive study was negative for source of blee ding. Recently admitted on 02/2019 repeat EGD again was negative for any source of bleeding with only gastritis noted. Since his presentation to the hospital no further reports of melena. He was brought for a push enteroscopy with no old blood, active bleeding or pathology to explain GI bleed found. Current Visit: Yes Status: Acute Code(s): K92.2 - GASTROINTESTINAL HEMORRHAGE, UNSPECIFIED SNOMED Code(s): 41627521 (2) Acute blood loss anemia Current Visit: No Status: Acute Code(s): D62 - ACUTE POSTHEMORRHAGIC ANEMIA SNOMED Code(s): 227248044 Plan: Supportive care Okay for diet Continue to monitor hemoglobin and hematocrit and transfuse as needed Continue Protonix 40 mg twice daily Continue to monitor for signs or symptoms of GI bleeding Okay to resume anticoagulation per cardiology recommendations Thank you for allowing us to participate in the care of the patient okay for discharge from gastroenterology, we'll standby please call us back with any questions or concerns
[2019-04-16 06:08] VITALS: RESP 18
[2019-04-16 06:12] LABS: Glucose,Whole Blood 183 mg/dL (75-99)
[2019-04-16] MEDS: PANTOPRAZOLE 40 MG TABLET PO SCH (06:56)
[2019-04-16 07:49] LABS: Calcium 8.4 mg/dL (8.4-10.2); Potassium 3.9 mmol/L (3.5-5.1)
[2019-04-16] MEDS: FERROUS SULFATE 325 MG TAB PO SCH (08:41)
[2019-04-16] MEDS: CYANOCOBALAMIN 500 MCG TAB PO SCH (08:41)
[2019-04-16] MEDS: SENNOSIDES-DOCUSATE SODIUM 1 EACH TAB PO SCH (08:41)
[2019-04-16] MEDS: FUROSEMIDE 40 MG TAB PO SCH (08:41)
[2019-04-16] MEDS: ALLOPURINOL 100 MG TAB PO SCH (08:41)
[2019-04-16 08:43] LABS: Basophils % (A) 1 %; Eosinophils # (A) 0.2 k/uL (0-0.7); Eosinophils % (A) 4 %; HCT 28.6 % (39.0-53.0); HGB 8.1 gm/dL (13.0-17.5); Hypochromasia Marked; Lymphocytes # (A) 0.8 k/uL (1.0-4.8); Lymphocytes % (A) 17 %; MCH 27.5 pg (25.0-35.0); MCHC 28.4 g/dL (31.0-37.0); MCV 96.8 fL (80.0-100.0); Mean Platelet Volume 7.4; Monocytes # (A) 0.2 k/uL (0-1.0); Monocytes % (A) 5 %; Neutrophils # (A) 3.5 k/uL (1.3-7.7); Neutrophils % (A) 72 %; Platelet Count 153 k/uL (150-450); Poikilocytosis Slight; RBC 2.95 m/uL (4.30-5.90); RDW 15.3 % (11.5-15.5); WBC 4.9 k/uL (3.8-10.6)
[2019-04-16 10:26] VITALS: BP 108/66; PULSE 63; TEMP 98.2
--- NOTE | 2019-04-16 10:53 | P.PN ---
Subjective Progress Note Date: 04/16/19 This is a 78-year-old gentleman with known history of chronic persistent atrial fibrillation, valvular heart disease status post aortic valve replacement, anemia secondary to GI bleed, hypertension, hyperlipidemia, who presented to the hospital with symptoms of progressively worsening shortness of breath. Patient was found to be significantly anemic with a hemoglobin of 6.3 and was admitted for the same. He did receive 2 units of blood transfusion after which his breathing had stabilized. His stool is also positive for occult blood. On his most recent admission patient underwent an EGD that was negative and GI advised resuming anticoagulation. At the time of my examination this morning, patient does feel that he has more edema in his lower extremities, he's complaining of some orthopnea this morning as well. His blood pressure 106/50 with a heart rate in the 50s, 100% on room air, temperature 90.8. White blood cell count 4.6, hemoglobin 8.2, platelet count 146. INR this morning 1.5, sodium 139, potassium 4.0, BUN 18 and creatinine 1.2. BNP level 2009. 04/15/2019 Patient seen and examined this morning, feeling better overall. Hemoglobin today is 8.3, sodium 138, potassium 4.0, BUN 19 and creatinine 1.9. Colonoscopy was performed yesterday which did not reveal any evidence of active bleeding, old blood or pathology to explain his anemia. Blood pressure 110/50 with a heart rate in the 50s. 04/16/2019 Patient seen and examined this morning, feels well, up ambulating in his room. Blood pressure 108/60 with a heart rate in the 60s, 97% on room air. White blo od cell count 4.9, hemoglobin 8.1, platelet count 153. Sodium 137, potassium 3.9, BUN 18 and creatinine 1.1. Objective - Vital Signs Vital signs: Vital Signs Temp 98.2 F 04/16/19 08:00 Pulse 63 04/16/19 08:00 Resp 18 04/16/19 08:00 BP 108/66 04/16/19 08:00 Pulse Ox 97 04/16/19 08:00 Intake & Output 04/15/19 04/16/19 04/16/19 18:59 06:59 18:59 Intake Total 720 440 Output Total 1200 600 Balance -480 -600 440 Weight 108.6 kg Intake: IV 10 Invasive Line 1 10 Oral 720 430 Output: Urine 1200 600 Other: Voiding Method Toilet Toilet # Voids 4 - Exam PHYSICAL EXAMINATION: GENERAL: 78-year-old gentleman in no acute distress at the time of my examination HEENT: Head is atraumatic, normocephalic. Pupils equal, round. Sclera anicteric. Conjunctiva are clear. Mucous membranes of the mouth are moist. Neck is supple. There is no elevated jugular venous pressure. No carotid bruit is heard. HEART EXAMINATION: Heart S1 and S2 irregularly irregular a systolic murmur is heard CHEST EXAMINATION: Lungs reveal diminished air entry to bilateral bases. ABDOMEN: Soft, nontender. Bowel sounds are heard. No organomegaly noted. EXTREMITIES: 2+ peripheral pulses with 1-2+ evidence of peripheral edema and no calf tenderness noted. NEUROLOGIC patient is awake, alert and oriented 3. . - Labs CBC & Chem 7: 04/16/19 06:33 04/16/19 06:33 Labs: Abnormal Lab Results - Last 24 Hours (Table) 04/16/19 04/16/19 04/16/19 Range/Units 06:09 06:33 06:33 RBC 2.95 L (4.30-5.90) m/uL Hgb 8.1 L (13.0-17.5) gm/dL Hct 28.6 L (39.0-53.0) % MCHC 28.4 L (31.0-37.0) g/dL Lymphocytes # 0.8 L (1.0-4.8) k/uL Glucose 156 H (74-99) mg/dL POC Glucose (mg/dL) 183 H (75-99) mg/dL Assessment and Plan Plan: Assessment and plan #1 symptoms of shortness of breath, secondary to symptomatic anemia #2 anemia secondary to GI blood loss #3 chronic persistent atrial fibrillation, at present not a candidate for anticoagulation because of GI bleed, patient had a recent EGD performed this last admission, he will need to have a colonoscopy before resuming anticoagulation at this time. #4 history of aortic valve replacement #5 diabetes #6 hypertension #7 hyperlipidemia #8 systolic congestive heart failure acute on chronic Plan From cardiology's perspective, we'll recommend to continue this patient on his current medications, hold off on any Coumadin at this time. This was discussed with the patient in detail DNP note has been reviewed, I agree with a documented findings and plan of care. Patient was seen and examined.
--- NOTE | 2019-04-16 11:32 | P.DS ---
Providers Date of admission: 04/11/19 14:47 Attending physician: Geo Chung MD Consults: 04/11/19 14:50 Consult Physician Routine Consulting Provider: Gary Jc Consult Reason/Comments: Elevated troponin Do you want consulting provider notified?: Yes Primary care physician: Faizan Ba [facility] Course: 78-year-old male was admitted secondary to GI bleed and patient is on Coumadin as well as aspirin at home. Patient was evaluated by gastroenterology and patienthe appears to have upper GI bleed. Patient will be discharged on Protonix patient's Coumadin is being discontinued risk of stroke was discussed with the patient. Please refer to cleaning laborer documentation for further details. Patient is euvolemic and the patient has chronic systolic dysfunction presently not in acute exacerbation patient will be discharged on 40 mg of Lasix but he does have pedal edema part of which is nonpitting and secondary to chronic venous insufficiency.patient's hemoglobin was 6.8 on admission and received blood transfusions no active bleeding patient is found to have gastritis. PHYSICAL EXAMINATION: GENERAL: The patient is alert and oriented x3, not in any acute distress. Well developed, well nourished. HEENT: Pupils are round and equally reacting to light. EOMI. No scleral icterus. No conjunctival pallor. Normocephalic, atraumatic. No pharyngeal erythema. No thyromegaly. CARDIOVASCULAR: S1 and S2 present. No murmurs, rubs, or gallops. PULMONARY: Chest is clear to auscultation, no wheezing or crackles. ABDOMEN: Soft, nontender, nondistended, normoactive bowel sounds. No palpable organomegaly. MUSCULOSKELETAL: No joint swelling or deformity. EXTREMITIES: No cyanosis, clubbing, bilateral pedal edema NEUROLOGICAL: Gross neurological examination did not reveal any focal deficits. SKIN: No rashes. GI bleed. Push enteroscopy showing no source of bleeding. elevated troponin 0.09. Coagulopathy secondary to Coumadin, improved chronic atrial fibrillation on Coumadin is being discontinued upon discharge aspirin 81 mg patient has chronic persistent atrial fibrillation history of nonischemic cardiomyopathy with ejection fraction of 40% chronic kidney disease, stage III. 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 COPD, not an exacerbation Hypertension N diabetes mellitus Diabetic neuropathy Hyperlipidemia Patient Condition at Discharge: Fair Plan - Discharge Summary New Discharge Prescriptions: New Omeprazole [PriLOSEC] 40 mg PO AC-BRKFST #30 capsule.dr Discontinued Warfarin [Coumadin] 10 mg PO DAILY Famotidine [Pepcid] 20 mg PO BID #60 tablet No Action Allopurinol [Zyloprim] 100 mg PO DAILY Ferrous Gluconate 324 mg PO BID Furosemide [Lasix] 40 mg PO DAILY Glimepiride [Amaryl] 2 mg PO AC-BRKFST Calcitriol 0.25 mcg PO [place] Cyanocobalamin (Vitamin B-12) [Vitamin B-12] 1,000 mcg PO DAILY Aspirin [[place] Aspirin EC] 81 mg PO DAILY Discharge Medication List Allopurinol [Zyloprim] 100 mg PO DAILY 01/11/18 [History] Ferrous Gluconate 324 mg PO BID 01/11/18 [History] Furosemide [Lasix] 40 mg PO DAILY 02/16/18 [History] Glimepiride [Amaryl] 2 mg PO AC-BRKFST 02/16/18 [History] Aspirin [[place] Aspirin EC] 81 mg PO DAILY 12/08/18 [History] Calcitriol 0.25 mcg PO [place] 12/08/18 [History] Cyanocobalamin (Vitamin B-12) [Vitamin B-12] 1,000 mcg PO DAILY 12/08/18 [History] Omeprazole [PriLOSEC] 40 mg PO AC-BRKFST #30 capsule. 04/16/19 [Rx] Follow up Appointment(s)/Referral(s): Kristin Jc MD [STAFF PHYSICIAN] - 05/08/19 2:00 pm (Tuesday at [facility]) Faizan Ba DO [Primary Care Provider] - 1-2 days (Office is closed. Please call to schedule appointment) Gary Jc MD [STAFF PHYSICIAN] - 04/27/19 11:00 am (Tuesday) Patient Instructions/Handouts: Gastrointestinal Bleeding (DC), Iron Rich Diet (DC) Discharge Disposition: HOME SELF-CARE
== END 2019-04-16 11:41 | disposition home or self-care (01) | DRG 378 ==
LOC: EC 10:40 → 3SCARD 14:47
PROVIDERS: ADMIT Internal Medicine; ATTEND Internal Medicine
PROC: 30233N1 Transfusion of Nonautologous Red Blood Cells into Peripheral Vein, Percutaneous Approach (ICD-10-PCS; 2019-04-11)
PROC: 0DJ08ZZ Inspection of Upper Intestinal Tract, Via Natural or Artificial Opening Endoscopic (ICD-10-PCS; principal; 2019-04-14 10:00)
DX: K92.1 Melena (principal); D62 Acute posthemorrhagic anemia; I13.0 Hypertensive heart and chronic kidney disease with heart failure and stage 1 through stage 4 chronic kidney disease, or unspecified chronic kidney disease; I42.9 Cardiomyopathy, unspecified; I48.1 Persistent atrial fibrillation; I50.22 Chronic systolic (congestive) heart failure; E11.22 Type 2 diabetes mellitus with diabetic chronic kidney disease; E11.40 Type 2 diabetes mellitus with diabetic neuropathy, unspecified; E78.5 Hyperlipidemia, unspecified; H91.90 Unspecified hearing loss, unspecified ear; I35.0 Nonrheumatic aortic (valve) stenosis; Z79.01 Long term (current) use of anticoagulants; Z95.2 Presence of prosthetic heart valve; I87.2 Venous insufficiency (chronic) (peripheral); J44.9 Chronic obstructive pulmonary disease, unspecified; N18.3 Chronic kidney disease, stage 3 (moderate); R79.1 Abnormal coagulation profile; T45.515A Adverse effect of anticoagulants, initial encounter; Z79.4 Long term (current) use of insulin; Z79.82 Long term (current) use of aspirin; Z79.899 Other long term (current) drug therapy; Z87.891 Personal history of nicotine dependence; Z90.49 Acquired absence of other specified parts of digestive tract; Z86.010 Personal history of colon polyps; Z88.5 Allergy status to narcotic agent
CPT/HCPCS: 36415; 44360; 71046; 80048; 80053; 82272; 83735; 83880; 84484; 85025; 85610; 85730; 86850; 86900; 86901; 86920; 93005; 99285

== ENCOUNTER → 2019-06-07 | Outpatient (CLI) | payer MEDICARE ==
[2019-06-07 19:05] LABS: African American GFR (CKD) 51.7 (60.0-200.0); Anion Gap 8.4 mmol/L (4.00-12.00); Carbon Dioxide 27.6 mmol/L (21.6-31.8); Potassium 3.9 mmol/L (3.5-5.5)
== END | disposition home or self-care (01) ==
LOC: LABWHC1 14:47
PROVIDERS: ATTEND Internal Medicine Cardiovascular Disease
DX: I50.22 Chronic systolic (congestive) heart failure (principal); I50.84 End stage heart failure
CPT/HCPCS: 36415; 80051; 82565; 83880; 84520

== ENCOUNTER 2019-08-26 16:04 | Emergency (ER) | payer MEDICARE ==
[2019-08-26 16:16] VITALS: BP 122/58; PULSE 57; RESP 18; TEMP 97.9
--- NOTE | 2019-08-26 17:41 | ED ---
Recheck HPI - General Chief Complaint: Recheck/Abnormal Lab/Rx Stated Complaint: Rectal pain Time Seen by Provider: 08/26/19 17:09 Source: patient, RN notes reviewed, old records reviewed Mode of arrival: ambulatory Limitations: no limitations - History of Present Illness Initial Comments: Patient is a 79 year old male, presents today for pain in rectum and feeling large bulge after having a BM today. Patient reports he felt a golfball sized lump at the rectum and it is tender. Patient reports no history of hemorrhoids. Denies abdominal pain. Reports he had a normal stool, denies constipation. - Related Data Home Medications Medication Instructions Recorded Confirmed Allopurinol [Zyloprim] 100 mg PO DAILY 01/11/18 04/11/19 Ferrous Gluconate 324 mg PO BID 01/11/18 04/11/19 Furosemide [Lasix] 40 mg PO DAILY 02/16/18 04/11/19 Glimepiride [Amaryl] 2 mg PO AC-BRKFST 02/16/18 04/11/19 Aspirin [[place] Aspirin EC] 81 mg PO DAILY 12/08/18 04/11/19 Calcitriol 0.25 mcg PO [place] 12/08/18 04/11/19 Cyanocobalamin (Vitamin B-12) 1,000 mcg PO DAILY 12/08/18 04/11/19 [Vitamin B-12] Previous Rx's Medication Instructions Recorded Omeprazole [PriLOSEC] 40 mg PO -KFST #30 capsule. 04/16/19 Hydrocortisone [Anusol-Hc] 1 applic RECTAL TID #60 gm 08/26/19 Polyethylene Glycol 3350 [Miralax] 17 gm PO DAILY #20 packet 08/26/19 Allergies Allergy/AdvReac Type Severity Reaction Status Date / Time codeine Allergy Rash/Hives Verified 08/26/19 16:12 Review of Systems ROS Statement: Those systems with pertinent positive or pertinent negative responses have been documented in the HPI. ROS Other: All systems not noted in ROS Statement are negative. Past Medical History Past Medical History: Atrial Fibrillation, Heart Failure, COPD, Diabetes Mellitus, Hearing Disorder / Deafness, Hyperlipidemia, Hypertension, Osteoarthritis (OA), Vascular Disorder Additional Past Medical History / Comment(s): Viral myocarditis & pericarditis 1979, IDDM type II, neuropathy bilateral feet and occasionally in bilateral hands, L thigh varicose veins, venous insufficiency, [place] bilaterally. gangrenous gallbladder-removed History of Any Multi-Drug Resistant Organisms: None Reported Past Surgical History: Cardiac Valve Replacement, Cholecystectomy, Heart Cat heterization, Orthopedic Surgery Additional Past Surgical History / Comment(s): vein stripping of left leg, carpel tunnel right hand, YAS, cataract safia. eyes with implants, pe riocardiocentesis -1979, aortic valve repair-March, colonoscopies/benign polypectomy, EGD with benign polypectomy. Past Anesthesia/Blood Transfusion Reactions: No Reported Reaction Additional Past Anesthesia/Blood Transfusion Reaction / Comment(s): Pt has received blood without reaction. Past Psychological History: No Psychological Hx Reported Smoking Status: Former smoker Past Alcohol Use History: None Reported Past Drug Use History: None Reported - Past Family History Mother Additional Family Medical History / Comment(s): Mother at the age of 98yrs from heart problems. Father Family Medical History: No Reported History Additional Family Medical History / Comment(s): Father in a MVA at the age of 59yrs. Sister(s) Family Medical History: Cancer General Exam - General Exam Comments Initial Comments: 79 year old male, no distress. Limitations: no limitations General appearance: alert, in no apparent distress Head exam: Present: atraumatic, normocephalic, normal inspection Eye exam: Present: normal appearance, PERRL, EOMI. Absent: scleral icterus, conjunctival injection, periorbital swelling ENT exam: Present: normal exam, mucous membranes moist Neck exam: Present: normal inspection. Absent: tenderness, meningismus, lymphadenopathy Respiratory exam: Present: normal lung sounds bilaterally. Absent: respiratory distress, wheezes, rales, rhonchi, stridor Cardiovascular Exam: Present: regular rate, normal rhythm, normal heart sounds. Absent: systolic murmur, diastolic murmur, rubs, gallop, clicks GI/Abdominal exam: Present: soft, normal bowel sounds. Absent: distended, te nderness, guarding, rebound, rigid Rectal exam: Present: normal rectal tone, hemorrhoids (large hemorrhoid). Absent: normal inspection Extremities exam: Present: normal inspection, full ROM, normal capillary refill. Absent: tenderness, pedal edema, joint swelling, calf tenderness Back exam: Present: normal inspection Neurological exam: Present: alert, oriented X3, CN II-XII intact Psychiatric exam: Present: normal affect, normal mood Skin exam: Present: warm, dry, intact, normal color. Absent: rash Course Vital Signs 08/26/19 16:12 Temperature 97.9 F Pulse Rate 57 L Respiratory 18 Rate Blood Pressure 122/58 O2 Sat by Pulse 95 Oximetry Medical Decision Making - Medical Decision Making 79 year old male with large hemorrhoid after BM today. Discussed that patient can do sitz baths, anusol cream and follow up with surgeon. Discussed return parameters. Disposition Clinical Impression: Hemorrhoid Disposition: HOME SELF-CARE Condition: Good Instructions (If sedation given, give patient instructions): Hemorrhoids (ED) Additional Instructions: Patient advised to do sits baths. Take stool softeners as directed. Use witch martir wipes. Patient can apply the cream over the hemorrhoid. Recommended using donut pillow and following up with surgeon. Prescriptions: Hydrocortisone [Anusol-Hc] 1 applic RECTAL TID #60 gm Polyethylene Glycol 3350 [Miralax] 17 gm PO DAILY #20 packet Is patient prescribed a controlled substance at d/c from ED?: No Referrals: Faizan Ba DO [Primary Care Provider] - 1-2 days Armand Rangel DO [Doctor of Osteopathic Medicine] - 1-2 days Mary Melgar MD [STAFF PHYSICIAN] - 1-2 days Time of Disposition: 17:39
== END 2019-08-26 18:04 | disposition home or self-care (01) ==
LOC: EC 16:04
DX: K64.9 Unspecified hemorrhoids (principal); I11.0 Hypertensive heart disease with heart failure; I50.9 Heart failure, unspecified; I48.91 Unspecified atrial fibrillation; E11.42 Type 2 diabetes mellitus with diabetic polyneuropathy; Z79.82 Long term (current) use of aspirin; Z79.84 Long term (current) use of oral hypoglycemic drugs; Z79.899 Other long term (current) drug therapy; Z88.5 Allergy status to narcotic agent; Z87.891 Personal history of nicotine dependence; Z95.4 Presence of other heart-valve replacement; Z95.5 Presence of coronary angioplasty implant and graft
CPT/HCPCS: 99283

== ENCOUNTER → 2019-09-20 | Outpatient (CLI) | payer MEDICARE ==
[2019-09-20 18:36] LABS: Anion Gap 10.3 mmol/L (4.00-12.00); Carbon Dioxide 25.7 mmol/L (21.6-31.8); Non-African American GFR(CKD) 52.6 (60.0-200.0); Potassium 4.7 mmol/L (3.5-5.5)
== END | disposition home or self-care (01) ==
LOC: LABWHC1 11:15
PROVIDERS: ATTEND Internal Medicine Cardiovascular Disease
DX: I50.23 Acute on chronic systolic (congestive) heart failure (principal)
CPT/HCPCS: 36415; 80051; 82565; 83880; 84520

== ENCOUNTER → 2019-12-04 | Outpatient (CLI) | payer MEDICARE ==
[2019-12-04 23:22] LABS: African American GFR (CKD) 47.5 (60.0-200.0); Anion Gap 11.6 mmol/L (4.00-12.00); Carbon Dioxide 24.4 mmol/L (21.6-31.8); Non-African American GFR(CKD) 40.9 (60.0-200.0); Potassium 4.3 mmol/L (3.5-5.5)
== END | disposition home or self-care (01) ==
LOC: LABWHC1 15:00
PROVIDERS: ATTEND Internal Medicine Cardiovascular Disease
DX: I50.22 Chronic systolic (congestive) heart failure (principal)
CPT/HCPCS: 36415; 80051; 82565; 84520

== ENCOUNTER → 2020-02-25 | Outpatient (CLI) | payer MEDICARE ==
[2020-02-25 12:35] LABS: Appearance,Urine Clear (Clear); Bilirubin,Urine Negative (Negative); Blood,Urine Negative (Negative); Color,Urine Light Yellow; Glucose,Urine (UA) Negative (Negative); Ketones,Urine Negative (Negative); Leukocyte Esterase,Urine Negative (Negative); Nitrite,Urine Negative (Negative); Protein,Urine Negative (Negative); Specific Gravity,Urine 1.007 (1.001-1.035); Urobilinogen,Urine <2.0 mg/dL (<2.0)
[2020-02-25 12:45] LABS: HGB 16.9 gm/dL (13.0-17.5); MCHC 32.5 g/dL (31.0-37.0); MCV 95.3 fL (80.0-100.0); Mean Platelet Volume 8.6; Platelet Count 137 k/uL (150-450); RBC 5.46 m/uL (4.30-5.90); RDW 13.8 % (11.5-15.5); WBC 6.9 k/uL (3.8-10.6)
[2020-02-25 18:28] LABS: African American GFR (CKD) 44.1 (60.0-200.0); Anion Gap 8.3 mmol/L (4.00-12.00); BUN/Creat Ratio 32.94 Ratio (12.00-20.00); Calcium 10.3 mg/dL (8.7-10.3); Carbon Dioxide 28.7 mmol/L (21.6-31.8); Magnesium 1.9 mg/dL (1.5-2.4); Non-African American GFR(CKD) 38.1 (60.0-200.0); Phosphorus 3.6 mg/dL (2.4-5.1); Potassium 4.8 mmol/L (3.5-5.5); Uric Acid 8.5 mg/dL (3.7-8.7)
== END | disposition home or self-care (01) ==
LOC: LABWHC1 11:49
PROVIDERS: ATTEND Nurse Practitioner Adult Health
DX: N18.3 Chronic kidney disease, stage 3 (moderate) (principal); D63.1 Anemia in chronic kidney disease; M10.9 Gout, unspecified; E55.9 Vitamin D deficiency, unspecified; N25.81 Secondary hyperparathyroidism of renal origin
CPT/HCPCS: 36415; 80048; 81003; 82306; 83735; 83970; 84100; 84550; 85027

== ENCOUNTER → 2020-09-15 | Outpatient (CLI) | payer MEDICARE ==
[2020-09-15 23:56] LABS: African American GFR (CKD) 47.1 (60.0-200.0); Anion Gap 7.7 mmol/L (4.00-12.00); BUN/Creat Ratio 17.5 Ratio (12.00-20.00); Calcium 9.2 mg/dL (8.7-10.3); Carbon Dioxide 28.3 mmol/L (21.6-31.8); Non-African American GFR(CKD) 40.7 (60.0-200.0); Potassium 4.4 mmol/L (3.5-5.5)
== END | disposition home or self-care (01) ==
LOC: LABWHC1 14:57
PROVIDERS: ATTEND Internal Medicine Cardiovascular Disease
DX: I50.23 Acute on chronic systolic (congestive) heart failure (principal)
CPT/HCPCS: 36415; 80048; 83880; 84443

== ENCOUNTER → 2020-10-22 | Outpatient (CLI) | payer MEDICARE ==
[2020-10-23 04:02] LABS: African American GFR (CKD) 43.8 (60.0-200.0); Anion Gap 17.5 mmol/L (4.00-12.00); BUN/Creat Ratio 31.76 Ratio (12.00-20.00); Calcium 9.8 mg/dL (8.7-10.3); Carbon Dioxide 24.5 mmol/L (21.6-31.8); Non-African American GFR(CKD) 37.8 (60.0-200.0); Potassium 3.9 mmol/L (3.5-5.5)
== END | disposition home or self-care (01) ==
LOC: LABWHC1 13:49
PROVIDERS: ATTEND Internal Medicine Cardiovascular Disease
DX: I50.22 Chronic systolic (congestive) heart failure (principal)
CPT/HCPCS: 36415; 80048

== ENCOUNTER → 2021-04-28 | Outpatient (CLI) | payer MEDICARE ==
[2021-04-28 18:33] LABS: HCT 46.4 % (39.6-50.0); HGB 15.2 g/dL (13.0-17.0); MCH 32.8 pg (27.0-32.0); MCHC 32.8 g/dL (32.0-37.0); MCV 100.2 fL (80.0-97.0); Mean Platelet Volume 11.4 fL (9.5-12.2); Platelet Count 140 X 10*3/uL (140-440); RBC 4.63 X 10*6/uL (4.40-5.60); RDW 14.1 % (11.5-14.5)
[2021-04-28 22:30] LABS: Hemoglobin A1C 7.8 % (4.0-6.0)
[2021-04-29 04:08] LABS: African American GFR (CKD) 47.1 (60.0-200.0); Albumin 4.5 g/dL (3.80-4.90); Albumin/Globulin Ratio 1.73 (1.60-3.17); Anion Gap 11.3 mmol/L (4.00-12.00); BUN/Creat Ratio 27.5 Ratio (12.00-20.00); Calcium 9.5 mg/dL (8.7-10.3); Carbon Dioxide 22.7 mmol/L (21.6-31.8); Chol/HDL Ratio 5.46; Globulin 2.6 g/dL (1.6-3.3); LDL Cholesterol,Calculated 90.8 mg/dL (0.0-131.0); Non-African American GFR(CKD) 40.7 (60.0-200.0); Potassium 4.5 mmol/L (3.5-5.5); Total Bilirubin 0.7 mg/dL (0.3-1.2); Total Protein 7.1 g/dL (6.2-8.2); VLDL Calculation 34.2 mg/dL (5.00-40.00)
== END | disposition home or self-care (01) ==
LOC: LABWHC1 13:45
PROVIDERS: ATTEND Internal Medicine Cardiovascular Disease
DX: I50.22 Chronic systolic (congestive) heart failure (principal); I34.0 Nonrheumatic mitral (valve) insufficiency; I25.10 Atherosclerotic heart disease of native coronary artery without angina pectoris; E11.65 Type 2 diabetes mellitus with hyperglycemia
CPT/HCPCS: 36415; 80053; 80061; 83036; 84443; 85027

== ENCOUNTER → 2022-06-24 | Outpatient (CLI) | payer MEDICARE ==
[2022-06-24 14:38] LABS: Anion Gap 12.1 mmol/L (10.00-18.00); Blood Urea Nitrogen 55.5 mg/dL (9.0-27.0); Carbon Dioxide 25.9 mmol/L (20.0-27.5); Potassium 4.5 mmol/L (3.5-5.5)
== END | disposition home or self-care (01) ==
LOC: LABWHC1 09:34
PROVIDERS: ATTEND Internal Medicine Cardiovascular Disease
DX: I50.22 Chronic systolic (congestive) heart failure (principal)
CPT/HCPCS: 36415; 80051; 83880; 84520

== ENCOUNTER → 2022-12-16 | Outpatient (CLI) | payer MEDICARE ==
[2022-12-16 15:49] LABS: ALT 13 U/L (10-49); AST 20 U/L (14-35); Albumin 4.7 g/dL (3.8-4.9); Albumin/Globulin Ratio 1.61 (1.60-3.17); Alkaline Phosphatase 65 U/L (41-126); BUN/Creat Ratio 36.83 Ratio (12.00-20.00); Blood Urea Nitrogen 95.4 mg/dL (9.0-27.0); Calcium 10.2 mg/dL (8.7-10.3); Carbon Dioxide 24.5 mmol/L (20.0-27.5); Chloride 94 mmol/L (96-109); Chol/HDL Ratio 5.58 Ratio; Globulin 2.9 g/dL (1.6-3.3); Glucose 145 mg/dL (70-110); LDL Cholesterol,Calculated 101.5 mg/dL (0.0-131.0); Non-African American GFR(CKD) 22.4 (60.0-200.0); Potassium 4.7 mmol/L (3.5-5.5); Sodium 135 mmol/L (135-145); Total Protein 7.6 g/dL (6.2-8.2)
== END | disposition home or self-care (01) ==
LOC: LABWHC1 09:15
PROVIDERS: ATTEND Internal Medicine Endocrinology, Diabetes & Metabolism
DX: E11.65 Type 2 diabetes mellitus with hyperglycemia (principal)
CPT/HCPCS: 36415; 80053; 80061; 82043; 82570; 83036; 84443

== ENCOUNTER → 2023-01-03 | Outpatient (CLI) | payer MEDICARE ==
[2023-01-03 16:13] LABS: Basophils # (A) 0.06 X 10*3/uL (0.00-0.10); Basophils % (A) 0.6 %; Eosinophils # (A) 0.24 X 10*3/uL (0.04-0.35); Eosinophils % (A) 2.5 %; HCT 42.8 % (39.6-50.0); HGB 14.2 g/dL (13.0-17.0); Immature Grans, Automated 0.5 %; Lymphocytes # (A) 0.92 X 10*3/uL (0.90-5.00); Lymphocytes % (A) 9.4 %; MCH 31.5 pg (27.0-32.0); MCHC 33.2 g/dL (32.0-37.0); MCV 94.9 fL (80.0-97.0); Mean Platelet Volume 10.9 fL (9.5-12.2); Monocytes # (A) 0.43 X 10*3/uL (0.20-1.00); Monocytes % (A) 4.4 %; NRBC Per 100 WBC 0 /100 WBCS (0.0-0.0); Neutrophils # (A) 8.08 X 10*3/uL (1.80-7.70); Neutrophils % (A) 82.6 %; Platelet Count 133 X 10*3/uL (140-440); RBC 4.51 X 10*6/uL (4.40-5.60); WBC 9.78 X 10*3/uL (4.50-10.00)
[2023-01-03 16:23] LABS: % Iron Saturation 30.1 (15.00-50.00); Anion Gap 14.1 mmol/L (10.00-18.00); BUN/Creat Ratio 39.91 Ratio (12.00-20.00); Blood Urea Nitrogen 91.8 mg/dL (9.0-27.0); Calcium 9.7 mg/dL (8.7-10.3); Carbon Dioxide 23.9 mmol/L (20.0-27.5); Non-African American GFR(CKD) 25.9 (60.0-200.0); Phosphorus 3.7 mg/dL (2.4-5.1); Potassium 4.5 mmol/L (3.5-5.5); Uric Acid 4.8 mg/dL (3.7-8.7)
[2023-01-03 18:25] LABS: Appearance,Urine Clear (Clear); Bilirubin,Urine Negative (Negative); Blood,Urine Negative (Negative); Color,Urine Yellow (Yellow); Ketones,Urine Negative (Negative); Nitrite,Urine Negative (Negative); Specific Gravity,Urine 1.011 (1.001-1.030); Urobilinogen,Urine 0.2 (0.2,1.0)
[2023-01-03 18:54] LABS: Microalbumin Creatinine Ratio <30 mg/g Creat (0-30); Urine Creatinine 62.9 mg/dL (39.0-259.0)
[2023-01-03 19:39] LABS: Albumin 4.3 g/dL (3.8-4.9)
== END | disposition home or self-care (01) ==
LOC: LABWHC1 10:15
PROVIDERS: ATTEND Internal Medicine
DX: N25.81 Secondary hyperparathyroidism of renal origin (principal); N18.30 Chronic kidney disease, stage 3 unspecified; D63.1 Anemia in chronic kidney disease; E55.9 Vitamin D deficiency, unspecified; M10.9 Gout, unspecified; N39.0 Urinary tract infection, site not specified; R80.9 Proteinuria, unspecified
CPT/HCPCS: 36415; 80048; 81003; 82040; 82043; 82306; 82570; 82728; 83540; 83550; 83735; 83970; 84100; 84550; 85025

== ENCOUNTER → 2023-11-07 | Outpatient (CLI) | payer MEDICARE ==
[2023-11-07 15:39] LABS: BUN/Creat Ratio 26.61 Ratio (12.00-20.00); Blood Urea Nitrogen 61.2 mg/dL (9.0-27.0); Carbon Dioxide 23.2 mmol/L (21.6-31.8); Chloride 98 mmol/L (96-109); Glucose 185 mg/dL (70-110); Potassium 4.8 mmol/L (3.5-5.5); Sodium 135 mmol/L (135-145)
== END | disposition home or self-care (01) ==
LOC: LABWHC1 09:57
PROVIDERS: ATTEND Nurse Practitioner Adult Health
DX: N18.32 Chronic kidney disease, stage 3b (principal)
CPT/HCPCS: 36415; 80048

== ENCOUNTER → 2024-10-03 | Outpatient (CLI) | payer MEDICARE ==
[2024-10-03 14:35] LABS: Appearance,Urine Clear (Clear); Bilirubin,Urine Negative (Negative); Blood,Urine Negative (Negative); Color,Urine Colorless; Glucose,Urine (UA) Negative (Negative); Ketones,Urine Negative (Negative); Leukocyte Esterase,Urine Negative (Negative); Nitrite,Urine Negative (Negative); Protein,Urine Negative (Negative); Specific Gravity,Urine 1.006 (1.001-1.035); Urobilinogen,Urine <2.0 mg/dL (<2.0)
[2024-10-03 17:11] LABS: % Iron Saturation 32.65 (15.00-50.00); Calcium 9.4 mg/dL (8.7-10.3); Carbon Dioxide 25.8 mmol/L (21.6-31.8); Chloride 101 mmol/L (96-109); Glucose 155 mg/dL (70-110); Iron 95 UG/DL (65-175); Magnesium 2.1 mg/dL (1.5-2.4); Phosphorus 2.8 mg/dL (2.4-5.1); Potassium 4.5 mmol/L (3.5-5.5); Sodium 140 mmol/L (135-145); Total Iron Binding Capacity 291 UG/DL (228-460); Uric Acid 10.8 mg/dL (3.7-8.7)
[2024-10-03 20:25] LABS: Microalbumin Creatinine Ratio <63 mg/g Cr (0-30); Urine Creatinine 19.1 mg/dL (39.0-259.0)
== END | disposition home or self-care (01) ==
LOC: LABWHC1 11:28
PROVIDERS: ATTEND Nurse Practitioner Adult Health
DX: N18.32 Chronic kidney disease, stage 3b (principal)
CPT/HCPCS: 36415; 80048; 81003; 82043; 82306; 82570; 82728; 83540; 83550; 83735; 83970; 84100; 84550